=== PATIENT | male | born 1950 | race Caucasian/White ===

== ENCOUNTER → 2016-07-16 | Outpatient (CLI) | payer BC, OTHER ==
[~2016-07-16] MED LIST: AMLO5TAB4 PO; ASPI81TA28 PO; ATOR-24 PO; BUPR-79 PO; CARV12.52 PO; CLOP1TAB5 PO; CPAP; FERR1TAB23 PO; GLC/500 PO; LOSA1TAB38 PO; MULTTAB PO; OXGN; PANT1TAB48 PO; TERA5CAP PO
[2016-07-16 17:36] LABS: BASO % 0.3 %; BASO ABS # 0.02 K/uL (0-0.2); COMPLETE YES; EOS % 3.6 %; HEMATOCRIT 41.8 % (42-52); LYMPH % 31.6 %; LYMPH ABS # 2.13 K/uL (1.2-3.4); MEAN CELL VOLUME 92.1 fL (80-100); MEAN CORPUSCULAR HEMOGLOBIN 32.4 pg (25-34); MEAN CORPUSCULAR HGB CONC 35.2 g/dl (32-36); MEAN PLATELET VOLUME 10.2 fL (7.4-10.4); MONO % 11.6 %; NEUT % 52.9 %; PLATELET COUNT 213 K/uL (130-400); RED BLOOD COUNT 4.54 M/uL (4.7-6.1); WHITE BLOOD COUNT 6.74 K/uL (4.8-10.8)
[2016-07-16 17:38] LABS: URINE APPEARANCE CLEAR (CLEAR); URINE BILIRUBIN NEG (NEG); URINE COLOR YELLOW; URINE NITRITE NEG (NEG); URINE SPECIFIC GRAVITY 1.014 (1.000-1.030); UROBILINOGEN NEG (NEG)
[2016-07-16 17:39] LABS: MANUAL MICROSCOPIC REQUIRED? NO; REVIEW REQ? NO
[2016-07-16 17:45] LABS: PROTHROMBIN TIME (PATIENT) 10.6 SECONDS (9.0-12.0)
[2016-07-16 18:07] LABS: BLOOD UREA NITROGEN 14 mg/dl (7-18); BUN/CREATININE RATIO 14.6 (10-20); CALCIUM 9.2 mg/dl (8.5-10.1); CARBON DIOXIDE 30 mmol/L (21-32); CHLORIDE 104 mmol/L (98-107); CREATININE 0.99 mg/dl (0.60-1.40); GLUCOSE 125 mg/dl (70-99); POTASSIUM 4.3 mmol/L (3.5-5.1); SODIUM 141 mmol/L (136-145)
== END | disposition home or self-care (01) ==
LOC: C.LAB1850 17:02
PROVIDERS: ATTEND Internal Medicine
DX: R55 Syncope and collapse (principal)

== ENCOUNTER 2016-08-07 08:31 | Observation (INO) | payer BC, OTHER ==
[2016-08-07] VITALS (11 sets, daily range): BP systolic 119–134; BP diastolic 78–86; PULSE 76–82; TEMP 37–37.2; O2SAT 93–95; BMI 39.0; BMI 36.5
[~2016-08-07] VITALS: Ht 167.6 cm; Wt 102.0 kg
[~2016-08-07 08:31] MED LIST changes: +CEFAZOLIN 1000MG/55 ML D5W IV SCH; +CEFAZOLIN 2000 MG/60 ML D5W 60 ML IV SCH; +LACTATED RINGER'S 1000ML 1,000 ML IV SCH; -OXGN
[2016-08-07] MEDS ORDERED: OXGN (09:18)
--- NOTE | 2016-08-07 10:43 | History & Physical Bridge Note ---
H&P Re-Evaluation Bridge Note: I have examined the patient, reviewed the History & Physical and in the interval since the performance of the History & Physical I have noted the following changes of clinical significance: No changes noted. I discussed the indications, procedure, risks and alternatives of pacemaker implantation and loop recorder explantation the patient and his family and they understand and he agrees to proceed. Consent obtained.
--- NOTE | 2016-08-07 10:43 | Procedure Note ---
Pre-Mod Sedation Assessment General Date of Moderate Sedation: Aug 07, 2016. Vital Signs: Vital Signs Past 12 Hours Date Time Temp Pulse Resp B/P Pulse Ox O2 Delivery O2 Flow Rate FiO2 08/07/16 09:05 37.2 78 20 134/83 95 Room Air Review Cardiovascular: regular rate, rhythm Abdomen: normal bowel sounds Lungs: lungs clear Pre-Sedation Airway Assessment Oral Cavity: Chipped Teeth, Capped Teeth Smoking Status: Never Smoker Procedure Planning Contraindications-for Mod Sed: None Yes Notes The planned sedation has been discussed with the patient and consent obtained. I have identified the patient, determined the appropriateness of sedation and have assessed the patient immediately prior to the procedure. All medicine(s) and interventions are by my order.
[2016-08-07] MEDS ORDERED: FENTANYL CITRATE INJ 50 MCG/1 ML 2 ML VIAL ONE (11:04)
[2016-08-07] MEDS ORDERED: LIDOCAINE HCL 1% 20 ML VIAL ONE ×2 (11:05→11:43)
[2016-08-07] MEDS ORDERED: MIDAZOLAM HCL 5 MG/ML 1 ML VIAL ONE (11:05)
[2016-08-07] MEDS ORDERED: BACITRACIN OINT 0.9 GM PKT ONE ×2 (11:05→12:46)
[2016-08-07] MEDS ORDERED: BACITRACIN 50000 UNIT VIAL ONE (11:05)
--- NOTE | 2016-08-07 13:04 | Procedure Note ---
Post-Mod Sedation Assessment General Date of Moderate Sedation Aug 07, 2016. Vital Signs: Vital Signs Past 12 Hours Date Time Temp Pulse Resp B/P Pulse Ox O2 Delivery O2 Flow Rate FiO2 08/07/16 12:50 85 16 124/85 94 Room Air 08/07/16 12:45 Room Air 08/07/16 12:40 Room Air 08/07/16 12:35 72 16 120/79 95 Room Air 08/07/16 09:05 37.2 78 20 134/83 95 Room Air Review - Discharge Criteria Vital Signs Stable: Yes Alert/Oriented/Conversant: Yes Returned to Baseline Mental St: Yes Nausea Absent/Minimal: Yes Pain/Discomfort/Absent/Minimal: Yes Normal/Baseline Respirations: Yes Active Bleeding?: No
--- NOTE | 2016-08-07 13:06 | Cardiology Procedure Brief Nt ---
Preliminary Cardiology Note Procedure Date Aug 07, 2016. Pre-Procedure Diagnosis sick sinus syndrome Post-Procedure Diagnosis same Procedure(s) Performed Dual-chamber pacemaker implantation Loop recorder explantation Public Address System Operator Dr. Cruz Rental Counter Clerk(s) none Estimated Blood Loss 50 cc Preliminary Findings Good lead position, good measurements Recommendations Monitor overnight Specimens Old loop recorder, return to Medtronic Anesthesia local with sedation Complication(s) None Disposition PCU
[2016-08-07] MEDS ORDERED: ACETAMINOPHEN 325 MG TAB PO PRN (13:15)
[2016-08-07] MEDS ORDERED: KETOROLAC TROMETHAMINE 10 MG TAB PO PRN (13:15)
[2016-08-07] MEDS ORDERED: IV FLUIDS COMPLETED PRN (15:15)
--- NOTE | 2016-08-07 15:15 | OPERATIVE REPORT ---
DATE OF OPERATION: 08/07/2016 PREOPERATIVE DIAGNOSIS: Sick sinus syndrome. POSTOPERATIVE DIAGNOSIS: Same. PROCEDURE: 1. Left subclavian venogram. 2. Dual chamber implantable cardioverter-defibrillator implantation. 3. Loop recorder explantation. SURGEON: Jayson Cruz M.D. ANESTHESIA: Local with sedation. HISTORY OF PRESENT ILLNESS: This is a 66-year-old gentleman who has a history of coronary artery disease as well as syncope on 06/01/2016. The initial workup was negative and he had a loop recorder implanted on 07/26/2015. Interrogation of his loop recorder showed a heart rate of less than 30 beats per minute as well as pauses of up to 4 seconds in duration. A dual chamber pacemaker was recommended; however, the patient refused at the time. He has subsequently reconsidered and presents for loop recorder implantation. PROCEDURE: After obtaining informed consent for the procedure, he was brought to the laboratory on the morning of 08/07/2016 being NPO after midnight. He was identified in the laboratory, prepped and draped in standard sterile manner for a left-sided pacemaker implantation. Dye was injected via the left arm IV site to opacify the left subclavian vein, once this was done left subclavian venipuncture was performed by percutaneous technique and a guidewire placed through the left subclavian vein into the superior vena cava. The area was further infiltrated with 1% lidocaine local anesthetic and a 6 cm incision was made parallel to the left clavicle and 2 cm below it and carried down to the anterior pectoralis fascia. A pacemaker pocket was formed by blunt dissection anterior to the pectoralis fascia and a bacitracin-soaked sponge (50,000 units in 50 mL normal saline solution) was placed in the pocket. An 8-Grenadian Medtronic lead introducer was placed over the guidewire into the left subclavian vein, the dilator and guidewire were removed and a bipolar active fixation steroid-tipped ventricular lead was advanced through the introducer into the superior vena cava. The guidewire was placed back through introducer and introducer stripped away from lead and guidewire. Another 8-Grenadian Medtronic lead introducer was placed over the guidewire into the left subclavian vein, the dilator and guidewire were removed and a bipolar active fixation steroid-tipped atrial lead was advanced through introducer into the superior vena cava. The guidewire was placed through the introducer and introducer stripped away from lead and guidewire. Using a curved stylette, the ventricular lead was advanced through the right ventricular outflow tract into the pulmonary artery and then using a straight stylette was positioned in the right ventricular apex. Thresholds were poor therefore it was positioned in the mid-RVOT. Once in position, the ventricular pacing threshold was evaluated in bipolar configuration at a pulse width of 0.5 milliseconds. The final ventricular pacing threshold was 0.4 volts with a current of 0.4 mA, 5-volt lead impedance was 951 ohms and R-waves were sensed at 17.1 millivolts. Diaphragmatic pacing was not present with a 10 volt bipolar output. The atrial lead was positioned in the region of the atrial appendage and a screw extended fixing the lead in position. Once in position, atrial pacing threshold was evaluated in bipolar configuration at a pulse width of 0.5 milliseconds. Final atrial pacing threshold was 0.3 volts with a current of 0.4 milliamp, 5-volt lead impedance was 544 ohms and P-waves were sensed at 6.6 millivolts. Diaphragmatic pacing was not present with a 10 volt bipolar output. Once leads were in position, they were attached to the anterior pectoralis fascia using 2 sutures of 2-0 silk around each lead collar. The bacitracin-soaked sponge was removed from the pocket, the guidewire was removed from left subclavian vein and hemostasis was obtained. The pacemaker (Medtronic Advisa) was attached to the leads and found to be functioning normally. It was placed in the pocket with the leads coiled beneath it and the incision was closed with a running double subcutaneous closure of 3-0 Vicryl followed by running subcuticular skin closure of 4-0 Vicryl. Bacitracin ointment was placed on incision and a pressure dressing applied. The patient tolerated the procedure well, there were no complications and estimated blood loss was 50 mL. Once the pacemaker was then placed the loop recorder site was anesthetized with 1% lidocaine local anesthetic and a 1.5 cm incision was made and carried down to the loop recorder. The loop recorder was dissected free of tissue and explanted. This incision was closed with a running subcutaneous closure of 4-0 Vicryl followed by running subcuticular skin closure of 4-0 Vicryl. Bacitracin ointment was placed this incision and a pressure dressing applied. The link is a Medtronic model LNQ11, serial number [id number], implanted 07/26/2015. This will be returned to [facility]. The atrial lead is a Medtronic model 5076, serial number [id number] and is a bipolar active fixation steroid-tipped MRI compatible lead. The ventricular lead is a Medtronic model 5076, serial number [id number] and is a bipolar active fixation steroid-tipped MRI compatible lead. Pacemaker is a Medtronic Advisa DR MRI SureScan model A2DR01, serial number [id number]. The pacemaker was reprogrammed in the laboratory to final setting. GAYATRI
[2016-08-07] MEDS: CEFAZOLIN IV 2,000 MG in DEXTROSE 5% 50ML 50 ML IV SCH (19:45)
[2016-08-07] MEDS: METFORMIN HCL 500 MG TAB PO SCH (21:09)
[2016-08-07] MEDS: CARVEDILOL 12.5 MG TAB PO SCH (21:09)
[2016-08-08] VITALS: BP 103/70; PULSE 84; TEMP 37; O2SAT 92; O2SAT 98
[2016-08-08] MEDS: CEFAZOLIN IV 2,000 MG in DEXTROSE 5% 50ML 50 ML IV SCH ×2 (03:50→12:05)
[2016-08-08 04:00] VITALS: BP 99/67; PULSE 74; TEMP 36.8; O2SAT 92
--- NOTE | 2016-08-08 06:43 | DIAGNOSTIC IMAGING REPORT ---
CHEST 2 VIEWS ROUTINE CLINICAL HISTORY: Checks x-ray status post pacemaker placement COMPARISON STUDY: 07/22/2015 FINDINGS: The cardiac and mediastinal contours remain stable. There has been interval placement of a dual-chamber left subclavian central venous pacemaker. Electrodes position is unremarkable. There is no failure. There is no focal pulmonary consolidation. There are no pleural effusions. No pneumothorax is visualized.[ IMPRESSION: No evidence of pneumothorax status post placement of a left subclavian dual-chamber central venous pacemaker. Electronically signed by: Allan Delaney M.D. 08/08/2016 6:42 AM Dictated Date/Time: 08/08/2016 6:41 AM
[2016-08-08 07:26] VITALS: BP 112/70; PULSE 73; TEMP 36.8; O2SAT 94
--- NOTE | 2016-08-08 08:33 | Discharge Instructions ---
Discharge Instructions Admission Sick Sinus Syndrome Discharge Discharge Diagnosis / Problem: Dual-chamber pacemaker implantation, loop recorder explantation Discharge Goals Goal(s): Improve disease control Activity Recommendations Activity Limitations: as noted below ACTIVITY RECOMMENDATIONS: * Do not raise affected arm over head for 2 weeks. SPECIAL CARE INSTRUCTIONS: * If bleeding occurs, apply direct pressure to area for 5 minutes. * Call your doctor if you have severe pain, fever, drainage or bleeding at site. * Keep dressing on and dry for 48 hours then remove. * Keep any scheduled doctor's appointment. * Implant Card - hand held device with website information given. SKIN IRRITATION: * You may experience some redness and/or swelling in the area where radiation was administered. If any skin irritation occurs, please contact your family physician. FOLLOW UP VISIT: 08/11/16 @ 10:15 am . Current Hospital Diet Patient's current hospital diet: AHA Diet (Heart Healthy) Discharge Diet Recommended Diet: AHA Diet (Heart Healthy) Pending Studies Studies pending at discharge: no Medical Emergencies . Who to Call and When: Medical Emergencies: If at any time you feel your situation is an emergency, please call 911 immediately. . Non-Emergent Contact Non-Emergency issues call your: [employer] . . "Provider Documentation" section prepared by Katheryn Gary. VTE Core Measure Inpt VTE Proph given/why not?: Treatment not indicated
[2016-08-08 08:51] VITALS: Ht 167.6 cm; Wt 102.0 kg
[2016-08-08] MEDS ORDERED: AMLODIPINE BESYLATE 5 MG TAB PO SCH (09:00)
[2016-08-08] MEDS ORDERED: ATORVASTATIN 40 MG TAB PO SCH (09:00)
[2016-08-08] MEDS ORDERED: PANTOprazole SOD 40 MG TAB PO SCH (09:00)
[2016-08-08] MEDS ORDERED: LOSARTAN POTASSIUM 50 MG TAB PO SCH (09:00)
[2016-08-08] MEDS ORDERED: CLOPIDOGREL BISULFATE 75 MG TAB PO SCH (09:00)
[2016-08-08] MEDS ORDERED: ASPIRIN 81 MG ECTAB PO SCH (09:00)
--- NOTE | 2016-08-08 09:06 | Cardiology Follow-Up ---
Subjective Date of Service: Aug 08, 2016. Pt evaluation today including: conversation w/ patient, physical exam, lab review, review of studies, review of inpatient medication list History of Present Illness Patient with sick sinus syndrome, post dual-chamber pacemaker implantation 08/07. He feels well today, no complaints. Last evening he had some oozing from the incision itself, apply pressure to the incision site stop the bleeding, quit clot was placed over the area although there is no evident bleeding at this time. Hematoma was not present. Today he has no significant discomfort. No other complaints. Social History Smoking Status: Never Smoker History of Alcohol Use: Yes (moderate) Review of Systems Respiratory: No shortness of breath Cardiac: No chest pain Objective Vital Signs Past 12 Hours Date Time Temp Pulse Resp B/P Pulse Ox O2 Delivery O2 Flow Rate FiO2 08/08/16 07:26 36.8 73 16 112/70 94 Room Air 08/08/16 04:00 36.8 74 22 99/67 92 CPAP 08/08/16 04:00 92 Room Air 08/08/16 00:00 98 Room Air 08/08/16 00:00 37.0 84 18 103/70 92 CPAP 08/07/16 21:05 82 126/81 Last Recorded Weight-Kilograms: 102.000 Intake & Output 8-Hour Column 08/07/16 08/07/16 08/08/16 15:59 23:59 07:59 Intake Total 960 ml 100 ml Output Total 825 ml 250 ml Balance 135 ml -150 ml 24-Hour Column 08/08/16 07:59 Intake Total 1060 ml Output Total 1075 ml Balance -15 ml Physical Exam Constitutional: Level of Distress: NAD Lungs: Auscultation: breath sounds normal Extremities: no edema Data Laboratory Results: Last 24 Hours Test 08/07/16 09:03 08/07/16 16:04 08/07/16 20:21 Bedside Glucose 117 mg/dl 132 mg/dl 123 mg/dl Imaging: Chest x-ray shows good lead position and no pneumothorax EKG: Sinus rhythm with intrinsic AV conduction post-pacemaker implantation, appropriate inhibition Telemetry reviewed: Mostly sinus rhythm with occasional atrial pacing appropriately Pacemaker evaluation: Excellent pacing and sensing characteristics. Assessment and Plan 1. Postop day #1: Doing well post-pacemaker implantation, the site looks good, he feels well and the device is functioning well. Stable for discharge.
[2016-08-08] MEDS: CARVEDILOL 12.5 MG TAB PO SCH (09:13)
[2016-08-08] MEDS: METFORMIN HCL 500 MG TAB PO SCH (09:13)
--- NOTE | 2016-08-08 11:35 | Discharge Summary ---
Discharge Summary Admission Date: Aug 07, 2016 at 13:03 Discharge Date: Aug 08, 2016 Discharge Disposition: Home Primary Diagnosis: Sick sinus syndrome Secondary Diagnoses/Problems: Medical Problems: (1) Syncope Status: Acute Procedures: Dual-chamber pacemaker implantation, loop recorder explantation Discharge Instructions Last Recorded Wt (Kilograms): 102.000 Activity Recommendations: limitations as noted below Diet At Discharge: low sodium, low cholesterol Allergies: Coded Allergies: DAWN Inhibitors (Verified Adverse Reaction, Unknown, cough, 08/07/16) Additional Instructions: ACTIVITY RECOMMENDATIONS: * Do not raise affected arm over head for 2 weeks. SPECIAL CARE INSTRUCTIONS: * If bleeding occurs, apply direct pressure to area for 5 minutes. * Call your doctor if you have severe pain, fever, drainage or bleeding at site. * Keep dressing on and dry for 48 hours then remove. * Keep any scheduled doctor's appointment. * Implant Card - hand held device with website information given. SKIN IRRITATION: * You may experience some redness and/or swelling in the area where radiation was administered. If any skin irritation occurs, please contact your family physician. FOLLOW UP VISIT: Keep any scheduled doctor appointments. Special Care: Call your doctor if: * Temperature above 101 degrees * Pain not relieved by pain medicine ordered * There is increased drainage or redness from any incision * You have any unanswered questions or concerns. Avoid all tobacco products. If you need help to stop smoking, call [place]'s FREE QUITLINE at . This is a free call. Admission HPI Mr. Hannah is a 65-year-old white male with a history of CAD, type 2 diabetes mellitus, hyperlipidemia, hypertension, gout, and a history of syncope s/p implantable loop recorder Patient had a syncopal episode on 06/01/2016. was in his usual state of health on 06/01/2016 and went to quaker as he normally does. He stood for about 5 -10 minutes, but then he sat down and felt "warm all over", followed by the development a vacuous stare with dilated pupils and was nonresponsive. His family members got him down to the ground, and he came around very quickly and was mentating quite clearly. He had no recollection of this incident. He felt fine afterwards. His blood sugar and blood pressure were both within normal limits following this incident. His appetite and diet were stable leading up to this event. He did not have any associated nausea, vomiting, or diaphoresis. He does not recall any palpitations or chest discomfort. We interrogated his implantable loop recorder on 06/02/2016, and although we could not find any dysrhythmias associated with a syncopal episode the day before, he was noted to have periodic bradycardia with heart rates < 30 bpm, as well as cardiac pauses lasting up to 4 seconds. We strongly recommended placement of a dual-chamber pacemaker at that point, but patient refused. Patient denies any recurrent syncopal episodes, near syncopal episodes, weak spells or dizzy spells. He further denies any limiting cardiopulmonary symptoms or any recent changes in exertional tolerance. He specifically denies any exertional angina pectoris, chest pain, heaviness, tightness, or pressure. Denies any exertional neck, jaw, back, or arm pain. He denies any shortness of breath or unusual dyspnea on exertion. He denies any palpitations or tachypalpitations. He further denies any weak spells, dizzy spells or lightheaded spells. He remains compliant with his medications and denies any adverse side effects. Admission Physical Exam Additional Comments: General: Patient is in no acute distress. HEENT: Head is atraumatic, normocephalic. EOMs intact. Sclera anicteric. Facies symmetric. No perioral cyanosis. Neck: No thyromegaly, adenopathy, or JVD. Chest and lungs: Clear to auscultation throughout all lung lane, no wheezes or rales. CVS: S1 and S2 are regular without murmur, gallop, or rub. PMI is nondisplaced. No lifts, heaves, or thrills. No abdominal aortic or renal bruits. Abdominal exam: Bowel sounds are present. No masses, organomegaly, or tenderness. Extremities: No clubbing, cyanosis, or edema. Neurologic exam: Patient is awake, alert, and oriented. Pleasant and cooperative. Answers questions appropriately. Speech is clear. Normal movement in all 4 extremities. Gait pattern is slightly wide based, otherwise normal. Sensation intact to light touch over bilateral upper and lower extremities. Hospital Course Patient is a 66-year-old male with significant bradyarrhythmias documented on loop recorder underwent dual-chamber pacemaker implantation and loop recorder explantation on 2/2/[address] Cruz. He tolerated the procedure well. Device check the following day showed excellent sensing and pacing characteristics. CXR showed good lead placement and no evidence of pneumothorax. He was discharge home on 08/08/15. He will have follow-up in 3 days for an incision check and in 1 month for pacemaker check. Total time spent on discharge = This includes examination of the patient, discharge planning, medication reconciliation, and communication with other providers.
[2016-08-08 12:09] VITALS: BP 113/69; PULSE 101; TEMP 36.7; O2SAT 93
[2016-08-08 12:12] VITALS: BP 113/69; PULSE 101; TEMP 36.7; O2SAT 93
== END 2016-08-08 13:00 | disposition home or self-care (01) ==
LOC: C.ACU 08:31 → C.2T 13:03
PROVIDERS: ADMIT Internal Medicine Cardiovascular Disease; ATTEND Internal Medicine Cardiovascular Disease
DX: I49.5 Sick sinus syndrome (principal); I25.10 Atherosclerotic heart disease of native coronary artery without angina pectoris; I10 Essential (primary) hypertension; E11.9 Type 2 diabetes mellitus without complications; E78.5 Hyperlipidemia, unspecified; E66.9 Obesity, unspecified; G47.33 Obstructive sleep apnea (adult) (pediatric); Z79.82 Long term (current) use of aspirin

== ENCOUNTER → 2016-12-28 | Outpatient (CLI) | payer BC, OTHER ==
[~2016-12-28] MED LIST changes: -BUPR-79 PO; -CEFAZOLIN 1000MG/55 ML D5W IV SCH; -CEFAZOLIN 2000 MG/60 ML D5W 60 ML IV SCH; -LACTATED RINGER'S 1000ML 1,000 ML IV SCH; +OXGN
--- NOTE | 2016-12-29 06:22 | PAP/PSG TECHNICIAN REPORT ---
[facility] Digital Hardware Design Engineer Polysomnogram Report Study name: None Report date: 12/29/2016 Study date: 12/28/2016 Referring Physician: Rogelio Ramirez M.D. Name: ANURADHA HANNAH Denzel Interpreting Physician: Rogelio Ramirez M.D. Date of : 1950 Digital Hardware Design Engineer: Ciirlo Lee RPSGT. Sex: Male Age: 66 StudyType: PSG PAP Weight: 240 lbs Height: 66 years, Height 5' 5" BMI: 39.93 Medications: AMLODIPINE BESYLATE 5 MG, ASPIRIN 81 MG, ATORVASTATIN CALCIUM 40 MG, CARVEDILOL 25 MG, CLOPIDOGREL BISULFATE 75 MG, IRON, LISINOPRIL 40 MG, METFORMIN HCL 500 MG, PANTOPRAZOLE SODIUM 40 MG, TERAZOSIN HCL 5 MG Patient History PATIENT HAD A SLEEP STUDY DONE IN SEPTEMBER OF 2014. HE WAS POSITIVE FOR LAURENT WITH AN AHI OF 77.9/HR. HE CURRENTLY IS WEARING CPAP AT PRESSURE OF 12. ALSO, HE HAS BEEN WEARING 2L/MIN OF SUPPLEMENTAL OXYGEN AT NIGHT. HE IS HERE FOR AN UPDATE AND TO CHECK HIS OXYGEN LEVELS. RM 5 Parameters Monitored NPSG: E1-M2, E2-M1, Fp1-M2, Fp2-M1, F3-M2, F4-M2, F4-M1, C3-M2, C4-M2, C4-M1, O1-M2, O2-M2, O2-M1, T3-M2, T4-M1, P3-M2, P4-M1, CHIN1, CHIN2, HR, EKG, Legs, PFLOW, SNOR, FLOW, CFLOW, Tidal Volume, THOR, ABDO, SpO2, PLTH, CPRESS, ETCO2 Wave, ETCO2, pH Sleep Architecture Sleep Stages Time at Lights Off 10:57:57 PM STAGES Time (min.) TST (%) Time at Lights On 5:47:57 AM Wake 224.5 -- Total Recording Time (TRT) 410.50 min. N1 2.5 1 Total Sleep Period (TSP) 188.0 min. N2 86.5 47 Total Sleep Time (TST) 185.5min. N3 70.5 38 Awake Time 225.0 min. REM 26.0 14 Wake after Sleep Onset 95.0 min. Sleep Efficiency (SE) 45 % Sleep Onset Latency (ROSE) 129.5 min. Number of Stage 1 Shifts None Awakenings 4 Stage Changes 18 Number of REM periods 3 REM 26.0 14 REM Latency 34.0 min. NREM 159.5 86 Body Position Analysis Supine Right Left Side Prone Vertical Total Sleep Time (min.) 361.0 0.0 0.0 0.00 0.0 0.0 Total Sleep Time (%) 100% 0% 0% 0 0% N/A% Total Sleep Time REM (min.) 26.0 0.0 0.0 None 0.0 0.0 Total Sleep Time NREM (min.) 159.5 0.0 0.0 None 0.0 0.0 Intermittent Wake (min.) 175.5 49.0 0.0 None 0.0 0.0 Total Sleep Period (%) 100% None None None None None Arousals Myoclonus (PLM) * Events Count Index Events Count Index Spontaneous 4 1 Events Awake (PLMW) 216 57.7 Respiratory 5 1.6 Events Asleep w/ Arousal (PLMA) 7 2.3 PLM 7 2 Events Asleep w/o Arousal (PLMS) 76 24.6 Snoring 3 1 Total Asleep 83 26.8 Total 19 6 Total 299 44 Respiratory Analysis * CA OA MA CH H RERA Total Count 41 2 2 0 56 2 101 Index 13.3 0.6 0.6 0 18.1 1 33.3 Mean Duration 21.3 22.5 19.2 0.00 21.4 14.0 21.2 Longest Duration 31.7 26.1 23.9 0.00 23.9 15.3 34.0 Respiratory Event Summary Total Supine ~Supine Right Left Prone REM NREM Apneas Count 45 45 N/A N/A N/A N/A 0 45 Index 14.6 15 N/A N/A N/A N/A 0 17 Hypopneas (4% Desat) Count 56 56 N/A N/A N/A N/A 9 47 Index 18.1 18.1 N/A N/A N/A N/A 20.8 17.7 Apneas & All Hypopneas Count 101 101 N/A N/A N/A N/A 9 92 Index 32.7 33 N/A N/A N/A N/A 20.8 34.6 Respiratory Events (Optic Fibre Drawer+All Hyp+RERA) Count 101 103 N/A N/A N/A N/A 9 92 Index 33.3 33 N/A N/A N/A N/A 20.8 35.4 Respiratory Related Arousal Count 5 103 N/A N/A N/A N/A 0 5 Index 1.6 2 N/A N/A N/A N/A 0 2 Snoring Analysis Supine Right Left Prone REM NREM Total Snore duration 1.4 min Snores count 52 N/A N/A N/A 3 49 52 Snore mean duration 1.6 Sec Snores index 17 N/A N/A N/A 6.9 18.4 16.8 TST with snoring (%) 0.7% Desaturation Event Summary: Minimum %SpO2 Event Count Mean/Min/Max Duration(sec.) Desaturation Index % Time In Bed > 90 113 24.7 / 10.0 / 59.8 46.7 35.7 86 - 90 52 24.0 / 7.0 / 59.8 12.2 62.7 81 - 85 0 N/A 0.0 1.6 76 - 80 0 N/A 0.0 0.0 71 - 75 0 N/A 0.0 0.0 66 - 70 0 N/A 0.0 0.0 61 - 65 0 N/A 0.0 0.0 56 - 60 0 N/A 0.0 0.0 51 - 55 0 N/A 0.0 0.0 < 50 0 N/A 0.0 0.0 Total REM NREM Awake <50% 0.0 min. 0.0 min. 0.0 min. 0.0 min. 51 - 60% 0.0 min. 0.0 min. 0.0 min. 0.0 min. 61 - 70% 0.0 min. 0.0 min. 0.0 min. 0.0 min. 71 - 80% 0.0 min. 0.0 min. 0.0 min. 0.0 min. 81 - 90% 262.0 min. 20.7 min. 124.1 min. 117.2 min. 91 - 100% 145.2 min. 5.3 min. 35.3 min. 104.7 min. Average 90 89 89 90 Minimum SpO2 82 82 84 83 Desaturation Event Index 18.3 23.1 34.6 6.1 # Desat. Events below 89% 119 10 92 17 Time(%) with Saturation below 89% 29.3 3.1 21.4 4.9 Time(min.) with Saturation below 89% 119.4 12.5 87.0 19.9 Time (mins) REM (mins) NREM (mins) % of TST SpO2 Below 90% 102 10 N92 66.9 SpO2 Below 88% 44 0 0 32 Heart Rate Analysis Min (bpm) Max (bpm) Average (bpm) Awake 59 127 66 NREM 58 77 61 REM 59 73 62 Overall 58 77 61 Supplemental O2 Values Minimum O2 level: None Value Start Time End Time Digital Hardware Design Engineer Comments Mr. Hannah slept in the right and supine positions. PVC's noted. Leg movements noted. No bruxism noted. CPAP was initiated at +4 CMH2O and up-titrated to an optimal level of +11 CMH2O. At this pressure, central apneas were noted then pressure was decreased to 9cwp. Central apneas continued throughout stage 2 and 3 so, BIPAP was started at 12/8. BIPAP was increased to 13/9 and a rate of 12 was added due to continued central apneas. (2:32 AM) The rate was then increased to 14. BIPAP was increased to 19/11, which nearly eliminated all respiratory events. A Resmed Mirage FX nasal mask was used during titration Mr. Hannah awoke to use the restroom 0 times during the night. Mr. Hannah stated I slept as well as I do when I am in my own bed. I started supplemental oxygen at 1l/min around 5:30 AM. /11 with rate 14. BIFLEX 3. 1l/min supplemental oxygen was added. The final report will be interpreted and signed by a sleep physician. The completed physician report will then be placed in the patient medical record. Therapy Event: Therapy (cm H20) 5 7 9 10 11 13/9 Total Time at Pressure (min.) 138.7 5.8 27.5 8.6 20.9 23.9 TST at Pressure (min.) 9.2 5.8 27.5 8.6 20.4 23.9 # Periods 1 1 2 2 1 1 Sleep Onset (min.) 129.5 0.0 0.0 0.0 0.0 0.0 REM Onset (min.) N/A N/A 18.9 N/A 0.0 N/A Sleep Efficiency % 6 100 100 100 97 100 Wakefulness (%) 93.3 0.0 0.0 0.0 2.4 0.0 Wakefulness (min.) 129.5 0.0 0.0 0.0 0.5 0.0 NREM 1 (%) 1.1 0.0 0.0 0.0 2.4 0.0 NREM 1 (min.) 1.5 0.0 0.0 0.0 0.5 0.0 NREM 2 (%) 5.6 100.0 34.1 70.4 57.5 0.0 NREM 2 (min.) 7.7 5.8 9.4 6.0 12.0 0.0 NREM 3 (%) 0.0 0.0 56.4 29.6 0.0 100.0 NREM 3 (min.) 0.0 0.0 15.5 2.5 0.0 23.9 REM (%) 0.0 0.0 9.5 0.0 37.7 0.0 REM (min.) 0.0 0.0 2.6 0.0 7.9 0.0 # Arousals 6 2 2 1 3 0 Arousal Index 39.0 20.6 4.4 7.0 8.8 0.0 # Snore 4 14 11 5 6 8 Snore Index 26.0 144.2 24.0 34.9 17.6 20.1 AHI 13.0 41.2 24.0 83.9 47.0 75.2 AHI Supine 13.0 41.2 24.0 83.9 47.0 75.2 AHI Non-Supine N/A N/A N/A N/A N/A N/A NREM AHI 13.0 41.2 21.7 83.9 67.0 75.2 REM AHI N/A N/A 46.0 N/A 15.2 N/A RDI 19.5 51.5 24.0 83.9 47.0 75.2 # Obstructive 0 0 0 0 0 2 # Central Ap 0 0 1 10 8 22 # Mixed 0 0 0 0 2 0 # Hypopneas 2 4 10 2 6 6 RERAS 1 1 0 0 0 0 Total Respiratory Events 3 5 11 12 16 30 Time Below SpO2 89.00% (min.) 0.1 1.1 12.9 3.4 10.1 9.0 Mean NREM SpO2 (%) 90 90 89 89 90 90 Mean REM SpO2 (%) N/A N/A 87 N/A 87 N/A Mean Sleep SpO2 (%) 90 90 89 89 89 90 Min NREM SpO2 (%) 88 87 86 85 85 84 Min REM SpO2 (%) N/A N/A 83 N/A 82 N/A Position Supine (min.) 9.2 5.8 27.5 8.6 20.4 23.9 Position Non-supine (min.) 0.0 0.0 0.0 0.0 0.0 0.0 LM Index Sleep 175.4 20.6 4.4 0.0 23.5 15.0 LM Index NREM 175.4 20.6 2.4 0.0 33.5 15.0 LM Index REM N/A N/A 23.0 N/A 7.6 N/A Mean Heart Rate (bpm) 63 62 62 61 62 61 Min Heart Rate (bpm) 60 60 59 59 58 58 Therapy (cm H20) 14/9 15/9 16/9 17/10 18/10 19/11 Total Time at Pressure (min.) 5.1 8.1 15.6 7.7 4.9 143.1 TST at Pressure (min.) 5.1 7.1 14.6 7.7 4.9 50.6 # Periods 1 1 1 1 1 1 Sleep Onset (min.) 0.0 0.0 0.0 0.0 0.0 0.0 REM Onset (min.) 5.0 0.0 0.0 N/A N/A N/A Sleep Efficiency % 100 87 93 100 100 35 Wakefulness (%) 0.0 12.4 6.4 0.0 0.0 64.6 Wakefulness (min.) 0.0 1.0 1.0 0.0 0.0 92.5 NREM 1 (%) 0.0 6.2 0.0 0.0 0.0 0.0 NREM 1 (min.) 0.0 0.5 0.0 0.0 0.0 0.0 NREM 2 (%) 0.0 18.5 27.5 100.0 100.0 18.9 NREM 2 (min.) 0.0 1.5 4.3 7.7 4.9 27.1 NREM 3 (%) 98.5 0.0 0.0 0.0 0.0 16.4 NREM 3 (min.) 5.0 0.0 0.0 0.0 0.0 23.5 REM (%) 1.5 62.9 66.1 0.0 0.0 0.0 REM (min.) 0.1 5.1 10.3 0.0 0.0 0.0 # Arousals 0 1 2 1 0 1 Arousal Index 0.0 8.5 8.2 7.8 0.0 1.2 # Snore 1 0 0 1 0 2 Snore Index 11.7 0.0 0.0 7.8 0.0 2.4 AHI 70.4 42.3 28.7 39.0 36.8 0.0 AHI Supine 70.4 42.3 28.7 39.0 36.8 0.0 AHI Non-Supine N/A N/A N/A N/A N/A N/A NREM AHI 71.4 60.0 69.7 39.0 36.8 0.0 REM AHI 0.0 35.3 11.6 N/A N/A N/A RDI 70.4 42.3 28.7 39.0 36.8 0.0 # Obstructive 0 0 0 0 0 0 # Central Ap 0 0 0 0 0 0 # Mixed 0 0 0 0 0 0 # Hypopneas 6 5 7 5 3 0 RERAS 0 0 0 0 0 0 Total Respiratory Events 6 5 7 5 3 0 Time Below SpO2 89.00% (min.) 2.1 2.1 3.6 2.6 3.5 48.9 Mean NREM SpO2 (%) 90 90 90 89 88 87 Mean REM SpO2 (%) 86 90 90 N/A N/A N/A Mean Sleep SpO2 (%) 90 90 90 89 88 87 Min NREM SpO2 (%) 85 87 86 86 85 86 Min REM SpO2 (%) 86 85 86 N/A N/A N/A Position Supine (min.) 5.1 7.1 14.6 7.7 4.9 50.6 Position Non-supine (min.) 0.0 0.0 0.0 0.0 0.0 0.0 LM Index Sleep 0.0 25.4 12.3 23.4 0.0 34.4 LM Index NREM 0.0 30.0 41.8 23.4 0.0 34.4 LM Index REM 0.0 23.5 0.0 N/A N/A N/A Mean Heart Rate (bpm) 60 61 61 61 61 61 Min Heart Rate (bpm) 60 58 59 59 59 59
--- NOTE | 2017-01-02 12:39 | Sleep Study ---
Sleep Study Report Date of Service: 12/28/2016 Sleep Study Report Clinical data: The patient is a 66-year-old male with a BMI of 39.9 referred to the sleep lab for an update on CPAP and oxygen. He had a sleep study done in September of 2014 which showed severe LAURENT with an AHI of 77.9. He is currently using CPAP 12 cm water pressure and oxygen 2 liters/minute at night. Sleep architecture: Total sleep period was 188 minutes. Total sleep time was 185.5 minutes divided between 159.5 minutes in REM sleep and 26 minutes of REM sleep. Sleep onset latency was markedly delayed at 129.5 minutes. REM latency was 34 minutes. Sleep efficiency was severely reduced at 45%. Wake after sleep onset was elevated at 95 minutes. Sleep consisted of stage N1 1%, N2 47% , N3 38%, and REM 14%. Arousal data: 19 arousals were recorded for an index of 6 per hour PLM data: 83 limb movements during sleep were noted for an index of 26.8 per are with an arousal index of 2.3 per hour Respiratory data: The AHI was 32.7. There were 41 central, 2 obstructive, and 2 mixed apneic episodes. Longest apneic episode was 31.7 seconds. There were 56 hypopneas episodes. Longest hypopnea episode was 23.9 seconds. Oximetry data: Nocturnal hypoxemia was seen. Oxygen john was 82% during REM. Mean saturation was 90%. Time below 88% was 44 minutes. EKG data: Heart rates ranged from 58 to 77 beats per minute. PVCs were noted. Nail Setter's comments and treatment summary: Patient slept on the right and supine positions. He used a ResMed Mirage FX nasal mask. He was started on CPAP and was titrated incrementally until 11 cm water pressure. However he developed significant central apneic episodes which required a reduction in his CPAP pressure. He continued to have central apneic episodes and was eventually switched to BiPAP starting with pressure of 13/9 and a backup rate of 12 breaths per minute. Eventually he was titrated up to his final pressure setting of BiPAP 19/11 with a backup rate of 14 breaths per minute. 1 L of oxygen was added. At his final pressure setting, the patient slept for 50.6 minutes with an AHI of 0. Impression: 66-year-old male with severe complex sleep apnea. The patient failed his CPAP titration and eventually was switched to BiPAP with a backup rate. At his final pressure setting of BiPAP 19/11 with a backup rate of 14 and 1 liter/minute oxygen, his AHI was 0. Recommendations: The patient could be switched to BiPAP at the above noted pressure settings. Consideration of ASV may be of benefit. Clinical correlation is needed. Copies To 1: James Chu III, ENT CONSULTANT
== END | disposition home or self-care (01) ==
LOC: C.NEUR 21:00
PROVIDERS: ATTEND Physician Assistant
DX: G47.33 Obstructive sleep apnea (adult) (pediatric) (principal)

== ENCOUNTER → 2017-01-02 | Outpatient (CLI) | payer BC, OTHER ==
[~2017-01-02] VITALS: Ht 167.6 cm; Wt 101.9 kg
[2017-01-02 15:50] VITALS: BP 144/86; PULSE 83; Ht 167.6 cm; Wt 101.9 kg
== END | disposition home or self-care (01) ==
LOC: C.NEUR 15:28
PROVIDERS: ATTEND Physician Assistant
DX: G47.33 Obstructive sleep apnea (adult) (pediatric) (principal)

== ENCOUNTER → 2017-01-10 | Outpatient (CLI) | payer BC, OTHER ==
[2017-01-10 11:07] LABS: BASO % 0.3 %; BASO ABS # 0.02 K/uL (0-0.2); COMPLETE YES; EOS % 2.8 %; IG% 0.1 %; LYMPH % 25.1 %; LYMPH ABS # 1.91 K/uL (1.2-3.4); MEAN CELL VOLUME 92.6 fL (80-100); MEAN CORPUSCULAR HEMOGLOBIN 31.4 pg (25-34); MEAN CORPUSCULAR HGB CONC 33.9 g/dl (32-36); MEAN PLATELET VOLUME 10.7 fL (7.4-10.4); MONO % 10.1 %; NEUT % 61.6 %; PLATELET COUNT 182 K/uL (130-400); RED BLOOD COUNT 4.97 M/uL (4.7-6.1)
[2017-01-10 11:21] LABS: ALT/SGPT 32 U/L (12-78); BLOOD UREA NITROGEN 12 mg/dl (7-18); BUN/CREATININE RATIO 11.2 (10-20); CALCIUM 9.3 mg/dl (8.5-10.1); CARBON DIOXIDE 28 mmol/L (21-32); CHLORIDE 105 mmol/L (98-107); CHOLESTEROL 125 mg/dl (0-200); GLUCOSE 108 mg/dl (70-99); POTASSIUM 4.1 mmol/L (3.5-5.1); SODIUM 139 mmol/L (136-145)
[2017-01-10 11:24] LABS: ALKALINE PHOSPHATASE 104 U/L (45-117); AST/SGOT 22 U/L (15-37); CHOLESTEROL/HDL RATIO 2.7; HDL CHOLESTEROL 46 mg/dl; LDL CHOLESTEROL CALCULATED 56 mg/dl; TRIGLYCERIDES 113 mg/dl (0-150); VERY LOW DENSITY LIPOPROT CALC 23 mg/dl
[2017-01-10 11:26] LABS: ESTIMATED AVERAGE GLUCOSE 123 mg/dl; HA1C FLAG Normal (Normal)
== END | disposition home or self-care (01) ==
LOC: C.LABBC 09:41
PROVIDERS: ATTEND Nurse Practitioner Adult Health
DX: I10 Essential (primary) hypertension (principal); E11.9 Type 2 diabetes mellitus without complications; I25.10 Atherosclerotic heart disease of native coronary artery without angina pectoris; F32.9 Major depressive disorder, single episode, unspecified; E78.5 Hyperlipidemia, unspecified

== ENCOUNTER 2017-05-26 19:11 | Emergency (ER) | payer BC, OTHER ==
[~2017-05-26] VITALS: Ht 167.6 cm; Wt 100.0 kg
[2017-05-26 19:14] VITALS: TEMP 37.4; Ht 167.6 cm; Wt 100.0 kg
[2017-05-26] MEDS ORDERED: KETOROLAC TROMETHAMINE 30 MG/ML VIAL IV STA (19:33)
[2017-05-26] MEDS ORDERED: ACETAMINOPHEN 500 MG TAB PO STA (19:33)
--- NOTE | 2017-05-26 19:37 | EMERGENCY ROOM VISIT NOTE ---
History Report prepared by Haider: Shekhar Espinoza Under the Supervision of: Dr. Jermaine Lozano M.D. First contact with patient: 19:16 Chief Complaint: LEG PAIN,LEG INJURY Stated Complaint: PAIN IN LEGS TROUBLE WALKING History of Present Illness The patient is a 66 year old white male with a past medical history of HTN, HLD , DM type 2, CAD, and a pacemaker who presents to the ED with a cc of constant bilateral leg tightness beginning earlier today after doing PT. Positive sweating and difficulty walking. Negative recent falls, abdominal pain, recent travel, recent outdoor activities, incontinence, numbness, and tingling. He notes that he is in rehab for difficulty with balance and walking for the past 2 -3 years. He reports that he has never had anything like this before, and he has been drinking well. He denies any alcohol use, tobacco use, drug use, and medication allergies. The patient additionally notes that he fell a month ago. Source of History: patient Onset: earlier today Position: leg (bilateral) Quality: other (tightness) Timing: constant Associated Symptoms: No abdominal pain, No numbness Note: Associated symptoms: sweating and difficulty walking Review of Systems See HPI for pertinent positives and negatives. A total of ten systems were reviewed and were otherwise negative. Past Medical & Surgical Medical Problems: (1) CAD (coronary artery disease) (2) Diabetes (3) SSS (sick sinus syndrome) (4) Syncope Surgical Problems: (1) Stented coronary artery Family History Diabetes mellitus Heart disease Social History Smoking Status: Never Smoker Alcohol Use: none Drug Use: none Marital Status: Housing Status: lives with family Occupation Status: retired Current/Historical Medications Scheduled Amlodipine Besylate (Norvasc), 5 MG PO DAILY Aspirin (Aspirin Ec), 81 MG PO DAILY Atorvastatin (Lipitor), 40 MG PO DAILY Carvedilol (Coreg), 12.5 MG PO BID Clopidogrel Bisulfate (Plavix), 75 MG PO DAILY Ferrous Sulfate (Iron), 325 MG PO DAILY Home O2 Therapy (Oxygen), Unknown Dose NA PRN Losartan Potassium (Cozaar), 100 MG PO DAILY Metformin Hcl (Glucophage), 500 MG PO BID Multivitamins/Minerals (Mvi With Minerals), 1 TAB PO DAILY Pantoprazole (Protonix), 40 MG PO DAILY Terazosin Hcl (Hytrin), 5 MG PO HS Miscellaneous Medications [Cpap] Allergies Coded Allergies: DAWN Inhibitors (Verified Adverse Reaction, Unknown, cough, 08/07/16) Physical Exam Vital Signs Date Time Temp Pulse Resp B/P (MAP) Pulse Ox O2 Delivery O2 Flow Rate FiO2 05/26/17 22:40 83 20 145/90 93 Room Air 05/26/17 21:38 89 16 145/92 93 Room Air 05/26/17 19:14 37.4 114 16 149/85 92 Room Air Physical Exam GENERAL: Awake, alert, well-appearing, NAD HENT: Normocephalic, atraumatic. EYES: Normal conjunctiva. Sclera non-icteric. NECK: Supple. No nuchal rigidity. FROM. RESPIRATORY: CTAB, no rhonchi, wheezing, crackles CARDIAC: Tachycardic and regular, no MRG ABDOMEN: Soft, NTND, BS+ MSK: No chest wall TTP, no LE edema NEURO: CN 2-12 intact, 5/5 upper and lower extremity strength, no dysmetria, no drift, good finger to nose, no sensory deficits, no saddle anesthesia, 2+ patellar reflexes, no clonus SKIN: No rash or jaundice noted. Medical Decision & Procedures ER Provider Diagnostic Interpretation: Radiology results as stated below per my review and radiologist interpretation: CT OF THE HEAD WITHOUT CONTRAST CLINICAL HISTORY: Gait instability. COMPARISON STUDY: No previous studies for comparison. CT DOSE: 614.27 mGy.cm TECHNIQUE: Helical axial images of the head were obtained without IV contrast. Automated exposure control was utilized for the study. A dose lowering technique was utilized adhering to the principles of ALARA. FINDINGS: No acute intracranial hemorrhage, midline shift or mass affect is present. Mild ventricular dilatation is likely due to atrophy. This is proportional to sulcal enlargement. White matter hypodensity suggests small vessel disease. There are no findings to suggest acute dural sinus thrombosis or acute territorial infarct. There are no significant calvarial abnormalities. Visualized portions of the sinuses and mastoid air cells are clear. IMPRESSION: No acute intracranial findings. Electronically signed by: Donn Daniels M.D. 05/26/2017 9:07 PM Dictated Date/Time: 05/26/2017 9:05 PM CHEST ONE VIEW PORTABLE CLINICAL HISTORY: Neuropathy. Gait instability. COMPARISON STUDY: Chest radiograph August 08, 2016. FINDINGS: A dual lead left subclavian pacemaker is unchanged in position. Cardiomegaly is unchanged. There is no evidence of pulmonary edema. No pneumothorax or pleural effusion is present. The appearance of the chest is unchanged. IMPRESSION: No acute cardiopulmonary findings. No change in appearance of the chest. Electronically signed by: Donn Daniels M.D. 05/26/2017 9:08 PM Dictated Date/Time: 05/26/2017 9:07 PM Laboratory Results 05/26/17 20:00 Red Blood Count 4.77, Mean Corpuscular Volume 92.9, Mean Corpuscular Hemoglobin 31.7, Mean Corpuscular Hemoglobin Concent 34.1, Mean Platelet Volume 10.2, Neutrophils (%) (Auto) 76.3, Lymphocytes (%) (Auto) 14.9, Monocytes (%) (Auto) 8.0, Eosinophils (%) (Auto) 0.4, Basophils (%) (Auto) 0.2, Neutrophils # (Auto) 7.87, Lymphocytes # (Auto) 1.54, Monocytes # (Auto) 0.83, Eosinophils # (Auto) 0.04, Basophils # (Auto) 0.02 05/26/17 20:00 Test 05/26/17 20:00 05/26/17 21:30 White Blood Count 10.32 K/uL (4.8-10.8) Red Blood Count 4.77 M/uL (4.7-6.1) Hemoglobin 15.1 g/dL (14.0-18.0) Hematocrit 44.3 % (42-52) Mean Corpuscular Volume 92.9 fL (80-100) Mean Corpuscular Hemoglobin 31.7 pg (25-34) Mean Corpuscular Hemoglobin Concent 34.1 g/dl (32-36) Platelet Count 187 K/uL (130-400) Mean Platelet Volume 10.2 fL (7.4-10.4) Neutrophils (%) (Auto) 76.3 % Lymphocytes (%) (Auto) 14.9 % Monocytes (%) (Auto) 8.0 % Eosinophils (%) (Auto) 0.4 % Basophils (%) (Auto) 0.2 % Neutrophils # (Auto) 7.87 K/uL (1.4-6.5) Lymphocytes # (Auto) 1.54 K/uL (1.2-3.4) Monocytes # (Auto) 0.83 K/uL (0.11-0.59) Eosinophils # (Auto) 0.04 K/uL (0-0.5) Basophils # (Auto) 0.02 K/uL (0-0.2) RDW Standard Deviation 47.1 fL (36.4-46.3) RDW Coefficient of Variation 13.9 % (11.5-14.5) Immature Granulocyte % (Auto) 0.2 % Immature Granulocyte # (Auto) 0.02 K/uL (0.00-0.02) Anion Gap 9.0 mmol/L (3-11) Est Creatinine Clear Calc Drug Dose 67.6 ml/min Estimated GFR () 73.3 Estimated GFR (Non- 63.3 BUN/Creatinine Ratio 16.5 (10-20) Calcium Level 9.6 mg/dl (8.5-10.1) Phosphorus Level 1.7 mg/dl (2.5-4.9) Magnesium Level 1.7 mg/dl (1.8-2.4) Total Bilirubin 0.4 mg/dl (0.2-1) Direct Bilirubin 0.1 mg/dl (0-0.2) Aspartate Amino Transf (AST/SGOT) 28 U/L (15-37) Alanine Aminotransferase (ALT/SGPT) 36 U/L (12-78) Alkaline Phosphatase 108 U/L (45-117) Total Protein 7.5 gm/dl (6.4-8.2) Albumin 3.9 gm/dl (3.4-5.0) Lipase 179 U/L (73-393) Lyme Disease IgG Antibody NEG (NEG) Lyme Disease IgM Antibody NEG (NEG) Urine Color YELLOW Urine Appearance CLEAR (CLEAR) Urine pH 6.0 (4.5-7.5) Urine Specific Trumann 1.025 (1.000-1.030) Urine Protein NEG (NEG) Urine Glucose (UA) NEG (NEG) Urine Ketones TRACE (NEG) Urine Occult Blood NEG (NEG) Urine Nitrite NEG (NEG) Urine Bilirubin NEG (NEG) Urine Urobilinogen NEG (NEG) Urine Leukocyte Esterase NEG (NEG) Laboratory results reviewed by me Medications Administered Medications (Trade) Dose Ordered Sig/Michael Route Start Time Stop Time Status Last Admin Dose Admin Ketorolac Tromethamine (Toradol Inj) 30 mg NOW STAT IV 05/26/17 19:33 05/26/17 19:36 DC 05/26/17 20:03 30 MG Acetaminophen (Tylenol Tab) 1,000 mg NOW STAT PO 05/26/17 19:33 05/26/17 19:36 DC 05/26/17 20:03 1,000 MG Potassium/ Phosphorus/Sodium (Phospha 250 Neutral 155-852-130 Mg) 2 tab ONE STAT PO 05/26/17 20:45 05/26/17 21:02 DC 05/26/17 21:16 2 TAB Magnesium Oxide (Mag-Ox Tab) 800 mg NOW STAT PO 05/26/17 21:01 05/26/17 21:02 DC 05/26/17 21:16 800 MG Cyclobenzaprine HCl (Flexeril Tab) 10 mg NOW STAT PO 05/26/17 21:25 05/26/17 21:26 DC 05/26/17 21:31 10 MG ECG Indication: other (leg pain and weakness) Rate (beats per minute): 104 Rhythm: sinus tachycardia Findings: 1st degree AV block, Q waves (lead 3 and AVF), T-wave inversion ( lead 3), other (Normal axis. No other STS changes or TWI) Comparison ECG Date: 08/22 Change: no significant change ED Course 1915: The patient was evaluated in room B7. A complete history and physical exam was performed. 2100: I reevaluated the patient, and told him that he could possibly do inpatient rehab, though it could be done later in the week after the holiday. I will discuss further after the CT scans. 2125: I reassessed the patient, and he states that he does not want to stay and wants to go home. 2230: I reevaluated the patient, and he was able to walk to the bathroom. he is feeling better, and he wants to go home. He will be discharged home. Medical Decision The patient is a 66 year old white male with a past medical history of HTN, HLD , DM type 2, CAD, and a pacemaker who presents to the ED with a cc of constant bilateral leg tightness beginning earlier today after doing PT. Triage Nursing notes reviewed. The patient's presentation and history were concerning for electrolyte abnormality, neuropathy, myelopathy, NPH. Patient was seen and evaluated the bedside. Patient does complain of some tightness in his bilateral lower extremities. Patient denies any recent falls or exposures. Patient denies tick bites. She states that he's had difficulties with walking and his gait stability for 2-3 years. Most recently he has started doing some at home physical therapy for the last 7 weeks approximately 2 times per week. Patient has had increasing difficulty with gait. This sounds like there may be a deconditioning component as the patient does not get up and with this the patient has gained weight. On exam the patient is a fairly nonfocal neurologic exam. Patient has no sensory deficits. Patient does not have any saddle anesthesia and has no evidence of bowel or bladder incontinence. The patient. He also denies any urinary or fecal retention. Patient did have blood work, CT, EKG completed. Patient was also given some medications but stated that he still felt some tightness in his leg. Patient's EKG was unchanged from prior with some inferior Q waves sinus tachycardia. His tachycardia has resolved. Patient denied any chest pain or shortness of breath. Patient's blood work did show some mild hypophosphatemia and hypomagnesemia. This was repleted. Upon reassessment patient was feeling mildly improved after a muscle relaxant. Patient again denies any back pain numbness or weakness. Patient was able to ambulate to and from the bathroom without much difficulty. Patient declined inpatient rehabilitation at this time. Patient denies any back pain has no saddle anesthesia, straight leg raise, neuro deficits, clonus, or decreased reflexes. He also denies any bowel or bladder incontinence or retention. I don 't believe that he needs more advanced imaging at this time. Patient was given warning signs and which she should return. Case management did combined discussed with the patient the possibility of inpatient rehabilitation. Patient was deemed suitable for outpatient follow-up and treatment. The patient and family member were amenable to this plan. They agreed with the plan of care and all cautions were answered. Patient was given strict follow-up , discharge, and return precautions. All questions were answered. Patient was deemed suitable for outpatient follow-up at this time. Patient agreed with the plan of care and was safely discharged home. Medication Reconcilliation Current Medication List: was personally reviewed by me Blood Pressure Screening Patient's blood pressure: Elevated blood pressure Blood pressure disposition: Referred to PCP Impression Primary Impression: Leg pain, left Additional Impressions: Leg pain, right Hypomagnesemia Hypophosphatemia Scribe Attestation The scribe's documentation has been prepared under my direction and personally reviewed by me in its entirety. I confirm that the note above accurately reflects all work, treatment, procedures, and medical decision making performed by me. Departure Information Dispostion Home / Self-Care Referrals James Chu III, CRNP (PCP) Forms HOME CARE DOCUMENTATION FORM, IMPORTANT VISIT INFORMATION Patient Instructions Hypomagnesemia Dc, Hypophosphatemia Dc, My [facility] Additional Instructions Please return to the emergency department if you have worsening or recurrent symptoms not amenable to at-home treatment. Please call for a follow-up appointment with her primary care physician. Please take your medications as prescribed. If you have other concerns and/or complaints please feel free to also call your primary care physician's office or return the ED for further evaluation, management, and treatment. Please return if you lose control of your bladder or bowel. If you've cannot urinate or defecate he should return. If he cannot failure groin area or you have weakness or numbness in the legs please return. You may take 600 mg Ibuprofen every 6 hours as needed for pain with food for no more than 2 consecutive days. You may take tylenol 1000 mg every 6 hours as needed for pain. You may take motrin and tylenol separately or at the same time. Take your medications as prescribed. You have been examined and treated today on an emergency basis only. This is not a substitute for, or an effort to provide, complete comprehensive medical care. It is impossible to recognize and treat all injuries or illnesses in a single emergency department visit. It is therefore important that you follow up closely with [facility], your PCP, and/or your specialist(s). Call as soon as possible for an appointment. Thank you for your time and consideration. I look forward to speaking with you again soon. Please don't hesitate to call us if you have any questions. Problem Qualifiers
[2017-05-26 20:14] LABS: BASO % 0.2 %; BASO ABS # 0.02 K/uL (0-0.2); COMPLETE YES; EOS % 0.4 %; HEMATOCRIT 44.3 % (42-52); IG% 0.2 %; LYMPH % 14.9 %; LYMPH ABS # 1.54 K/uL (1.2-3.4); MEAN CELL VOLUME 92.9 fL (80-100); MEAN CORPUSCULAR HEMOGLOBIN 31.7 pg (25-34); MEAN CORPUSCULAR HGB CONC 34.1 g/dl (32-36); MEAN PLATELET VOLUME 10.2 fL (7.4-10.4); NEUT % 76.3 %; PLATELET COUNT 187 K/uL (130-400); RED BLOOD COUNT 4.77 M/uL (4.7-6.1); WHITE BLOOD COUNT 10.32 K/uL (4.8-10.8)
[2017-05-26 20:33] LABS: BUN/CREATININE RATIO 16.5 (10-20); CALCIUM 9.6 mg/dl (8.5-10.1); CREATININE 1.19 mg/dl (0.60-1.40); MAGNESIUM 1.7 mg/dl (1.8-2.4); POTASSIUM 3.9 mmol/L (3.5-5.1)
[2017-05-26 20:37] LABS: PHOSPHORUS 1.7 mg/dl (2.5-4.9)
[2017-05-26] MEDS ORDERED: POT PHOSPHATE MONOBASIC W/ SOD TAB PO STA (20:45)
[2017-05-26 21:00] LABS: LYME DISEASE AB IGG NEG (NEG); LYME DISEASE AB IGM NEG (NEG)
[2017-05-26] MEDS ORDERED: MAGNESIUM OXIDE 400 MG TAB PO STA (21:01)
--- NOTE | 2017-05-26 21:08 | DIAGNOSTIC IMAGING REPORT ---
CT OF THE HEAD WITHOUT CONTRAST CLINICAL HISTORY: Gait instability. COMPARISON STUDY: No previous studies for comparison. CT DOSE: 614.27 mGy.cm TECHNIQUE: Helical axial images of the head were obtained without IV contrast. Automated exposure control was utilized for the study. A dose lowering technique was utilized adhering to the principles of ALARA. FINDINGS: No acute intracranial hemorrhage, midline shift or mass affect is present. Mild ventricular dilatation is likely due to atrophy. This is proportional to sulcal enlargement. White matter hypodensity suggests small vessel disease. There are no findings to suggest acute dural sinus thrombosis or acute territorial infarct. There are no significant calvarial abnormalities. Visualized portions of the sinuses and mastoid air cells are clear. IMPRESSION: No acute intracranial findings. Electronically signed by: Donn Daniels M.D. 05/26/2017 9:07 PM Dictated Date/Time: 05/26/2017 9:05 PM
--- NOTE | 2017-05-26 21:09 | DIAGNOSTIC IMAGING REPORT ---
CHEST ONE VIEW PORTABLE CLINICAL HISTORY: Neuropathy. Gait instability. COMPARISON STUDY: Chest radiograph August 08, 2016. FINDINGS: A dual lead left subclavian pacemaker is unchanged in position. Cardiomegaly is unchanged. There is no evidence of pulmonary edema. No pneumothorax or pleural effusion is present. The appearance of the chest is unchanged. IMPRESSION: No acute cardiopulmonary findings. No change in appearance of the chest. Electronically signed by: Donn Daniels M.D. 05/26/2017 9:08 PM Dictated Date/Time: 05/26/2017 9:07 PM
[2017-05-26] MEDS ORDERED: CYCLOBENZAPRINE HCL 10 MG TAB PO STA (21:25)
[2017-05-26 21:40] LABS: MANUAL MICROSCOPIC REQUIRED? NO; URINE APPEARANCE CLEAR (CLEAR); URINE BILIRUBIN NEG (NEG); URINE COLOR YELLOW; URINE NITRITE NEG (NEG); URINE SPECIFIC GRAVITY 1.025 (1.000-1.030); UROBILINOGEN NEG (NEG)
[2017-05-26 21:43] LABS: REVIEW REQ? NO; ZZUR CULT IF INDIC CLEAN CATCH NO
[2017-05-26 23:08] VITALS: BP 144/94; PULSE 81; O2SAT 93
== END 2017-05-26 23:10 | disposition home or self-care (01) ==
LOC: C.EDB 19:12
DX: M79.604 Pain in right leg (principal); M79.605 Pain in left leg; E83.42 Hypomagnesemia; E83.39 Other disorders of phosphorus metabolism; I10 Essential (primary) hypertension; E78.5 Hyperlipidemia, unspecified; E11.9 Type 2 diabetes mellitus without complications; I25.10 Atherosclerotic heart disease of native coronary artery without angina pectoris; Z95.0 Presence of cardiac pacemaker; Z95.5 Presence of coronary angioplasty implant and graft; Z83.3 Family history of diabetes mellitus; Z79.82 Long term (current) use of aspirin; Z79.899 Other long term (current) drug therapy; Z79.84 Long term (current) use of oral hypoglycemic drugs

== ENCOUNTER 2019-07-17 05:01 | Inpatient (IN) ==
[2019-07-17] MEDS ORDERED: SODIUM CHLORIDE 0.9% 1000ML 1,000 ML IV ONE (05:09)
--- NOTE | 2019-07-17 05:16 | Emergency Department Note ---
ED Provider Note Name: ANURADHA AGUILAR Age: 68 Arrives Via: Ambulance Informant: Patient, EMS CC: Weakness HPI: 68M arrives for evaluation of generalized weakness. Patient with several months to years of bilateral leg weakness. Notes the last day however feeling very weak. Went to bed and on waking up fell trying to get out of bed. Notes both legs feels a bit weaker than usual, with the right worse than the left. Associated chills, fatigue, productive cough and mild sob. No cp, fevers, headache, neck pain, abdominal pain, nausea, vomiting, diarrhea, urinary symptoms, leg swelling, rashes, nor other symptoms. Chronically on Xarelto for Afib. Denies head injury during fall. No medications prior to arrival. Trying to get up makes worse, laying back makes better. ROS: See above HPI for pertinent positives & negatives. A total of 10 systems reviewed and were otherwise negative. Past Medical History:CAD, DMII, HTN, DLP, LAURENT, PAF, Depression, BPH Past Surgical History:Pacemaker, Hernia repair Family History:Father with [place] Social History:lives with , retired, nonsmoker, rare etoh Home Medications:See Below Allergies:DAWN-I Vitals:Blood Pressure 145/85, Pulse 66, Resp 18, T 37.7C, O2 93% on RA Physical Exam: GENERAL: Patient is unwell and tired appearing and in moderate distress. EYES: No scleral icterus, unremarkable pupils. ENT: Mucous membranes dry, ++ nasal congestion. NECK: No masses appreciated, nomeningismus, trachea is midline. RESPIRATORY: Junky productive cough with crackles throughout. CARDIOVASCULAR: Regular rate and rhythm.No murmurs, rubs, gallops appreciated. GASTROINTESTINAL: Abdomen soft, non-tender, no peritonitis.Bowel sounds positive.No masses appreciated. BACK: No midline tenderness, no CVA tenderness EXTREMITIES: Normal motion all extremities, no cyanosis, no edema. NEUROLOGIC: 4/5 strength bilateral lower legs, 5/5 bilateral arm strength. A lert and oriented, no acute motor or sensory deficits, cranial nerves grossly intact. SKIN: No rash, no jaundice, no diaphoresis. ED Course: Prior Medical Record, Triage/Nursing Notes, Medications, Allergies reviewed by Me Vital Signs: reviewed and remarkable for Low grade fever Labs:Reviewed and remarkable for hypomag Interventions: Saline lock, nss bolus 1 L IV, tylenol 1 gm po, azithro 500mg IV, rocephin 2gm IV, magnesium 2 gm IV Imaging:X ray results are stated below per my interpretation: Chest: 1 view: No infiltrate, no effusion, normal cardiac border. EKG:Per My Interpretation: Indication SHOB/Weak: NSR 95 bpm, qtc 429 with many PVCs. No Ischemia. Compared to EKG 05/26/17 PVCs are now evident. Reassessments/Times: Dr Johnson consulted for further management. Blood pressure:Normal.No Referral necessary Disposition:Hospitalization Differentials: Sepsis, Infectious (UTI/Pneumonia/Meningitis/etc), Metabolic/Electrolyte Abnormality, Cardiac, Dehydration, Anemia, Hepatic, Endocrine, Toxicologic, Neurologic, amongst other pathologies. Medical Decision Makin yr old male with DMII, cad, htn, paf, dlp, laurent, who has had bilateral leg weakness for the last few months without clear cause. Acutely worse this evening in setting of acute respiratory illness. Mild hypoxia, low grade fever, and productive junky cough on arrival. Feel at home thus CT head which was negative. He is very weak and unable to ambulate with right leg weaker than left. This has been ongoing for some time, he is already on xarelto (and has been taking doses) thus I do not feel this is in anyway TPA candidate and I do not feel that stroke alert indicated, especially given likely infectious cause of worsening weakness. He will be given empiric abx for what I presume is community acquired pneumonia that has yet to present on CXR. Blood cultures were obtained though I do not feel this is sepsis given normal LA and WBCs without hypotension nor tachycardia. I had long discussion with patient and and both wishing hospitalization. We furthermore discussed likely longer term disposition of needing rehab facility given degree of leg weakness. Impression: Respiratory Illness Bilateral Leg Weakness Hypomagnesemia Ambulatory Dysfunction Luciano Roy MD Impression & Plan Respiratory illness, Bilateral leg weakness, Hypomagnesemia, Ambulatory dysfunction Past Med/Surg History Medical History (Updated 07/17/19 @ 06:20 by Luciano Roy MD) Myocardial infarction Ventricular fibrillation Surgical History (Updated 05/17/19 @ 08:37 by YAN Martin III) S/P cardiac cath Single vessel distal right coronary artery S/P hernia repair Umbilical S/P wisdom tooth extraction Social History Preferred Language: Martiniquais Visual Impairment: No Limitations Hearing Ability: Normal marital status: Current Living Situation: Spouse current occupational status: retired Feels Safe at Home: Yes Smoking Status: Never smoker Hx Alcohol Use: Yes Alcohol Intake Frequency: Weekly Hx Substance Use: No Childhood Exposure to Second-Hand Smoke: Yes Dental Care, Regularly: Yes Physical Activity Frequency: Does not Exercise Seatbelt Use: always Results & Data Vital Signs Vital Signs - 24 hr 07/17/19 05:08 07/17/19 06:07 07/17/19 06:46 Temperature 37.7 C H Temperature Source Oral Pulse Rate 66 Pulse Rate [Finger] 90 Respiratory Rate 18 18 Respiratory Effort / Characteristics Non-Labored Spontaneous Non-Labored Spontaneous Respiratory Depth Normal Normal Blood Pressure 145/85 H Blood Pressure [Right Arm] 131/82 Blood Pressure Mean 105 Blood Pressure Mean [Right Arm] 98 Pulse Oximetry 96 92 89 L Oxygen Delivery Method Room Air Room Air Room Air Sepsis Recent Fever Within 48 Hours No Sepsis New/Unexplained Change in Mental Status No Sepsis Action Taken by Nursing No Action Required Oxygen Flow Rate - Titration 2 Pulse Oximetry Post Tiitration 96 Laboratory Data Result diagrams: 07/17/19 05:18 07/17/19 05:18 Lab Results 07/17/19 07/17/19 07/17/19 Range/Units 05:18 05:18 05:18 WBC 9.92 (4.8-10.8) K/uL RBC 4.19 L (4.7-6.1) M/uL Hgb 13.1 L (14.0-18.0) g/dL Hct 39.3 L (42-52) % MCV 93.8 (80-100) fL MCH 31.3 (25-34) pg MCHC 33.3 (32-36) g/dL RDW Std Deviation 47.5 H (36.4-46.3) fL RDW Coeff of Jessica 13.9 (11.5-14.5) % Plt Count 133 (130-400) K/uL MPV 10.3 (7.4-10.4) fL Immature Gran % (Auto) 0.2 % Neut % (Auto) 76.2 % Lymph % (Auto) 10.6 % Ulster % (Auto) 12.1 % Eos % (Auto) 0.9 % Baso % (Auto) 0.0 % Immature Gran # (Auto) 0.02 (0.00-0.02) K/uL Neut # (Auto) 7.56 H (1.4-6.5) K/uL Lymph # (Auto) 1.05 L (1.2-3.4) K/uL Ulster # (Auto) 1.20 H (0.11-0.59) K/uL Eos # (Auto) 0.09 (0-0.5) K/uL Baso # (Auto) 0.00 (0-0.2) K/uL PT 11.5 (9.0-12.0) Seconds INR 1.1 (0.9-1.1) Sodium 139 (136-145) mmol/L Potassium 3.8 (3.5-5.1) mmol/L Chloride 105 (98-107) mmol/L Carbon Dioxide 29 (21-32) mmol/L Anion Gap 5.0 (3-11) BUN 23 H (7-18) mg/dl Creatinine 1.02 (0.6-1.4) mg/dl Est Cr Clr Drug Dosing 78.0 ml/min Est GFR ( Amer) 87.1 Est GFR (Non-Af Amer) 75.2 BUN/Creatinine Ratio 22.8 H (10-20) Glucose 144 H (70-99) mg/dl Lactate (0.4-2.0) mmol/L Calcium 8.8 (8.5-10.1) mg/dl Magnesium 1.6 L (1.8-2.4) mg/dl Total Bilirubin 0.6 (0.2-1) mg/dl Direct Bilirubin 0.1 (0-0.2) mg/dl AST 20 (15-37) U/L ALT 33 (12-78) U/L Alkaline Phosphatase 83 (45-117) U/L Troponin I < 0.015 (0-0.045) ng/ml Total Protein 6.9 (6.4-8.2) gm/dl Albumin 3.5 (3.4-5.0) gm/dl Influenza Type A Ag (Neg) Influenza Type B Ag (Neg) 07/17/19 07/17/19 Range/Units 05:18 05:18 WBC (4.8-10.8) K/uL RBC (4.7-6.1) M/uL Hgb (14.0-18.0) g/dL Hct (42-52) % MCV (80-100) fL MCH (25-34) pg MCHC (32-36) g/dL RDW Std Deviation (36.4-46.3) fL RDW Coeff of Jessica (11.5-14.5) % Plt Count (130-400) K/uL MPV (7.4-10.4) fL Immature Gran % (Auto) % Neut % (Auto) % Lymph % (Auto) % Ulster % (Auto) % Eos % (Auto) % Baso % (Auto) % Immature Gran # (Auto) (0.00-0.02) K/uL Neut # (Auto) (1.4-6.5) K/uL Lymph # (Auto) (1.2-3.4) K/uL Ulster # (Auto) (0.11-0.59) K/uL Eos # (Auto) (0-0.5) K/uL Baso # (Auto) (0-0.2) K/uL PT (9.0-12.0) Seconds INR (0.9-1.1) Sodium (136-145) mmol/L Potassium (3.5-5.1) mmol/L Chloride (98-107) mmol/L Carbon Dioxide (21-32) mmol/L Anion Gap (3-11) BUN (7-18) mg/dl Creatinine (0.6-1.4) mg/dl Est Cr Clr Drug Dosing ml/min Est GFR ( Amer) Est GFR (Non-Af Amer) BUN/Creatinine Ratio (10-20) Glucose (70-99) mg/dl Lactate 1.3 (0.4-2.0) mmol/L Calcium (8.5-10.1) mg/dl Magnesium (1.8-2.4) mg/dl Total Bilirubin (0.2-1) mg/dl Direct Bilirubin (0-0.2) mg/dl AST (15-37) U/L ALT (12-78) U/L Alkaline Phosphatase (45-117) U/L Troponin I (0-0.045) ng/ml Total Protein (6.4-8.2) gm/dl Albumin (3.4-5.0) gm/dl Influenza Type A Ag Neg for Influ A (Neg) Influenza Type B Ag Neg for Influ B (Neg) Administered Medications Magnesium Sulfate/Dextrose (Magnesium Sulfate / D5w) 1 gm in 100 mls @ 100 mls/hr IV Q1H ALBERT Stop: 07/17/19 08:14 Last Admin: 07/17/19 06:52 Dose: 100 mls/hr Documented by: [id number] Azithromycin 500 mg/ Dextrose 255 mls @ 127.5 mls/hr IV NOW STA Stop: 07/17/19 08:08 Last Admin: 07/17/19 06:52 Dose: 127.5 mls/hr Documented by: [id number] Discontinued Medications Acetaminophen (Tylenol) 1,000 mg PO NOW STA Stop: 07/17/19 06:10 Last Admin: 07/17/19 06:37 Dose: 1,000 mg Documented by: [id number] Sodium Chloride (Nss 1000ml) 1,000 mls @ 999 mls/hr IV .Q1H1M ONE Stop: 07/17/19 06:09 Last Infusion: 07/17/19 06:37 Dose: 0 mls/hr Documented by: [id number] Admin: 07/17/19 05:19 Dose: 999 mls/hr Documented by: [id number] Ceftriaxone Sodium (Rocephin) 2,000 mg in 70 mls @ 140 mls/hr IV NOW STA Stop: 07/17/19 06:38 Last Infusion: 07/17/19 06:51 Dose: 0 mls/hr Documented by: [id number] Admin: 07/17/19 06:37 Dose: 140 mls/hr Documented by: [id number] Discharge Plan Visit Data Chief Complaint: Leg Weakness, Bilateral Stated Complaint: LEG WEAKNESS/FALL Other Complaint: Fall ED Provider: Luciano Roy Discharge Problem: Respiratory illness, Bilateral leg weakness, Hypomagnesemia, Ambulatory dysfunction Forms Stand Alone Forms: My [employer] Prescriptions Prescriptions: No Action (DME) lorraine bunn See Rx Instructions .ROUTE .MEDSUPPLY Qty: 1 RF: 0 metformin 500 mg tablet 500 mg PO BID Qty: 180 RF: 1 pantoprazole 40 mg tablet,delayed release (DR/EC) 40 mg PO DAILY Qty: 90 RF: 1 multivitamin with minerals [Men's One Daily] tablet 1 tab PO DAILY RF: 0 acetaminophen [Tylenol Arthritis Pain] 650 mg tablet extended release 650 mg PO Q12H PRN (Reason: fever or pain) Qty: 180 RF: 1 atorvastatin 40 mg tablet 40 mg PO DAILY Qty: 90 RF: 1 lisinopril 40 mg tablet 40 mg PO DAILY Qty: 90 RF: 1 amlodipine 5 mg tablet 5 mg PO DAILY Qty: 90 RF: 1 carvedilol [Coreg] 25 mg tablet 25 mg PO BID Qty: 180 RF: 1 rivaroxaban 20 mg tablet 20 mg PO DAILY Qty: 90 RF: 1 sertraline 50 mg tablet 50 mg PO DAILY Qty: 90 RF: 1 terazosin 5 mg capsule 5 mg PO HS Qty: 90 RF: 1
[2019-07-17 05:37] LABS: Eosinophils # (auto) 0.09 K/uL (0-0.5); Eosinophils % (auto) 0.9 %; Hematocrit (blood only) 39.3 % (42-52); Hemoglobin 13.1 g/dL (14.0-18.0); Immature Granulocytes # (auto) 0.02 K/uL (0.00-0.02); Immature Granulocytes % (auto) 0.2 %; Lymphocytes # (auto) 1.05 K/uL (1.2-3.4); Lymphocytes % (auto) 10.6 %; Mean Corpuscular Hemoglobin 31.3 pg (25-34); Mean Corpuscular Hgb Conc 33.3 g/dL (32-36); Mean Corpuscular Volume 93.8 fL (80-100); Mean Platelet Volume 10.3 fL (7.4-10.4); Monocytes % (auto) 12.1 %; Neutrophils # (auto) 7.56 K/uL (1.4-6.5); Neutrophils % (auto) 76.2 %; Platelet Count 133 K/uL (130-400); RDW Coefficient of Variation 13.9 % (11.5-14.5); RDW Standard Deviation 47.5 fL (36.4-46.3); Red Blood Count 4.19 M/uL (4.7-6.1); White Blood Count 9.92 K/uL (4.8-10.8)
[2019-07-17 05:45] LABS: INR 1.1 (0.9-1.1); Prothrombin Time 11.5 Seconds (9.0-12.0)
[2019-07-17 05:50] LABS: Alanine Aminotransferase 33 U/L (12-78); Albumin Level 3.5 gm/dl (3.4-5.0); Aspartate Aminotransferase 20 U/L (15-37); BUN Creatinine Ratio 22.8 (10-20); Bilirubin Direct 0.1 mg/dl (0-0.2); Blood Urea Nitrogen 23 mg/dl (7-18); Calcium 8.8 mg/dl (8.5-10.1); Carbon Dioxide 29 mmol/L (21-32); Chloride 105 mmol/L (98-107); Est GFR (African American) 87.1; Est GFR (Non-African American) 75.2; Glucose 144 mg/dl (70-99); Magnesium 1.6 mg/dl (1.8-2.4); Potassium 3.8 mmol/L (3.5-5.1); Sodium 139 mmol/L (136-145)
[2019-07-17 05:55] LABS: Alkaline Phosphatase 83 U/L (45-117); Bilirubin,Total 0.6 mg/dl (0.2-1); Total Protein 6.9 gm/dl (6.4-8.2); Troponin I < 0.015 ng/ml (0-0.045)
[2019-07-17] MEDS ORDERED: AZITHROMYCIN 500 MG in DEXTROSE 5% 250 ML IV STA (06:09)
[2019-07-17] MEDS ORDERED: cefTRIAXone SODIUM 2,000 MG/70 ML BAG IV STA (06:09)
[2019-07-17] MEDS ORDERED: ACETAMINOPHEN 500 MG TAB PO STA (06:09)
[2019-07-17] MEDS: MAGNESIUM SULFATE / D5W 1 GM/100 ML BAG IV SCH ×2 (06:52→07:48)
--- NOTE | 2019-07-17 07:01 | XRay Report ---
XR chest 1V portable CLINICAL HISTORY: cough, fall, weak COMPARISON STUDY: 05/26/2017 FINDINGS: The cardiac and mediastinal contours remain stable. There is a left subclavian dual-chamber central venous pacemaker. There is no failure. There is no focal pulmonary consolidation. There are no pleural effusions.[ IMPRESSION: No active disease in the chest. ACT 112: Negative or not required by law. Electronically signed by: Allan Delaney M.D. 07/17/2019 7:00 AM
--- NOTE | 2019-07-17 07:06 | CT Scan Report ---
CT head/brain wo con CLINICAL HISTORY: Head trauma. Weakness. Patient on anticoagulants. COMPARISON STUDY: 05/26/2017 TECHNIQUE: Axial CT of the brain is performed from the vertex to the skull base. IV contrast was not administered for this examination. A dose lowering technique was utilized adhering to the principles of ALARA. CT DOSE: 614.27 mGy.cm FINDINGS: No intra or extra-axial mass lesions are visualized. There is no CT evidence of acute cortical infarc tion. There is no evidence of midline shift. There is no acute hemorrhage. No calvarial fractures ar e visualized. There are patchy white matter hypodensities likely on a small vessel basis. There is mild ventricular prominence, likely secondary to volume loss. This remain similar to the yuri or study. There is no evidence of acute sinusitis IMPRESSION: No acute intracranial findings ACT 112: Negative or not required by law. Electronically signed by: Allan Delaney M.D. 07/17/2019 7:05 AM
--- NOTE | 2019-07-17 07:53 | History & Physical Report ---
Date of Service July 17, 2019 Assessment & Plan (1) Acute respiratory failure: Admit to [facility] on telemetry Vital signs every 4 hours Duo nebs every 4 hours and as needed as per RT, Albuterol HFA 2 puffs inhalation 4 times daily as needed Started azithromycin 500 mg IV x1 and ceftriaxone 2 g IV daily-continue azithromycin 250 mg daily for 4 additional days and ceftriaxone 2 g IV daily for total days. Symbicort 2 puffs twice daily Robitussin every 6 hours 10 mils as needed for cough Gentle IV fluid hydration with normal saline and potassium Zofran 4 mg IV every 6 hours for nausea DVT prophylaxis Xarelto (also used for A. fib's) Is a full code Present on Admission?: Yes (2) Bilateral leg weakness: Ambulatory dysfunction unknown unknown origin for 3 months. MRI brain without contrast negative for a stroke or any other issue related to his brain. Physical and Occupational Therapy. Patient would most likely benefit from SNF Present on Admission?: Yes (3) Hypomagnesemia: Replenish magnesium 1 g IV x1 in the ER. Magnesium was 1.6 Continue magnesium oxide 400 mg p.o. twice daily Monitor daily until normal Present on Admission?: Yes (4) Ambulatory dysfunction: As the above Present on Admission?: Yes (5) Anticoagulant long-term use: Continue Xarelto for paroxysmal A. fib's Patient is now in sinus rhythm Present on Admission?: Yes (6) BPH (benign prostatic hyperplasia): Continue home medicine Terazosin 5 mg p.o. nightly Present on Admission?: Yes (7) Paroxysmal atrial fibrillation: Continue home medication rivaroxaban 20 mg p.o. daily, carvedilol 25 mg p.o. twice daily for rate control Present on Admission?: Yes (8) Hypertension: Stable, continue home medicine amlodipine 5 mg p.o. daily, carvedilol 25 mg p.o. twice daily, lisinopril 40 mg p.o. daily, multivitamins with minerals 1 tablet p.o. daily. Present on Admission?: Yes (9) Hyperlipidemia: Lipid panel pending. Continue atorvastatin 40 mg p.o. daily. Present on Admission?: Yes (10) Depression: Patient does not have complaints that depression is issue for him staying too long in the sitting position or recliner. Continue sertraline 50 mg p.o. daily Present on Admission?: Yes (11) Diabetes: A1c pending, hold metformin while patient is in the hospital to prevent hypoglycemia/kidney injury if he needs any radiological procedure with contrast. Recommended sliding scale insulin, Accu-Cheks before meals and at bedtime and glycemic control deferred to pharmacy. Present on Admission?: Yes History of Present Illness Chief Complaint: Ambulatory dysfunction Primary Care Provider: James Chu III, YAN The patient is a 68 years old man with past medical history of atrial fibrillation's on Xarelto, placed pacemaker for syncope and presyncope that he had in the past, diabetes mellitus type 2, coronary artery disease, cardiomyopathy, depression, hyperlipidemia, hypertension, obstructive sleep apnea with CPAP mitral regurgitation, obstructive sleep apnea, osteoarthritis, benign prostatic hypertrophy who was brought by his to the emergency room for cough malaise and bilateral lower extremity weakness and inability to ambulate for 3 months. Patient spends a lot of time at home's sitting or laying down and he did not move much for the past 3 months. Patient is poor historian and most of the history is given by his . Patient denies fever, chills, chest pain, abdominal pain, frequency and, urgency. Patient reports cough nonproductive and occasionally shortness of breath. He uses O2 supplemental only at night. Patient smoked 30 years ago. EKG: Sinus rhythm with frequent PVCs, possible inferior infarct before August 07, 2016, in comparison to May 26, 2017 present PVCs. Patient reports that his pacemaker was interrogated recently and there was no issue there. He follows up with Dr. Cruz.'s are reviewed: WBC is 9.92, hemoglobin 13.1, hematocrit 39.3, platelets 133, PT 11.5, INR 1.1, sodium 139, potassium 3.8, chloride 105, anion gap 5, BUN 23, creatinine 1.02, GFR 75.2, A1c from February 11, 2019 5.6, lactate 1.3, calcium 8.8, magnesium 1.6, troponin -0.015, AST 20, ALT 33, TSH 0.59, BNP 225, urine all negative, influenza A&B negative. Chest x-rays: The cardiac and mediastinal contours remain stable. There is a left subclavian dual-chamber central venous pacemaker. There is no failure. There is no focal pulmonary consolidation there are no pleural effusion. Decision was made to admit patient for acute COPD exacerbation, acute respiratory failure, and possibly pneumonia, and ambulatory dysfunction. Allergies Allergy/AdvReac Type Severity Reaction Status Date / Time DAWN Inhibitors AdvReac Unknown cough Verified 07/17/19 05:32 Home Medications Home Medications Medication Instructions Recorded Confirmed Type multivitamin with minerals 1 tab PO DAILY 02/13/19 07/17/19 History acetaminophen 650 mg 650 mg PO Q12H PRN #180 tab 02/15/19 07/17/19 Rx tablet,extended release amlodipine 5 mg tablet 5 mg PO DAILY #90 tab 05/17/19 07/17/19 Rx atorvastatin 40 mg tablet 40 mg PO DAILY #90 tab 05/17/19 07/17/19 Rx carvedilol 25 mg tablet 25 mg PO BID #180 tab 05/17/19 07/17/19 Rx lisinopril 40 mg tablet 40 mg PO DAILY #90 tab 05/17/19 07/17/19 Rx rivaroxaban 20 mg tablet 20 mg PO DAILY #90 tab 05/17/19 07/17/19 Rx sertraline 50 mg tablet 50 mg PO DAILY #90 tab 05/17/19 07/17/19 Rx terazosin 5 mg capsule 5 mg PO HS #90 cap 05/17/19 07/17/19 Rx walker #1 ea 05/17/19 07/17/19 Rx metformin 500 mg tablet 500 mg PO BID #180 tab 05/30/19 07/17/19 Rx pantoprazole 40 mg tablet,delayed 40 mg PO DAILY #90 tab 06/11/19 07/17/19 Rx release Past Med/Surg History Medical History Myocardial infarction Ventricular fibrillation Surgical History S/P cardiac cath Single vessel distal right coronary artery S/P hernia repair Umbilical S/P wisdom tooth extraction Family History Father Rheumatic fever Myocardial infarction Unknown Myocardial infarction Social History Preferred Language: Greenlandic Communication Ability: Effective Visual Impairment: No Limitations Hearing Ability: Normal Home Health Occupational Therapist Required: No Beliefs That Will Affect Care: None marital status: Current Living Situation: Spouse current occupational status: retired Other Information That Helps Us Care for You: No Feels Safe at Home: Yes Safety Concerns: Feels Safe At This Time Smoking Status: Never smoker Hx Alcohol Use: No Hx Substance Use: No Childhood Exposure to Second-Hand Smoke: Yes Dental Care, Regularly: Yes Physical Activity Frequency: Does not Exercise Seatbelt Use: always Review of Systems Review of Systems: All systems reviewed & are unremarkable except as noted in HPI & below Physical Exam Constitutional: WD/WN, vitals as above well developed, + ill appearing and + morbidly obese Eyes: PERRL, conjunctivae normal, anicteric sclerae ENMT: external ear and nose normal, oropharynx normal Neck: trachea midline, no thyromegaly Respiratory: + respiratory distress, + labored breathing, + retractions and + uses accessory muscles Auscultation: + crackles, + wheezes and + bronchovesicular breath sounds Cardiovascular: Rate/Rhythm: + irregularly irregular Heart Sounds: normal S1, normal S2 and + murmur Gastrointestinal (Abdomen): normal bowel sounds, soft, nontender, no hepatosplenomegaly Musculoskeletal: no cyanosis or clubbing, extremities motor strength 5/5 Skin: no rashes, warm and dry Neurologic: patellar DTR's 2+ bilat, sensation intact Psychiatric: A+Ox3, euthymic affect Lymphatic: no cervical or axillary lymphadenopathy Results & Data Vital Signs (Past 12 Hours) Vital Signs Temp Pulse Pulse Resp BP BP Pulse Ox 07/17/19 07:31 37.6 C H 07/17/19 07:24 92 H 20 127/70 94 07/17/19 06:46 89 L 07/17/19 06:07 90 18 131/82 92 07/17/19 05:08 37.7 C H 66 18 145/85 H 96 Code Status & VTE Plan Code Status Full code VTE Prophylaxis Plan VTE Prophylaxis will be ordered: Yes PG Care Time/CCT Total # of Minutes Spent Total Time Spent with Patient: Total time spent is greater than 50% in coordination of care (as documented) at patient's floor/unit and/or counseling patient: (1) Hypertension Hypertension type: essential hypertension Qualified Code(s): I10 - Essential (primary) hypertension (2) Hyperlipidemia Hyperlipidemia type: pure hypercholesterolemia Qualified Code(s): E78.00 - Pure hypercholesterolemia, unspecified; E78.0 - Pure hypercholesterolemia (3) Depression Depression Type: major depressive disorder Major depression recurrence: recurrent Active/Remission status: currently active Major depression episode severity: moderate Qualified Code(s): F33.1 - Major depressive disorder, recurrent, moderate (4) Diabetes Diabetes mellitus type: type 2 Diabetes mellitus superintendent terminal insulin use: without retirement use Diabetes mellitus complication status: without complication Qualified Code(s): E11.9 - Type 2 diabetes mellitus without complications
[2019-07-17 08:27] LABS: Appearance Urine Clear (Clear); Bilirubin Urine Negative (Negative); Blood Urine Negative (Negative); Color Urine Yellow; Glucose Urine UA Negative (Negative); Ketones Urine Negative (Negative); Leukocyte Esterase Urine Negative (Negative); Nitrite Urine Negative (Negative); Protein Urine Negative (Negative); Urobilinogen Urine Negative (Negative); pH Urine 6.5 (4.5-7.5)
[2019-07-17] MEDS ORDERED: ACETAMINOPHEN 325 MG TAB PO PRN (10:33)
[2019-07-17] MEDS ORDERED: DEXTROSE 50% 50 ML SYRINGE IV PRN (10:33)
[2019-07-17] MEDS ORDERED: ONDANSETRON INJ 2 MG/ML 2 ML VIAL IV PRN (10:33)
[2019-07-17] MEDS ORDERED: GLUCAGON FOR INJ 1 MG VIAL SQ PRN (10:33)
[2019-07-17] MEDS ORDERED: POLYETHYLENE (MIRALAX) 17 GM PACK PO PRN (10:33)
[2019-07-17] MEDS ORDERED: MAGNESIUM HYDROXIDE SUSP 30 ML UDC PO PRN (10:33)
[2019-07-17] MEDS ORDERED: GUAIFENESIN/CODEINE 200MG/20MG 10ML UDC PO PRN (10:33)
[2019-07-17] MEDS ORDERED: CARBOHYDRATES FOR HYPOGLYCEMIA PO PRN (10:33)
[2019-07-17] MEDS ORDERED: GLUCOSE 40% GEL 15 GM TUBE PO PRN (10:33)
[2019-07-17] MEDS ORDERED: ALUMINUM/MAGNESIUM SUSP 30 ML UDC PO PRN (10:33)
[2019-07-17] MEDS ORDERED: GLUCOSE 10 TABS/TUBE PO PRN (10:33)
[2019-07-17] MEDS ORDERED: ALBUTEROL HFA 8 GM INHALER INH PRN (10:33)
[2019-07-17] MEDS ORDERED: PHARMACY GLYCEMIC MGMT CONSULT PRN (11:01)
[2019-07-17] MEDS: ALBUT/IPRATROP 3MG/0.5MG NEB 3 ML VIAL NEB SCH ×4 (11:04→23:30)
[2019-07-17 11:06] LABS: Thyroid Stimulating Hormone 0.59 uIu/ml (0.300-4.500)
--- NOTE | 2019-07-17 12:54 | Magnetic Resonance Report ---
MRI OF THE BRAIN WITHOUT CONTRAST CLINICAL HISTORY: ambulatory disfunction LOSS OF STRENGTH. DIMINISHED COORDINATION. COMPARISON STUDY: Noncontrast head CT dated 07/17/2019 FINDINGS: Sagittal T1, axial diffusion, proton density and T2 weighted axial, coronal FLAIR, and axial T1-weigh nancie images were acquired. No intra or extra-axial mass lesions are visualized Axial diffusion-weighted images reveal no evidence of acute or subacute infarction. There is stable mild ventricular prominence, finding which is felt to be secondary to volume loss. Th ere are involutional changes, most pronounced within cerebellar hemispheres. Proton density T2-weighted and FLAIR images reveal scattered foci of increased T2 signal within the w aranza matter, likely on a small vessel basis. There are no abnormal flow voids. IMPRESSION: 1. No acute intracranial findings 2. No evidence of acute or subacute infarction 3. No evidence of intracranial mass 4. Foci of increased T2 signal within the white matter likely on a small vessel basis. Mild stable ve ntricular prominence, finding felt to be secondary to volume loss ACT 112: Negative or not required by law. Electronically signed by: Allan Delaney M.D. 07/17/2019 12:52 PM
[2019-07-17] MEDS: NSS + 20MEQ KCL 20 MEQ/1,000 ML BAG IV SCH ×2 (13:21→23:52)
[2019-07-17] MEDS: INSULIN GLARGINE SOLOSTAR 100 UNITS/ML 3 ML PEN SC SCH ×2 (13:22→20:35)
[2019-07-17] MEDS: carvediloL 25 MG TAB PO SCH ×2 (13:23→20:32)
[2019-07-17] MEDS: PANTOprazole 40 MG TAB PO SCH (13:23)
[2019-07-17] MEDS: ATORVASTATIN 40 MG TAB PO SCH (13:24)
[2019-07-17] MEDS: CEROVITE ADV FORMULA TAB PO SCH (13:24)
[2019-07-17] MEDS: SERTRALINE HCL 50 MG TABLET PO SCH (13:24)
[2019-07-17] MEDS: BUDESONIDE/FORMOTEROL FUMARATE 160/4.5 60 PUFFS/INHALER INH SCH ×2 (13:25→20:32)
[2019-07-17] MEDS: RIVAROXABAN 20 MG TAB PO SCH (13:25)
[2019-07-17] MEDS: methylPREDNISolone 40 MG in SYRINGE 0 ML IV SCH ×2 (13:25→23:52)
[2019-07-17] MEDS: INSULIN ASPART 100 UNITS/ML 3 ML PEN SC SCH ×3 (13:28→20:36)
--- NOTE | 2019-07-17 15:10 | Pharmacy Report ---
Glycemic Control Consultation - Date of Service July 17, 2019 - Scope Scope: Glycemic Pharmacist consulted by Dr Johnson on 07/17 for glycemic control and to write orders per [facility] inpatient glycemic control protocol - Objective Weight: 106.6 kg Accuchecks BSG (last 24hrs): 07/17/19 05:18 Glucose 144 H Laboratory Data (last 24hrs): 07/17/19 05:18 Potassium 3.8 Carbon Dioxide 29 Anion Gap 5.0 Creatinine 1.02 Est Cr Clr Drug Dosing 78.0 - Recent Pertinent Medications Outpatient Anti-diabetic Regimen: * Metformin 500 mg BID * A1c = 5.6 % 02/11/19 - updated one ordered for 07/18 Risk Factors for Insulin Resistance: * Steroids: Solumedrol 40 mg q12h * Infection: CAP * Diet: T2DM - Assessment & Plan Assessment & Plan: ASSESSMENT: * 68 y/o M admitted for ongoing b/l leg weakness, also with pneumonia. Started on IV steroids and antibiotics. * Pt is maintained on oral antidiabetic agent as an outpatient * Oral agents are not recommended for inpatient use d/t drug interactions, changing PO intake, and difficulty titrating for acute hyper/hypoglycemia. ADA recommends re-initiating outpatient oral agents 1-2 days prior to discharge if/when appropriate if they were held on admission. * Will hold oral agents for admission and utilize SQ basal bolus insulin regimen which is the recommended regimen for inpatient glycemic control. * Will initiate weight based insulin dosing for insulin lee patient and titrate based on BSG trends. PLAN FOR INPATIENT GLYCEMIC CONTROL: * Holding outpatient oral diabetes medications * Basal insulin - adjusted to this once lunch BSG resulted of only 100 mg/dL * Lantus BID per the following scale: * 0 units for BSG < 110 * 7 units for BSG 110-140 * 14 units for BSG > 140 * Bolus insulin * NovoLog per scale ACHS or Q6hrs while NPO * Goal Range: Low 110 mg/dL - High 140 mg/dL * Correction Factor: 20 mg/dL/unit * Nutritional / Prandial insulin per carb ratio of 1 unit per 7 grams CHO consumed * Please note that the plan above was derived based on current level of insulin resistance and hospital stress. These recommendations are appropriate for inpatient admission only. Plan of care upon discharge will need to be reassessed to avoid potential outpatient hypo/hyperglycemia. Thank you.
[2019-07-17] MEDS: TERAZOSIN HCL 5 MG CAP PO SCH (20:31)
[2019-07-17] MEDS ORDERED: PNEUMOCOCCAL Polysaccharide Vaccine 25mcg/0.5mL vial/Syr IM ONE (21:00)
[2019-07-17] MEDS ORDERED: INFLUENZA Vaccine HIGH DOSE 65+yrs 0.5 mL Syr IM ONE (21:00)
--- NOTE | 2019-07-17 21:45 | Electrocardiogram Report ---
Test Reason : Blood Pressure : / mmHG Vent. Rate : 095 BPM Atrial Rate : 095 BPM P-R Int : 174 ms QRS Dur : 102 ms QT Int : 342 ms P-R-T Axes : 049 016 009 degrees QTc Int : 429 ms Sinus rhythm with frequent Premature ventricular complexes Possible Inferior infarct (cited on or before 07-AUG-2016) Abnormal ECG When compared with ECG of 26-MAY-2017 19:48, Premature ventricular complexes are now Present Questionable change in initial forces of Inferior leads Confirmed by Jeremiah Hutchinson ([id number]) on 07/17/2019 9:44:59 PM Referred By: REFERRED SELF Confirmed By:Jeremiah Hutchinson
[2019-07-18] MEDS: ALBUT/IPRATROP 3MG/0.5MG NEB 3 ML VIAL NEB SCH ×6 (03:18→22:59)
[2019-07-18 07:16] LABS: Hematocrit (blood only) 40.4 % (42-52); Hemoglobin 13.6 g/dL (14.0-18.0); Immature Granulocytes # (auto) 0.01 K/uL (0.00-0.02); Immature Granulocytes % (auto) 0.1 %; Lymphocytes # (auto) 0.96 K/uL (1.2-3.4); Lymphocytes % (auto) 12.8 %; Mean Corpuscular Hemoglobin 31.9 pg (25-34); Mean Corpuscular Hgb Conc 33.7 g/dL (32-36); Mean Corpuscular Volume 94.8 fL (80-100); Mean Platelet Volume 10.1 fL (7.4-10.4); Monocytes # (auto) 0.21 K/uL (0.11-0.59); Monocytes % (auto) 2.8 %; Neutrophils # (auto) 6.34 K/uL (1.4-6.5); Neutrophils % (auto) 84.3 %; Platelet Count 145 K/uL (130-400); RDW Coefficient of Variation 14.3 % (11.5-14.5); RDW Standard Deviation 48.9 fL (36.4-46.3); Red Blood Count 4.26 M/uL (4.7-6.1); White Blood Count 7.52 K/uL (4.8-10.8)
[2019-07-18 07:45] LABS: Albumin Level 3.3 gm/dl (3.4-5.0); Calcium 8.5 mg/dl (8.5-10.1); Creatinine Clr Calc Pharmacy 84.6 ml/min; Est GFR (African American) 97.4; Est GFR (Non-African American) 84.1; Potassium 4.3 mmol/L (3.5-5.1)
[2019-07-18 07:47] LABS: Albumin Globulin Ratio 0.9 (0.9-2); Bilirubin,Total 0.5 mg/dl (0.2-1); Globulin 3.7 gm/dl (2.5-4.0)
[2019-07-18] MEDS: AMLODIPINE BESYLATE 5 MG TAB PO SCH (07:56)
[2019-07-18] MEDS: ATORVASTATIN 40 MG TAB PO SCH (07:56)
[2019-07-18] MEDS: CEROVITE ADV FORMULA TAB PO SCH (07:56)
[2019-07-18] MEDS: INSULIN ASPART 100 UNITS/ML 3 ML PEN SC SCH ×4 (07:57→20:25)
[2019-07-18] MEDS: BUDESONIDE/FORMOTEROL FUMARATE 160/4.5 60 PUFFS/INHALER INH SCH ×2 (07:57→20:05)
[2019-07-18] MEDS: SERTRALINE HCL 50 MG TABLET PO SCH (07:57)
[2019-07-18] MEDS: lisinopriL 40 MG TAB PO SCH (07:57)
[2019-07-18] MEDS: PANTOprazole 40 MG TAB PO SCH (07:57)
[2019-07-18] MEDS: INSULIN GLARGINE SOLOSTAR 100 UNITS/ML 3 ML PEN SC SCH ×2 (07:57→20:26)
[2019-07-18] MEDS: AZITHROMYCIN 250 MG in DEXTROSE 5% 250 ML IV SCH (07:59)
[2019-07-18] MEDS: cefTRIAXone SODIUM 2,000 MG/70 ML BAG IV SCH (08:06)
[2019-07-18] MEDS: carvediloL 25 MG TAB PO SCH ×2 (08:06→20:06)
[2019-07-18 08:27] LABS: Lyme Ab IgG w/WB Rflx Negative (Negative); Lyme Ab IgM w/WB Rflx Negative (Negative)
[2019-07-18 08:56] LABS: Estimated Average Glucose 126 mg/dl
--- NOTE | 2019-07-18 09:12 | Pharmacy Report ---
Pharmacy Glycemic Short Note 2 - Date of Service July 18, 2019 - Glycemic Short BSG Results (Last 24 hours): 07/17/19 07/17/19 07/17/19 11:17 16:33 20:30 Glucose POC Glucose 100 H 123 H 143 H 07/18/19 07/18/19 06:55 07:22 Glucose 161 H POC Glucose 155 H OUTPATIENT ANTIDIABETIC REGIMEN: * Metformin 500mg PO BID * A1c = 6% 07/18/19 ASSESSMENT: * Type 2 diabetic admitted for weakness and respiratory failure * Initiated on basal/bolus SQ regimen yesterday * Fasting BSG 155-165 this AM with 21 units basal on board and with 1 additional unit of Novolog correction given overnight * IV steroids continue for COPD exac / PNA * Will continue with current insulin orders and follow BSG trend today - will adjust if needed PLAN FOR INPATIENT GLYCEMIC CONTROL: * Hold outpatient oral diabetes medications * Basal insulin * Lantus SQ BID * 0 units if less than 110 * 7 units if 110-140 * 14 units if BSG above 140 * Bolus insulin * NovoLog per scale ACHS and at 0200 * Goal Range: Low 110 mg/dL - High 140 mg/dL * Correction Factor: 20 mg/dL/unit * Nutritional / Prandial insulin per carb ratio of 1 unit per 7 grams CHO consumed PLAN FOR DISCHARGE: * may resume outpt metformin regimen on discharge given recent A1c result if no contraindications present at time of discharge
--- NOTE | 2019-07-18 10:55 | Neurology Consultation ---
Date of Consultation July 18, 2019 Assessment & Plan (1) Ambulatory dysfunction: This patient has a history of chronic, progressive, ambulatory dysfunction. He does not have any signs or symptoms suggestive of Parkinson's disease. His MRI does reveal ventriculomegaly, generalized atrophy, cerebellar atrophy, and extensive chronic cerebrovascular disease which all likely contribute to his ambulatory dysfunction. He could be developing an element of normal pressure hydrocephalus as well, however, his degree of ventricular enlargement appears to be stable compared with the previous CT of the head done in 2017 making this diagnosis probably a bit less likely. I do not have a specific recommendation to address his progressive decline in ambulatory dysfunction which is likely multifactorial as above. Physical therapy may be helpful. I would not recommend a trial of levodopa or other Parkinson's medications. A repeat brain MRI in 6 months to reevaluate his degree of ventriculomegaly would be worthwhile. If this issue is progressive then a referral for neurosurgical consideration of a lumbar drain/BUNG REMOVER shunt could be considered. However, his history of atrial fibrillation and need for long- term anticoagulation would complicate this type of assessment. Of note, this patient also has a history of diabetes mellitus. Although his hemoglobin A1c is only slightly elevated, it may be reasonable to consider obtaining an outpatient EMG/nerve conduction study of the lower limbs to evaluate a diabetic polyneuropathy as well which could also negatively impact his gait/balance.. I have no further immediate recommendations. Please contact me if I may be of further assistance. History of Present Illness Reason for Consultation: Ambulatory dysfunction, Parkinson's? Requesting Physician: Thierno Johnson MD Attending Physician: Thierno Johnson MD History of Present Illness The patient is a 68-year-old male with a chief complaint of weakness. He complains of persistent, progressive weakness with associated ambulatory dysfunction which is been present for several months but has gotten acutely worse over the past few days. He complains of difficulty getting up out of chairs and going up and down steps. His gait is taken on a shuffling type of character. He denies any associated muscle pain, low back pain, or numbness. No known history of lumbar spinal stenosis. Past medical history notable for diabetes mellitus although no known history of diabetic peripheral neuropathy. Although there is some stated concern regarding whether or not this patient could have Parkinson's disease, he is not bradykinetic and does not have a resting tremor. He does admit to some mild difficulty with memory recently. He denies any problems with incontinence. Past medical history notable for atrial fibrillation for which she is prescribed an anticoagulant. He is also prescribed a statin for hyperlipidemia, but again denies experiencing any myalgia. Past medical history is also notable for obstructive sleep apnea. He was admitted with a primary diagnosis of acute respiratory failure. He has been complaining of a productive cough. He was mildly hypoxic and had a low-grade fever at the time of presentation as well. Both a CT of the head and MRI of the brain have suggested an element of ventricular prominence as well as cerebrovascular disease. Imaging described in further detail below. Allergies Allergy/AdvReac Type Severity Reaction Status Date / Time DAWN Inhibitors AdvReac Unknown cough Verified 07/17/19 05:32 Home Medications Home Medications Medication Instructions Recorded Confirmed Type multivitamin with minerals 1 tab PO DAILY 02/13/19 07/17/19 History acetaminophen 650 mg 650 mg PO Q12H PRN #180 tab 02/15/19 07/17/19 Rx tablet,extended release amlodipine 5 mg tablet 5 mg PO DAILY #90 tab 05/17/19 07/17/19 Rx atorvastatin 40 mg tablet 40 mg PO DAILY #90 tab 05/17/19 07/17/19 Rx carvedilol 25 mg tablet 25 mg PO BID #180 tab 05/17/19 07/17/19 Rx lisinopril 40 mg tablet 40 mg PO DAILY #90 tab 05/17/19 07/17/19 Rx rivaroxaban 20 mg tablet 20 mg PO DAILY #90 tab 05/17/19 07/17/19 Rx sertraline 50 mg tablet 50 mg PO DAILY #90 tab 05/17/19 07/17/19 Rx terazosin 5 mg capsule 5 mg PO HS #90 cap 05/17/19 07/17/19 Rx walker #1 ea 05/17/19 07/17/19 Rx metformin 500 mg tablet 500 mg PO BID #180 tab 05/30/19 07/17/19 Rx pantoprazole 40 mg tablet,delayed 40 mg PO DAILY #90 tab 06/11/19 07/17/19 Rx release Patient History Medical History Myocardial infarction Ventricular fibrillation Surgical History S/P cardiac cath Single vessel distal right coronary artery S/P hernia repair Umbilical S/P wisdom tooth extraction Family History Father Rheumatic fever Myocardial infarction Unknown Myocardial infarction Social History Preferred Language: Chinese Communication Ability: Effective Visual Impairment: No Limitations Hearing Ability: Normal Parcel Wrapper Required: No Beliefs That Will Affect Care: None marital status: Current Living Situation: Spouse current occupational status: retired Other Information That Helps Us Care for You: No Feels Safe at Home: Yes Safety Concerns: Feels Safe At This Time Smoking Status: Never smoker Hx Alcohol Use: No Hx Substance Use: No Childhood Exposure to Second-Hand Smoke: Yes Dental Care, Regularly: Yes Physical Activity Frequency: Does not Exercise Seatbelt Use: always Review of Systems Constitutional: + fever, + fatigue and + weakness Eyes: no blind spots and no diplopia Ear, Nose, Mouth, Throat: no tinnitus and no hearing loss Respiratory: + cough and + dyspnea Cardiovascular: no chest pain and no palpitations Gastrointestinal: no nausea and no vomiting Genitourinary: no dysuria and no urinary incontinence Musculoskeletal: no back pain, no neck pain and no myalgia Integumentary: no rash and no lesions Neurologic: as per Subjective / HPI, + gait abnormality, + unsteadiness, + generalized weakness, + confusion and + memory loss; no loss of sensation and no headache(s) Psychiatric: no depression and no anxiety Hematologic / Lymphatic: no easy bleeding and no easy bruising Physical Exam Physical Exam: The patient is a well-developed, well-nourished elderly male. He is alert and oriented to person and place only. Recent memory impaired, remote memory intact. Attention normal, concentration mildly impaired. Patient exhibits a normal spontaneous speech pattern. He is able to name objects and repeat phrases. Patient exhibits an age-appropriate fund of knowledge and normal comprehension of vocabulary. Visual lane full to confrontation. Vi sual acuity normal. Pupils equal round reactive to light and accommodation. Eye movements normal. There is no nystagmus, ptosis, or ophthalmoplegia. Facial sensation intact. There is no facial droop or weakness. Hearing intact. Palate elevates to midline. Shoulder shrug intact. Tongue protrudes to midline. Sensation intact all modalities in all 4 limbs. Deep tendon reflexes are intact and symmetrical for the arms and legs bilaterally. Plantar responses upgoing bilaterally. There is no dysdiadochokinesia or dysmetria [id number] or [id number] bilaterally. Ophthalmoscopic examination reveals normal- appearing optic disks and posterior segments. No papilledema or hemorrhages. Carotid pulses normal bilaterally, no bruits to auscultation. Gait and station cannot be tested due to safety concerns. Patient exhibits normal muscle strength and tone for all 4 limbs proximally and distally. There is no atrophy. No abnormal movements observed. Results & Data Vital Signs (Past 12 Hours) Vital Signs Temp Pulse Pulse Resp BP Pulse Ox 07/18/19 08:00 84 07/18/19 07:12 68 16 98 07/18/19 07:10 36.7 C 74 18 154/84 H 96 07/18/19 02:47 36.7 C 75 21 145/80 H 93 07/18/19 01:36 86 07/17/19 23:31 73 18 90 07/17/19 22:42 36.9 C 80 23 141/76 H 93 Laboratory Results WBC 7.52, hemoglobin 13.6, hematocrit 40.4, platelet count 145, sodium 141, potassium 4.3, BUN 21, creatinine 0.93, glucose 161, hemoglobin A1c 6.0, calcium 8.5, AST 19, ALT 33, triglycerides 65, cholesterol 140, LDL 68, VLDL 13, HDL [address] of the head completed yesterday reveals an element of ventricular prominence, possibly secondary to generalized atrophy and chronic cerebrovascular disease. I reviewed the images as well as the radiologist interpretation of this test. Brain MRI completed yesterday is negative for acute or subacute stroke or acute process. There is chronic cerebrovascular disease, periventricular and subcortical location, as well as ventricular enlargement, potentially related to generalized cerebral atrophy. There is an element of cerebellar atrophy as well. An electrocardiogram completed yesterday reveals a sinus rhythm with frequent premature ventricular complexes.
--- NOTE | 2019-07-18 13:00 | XRay Report ---
LUMBAR SPINE 3 VIEWS CLINICAL HISTORY: Ambulatory dysfunction. FINDINGS: Three views of the lumbar spine are obtained. No prior studies are available for comparison at the time of dictation. The skeletal structures are osteopenic. There is no radiographic evidence of fracture or malalignment. Vertebral body height is maintained throughout the lumbar spine. There i s 7 mm of anterolisthesis at L4-L5. Alignment is otherwise preserved. Anterior and lateral marginal o steophytes are seen throughout. The transverse and spinous processes appear intact. Moderate facet ar thropathy is noted in the lower lumbar region. There is moderate disc space narrowing with endplate s clerosis seen at L2-L3. Mild to moderate disc space narrowing is seen at the remaining lumbar levels. The visualized bony pelvis appears intact. There is advanced atherosclerotic calcification of the ab dominal aorta. No bowel obstruction is identified. Vascular calcifications are noted in the pelvis. IMPRESSION: 1. No acute bony abnormality is identified. 2. Osteopenia and spondylotic change as above. Dictated: 07/18/2019 12:27 PM Transcribed: 07/18/2019 12:53 PM Lola [id number] [facility] Electronically signed by: Uche Magaña M.D. 07/18/2019 12:59 PM
--- NOTE | 2019-07-18 13:17 | Hospitalist Progress Note ---
Date of Service July 18, 2019 Assessment & Plan (1) Acute respiratory failure: Continue admit to [facility] on telemetry Vital signs every 4 hours Duo nebs every 4 hours and as needed as per RT, Albuterol HFA 2 puffs inhalation 4 times daily as needed Started azithromycin 500 mg IV x1 and ceftriaxone 2 g IV daily-continue azithromycin 250 mg daily for 4 additional days and ceftriaxone 2 g IV daily for total days. Symbicort 2 puffs twice daily Robitussin every 6 hours 10 mils as needed for cough Gentle IV fluid hydration with normal saline and potassium Zofran 4 mg IV every 6 hours for nausea DVT prophylaxis Xarelto (also used for James cifuentes's) CODE: full code (2) Bilateral leg weakness: Ambulatory dysfunction unknown unknown origin for 3 months. MRI brain without contrast negative for a stroke or any other issue related to his brain. Physical and Occupational Therapy. 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 Patient would most likely benefit from SNF (3) Hypomagnesemia: Replenish magnesium 1 g IV x1 in the ER. Magnesium was 1.6 Continue magnesium oxide 400 mg p.o. twice daily Monitor daily until normal (4) Ambulatory dysfunction: As the above (5) Anticoagulant long-term use: Continue Xarelto for paroxysmal A. vane's Patient is now in sinus rhythm (6) BPH (benign prostatic hyperplasia): Continue home medicine Terazosin 5 mg p.o. nightly (7) Paroxysmal atrial fibrillation: Continue home medication rivaroxaban 20 mg p.o. daily, carvedilol 25 mg p.o. twice daily for rate control (8) Hypertension: Stable, continue home medicine amlodipine 5 mg p.o. daily, carvedilol 25 mg p.o. twice daily, lisinopril 40 mg p.o. daily, multivitamins with minerals 1 tablet p.o. daily. (9) Hyperlipidemia: Lipid panel pending. Continue atorvastatin 40 mg p.o. daily. (10) Depression: Patient does not have complaints of depression as an issue for him staying too long in the sitting position or recliner. Continue sertraline 50 mg p.o. daily (11) Diabetes: A1c 6.0, hold metformin while patient is in the hospital to prevent hypoglycemia/kidney injury if he needs any radiological procedure with contrast. Recommended sliding scale insulin, Accu-Cheks before meals and at bedtime and glycemic control deferred to pharmacy. Subjective Patient seen and examined at the bedside. No acute distress overnight. Afebrile. Here he continues to require supplemental oxygen now trended down to 2 L. Patient denies fever, chills, chest pain, abdominal pain frequency urgency. Good p.o. intake. Patient states that he feels much better. Review of Systems Review of Systems: All systems reviewed & are unremarkable except as noted in HPI & below Physical Exam Constitutional: WD/WN, vitals as above well developed, + ill appearing and + morbidly obese Eyes: PERRL, conjunctivae normal, anicteric sclerae ENMT: external ear and nose normal, oropharynx normal Neck: trachea midline, no thyromegaly Respiratory: + respiratory distress, + labored breathing, + retractions and + uses accessory muscles Auscultation: + crackles, + wheezes and + bronchovesicular breath sounds Cardiovascular: Rate/Rhythm: + irregularly irregular Heart Sounds: normal S1, normal S2 and + murmur Gastrointestinal (Abdomen): normal bowel sounds, soft, nontender, no hepatosplenomegaly Musculoskeletal: no cyanosis or clubbing, extremities motor strength 5/5 Skin: no rashes, warm and dry Neurologic: patellar DTR's 2+ bilat, sensation intact Psychiatric: A+Ox3, euthymic affect Lymphatic: no cervical or axillary lymphadenopathy Results & Data Vital Signs (Past 12 Hours) Vital Signs Temp Pulse Pulse Resp BP Pulse Ox 07/18/19 11:12 36.6 C 76 18 103/62 96 07/18/19 10:56 74 16 96 07/18/19 08:00 84 07/18/19 07:12 68 16 98 07/18/19 07:10 36.7 C 74 18 154/84 H 96 07/18/19 02:47 36.7 C 75 21 145/80 H 93 07/18/19 01:36 86 PG Care Time/CCT Total # of Minutes Spent Total Time Spent with Patient: Total time spent is greater than 50% in coordination of care (as documented) at patient's floor/unit and/or counseling patient: (1) Diabetes Diabetes mellitus complication status: without complication Diabetes mellitus senior living insulin use: without manager intermediate use Diabetes mellitus type: type 2 Qualified Code(s): E11.9 - Type 2 diabetes mellitus without complications (2) Depression Active/Remission status: currently active Depression Type: major depressive disorder Major depression episode severity: moderate Major depression recurrence: recurrent Qualified Code(s): F33.1 - Major depressive disorder, recurrent, moderate (3) Hyperlipidemia Hyperlipidemia type: pure hypercholesterolemia Qualified Code(s): E78.00 - Pure hypercholesterolemia, unspecified; E78.0 - Pure hypercholesterolemia (4) Hypertension Hypertension type: essential hypertension Qualified Code(s): I10 - Essential (primary) hypertension
[2019-07-18] MEDS: methylPREDNISolone 40 MG in SYRINGE 0 ML IV SCH ×2 (13:23→23:45)
[2019-07-18] MEDS: NSS + 20MEQ KCL 20 MEQ/1,000 ML BAG IV SCH (13:23)
[2019-07-18] MEDS: RIVAROXABAN 20 MG TAB PO SCH (17:13)
[2019-07-18] MEDS: TERAZOSIN HCL 5 MG CAP PO SCH (20:06)
[2019-07-19] MEDS: NSS + 20MEQ KCL 20 MEQ/1,000 ML BAG IV SCH ×2 (01:29→13:38)
[2019-07-19] MEDS: ALBUT/IPRATROP 3MG/0.5MG NEB 3 ML VIAL NEB SCH ×6 (02:21→23:35)
[2019-07-19] MEDS: INSULIN ASPART 100 UNITS/ML 3 ML PEN SC SCH ×5 (02:24→20:21)
[2019-07-19] MEDS: AZITHROMYCIN 250 MG in DEXTROSE 5% 250 ML IV SCH (05:35)
[2019-07-19 07:55] LABS: Immature Granulocytes # (auto) 0.02 K/uL (0.00-0.02); Immature Granulocytes % (auto) 0.3 %; Lymphocytes # (auto) 0.94 K/uL (1.2-3.4); Lymphocytes % (auto) 12.2 %; Mean Corpuscular Hemoglobin 31.6 pg (25-34); Mean Corpuscular Hgb Conc 33.3 g/dL (32-36); Mean Corpuscular Volume 94.7 fL (80-100); Mean Platelet Volume 10.2 fL (7.4-10.4); Monocytes # (auto) 0.33 K/uL (0.11-0.59); Monocytes % (auto) 4.3 %; Neutrophils # (auto) 6.44 K/uL (1.4-6.5); Neutrophils % (auto) 83.2 %; Platelet Count 148 K/uL (130-400); RDW Coefficient of Variation 14.1 % (11.5-14.5); RDW Standard Deviation 48.6 fL (36.4-46.3); Red Blood Count 4.12 M/uL (4.7-6.1); White Blood Count 7.73 K/uL (4.8-10.8)
[2019-07-19 08:20] LABS: BUN Creatinine Ratio 27.8 (10-20); Calcium 8.6 mg/dl (8.5-10.1); Creatinine Clr Calc Pharmacy 99.6 ml/min; Est GFR (African American) 106.9; Est GFR (Non-African American) 92.3; Potassium 4.5 mmol/L (3.5-5.1)
[2019-07-19 08:23] LABS: Albumin Globulin Ratio 0.8 (0.9-2); Bilirubin,Total 0.5 mg/dl (0.2-1); Globulin 3.6 gm/dl (2.5-4.0); Total Protein 6.6 gm/dl (6.4-8.2)
--- NOTE | 2019-07-19 08:36 | Pharmacy Report ---
Pharmacy Glycemic Short Note 2 - Date of Service July 19, 2019 - Glycemic Short BSG Results (Last 24 hours): 07/18/19 07/18/19 07/18/19 11:34 16:41 20:16 Glucose POC Glucose 139 H 169 H 175 H 07/19/19 07/19/19 07/19/19 01:31 07:19 07:41 Glucose 174 H POC Glucose 119 H 169 H OUTPATIENT ANTIDIABETIC REGIMEN: * Metformin 500mg PO BID * A1c = 6% 07/18/19 ASSESSMENT: 07/19 * BSGs well controlled over last 24 hrs * IV steroid dose unchanged this AM * Fasting BSG slightly elevated this AM, FBS 169 this AM w/ 28 units Lantus on board and after receiving 2 units correction overnight - will make small basal dose increase * Over the last 24 hrs 47 units SQ insulin administered and BSGs ranged 119-175 * Will continue with current Novolog CF / CR at this time as post-prandial BSGs well controlled yesterday 07/18 * Type 2 diabetic admitted for weakness and respiratory failure * Initiated on basal/bolus SQ regimen yesterday * Fasting BSG 155-165 this AM with 21 units basal on board and with 1 additional unit of Novolog correction given overnight * IV steroids continue for COPD exac / PNA * Will continue with current insulin orders and follow BSG trend today - will adjust if needed PLAN FOR INPATIENT GLYCEMIC CONTROL: * Hold outpatient oral diabetes medications * Basal insulin - increase * Lantus SQ BID * 0 units if less than 110 * 9 units if 110-140 * 16 units if BSG above 140 * Bolus insulin * NovoLog per scale ACHS and at 0200 * Goal Range: Low 110 mg/dL - High 140 mg/dL * Correction Factor: 20 mg/dL/unit * Nutritional / Prandial insulin per carb ratio of 1 unit per 7 grams CHO consumed PLAN FOR DISCHARGE: * may resume outpt metformin regimen on discharge given recent A1c (6%) result if no contraindications present at time of discharge
[2019-07-19] MEDS: SERTRALINE HCL 50 MG TABLET PO SCH (08:38)
[2019-07-19] MEDS: carvediloL 25 MG TAB PO SCH ×2 (08:38→20:16)
[2019-07-19] MEDS: lisinopriL 40 MG TAB PO SCH (08:38)
[2019-07-19] MEDS: AMLODIPINE BESYLATE 5 MG TAB PO SCH (08:38)
[2019-07-19] MEDS: PANTOprazole 40 MG TAB PO SCH (08:38)
[2019-07-19] MEDS: BUDESONIDE/FORMOTEROL FUMARATE 160/4.5 60 PUFFS/INHALER INH SCH ×2 (08:38→20:16)
[2019-07-19] MEDS: CEROVITE ADV FORMULA TAB PO SCH (08:38)
[2019-07-19] MEDS: ATORVASTATIN 40 MG TAB PO SCH (08:38)
[2019-07-19] MEDS: INSULIN GLARGINE SOLOSTAR 100 UNITS/ML 3 ML PEN SC SCH ×2 (08:39→20:19)
[2019-07-19] MEDS: cefTRIAXone SODIUM 2,000 MG/70 ML BAG IV SCH (08:40)
--- NOTE | 2019-07-19 08:51 | Hospitalist Progress Note ---
Date of Service July 19, 2019 Assessment & Plan (1) Acute respiratory failure: Continue admit to [facility] on telemetry Vital signs every 4 hours Duo nebs every 4 hours and as needed as per RT, Albuterol HFA 2 puffs inhalation 4 times daily as needed Given azithromycin 500 mg IV x1, continue with azithromycin 250 mg daily for 4 days(remaining #3) and ceftriaxone 2 g IV daily. Since patient is doing much better today ceftriaxone switched to cefdinir 300 mg p.o. twice daily for total 7 days of antibiotics.(Remaining# 5) Symbicort 2 puffs twice daily Robitussin every 6 hours 10 mils as needed for cough Discontinued IV fluid since p.o. intake improving. Zofran 4 mg IV every 6 hours for nausea DVT prophylaxis Xarelto (also used for James cifuentes's) CODE: full code (2) Bilateral leg weakness: Ambulatory dysfunction unknown unknown origin for 3 months. MRI brain without contrast negative for a stroke or any other issue related to his brain. Physical and Occupational Therapy ongoing. 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 Patient would most likely benefit from SNF. Authorization approval pending from [facility] (3) Hypomagnesemia: Replenish magnesium 1 g IV x1 in the ER. Magnesium was 1.6 Continue magnesium oxide 400 mg p.o. twice daily Monitor daily until normal (4) Ambulatory dysfunction: As the above Physical and Occupational Therapy Likely discharged to [facility] SNF (5) Anticoagulant long-term use: Continue Xarelto for paroxysmal James cifuentes's Patient is now in sinus rhythm (6) BPH (benign prostatic hyperplasia): Continue home medicine Terazosin 5 mg p.o. nightly (7) Paroxysmal atrial fibrillation: Continue home medication rivaroxaban 20 mg p.o. daily, carvedilol 25 mg p.o. twice daily for rate control (8) Hypertension: Stable, continue home medicine amlodipine 5 mg p.o. daily, carvedilol 25 mg p.o. twice daily, lisinopril 40 mg p.o. daily, multivitamins with minerals 1 tablet p.o. daily. (9) Hyperlipidemia: Lipid panel cholesterol 140, LDL 68, VLDL 13, HDL 59 cholesterol HDL ratio 2. Appears to be favorable, continue atorvastatin 40 mg p.o. daily. (10) Depression: Patient does not have complaints of depression as an issue for him staying too long in the sitting position or recliner. Continue sertraline 50 mg p.o. daily (11) Diabetes: Diabetes mellitus type 2. A1c 6.0, hold metformin while patient is in the hospital to prevent hypoglycemia/kidney injury if he needs any radiological procedure with contrast. Recommended sliding scale insulin, Accu-Cheks before meals and at bedtime and glycemic control deferred to pharmacy. (12) Discharge planning issues: Patient has ambulatory dysfunction requiring physical and Occupational Therapy to prevent falls. He will be likely discharged to SNF [facility] for continuation physical and Occupational Therapy. Patient is clinically stable and waiting for placement. Present on Admission?: Yes Subjective Patient seen and examined at the bedside. No acute distress overnight. Afebrile. Patient states that he feels much better. He does not requires oxygen anymore and he is above 92% on room air. Patient denies fever, chills, chest pain, abdominal pain frequency urgency. Good p.o. intake. Patient denies fever, chills, chest pain, shortness of breath, abdominal pain, frequency, urgency. Review of Systems Review of Systems: All systems reviewed & are unremarkable except as noted in HPI & below Physical Exam Constitutional: WD/WN, vitals as above well developed, + ill appearing and + morbidly obese Eyes: PERRL, conjunctivae normal, anicteric sclerae ENMT: external ear and nose normal, oropharynx normal Neck: trachea midline, no thyromegaly Respiratory: normal respiratory effort, lungs clear to auscultation no respiratory distress, no labored breathing, no retractions and does not use accessory muscles Auscultation: no crackles, no wheezes and no bronchovesicular breath sounds Cardiovascular: Rate/Rhythm: + irregularly irregular Heart Sounds: normal S1, normal S2 and + murmur Gastrointestinal (Abdomen): normal bowel sounds, soft, nontender, no hepatosplenomegaly Musculoskeletal: no cyanosis or clubbing, extremities motor strength 5/5 Skin: no rashes, warm and dry Neurologic: patellar DTR's 2+ bilat, sensation intact Psychiatric: A+Ox3, euthymic affect Lymphatic: no cervical or axillary lymphadenopathy Results & Data Vital Signs (Past 12 Hours) Vital Signs Temp Pulse Pulse Resp BP Pulse Ox 07/19/19 08:00 36.4 C L 90 20 148/83 H 98 07/19/19 07:19 66 07/19/19 07:02 74 18 96 07/19/19 04:10 36.4 C L 71 18 147/91 H 96 07/18/19 23:07 36.9 C 84 18 133/77 91 07/18/19 22:59 74 16 95 07/18/19 22:20 72 PG Care Time/CCT Total # of Minutes Spent Total Time Spent with Patient: Total time spent is greater than 50% in coordination of care (as documented) at patient's floor/unit and/or counseling patient: (1) Diabetes Diabetes mellitus complication status: without complication Diabetes mellitus retirement insulin use: without medical terminologist use Diabetes mellitus type: type 2 Qualified Code(s): E11.9 - Type 2 diabetes mellitus without complications (2) Depression Active/Remission status: currently active Depression Type: major depressive disorder Major depression episode severity: moderate Major depression recurrence: recurrent Qualified Code(s): F33.1 - Major depressive disorder, recurrent, moderate (3) Hyperlipidemia Hyperlipidemia type: pure hypercholesterolemia Qualified Code(s): E78.00 - Pure hypercholesterolemia, unspecified; E78.0 - Pure hypercholesterolemia (4) Hypertension Hypertension type: essential hypertension Qualified Code(s): I10 - Essential (primary) hypertension
[2019-07-19] MEDS: methylPREDNISolone 40 MG in SYRINGE 0 ML IV SCH (12:28)
[2019-07-19 12:50] LABS: Creatinine Clr Calc Pharmacy 91.5 ml/min; Est GFR (African American) 103.3; Est GFR (Non-African American) 89.1
[2019-07-19] MEDS: RIVAROXABAN 20 MG TAB PO SCH (17:03)
[2019-07-19] MEDS: CEFDINIR 300 MG CAP PO SCH (20:16)
[2019-07-19] MEDS: TERAZOSIN HCL 5 MG CAP PO SCH (20:16)
[2019-07-19] MEDS: MAGNESIUM OXIDE 400 MG TAB PO SCH (20:18)
[2019-07-20] MEDS: methylPREDNISolone 40 MG in SYRINGE 0 ML IV SCH ×2 (00:37→11:10)
[2019-07-20] MEDS: INSULIN ASPART 100 UNITS/ML 3 ML PEN SC SCH ×5 (02:04→20:31)
[2019-07-20] MEDS: ALBUT/IPRATROP 3MG/0.5MG NEB 3 ML VIAL NEB SCH ×6 (03:23→23:04)
[2019-07-20 07:48] LABS: Hematocrit (blood only) 39.3 % (42-52); Hemoglobin 13.2 g/dL (14.0-18.0); Immature Granulocytes # (auto) 0.02 K/uL (0.00-0.02); Immature Granulocytes % (auto) 0.3 %; Lymphocytes # (auto) 0.86 K/uL (1.2-3.4); Lymphocytes % (auto) 13.3 %; Mean Corpuscular Hemoglobin 31.6 pg (25-34); Mean Corpuscular Hgb Conc 33.6 g/dL (32-36); Mean Platelet Volume 10.3 fL (7.4-10.4); Monocytes # (auto) 0.28 K/uL (0.11-0.59); Monocytes % (auto) 4.3 %; Neutrophils # (auto) 5.32 K/uL (1.4-6.5); Neutrophils % (auto) 82.1 %; Platelet Count 184 K/uL (130-400); RDW Coefficient of Variation 14.1 % (11.5-14.5); RDW Standard Deviation 48.5 fL (36.4-46.3); Red Blood Count 4.18 M/uL (4.7-6.1); White Blood Count 6.48 K/uL (4.8-10.8)
[2019-07-20 08:04] LABS: BUN Creatinine Ratio 28.3 (10-20); Calcium 8.9 mg/dl (8.5-10.1); Est GFR (African American) 107.5; Est GFR (Non-African American) 92.8; Potassium 4.3 mmol/L (3.5-5.1)
[2019-07-20 08:07] LABS: Albumin Globulin Ratio 0.8 (0.9-2); Bilirubin,Total 0.4 mg/dl (0.2-1); Globulin 3.8 gm/dl (2.5-4.0); Total Protein 6.8 gm/dl (6.4-8.2)
[2019-07-20] MEDS: ATORVASTATIN 40 MG TAB PO SCH (08:13)
[2019-07-20] MEDS: AZITHROMYCIN 250 MG TAB PO SCH (08:13)
[2019-07-20] MEDS: lisinopriL 40 MG TAB PO SCH (08:13)
[2019-07-20] MEDS: AMLODIPINE BESYLATE 5 MG TAB PO SCH (08:13)
[2019-07-20] MEDS: CEROVITE ADV FORMULA TAB PO SCH (08:13)
[2019-07-20] MEDS: CEFDINIR 300 MG CAP PO SCH (08:14)
[2019-07-20] MEDS: PANTOprazole 40 MG TAB PO SCH (08:14)
[2019-07-20] MEDS: MAGNESIUM OXIDE 400 MG TAB PO SCH ×2 (08:14→20:31)
[2019-07-20] MEDS: carvediloL 25 MG TAB PO SCH ×2 (08:14→20:31)
[2019-07-20] MEDS: SERTRALINE HCL 50 MG TABLET PO SCH (08:15)
[2019-07-20] MEDS: INSULIN GLARGINE SOLOSTAR 100 UNITS/ML 3 ML PEN SC SCH ×2 (08:15→20:33)
[2019-07-20] MEDS: BUDESONIDE/FORMOTEROL FUMARATE 160/4.5 60 PUFFS/INHALER INH SCH ×2 (08:15→20:32)
--- NOTE | 2019-07-20 14:46 | Pharmacy Report ---
Pharmacy Glycemic Short Note 2 - Date of Service July 20, 2019 - Glycemic Short BSG Results (Last 24 hours): 07/19/19 07/19/19 07/20/19 16:27 20:01 01:54 Glucose POC Glucose 118 H 148 H 117 H 07/20/19 07/20/19 07/20/19 07:07 07:28 11:37 Glucose 120 H POC Glucose 123 H 116 H OUTPATIENT ANTIDIABETIC REGIMEN: * Metformin 500mg PO BID * A1c = 6% 07/18/19 ASSESSMENT: 07/20 * BSGs well controlled over last 24 hours * IV steroid changed from SM q12H to prednisone 40 mg daily to start tomorrow AM, last IV steroid dose at 1200 * Fasting BSG this morning within goal range, 123, with 32 units of insulin, lantus reduced due to steroid change ~20% * Will continue current novolog parameters, however these may loosened with steroid change tomorrow. 07/19 * BSGs well controlled over last 24 hrs * IV steroid dose unchanged this AM * Fasting BSG slightly elevated this AM, FBS 169 this AM w/ 28 units Lantus on board and after receiving 2 units correction overnight - will make small basal dose increase * Over the last 24 hrs 47 units SQ insulin administered and BSGs ranged 119-175 * Will continue with current Novolog CF / CR at this time as post-prandial BSGs well controlled yesterday 07/18 * Type 2 diabetic admitted for weakness and respiratory failure * Initiated on basal/bolus SQ regimen yesterday * Fasting BSG 155-165 this AM with 21 units basal on board and with 1 additional unit of Novolog correction given overnight * IV steroids continue for COPD exac / PNA * Will continue with current insulin orders and follow BSG trend today - will adjust if needed PLAN FOR INPATIENT GLYCEMIC CONTROL: * Hold outpatient oral diabetes medications * Basal insulin - increase * Lantus SQ BID * 0 units if less than 110 * 12 units if 110-180 * 16 units if BSG above 180 * Bolus insulin * NovoLog per scale ACHS and at 0200 * Goal Range: Low 110 mg/dL - High 140 mg/dL * Correction Factor: 20 mg/dL/unit * Nutritional / Prandial insulin per carb ratio of 1 unit per 7 grams CHO consumed PLAN FOR DISCHARGE: * may resume outpt metformin regimen on discharge given recent A1c (6%) result if no contraindications present at time of discharge
[2019-07-20] MEDS: RIVAROXABAN 20 MG TAB PO SCH (16:15)
[2019-07-20] MEDS: TERAZOSIN HCL 5 MG CAP PO SCH (20:31)
--- NOTE | 2019-07-20 20:42 | Hospitalist Progress Note ---
Date of Service July 20, 2019 Assessment & Plan (1) Acute respiratory failure: 2nd acute bronchitis. resolved. off daytime NC O2 support. (2) Acute bronchitis: likely viral in etiology stop cefdinir. stop IV steroids; change to prednisone 40mg qam starting in am and wean over several days. prn nebs. finish z-pack in event the bronchitis was caused by atypical pathogen (mycoplasma, etc). (3) Bilateral leg weakness: brain MRI reviewed. large ventricles noted. neurology consult reviewed. lyme, b12, etc all normal. exact etiology uncertain. progressive deconditioning over several months? strength on exam is quite good today. improving with PT/OT but still needs rehab. (4) Atrial fibrillation: PAF cont xarelto cont coreg tele wnl (5) BPH (benign prostatic hyperplasia): no issues cont alpha divya (6) Obstructive sleep apnea: cont CPAP HS (7) Hypertension: controlled (8) Hyperlipidemia: cont statin (9) Depression: cont SSRI (zoloft) (10) Cardiac pacemaker in situ: noted no issues placed for SSS in the past (11) Diabetes: control quite adequate with basal-bolus insulin pharmacy managing; appreciate their assistance (12) CAD (coronary artery disease): no symptoms of ischemia at this time cont statin, BB uncertain why he is not on aspirin or plavix (13) DVT prophylaxis: julio cesar did [id number] today with [facility] medical administrative assistant; appeal denied; did not meet criteria for inpt rehab spent 20+ minutes for this process welfare case worker informed of denial plan B likely SNF rehab total time today about 40min care discussed at multidisciplinary rounds today Subjective patient stated "I'm feeling good." cough improved. no dyspnea. leg strength much improved. appetite is good/improved. tele wnl. Review of Systems Constitutional: no fever, no chills, no fatigue and no anorexia Respiratory: + cough; no dyspnea, no dyspnea on exertion and no wheezing Cardiovascular: no chest pain Gastrointestinal: no abdominal pain, no nausea and no vomiting Physical Exam Constitutional: well developed, well nourished and + obese; no acute distress ENMT: external ear and nose normal, oropharynx normal Respiratory: no respiratory distress and no cough Auscultation: + wheezes (mild - b/l ); no crackles Cardiovascular: Rate/Rhythm: regular rate and regular rhythm Heart Sounds: normal S1 and normal S2; no murmur Vessels: posterior tibial pulses present and dorsalis pedis pulses present; no JVD Extremities: no edema Gastrointestinal (Abdomen): normal bowel sounds, soft, nontender, no hepatosplenomegaly Neurologic: moves all extremities (strength 5/5 all muscle groups of both legs; 5/5 b/l upper exts as well) Psychiatric: Orientation: alert, oriented to person and oriented to place Results & Data Vital Signs (Past 12 Hours) Vital Signs Temp Pulse Pulse Resp BP BP Pulse Ox 07/20/19 19:17 92 H 18 94 07/20/19 19:02 152/97 H 162/97 H 07/20/19 18:46 37.6 C H 98 H 18 148/100 H 90 07/20/19 16:17 90 07/20/19 16:08 85 18 93 07/20/19 14:58 37.1 C 81 18 129/80 92 07/20/19 11:33 36.4 C L 76 20 128/87 95 07/20/19 10:53 78 20 96 Laboratory Results Laboratory Results - last 24 hr 07/19/19 07/20/19 07/20/19 16:27 01:54 07:07 WBC 6.48 RBC 4.18 L Hgb 13.2 L Hct 39.3 L MCV 94.0 MCH 31.6 MCHC 33.6 RDW Std Deviation 48.5 H RDW Coeff of Jessica 14.1 Plt Count 184 MPV 10.3 Immature Gran % (Auto) 0.3 Neut % (Auto) 82.1 Lymph % (Auto) 13.3 [place] % (Auto) 4.3 Eos % (Auto) 0.0 Baso % (Auto) 0.0 Immature Gran # (Auto) 0.02 Neut # (Auto) 5.32 Lymph # (Auto) 0.86 L [place] # (Auto) 0.28 Eos # (Auto) 0.00 Baso # (Auto) 0.00 Sodium Potassium Chloride Carbon Dioxide Anion Gap BUN Creatinine Est Cr Clr Drug Dosing Est GFR ( Amer) Est GFR (Non-Af Amer) BUN/Creatinine Ratio Glucose POC Glucose 118 H 117 H Calcium Total Bilirubin AST ALT Alkaline Phosphatase Total Creatine Kinase Total Protein Albumin Globulin Albumin/Globulin Ratio Vitamin B12 07/20/19 07/20/19 07/20/19 07:07 07:28 09:21 WBC RBC Hgb Hct MCV MCH MCHC RDW Std Deviation RDW Coeff of Jessica Plt Count MPV Immature Gran % (Auto) Neut % (Auto) Lymph % (Auto) [place] % (Auto) Eos % (Auto) Baso % (Auto) Immature Gran # (Auto) Neut # (Auto) Lymph # (Auto) [place] # (Auto) Eos # (Auto) Baso # (Auto) Sodium 140 Potassium 4.3 Chloride 107 Carbon Dioxide 28 Anion Gap 5.0 BUN 22 H Creatinine 0.78 Est Cr Clr Drug Dosing 102.0 Est GFR ( Amer) 107.5 Est GFR (Non-Af Amer) 92.8 BUN/Creatinine Ratio 28.3 H Glucose 120 H POC Glucose 123 H Calcium 8.9 Total Bilirubin 0.4 AST 26 ALT 48 Alkaline Phosphatase 68 Total Creatine Kinase 145 Total Protein 6.8 Albumin 3.0 L Globulin 3.8 Albumin/Globulin Ratio 0.8 L Vitamin B12 07/20/19 07/20/19 07/20/19 09:21 11:37 16:22 WBC RBC Hgb Hct MCV MCH MCHC RDW Std Deviation RDW Coeff of Jessica Plt Count MPV Immature Gran % (Auto) Neut % (Auto) Lymph % (Auto) [place] % (Auto) Eos % (Auto) Baso % (Auto) Immature Gran # (Auto) Neut # (Auto) Lymph # (Auto) [place] # (Auto) Eos # (Auto) Baso # (Auto) Sodium Potassium Chloride Carbon Dioxide Anion Gap BUN Creatinine Est Cr Clr Drug Dosing Est GFR ( Amer) Est GFR (Non-Af Amer) BUN/Creatinine Ratio Glucose POC Glucose 116 H 126 H Calcium Total Bilirubin AST ALT Alkaline Phosphatase Total Creatine Kinase Total Protein Albumin Globulin Albumin/Globulin Ratio Vitamin B12 1004 H 07/20/19 20:00 WBC RBC Hgb Hct MCV MCH MCHC RDW Std Deviation RDW Coeff of Jessica Plt Count MPV Immature Gran % (Auto) Neut % (Auto) Lymph % (Auto) [place] % (Auto) Eos % (Auto) Baso % (Auto) Immature Gran # (Auto) Neut # (Auto) Lymph # (Auto) [place] # (Auto) Eos # (Auto) Baso # (Auto) Sodium Potassium Chloride Carbon Dioxide Anion Gap BUN Creatinine Est Cr Clr Drug Dosing Est GFR ( Amer) Est GFR (Non-Af Amer) BUN/Creatinine Ratio Glucose POC Glucose 134 H Calcium Total Bilirubin AST ALT Alkaline Phosphatase Total Creatine Kinase Total Protein Albumin Globulin Albumin/Globulin Ratio Vitamin B12 PG Care Time/CCT Total # of Minutes Spent Total Time Spent with Patient: Total time spent is greater than 50% in coordination of care (as documented) at patient's floor/unit and/or counseling patient: (1) Acute respiratory failure Respiratory failure complication: hypoxia Qualified Code(s): J96.01 - Acute respiratory failure with hypoxia (2) Acute bronchitis Bronchitis organism: other organism Qualified Code(s): J20.8 - Acute bronchitis due to other specified organisms (3) Atrial fibrillation Atrial fibrillation type: paroxysmal Qualified Code(s): I48.0 - Paroxysmal atrial fibrillation (4) Hypertension Hypertension type: essential hypertension Qualified Code(s): I10 - Essential (primary) hypertension (5) Hyperlipidemia Hyperlipidemia type: pure hypercholesterolemia Qualified Code(s): E78.00 - Pure hypercholesterolemia, unspecified; E78.0 - Pure hypercholesterolemia (6) Depression Depression Type: major depressive disorder Major depression recurrence: recurrent Active/Remission status: currently active Major depression episode severity: moderate Qualified Code(s): F33.1 - Major depressive disorder, recurrent, moderate (7) Diabetes Diabetes mellitus type: type 2 Diabetes mellitus nursing home insulin use: without tank terminal gauger use Diabetes mellitus complication status: without complication Qualified Code(s): E11.9 - Type 2 diabetes mellitus without complications (8) CAD (coronary artery disease) Coronary Disease-Associated Artery/Lesion type: [place] artery [place] vs. transplanted heart: [place] heart Associated angina: without angina Qualified Code(s): I25.10 - Atherosclerotic heart disease of [place] coronary artery without angina pectoris
--- NOTE | 2019-07-21 01:45 | Hospitalist Progress Note ---
Date of Service July 21, 2019 Assessment & Plan (1) Ventricular tachycardia: S: Reports from RN that pt had 6 beat and 8 beat runs of Vtach at 2022 and 129, respectively. First reported by monitor hospital unit clerk. In both instances, pt asymptomatic and resting in bed. Denies CP, SOB, palpitations, syncope or near syncope, edema. O: Cardiac- normal S1, normal S2 and + murmur A/P: K and Mg WNL. As pt is asymptomatic, will not pursue any sort of measures at present. Routine consult for Cardiology placed. Results & Data Vital Signs (Past 12 Hours) Vital Signs Temp Pulse Pulse Resp BP BP Pulse Ox 07/21/19 01:38 82 07/20/19 23:09 36.8 C 85 20 159/92 H 97 07/20/19 23:06 86 18 93 07/20/19 22:25 94 H 07/20/19 19:17 92 H 18 94 07/20/19 19:02 152/97 H 162/97 H 07/20/19 18:46 37.6 C H 98 H 18 148/100 H 90 07/20/19 16:17 90 07/20/19 16:08 85 18 93 07/20/19 14:58 37.1 C 81 18 129/80 92 Resident Activity Tracking Resident Involvement: Resident Care Provided Care Provided: Adult Hospital Medicine
[2019-07-21] MEDS: INSULIN ASPART 100 UNITS/ML 3 ML PEN SC SCH ×5 (02:17→20:15)
[2019-07-21] MEDS: ALBUT/IPRATROP 3MG/0.5MG NEB 3 ML VIAL NEB SCH ×2 (03:14→06:55)
[2019-07-21 06:28] LABS: Basophils # (auto) 0.01 K/uL (0-0.2); Basophils % (auto) 0.1 %; Hematocrit (blood only) 38.6 % (42-52); Hemoglobin 12.8 g/dL (14.0-18.0); Immature Granulocytes # (auto) 0.01 K/uL (0.00-0.02); Immature Granulocytes % (auto) 0.1 %; Lymphocytes # (auto) 1.75 K/uL (1.2-3.4); Lymphocytes % (auto) 22.4 %; Mean Corpuscular Hemoglobin 31.1 pg (25-34); Mean Corpuscular Hgb Conc 33.2 g/dL (32-36); Mean Corpuscular Volume 93.7 fL (80-100); Mean Platelet Volume 10.3 fL (7.4-10.4); Monocytes # (auto) 1.23 K/uL (0.11-0.59); Monocytes % (auto) 15.7 %; Neutrophils # (auto) 4.82 K/uL (1.4-6.5); Neutrophils % (auto) 61.7 %; Platelet Count 180 K/uL (130-400); RDW Standard Deviation 47.9 fL (36.4-46.3); Red Blood Count 4.12 M/uL (4.7-6.1); White Blood Count 7.82 K/uL (4.8-10.8)
[2019-07-21 07:01] LABS: Albumin Level 2.9 gm/dl (3.4-5.0); BUN Creatinine Ratio 24.7 (10-20); Calcium 8.7 mg/dl (8.5-10.1); Creatinine Clr Calc Pharmacy 83.3 ml/min; Est GFR (African American) 96.2
[2019-07-21 07:03] LABS: Albumin Globulin Ratio 0.9 (0.9-2); Bilirubin,Total 0.4 mg/dl (0.2-1); Globulin 3.3 gm/dl (2.5-4.0); Total Protein 6.2 gm/dl (6.4-8.2)
[2019-07-21] MEDS ORDERED: ALBUT/IPRATROP 3MG/0.5MG NEB 3 ML VIAL NEB PRN (08:27)
[2019-07-21] MEDS: AZITHROMYCIN 250 MG TAB PO SCH (08:39)
[2019-07-21] MEDS: predniSONE 20 MG TAB PO SCH (08:40)
[2019-07-21] MEDS: PANTOprazole 40 MG TAB PO SCH (08:40)
[2019-07-21] MEDS: AMLODIPINE BESYLATE 5 MG TAB PO SCH (08:40)
[2019-07-21] MEDS: BUDESONIDE/FORMOTEROL FUMARATE 160/4.5 60 PUFFS/INHALER INH SCH ×2 (08:41→20:15)
[2019-07-21] MEDS: MAGNESIUM OXIDE 400 MG TAB PO SCH ×2 (08:41→20:14)
[2019-07-21] MEDS: CEROVITE ADV FORMULA TAB PO SCH (08:41)
[2019-07-21] MEDS: ATORVASTATIN 40 MG TAB PO SCH (08:41)
[2019-07-21] MEDS: INSULIN GLARGINE SOLOSTAR 100 UNITS/ML 3 ML PEN SC SCH ×2 (08:42→20:17)
[2019-07-21] MEDS: carvediloL 25 MG TAB PO SCH ×2 (08:42→20:14)
[2019-07-21] MEDS: SERTRALINE HCL 50 MG TABLET PO SCH (08:42)
[2019-07-21] MEDS: lisinopriL 40 MG TAB PO SCH (08:43)
--- NOTE | 2019-07-21 12:44 | Cardiology Consultation ---
Date of Consultation July 21, 2019 Assessment & Plan (1) Ventricular tachycardia: He has had one asymptomatic run of nonsustained ventricular tachycardia identified on telemetry. He was asymptomatic and longer runs would be identified by his pacemaker. In the absence of symptoms and with normal overall left ventricular function I would not treat his arrhythmia specifically. He is on good doses of beta-blockade (carvedilol 25 mg twice daily) and I would continue that. If he is symptomatic or prolonged episodes we will need to reevaluate things. (2) Atrial fibrillation: He has a history of atrial fibrillation but has had none in the hospital. (3) Anticoagulant long-term use: He should remain on anticoagulation, he is on Xarelto and I recommended he continue it. (4) Cardiomyopathy: He has a history of a cardiomyopathy but his left ventricular function had normalized by about 3 years ago, he has remained on his heart failure medications and his ejection fraction remains essentially normal. I would continue these but would not study him further. (5) CAD (coronary artery disease): He has a history of coronary artery disease, he does not have any symptoms to suggest progression. (6) Cardiac pacemaker in situ: His pacemaker was evaluated several weeks ago and was functioning well. I do not think it needs to be reevaluated now. History of Present Illness Reason for Consultation: Nonsustained ventricular tachycardia Attending Physician: Jesus Haque History of Present Illness This is a 68-year-old gentleman who had a myocardial infarction associated with a cardiac arrest in July 2009, cardiac arrest was felt secondary to the ischemic event. Catheterization demonstrated an occluded right coronary artery for which he had intervention, he also required intra-aortic balloon pump and transferred to [facility]. He also had disease in his LAD system. He has done well from the coronary artery disease standpoint since on risk factor modification and his ejection fraction subsequently normalized as of July 2015. He had syncope on 06/01/2016 and had a loop recorder implanted on 07/26/2015 after negative workup. His loop recorder showed heart rates of less than 30 bpm as well as pauses of up to 4 seconds in duration. A pacemaker was recommended however he initially refused, subsequently however he reconsidered and his loop recorder was explanted and a dual-chamber pacemaker was implanted on 08/07/2016. He has had episodes of atrial fibrillation and is now on anticoagulation. He did have an episode of syncope while in [employer] in 2018 but no etiology was identified the pacer was working well. He has had no further episodes. He is now admitted with sudden difficulty in ambulation. He describes getting up and feeling that his legs were extremely weak, and he was having trouble supporting his weight. He generally uses a cane but he does have a walker. He does not feel that the symptoms were related to lightheadedness or dizziness, he had no palpitations and they are not exertional symptoms. He has not had exertional chest discomfort or shortness of breath recently. Here in the hospital his evaluation has been unremarkable. He has however been on telemetry monitoring and he was observed to have an episode of nonsustained ventricular tachycardia with a heart rate of about 160 bpm for 8 beats in duration. He also has PVCs. His pacemaker has been evaluated he has been doing quite well recently, July 11, 2019 and his pacemaker was working well. His heart rate distribution looked appropriate based on pacemaker interrogation and he had no recent atrial fibrillation at that time. He had excellent battery longevity remaining. He tells me that after several days in the hospital he might be feeling a little bit better but has not been very active here. Allergies Allergy/AdvReac Type Severity Reaction Status Date / Time DAWN Inhibitors AdvReac Unknown cough Verified 07/17/19 05:32 Home Medications Home Medications Medication Instructions Recorded Confirmed Type multivitamin with minerals 1 tab PO DAILY 02/13/19 07/17/19 History acetaminophen 650 mg 650 mg PO Q12H PRN #180 tab 02/15/19 07/17/19 Rx tablet,extended release amlodipine 5 mg tablet 5 mg PO DAILY #90 tab 05/17/19 07/17/19 Rx atorvastatin 40 mg tablet 40 mg PO DAILY #90 tab 05/17/19 07/17/19 Rx carvedilol 25 mg tablet 25 mg PO BID #180 tab 05/17/19 07/17/19 Rx lisinopril 40 mg tablet 40 mg PO DAILY #90 tab 05/17/19 07/17/19 Rx rivaroxaban 20 mg tablet 20 mg PO DAILY #90 tab 05/17/19 07/17/19 Rx sertraline 50 mg tablet 50 mg PO DAILY #90 tab 05/17/19 07/17/19 Rx terazosin 5 mg capsule 5 mg PO HS #90 cap 05/17/19 07/17/19 Rx walker #1 ea 05/17/19 07/17/19 Rx metformin 500 mg tablet 500 mg PO BID #180 tab 05/30/19 07/17/19 Rx pantoprazole 40 mg tablet,delayed 40 mg PO DAILY #90 tab 06/11/19 07/17/19 Rx release Patient History Medical History Myocardial infarction Ventricular fibrillation Surgical History S/P cardiac cath Single vessel distal right coronary artery S/P hernia repair Umbilical S/P wisdom tooth extraction Family History Father Rheumatic fever Myocardial infarction Unknown Myocardial infarction Social History Preferred Language: Khmer Communication Ability: Effective Visual Impairment: No Limitations Hearing Ability: Normal Suspect Artist Supervisor Required: No Beliefs That Will Affect Care: None marital status: Current Living Situation: Spouse current occupational status: retired Other Information That Helps Us Care for You: No Feels Safe at Home: Yes Safety Concerns: Feels Safe At This Time Smoking Status: Never smoker Hx Alcohol Use: No Hx Substance Use: No Childhood Exposure to Second-Hand Smoke: Yes Dental Care, Regularly: Yes Physical Activity Frequency: Does not Exercise Seatbelt Use: always Review of Systems Review of Systems: All systems reviewed & are unremarkable except as noted in HPI & below Physical Exam Physical Exam: Constitutional: Alert, cooperative and in no distress. HEENT: Unremarkable Neck: No jugular venous distention, carotid pulses are normal and equal bilaterally without bruits. Pulmonary: Clear to auscultation bilaterally. Cardiac: Regular rhythm with no murmur, gallop or rub. Abdomen: Soft, nontender with normal bowel sounds. Extremities: No edema. Distal pulses intact. Neurologic: No focal findings. Gait was not tested. Skin: The device site is well-healed without erythema, swelling or tenderness. No rash, ecchymoses or petechiae. Results & Data Vital Signs (Past 12 Hours) Vital Signs Temp Pulse Pulse Resp BP Pulse Ox 07/21/19 11:53 36.8 C 80 18 143/66 H 93 07/21/19 07:33 97 H 07/21/19 07:00 36.5 C 69 20 150/92 H 95 07/21/19 06:57 72 16 93 07/21/19 03:19 36.4 C L 65 18 143/80 H 95 07/21/19 03:15 62 16 96 07/21/19 01:38 82 Laboratory Results Cardiac Enzymes 07/21/19 Range/Units 05:26 AST 24 (15-37) U/L CBC 07/21/19 Range/Units 05:26 WBC 7.82 (4.8-10.8) K/uL RBC 4.12 L (4.7-6.1) M/uL Hgb 12.8 L (14.0-18.0) g/dL Hct 38.6 L (42-52) % Plt Count 180 (130-400) K/uL Neut # (Auto) 4.82 (1.4-6.5) K/uL Lymph # (Auto) 1.75 (1.2-3.4) K/uL [place] # (Auto) 1.23 H (0.11-0.59) K/uL Eos # (Auto) 0.00 (0-0.5) K/uL Baso # (Auto) 0.01 (0-0.2) K/uL Comprehensive Metabolic Panel 07/21/19 Range/Units 05:26 Sodium 141 (136-145) mmol/L Potassium 4.0 (3.5-5.1) mmol/L Chloride 108 H (98-107) mmol/L Carbon Dioxide 30 (21-32) mmol/L BUN 23 H (7-18) mg/dl Creatinine 0.94 (0.6-1.4) mg/dl Glucose 95 (70-99) mg/dl Calcium 8.7 (8.5-10.1) mg/dl AST 24 (15-37) U/L ALT 49 (12-78) U/L Alkaline Phosphatase 62 (45-117) U/L Total Protein 6.2 L (6.4-8.2) gm/dl Albumin 2.9 L (3.4-5.0) gm/dl Intake and Output 07/20/19 07/21/19 07/21/19 22:59 06:59 14:59 Intake Total 300 / 1000 300 / 1000 Output Total 300 / 1201 400 / 1201 Balance 0 / -201 -100 / -201 Intake: Oral 300 / 1000 300 / 1000 Output: Urine 300 / 1200 400 / 1200 Other: # Unmeasured Voids 1 Weight 103.5 kg Diagnostic Findings Electrocardiogram: From July 17, 2019 sinus rhythm with frequent premature ventricular beats. Old inferior myocardial infarction. Telemetry: Sinus rhythm with a controlled heart rate, some atrial pacing, 1 8 beat run of nonsustained ventricular tachycardia at 160 bpm. Echocardiogram: On preliminary review he has essentially normal overall left ventricular function. PG Care Time/CCT Total # of Minutes Spent Total Time Spent with Patient: Total time spent is greater than 50% in coordination of care (as documented) at patient's floor/unit and/or counseling patient: (1) CAD (coronary artery disease) Associated angina: without angina Coronary Disease-Associated Artery/Lesion type: [place] artery [place] vs. transplanted heart: [place] heart Qualified Code(s): I25.10 - Atherosclerotic heart disease of [place] coronary artery without angina pectoris (2) Atrial fibrillation Atrial fibrillation type: paroxysmal Qualified Code(s): I48.0 - Paroxysmal atrial fibrillation
--- NOTE | 2019-07-21 16:07 | Pharmacy Report ---
Pharmacy Glycemic Short Note 2 - Date of Service July 21, 2019 - Glycemic Short BSG Results (Last 24 hours): 07/20/19 07/20/19 07/21/19 16:22 20:00 02:13 Glucose POC Glucose 126 H 134 H 111 H 07/21/19 07/21/19 07/21/19 05:26 07:34 11:35 Glucose 95 POC Glucose 88 97 OUTPATIENT ANTIDIABETIC REGIMEN: * Metformin 500mg PO BID * A1c = 6% 07/18/19 ASSESSMENT: 07/21 * Steroid change to 40 mg daily today, patient required 41 units of insulin yesterday with good glycemic control * Insulin requirements decreasing with steroid de-escalation, fasting this AM 88, AM lantus held per scale * Do not anticipate prednisone will have major effects on BSGs as patient has had good control, loosened carb ratio and correction factor up to weight based stress of 2, may need to loosen further 07/20 * BSGs well controlled over last 24 hours * IV steroid changed from SM q12H to prednisone 40 mg daily to start tomorrow AM, last IV steroid dose at 1200 * Fasting BSG this morning within goal range, 123, with 32 units of insulin, lantus reduced due to steroid change ~20% * Will continue current novolog parameters, however these may loosened with steroid change tomorrow. 07/19 * BSGs well controlled over last 24 hrs * IV steroid dose unchanged this AM * Fasting BSG slightly elevated this AM, FBS 169 this AM w/ 28 units Lantus on board and after receiving 2 units correction overnight - will make small basal dose increase * Over the last 24 hrs 47 units SQ insulin administered and BSGs ranged 119-175 * Will continue with current Novolog CF / CR at this time as post-prandial BSGs well controlled yesterday 07/18 * Type 2 diabetic admitted for weakness and respiratory failure * Initiated on basal/bolus SQ regimen yesterday * Fasting BSG 155-165 this AM with 21 units basal on board and with 1 additional unit of Novolog correction given overnight * IV steroids continue for COPD exac / PNA * Will continue with current insulin orders and follow BSG trend today - will adjust if needed PLAN FOR INPATIENT GLYCEMIC CONTROL: * Hold outpatient oral diabetes medications * Basal insulin - increase * Lantus SQ BID * 0 units if less than 110 * 7 units if 110-180 * 14 units if BSG above 180 * Bolus insulin * NovoLog per scale ACHS and at 0200 * Goal Range: Low 110 mg/dL - High 140 mg/dL * Correction Factor: 30 mg/dL/unit * Nutritional / Prandial insulin per carb ratio of 1 unit per 10 grams CHO consumed PLAN FOR DISCHARGE: * may resume outpt metformin regimen on discharge given recent A1c (6%) result if no contraindications present at time of discharge
[2019-07-21] MEDS: RIVAROXABAN 20 MG TAB PO SCH (17:26)
--- NOTE | 2019-07-21 19:50 | Hospitalist Progress Note ---
Date of Service July 21, 2019 Assessment & Plan (1) Acute respiratory failure: 2nd acute bronchitis. resolved. (2) Acute bronchitis: likely viral in etiology. however, completed z-pack in event the bronchitis was caused by atypical pathogen (mycoplasma, etc). cont bronchodilators. cont tapering steroids. (3) Bilateral leg weakness: brain MRI with large ventricles noted. neurology consult reviewed. lyme, b12, etc all normal. exact etiology uncertain. could he have NPH? neurology to see as outpatient and perform additional investigation if the ambulatory issue continues. strength on exam continues to be normal. improving with PT/OT but still needs rehab. referral to SNF pending. (4) Atrial fibrillation: PAF cont xarelto cont coreg (5) BPH (benign prostatic hyperplasia): no issues cont alpha divya (6) Obstructive sleep apnea: cont CPAP HS (7) Hypertension: controlled (8) Hyperlipidemia: cont statin (9) Depression: cont SSRI (zoloft) (10) Cardiac pacemaker in situ: seen by Dr Cruz today placed for SSS in the past pacer working well (11) Diabetes: control acceptable w/ basal-bolus insulin pharmacy managing; appreciate their assistance (12) CAD (coronary artery disease): no symptoms of ischemia at this time cont statin, BB uncertain why he is not on aspirin or plavix h/o acute GA 10 years ago with RCA stent echo today with inferior akinesis from that prior event (13) Ventricular tachycardia: Nonsustained seen by Dr Cruz observe for now; no other management needed at this time echo results noted K/Mag have been normal cont telemetry (14) DVT prophylaxis: xarelto extensively updated at bedside today care discussed at multidisciplinary rounds today as well await SNF referral Subjective events of overnight noted including 2 brief runs of NSV-T. no symptoms during either run. during AM rounds pt reports feeling good except for "that pesky cough". no dyspnea. eating well. no chest pain. no abd pain. ambulating. I visited the bedside on a 2nd occasion -- updated pt's extensively with plan of care. still hoping for rehab placement; she is aware of SNF denial. Review of Systems Constitutional: no fever and no chills Respiratory: + cough and + wheezing Cardiovascular: no chest pain Gastrointestinal: no abdominal pain, no nausea, no vomiting and no constipation Physical Exam Constitutional: well developed, well nourished and + obese; no acute distress ENMT: external ear and nose normal, oropharynx normal Respiratory: no respiratory distress and no cough Auscultation: + wheezes (mild - b/l ); no crackles Cardiovascular: Rate/Rhythm: regular rate and regular rhythm Heart Sounds: normal S1 and normal S2; no murmur Vessels: posterior tibial pulses present and dorsalis pedis pulses present; no JVD Extremities: no edema Gastrointestinal (Abdomen): normal bowel sounds, soft, nontender, no hepatosplenomegaly Neurologic: moves all extremities (strength 5/5 x 4 extremities ) Psychiatric: Orientation: alert, oriented to person and oriented to place Results & Data Vital Signs (Past 12 Hours) Vital Signs Temp Pulse Pulse Resp BP Pulse Ox 07/21/19 19:28 37.1 C 93 H 20 131/83 91 07/21/19 16:18 87 07/21/19 15:33 37.0 C 81 20 127/83 91 07/21/19 11:53 36.8 C 80 18 143/66 H 93 Laboratory Results Laboratory Results - last 24 hr 07/20/19 07/21/19 07/21/19 20:00 02:13 05:26 WBC 7.82 RBC 4.12 L Hgb 12.8 L Hct 38.6 L MCV 93.7 MCH 31.1 MCHC 33.2 RDW Std Deviation 47.9 H RDW Coeff of Jessica 14.0 Plt Count 180 MPV 10.3 Immature Gran % (Auto) 0.1 Neut % (Auto) 61.7 Lymph % (Auto) 22.4 Atkinson % (Auto) 15.7 Eos % (Auto) 0.0 Baso % (Auto) 0.1 Immature Gran # (Auto) 0.01 Neut # (Auto) 4.82 Lymph # (Auto) 1.75 [place]kinson # (Auto) 1.23 H Eos # (Auto) 0.00 Baso # (Auto) 0.01 Sodium Potassium Chloride Carbon Dioxide Anion Gap BUN Creatinine Est Cr Clr Drug Dosing Est GFR ( Amer) Est GFR (Non-Af Amer) BUN/Creatinine Ratio Glucose POC Glucose 134 H 111 H Calcium Total Bilirubin AST ALT Alkaline Phosphatase Total Protein Albumin Globulin Albumin/Globulin Ratio 07/21/19 07/21/19 07/21/19 05:26 07:34 11:35 WBC RBC Hgb Hct MCV MCH MCHC RDW Std Deviation RDW Coeff of Jessica Plt Count MPV Immature Gran % (Auto) Neut % (Auto) Lymph % (Auto) Atkinson % (Auto) Eos % (Auto) Baso % (Auto) Immature Gran # (Auto) Neut # (Auto) Lymph # (Auto) [place]kinson # (Auto) Eos # (Auto) Baso # (Auto) Sodium 141 Potassium 4.0 Chloride 108 H Carbon Dioxide 30 Anion Gap 4.0 BUN 23 H Creatinine 0.94 Est Cr Clr Drug Dosing 83.3 Est GFR ( Amer) 96.2 Est GFR (Non-Af Amer) 83.0 BUN/Creatinine Ratio 24.7 H Glucose 95 POC Glucose 88 97 Calcium 8.7 Total Bilirubin 0.4 AST 24 ALT 49 Alkaline Phosphatase 62 Total Protein 6.2 L Albumin 2.9 L Globulin 3.3 Albumin/Globulin Ratio 0.9 07/21/19 16:32 WBC RBC Hgb Hct MCV MCH MCHC RDW Std Deviation RDW Coeff of Jessica Plt Count MPV Immature Gran % (Auto) Neut % (Auto) Lymph % (Auto) [place]kinson % (Auto) Eos % (Auto) Baso % (Auto) Immature Gran # (Auto) Neut # (Auto) Lymph # (Auto) [place] # (Auto) Eos # (Auto) Baso # (Auto) Sodium Potassium Chloride Carbon Dioxide Anion Gap BUN Creatinine Est Cr Clr Drug Dosing Est GFR ( Amer) Est GFR (Non-Af Amer) BUN/Creatinine Ratio Glucose POC Glucose 144 H Calcium Total Bilirubin AST ALT Alkaline Phosphatase Total Protein Albumin Globulin Albumin/Globulin Ratio PG Care Time/CCT Total # of Minutes Spent Total Time Spent with Patient: Total time spent is greater than 50% in coordination of care (as documented) at patient's floor/unit and/or counseling patient: (1) Diabetes Diabetes mellitus complication status: without complication Diabetes mellitus electronics tester insulin use: without fci use Diabetes mellitus type: type 2 Qualified Code(s): E11.9 - Type 2 diabetes mellitus without complications (2) Acute respiratory failure Respiratory failure complication: hypoxia Qualified Code(s): J96.01 - Acute respiratory failure with hypoxia (3) CAD (coronary artery disease) Associated angina: without angina Coronary Disease-Associated Artery/Lesion type: [place] artery [place] vs. transplanted heart: [place] heart Qualified Code(s): I25.10 - Atherosclerotic heart disease of [place] coronary artery without angina pectoris (4) Atrial fibrillation Atrial fibrillation type: paroxysmal Qualified Code(s): I48.0 - Paroxysmal atrial fibrillation (5) Depression Active/Remission status: currently active Depression Type: major depressive disorder Major depression episode severity: moderate Major depression recurrence: recurrent Qualified Code(s): F33.1 - Major depressive disorder, recurrent, moderate (6) Hyperlipidemia Hyperlipidemia type: pure hypercholesterolemia Qualified Code(s): E78.00 - Pure hypercholesterolemia, unspecified; E78.0 - Pure hypercholesterolemia (7) Acute bronchitis Bronchitis organism: other organism Qualified Code(s): J20.8 - Acute bronchitis due to other specified organisms (8) Hypertension Hypertension type: essential hypertension Qualified Code(s): I10 - Essential (primary) hypertension
[2019-07-21] MEDS: TERAZOSIN HCL 5 MG CAP PO SCH (20:14)
[2019-07-22] MEDS: INSULIN ASPART 100 UNITS/ML 3 ML PEN SC SCH ×5 (02:01→20:40)
[2019-07-22 07:47] LABS: Eosinophils # (auto) 0.03 K/uL (0-0.5); Eosinophils % (auto) 0.5 %; Hemoglobin 13.3 g/dL (14.0-18.0); Immature Granulocytes # (auto) 0.01 K/uL (0.00-0.02); Immature Granulocytes % (auto) 0.2 %; Lymphocytes # (auto) 1.83 K/uL (1.2-3.4); Lymphocytes % (auto) 28.5 %; Mean Corpuscular Hgb Conc 33.3 g/dL (32-36); Mean Corpuscular Volume 93.2 fL (80-100); Mean Platelet Volume 10.4 fL (7.4-10.4); Monocytes # (auto) 0.97 K/uL (0.11-0.59); Monocytes % (auto) 15.1 %; Neutrophils # (auto) 3.59 K/uL (1.4-6.5); Neutrophils % (auto) 55.7 %; Platelet Count 156 K/uL (130-400); RDW Coefficient of Variation 13.9 % (11.5-14.5); RDW Standard Deviation 47.6 fL (36.4-46.3); Red Blood Count 4.29 M/uL (4.7-6.1); White Blood Count 6.43 K/uL (4.8-10.8)
[2019-07-22 08:18] LABS: BUN Creatinine Ratio 28.4 (10-20); Calcium 8.8 mg/dl (8.5-10.1); Creatinine Clr Calc Pharmacy 85.3 ml/min; Est GFR (African American) 98.7; Est GFR (Non-African American) 85.2; Potassium 3.7 mmol/L (3.5-5.1)
[2019-07-22 08:20] LABS: Albumin Globulin Ratio 0.9 (0.9-2); Bilirubin,Total 0.4 mg/dl (0.2-1); Globulin 3.2 gm/dl (2.5-4.0); Total Protein 6.2 gm/dl (6.4-8.2)
[2019-07-22] MEDS: AMLODIPINE BESYLATE 5 MG TAB PO SCH (08:27)
[2019-07-22] MEDS: CEROVITE ADV FORMULA TAB PO SCH (08:27)
[2019-07-22] MEDS: BUDESONIDE/FORMOTEROL FUMARATE 160/4.5 60 PUFFS/INHALER INH SCH ×2 (08:27→20:40)
[2019-07-22] MEDS: ATORVASTATIN 40 MG TAB PO SCH (08:27)
[2019-07-22] MEDS: MAGNESIUM OXIDE 400 MG TAB PO SCH ×2 (08:27→20:39)
[2019-07-22] MEDS: SERTRALINE HCL 50 MG TABLET PO SCH (08:27)
[2019-07-22] MEDS: PANTOprazole 40 MG TAB PO SCH (08:28)
[2019-07-22] MEDS: carvediloL 25 MG TAB PO SCH ×2 (08:28→20:38)
[2019-07-22] MEDS: lisinopriL 40 MG TAB PO SCH (08:28)
[2019-07-22] MEDS: predniSONE 20 MG TAB PO SCH (08:28)
[2019-07-22] MEDS: INSULIN GLARGINE SOLOSTAR 100 UNITS/ML 3 ML PEN SC SCH (08:29)
--- NOTE | 2019-07-22 14:01 | Pharmacy Report ---
Pharmacy Glycemic Short Note 2 - Date of Service July 22, 2019 - Glycemic Short BSG Results (Last 24 hours): 07/21/19 07/21/19 07/22/19 16:32 20:04 01:58 Glucose POC Glucose 144 H 134 H 102 H 07/22/19 07/22/19 07/22/19 07:17 07:25 11:37 Glucose 93 POC Glucose 88 115 H OUTPATIENT ANTIDIABETIC REGIMEN: * Metformin 500mg PO BID * A1c = 6% 07/18/19 ASSESSMENT: * Steroid change to 40 mg daily yesterday patient required 18 units of insulin yesterday with good glycemic control * Insulin requirements decreasing with steroid de-escalation, fasting this AM 88, AM lantus held per scale. Basal insulin most likely not needed anymore with step down in steroid dosing and "low" A1c * Do not anticipate prednisone will have major effects on BSGs as patient has had good control PLAN FOR INPATIENT GLYCEMIC CONTROL: * Hold outpatient oral diabetes medications * Basal insulin -DC, no longer needed * Bolus insulin * NovoLog per scale ACHS * Goal Range: Low 110 mg/dL - High 140 mg/dL * Correction Factor: 30 mg/dL/unit * Nutritional / Prandial insulin per carb ratio of 1 unit per 9 grams CHO consumed PLAN FOR DISCHARGE: * may resume outpt metformin regimen on discharge given recent A1c (6%) result if no contraindications present at time of discharge
[2019-07-22] MEDS: RIVAROXABAN 20 MG TAB PO SCH (17:25)
[2019-07-22] MEDS: TERAZOSIN HCL 5 MG CAP PO SCH (20:40)
--- NOTE | 2019-07-22 20:51 | Hospitalist Progress Note ---
Date of Service July 22, 2019 Assessment & Plan (1) Acute respiratory failure: 2nd acute bronchitis. resolved. (2) Acute bronchitis: likely viral in etiology. however, completed z-pack in event the bronchitis was caused by atypical pathogen (mycoplasma, etc). cont bronchodilators. cont tapering steroids. 1 more day of 40mg, then cut to 20mg. overall improved. stable in room air. (3) Bilateral leg weakness: brain MRI with large ventricles noted. neurology consult reviewed. lyme, b12, etc all normal. exact etiology uncertain. however, could he have developing NPH? neurology to see as outpatient and perform additional investigation if the ambulatory issue continues. strength on exam continues to be normal. improving with PT/OT but still needs rehab. referral to SNF pending. (4) Atrial fibrillation: PAF cont xarelto cont coreg (5) BPH (benign prostatic hyperplasia): no issues cont alpha divya (6) Obstructive sleep apnea: cont CPAP HS (7) Hypertension: controlled (8) Hyperlipidemia: cont statin (9) Depression: cont SSRI (zoloft) (10) Cardiac pacemaker in situ: seen by Dr Cruz yesterday - mainly in face of nonsustained VT seen on monitor no Rx needed for NSV-T pacer placed for SSS in the past pacer working well per DR Cruz (11) Diabetes: control acceptable w/ basal-bolus insulin pharmacy managing (12) CAD (coronary artery disease): no symptoms of ischemia at this time cont statin, BB uncertain why he is not on aspirin or plavix - will inquire w/ patient h/o acute [place] 10 years ago with RCA stent echo this admission with inferior akinesis from that prior [place] event (13) Ventricular tachycardia: Nonsustained seen by Dr Cruz observe for now; no other management needed at this time echo with preserved EF (14) DVT prophylaxis: xarelto extensively updated at bedside 07/21/19 care discussed at multidisciplinary rounds today still awaiting SNF auth Subjective feels good minimal cough; no dyspnea asks if he can shower tele overnight - no nonsustained VT excellent appetite no new complaints Review of Systems Constitutional: no fever, no chills, no fatigue and no anorexia Respiratory: + cough; no dyspnea and no dyspnea on exertion Cardiovascular: no chest pain Neurologic: no localized weakness Physical Exam Constitutional: well developed, well nourished and + obese; no acute distress ENMT: external ear and nose normal, oropharynx normal Respiratory: no respiratory distress and no cough Auscultation: + wheezes (mild - b/l ); no crackles Cardiovascular: Rate/Rhythm: regular rate and regular rhythm Heart Sounds: normal S1 and normal S2; no murmur Vessels: posterior tibial pulses present and dorsalis pedis pulses present; no JVD Extremities: no edema Gastrointestinal (Abdomen): normal bowel sounds, soft, nontender, no hepatosplenomegaly Neurologic: no focal motor deficits (strength 5/5 hip flexion; ankle dorsiflexion/plantarflexion ) Psychiatric: Orientation: alert, oriented to person and oriented to place Results & Data Vital Signs (Past 12 Hours) Vital Signs Temp Pulse Pulse Resp BP BP Pulse Ox 07/22/19 19:00 37.1 C 61 20 132/83 93 07/22/19 15:23 76 07/22/19 14:49 36.8 C 78 20 135/79 97 07/22/19 10:55 36.7 C 81 18 145/75 H 95 Laboratory Results Laboratory Results - last 24 hr 07/22/19 07/22/19 07/22/19 01:58 07:17 07:17 WBC 6.43 RBC 4.29 L Hgb 13.3 L Hct 40.0 L MCV 93.2 MCH 31.0 MCHC 33.3 RDW Std Deviation 47.6 H RDW Coeff of Jessica 13.9 Plt Count 156 MPV 10.4 Immature Gran % (Auto) 0.2 Neut % (Auto) 55.7 Lymph % (Auto) 28.5 [place] % (Auto) 15.1 Eos % (Auto) 0.5 Baso % (Auto) 0.0 Immature Gran # (Auto) 0.01 Neut # (Auto) 3.59 Lymph # (Auto) 1.83 [place] # (Auto) 0.97 H Eos # (Auto) 0.03 Baso # (Auto) 0.00 Sodium 139 Potassium 3.7 Chloride 105 Carbon Dioxide 32 Anion Gap 2.0 L BUN 26 H Creatinine 0.92 Est Cr Clr Drug Dosing 85.3 Est GFR ( Amer) 98.7 Est GFR (Non-Af Amer) 85.2 BUN/Creatinine Ratio 28.4 H Glucose 93 POC Glucose 102 H Calcium 8.8 Total Bilirubin 0.4 AST 21 ALT 53 Alkaline Phosphatase 62 Total Protein 6.2 L Albumin 3.0 L Globulin 3.2 Albumin/Globulin Ratio 0.9 07/22/19 07/22/19 07/22/19 07:25 11:37 16:18 WBC RBC Hgb Hct MCV MCH MCHC RDW Std Deviation RDW Coeff of Jessica Plt Count MPV Immature Gran % (Auto) Neut % (Auto) Lymph % (Auto) [place] % (Auto) Eos % (Auto) Baso % (Auto) Immature Gran # (Auto) Neut # (Auto) Lymph # (Auto) [place] # (Auto) Eos # (Auto) Baso # (Auto) Sodium Potassium Chloride Carbon Dioxide Anion Gap BUN Creatinine Est Cr Clr Drug Dosing Est GFR ( Amer) Est GFR (Non-Af Amer) BUN/Creatinine Ratio Glucose POC Glucose 88 115 H 155 H Calcium Total Bilirubin AST ALT Alkaline Phosphatase Total Protein Albumin Globulin Albumin/Globulin Ratio 07/22/19 20:04 WBC RBC Hgb Hct MCV MCH MCHC RDW Std Deviation RDW Coeff of Jessica Plt Count MPV Immature Gran % (Auto) Neut % (Auto) Lymph % (Auto) [place] % (Auto) Eos % (Auto) Baso % (Auto) Immature Gran # (Auto) Neut # (Auto) Lymph # (Auto) [place] # (Auto) Eos # (Auto) Baso # (Auto) Sodium Potassium Chloride Carbon Dioxide Anion Gap BUN Creatinine Est Cr Clr Drug Dosing Est GFR ( Amer) Est GFR (Non-Af Amer) BUN/Creatinine Ratio Glucose POC Glucose 141 H Calcium Total Bilirubin AST ALT Alkaline Phosphatase Total Protein Albumin Globulin Albumin/Globulin Ratio PG Care Time/CCT Total # of Minutes Spent Total Time Spent with Patient: Total time spent is greater than 50% in coordination of care (as documented) at patient's floor/unit and/or counseling patient: (1) Diabetes Diabetes mellitus complication status: without complication Diabetes mellitus dedicated intermodal truck driver insulin use: without intermediate use Diabetes mellitus type: type 2 Qualified Code(s): E11.9 - Type 2 diabetes mellitus without complications (2) Acute respiratory failure Respiratory failure complication: hypoxia Qualified Code(s): J96.01 - Acute respiratory failure with hypoxia (3) CAD (coronary artery disease) Associated angina: without angina Coronary Disease-Associated Artery/Lesion type: [place] artery [place] vs. transplanted heart: [place] heart Qualified Code(s): I25.10 - Atherosclerotic heart disease of [place] coronary artery without angina pectoris (4) Atrial fibrillation Atrial fibrillation type: paroxysmal Qualified Code(s): I48.0 - Paroxysmal atrial fibrillation (5) Depression Active/Remission status: currently active Depression Type: major depressive disorder Major depression episode severity: moderate Major depression recurrence: recurrent Qualified Code(s): F33.1 - Major depressive disorder, recurrent, moderate (6) Hyperlipidemia Hyperlipidemia type: pure hypercholesterolemia Qualified Code(s): E78.00 - Pure hypercholesterolemia, unspecified; E78.0 - Pure hypercholesterolemia (7) Acute bronchitis Bronchitis organism: other organism Qualified Code(s): J20.8 - Acute bronchitis due to other specified organisms (8) Hypertension Hypertension type: essential hypertension Qualified Code(s): I10 - Essential (primary) hypertension
[2019-07-23] MEDS: INSULIN ASPART 100 UNITS/ML 3 ML PEN SC SCH ×4 (07:56→20:53)
[2019-07-23] MEDS: AMLODIPINE BESYLATE 5 MG TAB PO SCH (07:59)
[2019-07-23] MEDS: ATORVASTATIN 40 MG TAB PO SCH (07:59)
[2019-07-23] MEDS: predniSONE 20 MG TAB PO SCH (07:59)
[2019-07-23] MEDS: PANTOprazole 40 MG TAB PO SCH (08:00)
[2019-07-23] MEDS: CEROVITE ADV FORMULA TAB PO SCH (08:00)
[2019-07-23] MEDS: lisinopriL 40 MG TAB PO SCH (08:00)
[2019-07-23] MEDS: MAGNESIUM OXIDE 400 MG TAB PO SCH ×2 (08:00→20:55)
[2019-07-23] MEDS: carvediloL 25 MG TAB PO SCH ×2 (08:00→20:56)
[2019-07-23] MEDS: SERTRALINE HCL 50 MG TABLET PO SCH (08:00)
[2019-07-23] MEDS: BUDESONIDE/FORMOTEROL FUMARATE 160/4.5 60 PUFFS/INHALER INH SCH (08:00)
[2019-07-23] MEDS ORDERED: FLUTICASONE/VILANTEROL 100/25MCG 14 PUFFS/INHALER INH ONE (08:22)
[2019-07-23] MEDS: FLUTICASONE/VILANTEROL 100/25MCG 14 PUFFS/INHALER INH SCH (09:00)
[2019-07-23] MEDS ORDERED: POTASSIUM CHLORIDE 20 MEQ TABCR PO STA (11:43)
[2019-07-23] MEDS ORDERED: FUROSEMIDE 20 MG TAB PO ONE (11:43)
[2019-07-23] MEDS: RIVAROXABAN 20 MG TAB PO SCH (17:05)
--- NOTE | 2019-07-23 17:15 | Hospitalist Progress Note ---
Date of Service July 23, 2019 Assessment & Plan (1) Acute respiratory failure: 2nd acute bronchitis. resolved. (2) Acute bronchitis: resolved. was likely viral in etiology. however, completed z-pack in event the bronchitis was caused by atypical pathogen (mycoplasma, etc). cont bronchodilators. cont tapering steroids - reduce to 20mg/day on 07/24; stop after 3 days at this level. (3) Bilateral leg weakness: brain MRI with large ventricles noted. neurology consult reviewed. lyme, b12, etc all normal. exact etiology uncertain. however, could he have developing NPH? neurology to see as outpatient and perform additional investigation if the ambulatory issue continues. strength on exam continues to be normal. improving with PT/OT but still needs rehab. referral to SNF pending. (4) Atrial fibrillation: PAF cont xarelto cont coreg telemetry has been stable (5) BPH (benign prostatic hyperplasia): no issues cont alpha divya (6) Obstructive sleep apnea: cont CPAP HS (7) Hypertension: controlled (8) Hyperlipidemia: cont statin (9) Depression: cont SSRI (zoloft) (10) Cardiac pacemaker in situ: seen by Dr Cruz due to nonsustained VT seen on monitor earlier this week no Rx needed for NSVT pacer placed for SSS in the past pacer working well per Dr Cruz (11) Diabetes: control acceptable w/ basal-bolus insulin pharmacy managing appreciate their assistance (12) CAD (coronary artery disease): no symptoms of ischemia at this time cont statin, BB uncertain why he is not on aspirin or plavix - will inquire w/ patient h/o acute [place] 10 years ago with RCA stent echo this admission with inferior akinesis from that prior [place] event mild LE edema - give lasix 20mg po x 1 along with K supplement however, no evidence of CHF (13) Ventricular tachycardia: Nonsustained seen by Dr Cruz no other management needed at this time echo with preserved EF (14) DVT prophylaxis: xarelto extensively updated at bedside 07/21/19 updated by phone on 07/23/19 still awaiting SNF auth - likely won't be until Ив[place] AM d/c tele move to med/surg status Subjective tele wnl overnight. pt feeling well. no new complaints. took shower yesterday and "it felt great." eating well. minimal cough. no dyspnea. Review of Systems Constitutional: no fever, no chills, no fatigue and no anorexia Respiratory: + cough and + wheezing; no chest congestion, no change in sputum, no dyspnea, no dyspnea on exertion, no hemoptysis and no sputum production Cardiovascular: no chest pain Physical Exam Constitutional: well developed, well nourished and + obese; no acute distress ENMT: external ear and nose normal, oropharynx normal Respiratory: no respiratory distress and no cough Auscultation: + wheezes (mild/occasional - b/l ); no crackles Cardiovascular: Rate/Rhythm: regular rate and regular rhythm Heart Sounds: normal S1 and normal S2; no murmur Vessels: posterior tibial pulses present and dorsalis pedis pulses present; no JVD Extremities: + edema (<1+ b/l ) Gastrointestinal (Abdomen): normal bowel sounds, soft, nontender, no hepatos plenomegaly Neurologic: no focal motor deficits (no changes; strength 5/5 hip flexion; ankle dorsiflexion/plantarflexion ) Psychiatric: Orientation: alert, oriented to person, oriented to place and oriented to time Results & Data Vital Signs (Past 12 Hours) Vital Signs Temp Pulse Pulse Resp BP Pulse Ox 07/23/19 15:27 37.2 C 75 20 112/73 91 07/23/19 11:16 37.0 C 76 20 117/73 93 07/23/19 07:50 36.6 C 62 20 130/81 95 07/23/19 07:36 60 Laboratory Results Laboratory Results - last 24 hr 07/22/19 07/23/19 07/23/19 20:04 07:34 11:24 POC Glucose 141 H 89 91 07/23/19 16:39 POC Glucose 123 H PG Care Time/CCT Total # of Minutes Spent Total Time Spent with Patient: Total time spent is greater than 50% in coordination of care (as documented) at patient's floor/unit and/or counseling patient: (1) Acute respiratory failure Respiratory failure complication: hypoxia Qualified Code(s): J96.01 - Acute respiratory failure with hypoxia (2) Acute bronchitis Bronchitis organism: other organism Qualified Code(s): J20.8 - Acute bronchitis due to other specified organisms (3) Atrial fibrillation Atrial fibrillation type: paroxysmal Qualified Code(s): I48.0 - Paroxysmal atrial fibrillation (4) BPH (benign prostatic hyperplasia) Lower urinary tract symptom presence: symptoms absent Qualified Code(s): N40.0 - Benign prostatic hyperplasia without lower urinary tract symptoms (5) Hypertension Hypertension type: essential hypertension Qualified Code(s): I10 - Essential (primary) hypertension (6) Hyperlipidemia Hyperlipidemia type: pure hypercholesterolemia Qualified Code(s): E78.00 - Pure hypercholesterolemia, unspecified; E78.0 - Pure hypercholesterolemia (7) Depression Depression Type: major depressive disorder Major depression recurrence: recurrent Active/Remission status: currently active Major depression episode severity: moderate Qualified Code(s): F33.1 - Major depressive disorder, recurrent, moderate (8) Diabetes Diabetes mellitus type: type 2 Diabetes mellitus intermediate project manager insulin use: without care home use Diabetes mellitus complication status: without complication Qualified Code(s): E11.9 - Type 2 diabetes mellitus without complications (9) CAD (coronary artery disease) Coronary Disease-Associated Artery/Lesion type: [place] artery [place] vs. transplanted heart: [place] heart Associated angina: without angina Qualified Code(s): I25.10 - Atherosclerotic heart disease of [place] coronary artery without angina pectoris
[2019-07-23] MEDS: TERAZOSIN HCL 5 MG CAP PO SCH (20:55)
[2019-07-24 07:42] LABS: BUN Creatinine Ratio 25.6 (10-20); Calcium 8.8 mg/dl (8.5-10.1); Creatinine Clr Calc Pharmacy 82.2 ml/min; Est GFR (African American) 94.9; Est GFR (Non-African American) 81.9; Potassium 4.1 mmol/L (3.5-5.1)
[2019-07-24] MEDS: INSULIN ASPART 100 UNITS/ML 3 ML PEN SC SCH ×4 (08:03→22:27)
[2019-07-24] MEDS: FLUTICASONE/VILANTEROL 100/25MCG 14 PUFFS/INHALER INH SCH (08:04)
[2019-07-24] MEDS: ATORVASTATIN 40 MG TAB PO SCH (08:04)
[2019-07-24] MEDS: carvediloL 25 MG TAB PO SCH ×2 (08:04→21:32)
[2019-07-24] MEDS: MAGNESIUM OXIDE 400 MG TAB PO SCH ×2 (08:04→21:31)
[2019-07-24] MEDS: CEROVITE ADV FORMULA TAB PO SCH (08:04)
[2019-07-24] MEDS: PANTOprazole 40 MG TAB PO SCH (08:05)
[2019-07-24] MEDS: AMLODIPINE BESYLATE 5 MG TAB PO SCH (08:05)
[2019-07-24] MEDS: predniSONE 20 MG TAB PO SCH (08:05)
[2019-07-24] MEDS: SERTRALINE HCL 50 MG TABLET PO SCH (08:05)
[2019-07-24] MEDS: lisinopriL 40 MG TAB PO SCH (08:05)
[2019-07-24] MEDS: RIVAROXABAN 20 MG TAB PO SCH (17:04)
--- NOTE | 2019-07-24 19:00 | Hospitalist Progress Note ---
Date of Service July 24, 2019 Assessment & Plan (1) Acute respiratory failure: present on admission. resolved. was 2nd acute bronchitis. (2) Acute bronchitis: resolved. was likely viral in etiology. however, completed z-pack in event the bronchitis was caused by atypical pathogen (mycoplasma, etc). cont bronchodilators. cont tapering steroids - 20mg today, Thursday, and Thursday then stop. (3) Bilateral leg weakness: brain MRI with large ventricles noted. developing NPH?? lumbar back x-rays acceptable. lyme, b12, etc all normal. neurology to see as outpatient and perform additional investigation for NPH if the ambulatory issue continues. strength on exam continues to be normal. improving with PT/OT but still needs rehab. referral to SNF pending. (4) Atrial fibrillation: PAF prior to d/c of tele there had been no PAF issues cont xarelto cont coreg (5) BPH (benign prostatic hyperplasia): no issues voiding ok cont alpha divya (6) Obstructive sleep apnea: cont CPAP HS (7) Hypertension: controlled (8) Hyperlipidemia: cont statin (9) Depression: cont SSRI (zoloft) (10) Cardiac pacemaker in situ: seen by Dr Cruz earlier this stay due to nonsustained VT seen on monitor earlier this week no Rx needed for NSVT per Dr Cruz; patient never had symptoms pacer placed for SSS in the past pacer working well per Dr Cruz echo this admission w/ preserved EF (11) Diabetes: cont bolus insulin for meal-time coverage lantus has been d/c pharmacy managing - appreciate their assistance (12) CAD (coronary artery disease): no symptoms of ischemia this admission cont statin, BB uncertain why he is not on aspirin or plavix h/o acute [place] 10 years ago with RCA stent - at minimum should be on aspirin echo this admission with inferior akinesis from that prior [place] event mild LE edema - gave lasix 20mg po x 1 yesterday with improvement however, no evidence of CHF (13) Ventricular tachycardia: Nonsustained seen by Dr Cruz no other management needed at this time echo with preserved EF see "cardiac pacemaker" above (14) DVT prophylaxis: xarelto extensively updated at bedside 07/21/19 updated by phone on 07/23/19 still awaiting SNF auth - likely won't be until Thursday AM Subjective patient denies complaints feels good no new issues overnight good strength in legs; ambulating ok eating well Review of Systems Constitutional: no fatigue and no anorexia Respiratory: no dyspnea and no dyspnea on exertion Cardiovascular: no chest pain Gastrointestinal: no constipation (had bowel movement yesterday ) Physical Exam Constitutional: well developed, well nourished and + obese; no acute distress ENMT: external ear and nose normal, oropharynx normal Respiratory: normal respiratory effort, lungs clear to auscultation no respiratory distress Cardiovascular: Rate/Rhythm: regular rate and regular rhythm Heart Sounds: normal S1 and normal S2; no murmur Vessels: posterior tibial pulses present and dorsalis pedis pulses present; no JVD Extremities: + edema (trace b/l ) Gastrointestinal (Abdomen): normal bowel sounds, soft, nontender, no hepatosplenomegaly Neurologic: no focal motor deficits (no changes; strength still 5/5 b/l legs ) Psychiatric: Orientation: alert, oriented to person, oriented to place and oriented to time Results & Data Vital Signs (Past 12 Hours) Vital Signs Temp Pulse Resp BP BP Pulse Ox 07/24/19 14:59 37.2 C 70 22 114/66 93 07/24/19 08:01 36.4 C L 66 18 152/95 H 98 Laboratory Results Laboratory Results - last 24 hr 07/23/19 07/24/19 07/24/19 20:09 06:42 07:33 Sodium 140 Potassium 4.1 Chloride 104 Carbon Dioxide 32 Anion Gap 3.0 BUN 24 H Creatinine 0.95 Est Cr Clr Drug Dosing 82.2 Est GFR ( Amer) 94.9 Est GFR (Non-Af Amer) 81.9 BUN/Creatinine Ratio 25.6 H Glucose 90 POC Glucose 141 H 85 Calcium 8.8 07/24/19 07/24/19 11:20 17:01 Sodium Potassium Chloride Carbon Dioxide Anion Gap BUN Creatinine Est Cr Clr Drug Dosing Est GFR ( Amer) Est GFR (Non-Af Amer) BUN/Creatinine Ratio Glucose POC Glucose 117 H 142 H Calcium PG Care Time/CCT Total # of Minutes Spent Total Time Spent with Patient: Total time spent is greater than 50% in coordination of care (as documented) at patient's floor/unit and/or counseling patient: (1) Acute respiratory failure Respiratory failure complication: hypoxia Qualified Code(s): J96.01 - Acute respiratory failure with hypoxia (2) Acute bronchitis Bronchitis organism: other organism Qualified Code(s): J20.8 - Acute bronchitis due to other specified organisms (3) Atrial fibrillation Atrial fibrillation type: paroxysmal Qualified Code(s): I48.0 - Paroxysmal atrial fibrillation (4) BPH (benign prostatic hyperplasia) Lower urinary tract symptom presence: symptoms absent Qualified Code(s): N40.0 - Benign prostatic hyperplasia without lower urinary tract symptoms (5) Hypertension Hypertension type: essential hypertension Qualified Code(s): I10 - Essential (primary) hypertension (6) Hyperlipidemia Hyperlipidemia type: pure hypercholesterolemia Qualified Code(s): E78.00 - Pure hypercholesterolemia, unspecified; E78.0 - Pure hypercholesterolemia (7) Depression Depression Type: major depressive disorder Major depression recurrence: recurrent Active/Remission status: currently active Major depression episode severity: moderate Qualified Code(s): F33.1 - Major depressive disorder, recurrent, moderate (8) Diabetes Diabetes mellitus type: type 2 Diabetes mellitus terminal carman insulin use: without half-way use Diabetes mellitus complication status: without complication Qualified Code(s): E11.9 - Type 2 diabetes mellitus without complications (9) CAD (coronary artery disease) Coronary Disease-Associated Artery/Lesion type: [place] artery [place] vs. transplanted heart: [place] heart Associated angina: without angina Qualified Code(s): I25.10 - Atherosclerotic heart disease of [place] coronary artery without angina pectoris
[2019-07-24] MEDS: TERAZOSIN HCL 5 MG CAP PO SCH (21:31)
[2019-07-25] MEDS: FLUTICASONE/VILANTEROL 100/25MCG 14 PUFFS/INHALER INH SCH (08:42)
[2019-07-25] MEDS: INSULIN ASPART 100 UNITS/ML 3 ML PEN SC SCH ×2 (08:42→13:27)
[2019-07-25] MEDS: PANTOprazole 40 MG TAB PO SCH (08:43)
[2019-07-25] MEDS: lisinopriL 40 MG TAB PO SCH (08:43)
[2019-07-25] MEDS: ATORVASTATIN 40 MG TAB PO SCH (08:44)
[2019-07-25] MEDS: predniSONE 20 MG TAB PO SCH (08:44)
[2019-07-25] MEDS: CEROVITE ADV FORMULA TAB PO SCH (08:44)
[2019-07-25] MEDS: AMLODIPINE BESYLATE 5 MG TAB PO SCH (08:44)
[2019-07-25] MEDS: carvediloL 25 MG TAB PO SCH (08:44)
[2019-07-25] MEDS: MAGNESIUM OXIDE 400 MG TAB PO SCH (08:44)
[2019-07-25] MEDS: SERTRALINE HCL 50 MG TABLET PO SCH (08:44)
[2019-07-25] MEDS ORDERED: ASPIRIN 81 MG ECTAB PO SCH (09:00)
--- NOTE | 2019-07-25 16:19 | Discharge Summary ---
Date of Service July 25, 2019 Admission HPI Per Admitting Provider The patient is a 68 years old man with past medical history of atrial fibrillation's on Xarelto, placed pacemaker for syncope and presyncope that he had in the past, diabetes mellitus type 2, coronary artery disease, cardiomyopathy, depression, hyperlipidemia, hypertension, obstructive sleep apnea with CPAP mitral regurgitation, obstructive sleep apnea, osteoarthritis, benign prostatic hypertrophy who was brought by his to the emergency room for cough malaise and bilateral lower extremity weakness and inability to ambulate for 3 months. Patient spends a lot of time at home's sitting or laying down and he did not move much for the past 3 months. Patient is poor historian and most of the history is given by his . Patient denies fever, chills, chest pain, abdominal pain, frequency and, urgency. Patient reports cough nonproductive and occasionally shortness of breath. He uses O2 supplemental only at night. Patient smoked 30 years ago. EKG: Sinus rhythm with frequent PVCs, possible inferior infarct before August 07, 2016, in comparison to May 26, 2017 present PVCs. Patient reports that his pacemaker was interrogated recently and there was no issue there. He follows up with Dr. Mary Alice lebron.'s are reviewed: WBC is 9.92, hemoglobin 13.1, hematocrit 39.3, platelets 133, PT 11.5, INR 1.1, sodium 139, potassium 3.8, chloride 105, anion gap 5, BUN 23, creatinine 1.02, GFR 75.2, A1c from February 11, 2019 5.6, lactate 1.3, calcium 8.8, magnesium 1.6, troponin -0.015, AST 20, ALT 33, TSH 0.59, BNP 225, urine all negative, influenza A&B negative. Chest x-rays: The cardiac and mediastinal contours remain stable. There is a left subclavian dual-chamber central venous pacemaker. There is no failure. There is no focal pulmonary consolidation there are no pleural effusion. Decision was made to admit patient for acute COPD exacerbation, acute respiratory failure, and possibly pneumonia, and ambulatory dysfunction. Principal Diagnosis Bronchitis Discharge Exam Constitutional WD/WN, vitals as above Eyes EOM intact bilaterally; no conjunctival abnormality ENMT external ear and nose normal, oropharynx normal Neck trachea midline, no thyromegaly normal visual inspection Respiratory normal respiratory effort, lungs clear to auscultation no respiratory distress Cardiovascular RRR, no murmur, no edema Gastrointestinal (Abdomen) Inspection/Auscultation: abdomen normal to inspection; abdomen not distended Musculoskeletal no cyanosis or clubbing, extremities motor strength 5/5 Skin no rashes, warm and dry Neurologic moves all extremities and awake Psychiatric Orientation: alert, oriented to person and cooperative Discharge Data Allergies Allergy/AdvReac Type Severity Reaction Status Date / Time DAWN Inhibitors AdvReac Unknown cough Verified 07/17/19 05:32 Consultations 07/17/19 06:12 ED Decision to Admit Stat 07/18/19 07:18 Consult Neurology Routine 07/21/19 01:40 Consult Cardiology Routine Ordered Studies 07/17/19 05:09 CT head/brain wo con Urgent 07/17/19 07:44 MR brain wo con Stat Hospital Course (1) Bilateral leg weakness: brain MRI with large ventricles noted. developing NPH?? lumbar back x-rays acceptable. lyme, b12, etc all normal. neurology to see as outpatient and perform additional investigation for NPH if the ambulatory issue continues. strength on exam continues to be normal. improving with PT/OT but still needs rehab. (2) Acute respiratory failure: present on admission. resolved. was 2nd acute bronchitis. (3) Acute bronchitis: resolved. was likely viral in etiology. however, completed z-pack in event the bronchitis was caused by atypical pathogen (mycoplasma, etc). cont bronchodilators. cont tapering steroids - 20mg today, Thursday, and Thursday then stop. (4) Atrial fibrillation: PAF prior to d/c of tele there had been no PAF issues cont xarelto cont coreg (5) BPH (benign prostatic hyperplasia): no issues voiding ok cont alpha divya (6) Obstructive sleep apnea: cont CPAP HS (7) Hypertension: controlled (8) Hyperlipidemia: cont statin (9) Depression: cont SSRI (zoloft) (10) Cardiac pacemaker in situ: seen by Dr Cruz earlier this stay due to nonsustained VT seen on monitor earlier this week no Rx needed for NSVT per Dr Cruz; patient never had symptoms pacer placed for SSS in the past pacer working well per Dr Cruz echo this admission w/ preserved EF (11) Diabetes: cont bolus insulin for meal-time coverage marley has been d/c pharmacy managing - appreciate their assistance (12) CAD (coronary artery disease): no symptoms of ischemia this admission cont statin, BB uncertain why he is not on aspirin or plavix 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 - at minimum should be on aspirin echo this admission with inferior akinesis from that prior NE event mild LE edema - gave lasix 20mg po x 1 yesterday with improvement however, no evidence of CHF (13) Ventricular tachycardia: Nonsustained seen by Dr Cruz no other management needed at this time echo with preserved EF see "cardiac pacemaker" above (14) DVT prophylaxis: xarelto Total Time Total Time Spent Total Time Spent (In Minutes): 35 Discharge Plan Discharge Items Patient Disposition: Transfer [facility] Reason For Visit: AMBULATORY DYSFUNCTION, COUGH, GENARLIZED MALAISE, Discharge Diagnosis: Bronchitis causing breathing problems Activity: Resume your previous activity Non-emergency contact: Primary Care Provider Call non-emergency contact if: your symptoms worsen and your temperature is above 101 Follow-up/Referrals: James Chu III, CRNP [Primary Care Provider] - Diet: Carb Consistent or DM2 Addtl Attending Provider Instructions: Mr. Hannah, You were admitted for breathing problems related to a bronchitis (which is an infection in the upper part of your lungs). You are now breathing better, and we feel you are ready to be discharged from the hospital. We are giving you a few more days of steroids to help reduce any inflammation (irritation) in your lungs. Please take the prednisone 10 mg every day for 3 more days, then stop. We also started you on an inhaler (Breo) which your rehab can adjust to a similar one in their pharmacy if needed. While you were here, we noted you had a run of fast heart rhythm. Dr. Cruz saw you and felt that your current medications will help prevent this as much as we can and also that your pacemaker is functioning well. Pending Studies at Discharge: No Stand-Alone Forms: My [facility] [employer] Skilled Items Patient informed of condition?: Yes DNR: No Discharge Level of Care: Skilled Communicable Disease: No Discharge Prognosis: Stable Lines: None Urinary Catheter: No Medications and DC Order Prescriptions: New ipratropium-albuterol 0.5 mg-3 mg(2.5 mg base)/3 mL Solution For Nebulization 3 ml NEB Q4R PRN (Reason: shortness of breath) Qty: 3 RF: 0 albuterol sulfate [Ventolin HFA] 90 mcg/actuation Hfa Aerosol Inhaler 2 puff inhalation QID PRN (Reason: shortness of breath) Qty: 6.7 RF: 0 prednisone 20 mg Tablet 10 mg PO QAM Qty: 1 RF: 0 aspirin [Ecotrin Low Strength] 81 mg Tablet,Delayed Release (Dr/Ec) 81 mg PO QAM Qty: 1 RF: 0 Breo Ellipta 100-25 mcg/dose Blister With Device 1 ea inhalation DAILY Qty: 28 RF: 0 Continued (DME) walker misc See Rx Instructions .ROUTE .MEDSUPPLY Qty: 1 RF: 0 metformin 500 mg tablet 500 mg PO BID Qty: 180 RF: 1 pantoprazole 40 mg tablet,delayed release (DR/EC) 40 mg PO DAILY Qty: 90 RF: 1 multivitamin with minerals [Men's One Daily] tablet 1 tab PO DAILY RF: 0 acetaminophen [Tylenol Arthritis Pain] 650 mg tablet extended release 650 mg PO Q12H PRN (Reason: fever or pain) Qty: 180 RF: 1 atorvastatin 40 mg tablet 40 mg PO DAILY Qty: 90 RF: 1 lisinopril 40 mg tablet 40 mg PO DAILY Qty: 90 RF: 1 amlodipine 5 mg tablet 5 mg PO DAILY Qty: 90 RF: 1 carvedilol [Coreg] 25 mg tablet 25 mg PO BID Qty: 180 RF: 1 rivaroxaban 20 mg tablet 20 mg PO DAILY Qty: 90 RF: 1 sertraline 50 mg tablet 50 mg PO DAILY Qty: 90 RF: 1 terazosin 5 mg capsule 5 mg PO HS Qty: 90 RF: 1 Discharge Orders: Discharge Order (Routine); Ordered 07/25/19 Ordered By: Regino Odom Admission Data Admit Date/Time: 07/17/19 07:53 Attending Provider: Regino Odom Admit Provider: Thierno Johnson Primary Care Provider: James Chu III [facility] ; Dominick Camargo [facility] [place] ; Brandan Hernandez ; Jayson Cruz ; Regino Odom Other Interventions: Discharge Summary Assessment (RN) Last Done: 07/25/19 13:44
== END 2019-07-25 16:16 | DRG 202 ==
LOC: ED 05:01 → SUATTDRO 07:53 → 2W 07:53 → 3W 07-25 01:27

== ENCOUNTER 2021-05-16 12:05 | Observation (INO) ==
[2021-05-16 12:46] LABS: Hematocrit (blood only) 20.9 % (42-52); Hemoglobin 6.8 g/dL (14.0-18.0); Mean Corpuscular Hemoglobin 30.6 pg (25-34); Mean Corpuscular Hgb Conc 32.5 g/dL (32-36); Mean Corpuscular Volume 94.1 fL (80-100); Mean Platelet Volume 9.8 fL (7.4-10.4); Platelet Count 212 K/uL (130-400); RDW Coefficient of Variation 14.1 % (11.5-14.5); RDW Standard Deviation 48.5 fL (36.4-46.3); Red Blood Count 2.22 M/uL (4.7-6.1); White Blood Count 7.33 K/uL (4.8-10.8)
[2021-05-16 12:58] LABS: Alanine Aminotransferase 21 U/L (12-78); Albumin Level 2.6 gm/dl (3.4-5.0); Aspartate Aminotransferase 13 U/L (15-37); BUN Creatinine Ratio 50.9 (10-20); Blood Urea Nitrogen 52 mg/dl (7-18); Calcium 8.1 mg/dl (8.5-10.1); Carbon Dioxide 25 mmol/L (21-32); Chloride 108 mmol/L (98-107); Est GFR (African American) 85.9 ml/min; Est GFR (Non-African American) 74.1 ml/min; Glucose 163 mg/dl (70-99); Potassium 4.5 mmol/L (3.5-5.1); Sodium 139 mmol/L (136-145)
--- NOTE | 2021-05-16 13:03 | XRay Report ---
XR chest 1V portable CLINICAL HISTORY: weakness. Evaluate cardiopulmonary status COMPARISON STUDY: 07/17/2019 TECHNIQUE: 1 view of the chest FINDINGS: Single frontal view of the chest demonstrates the cardiomediastinal silhouette to be within normal li mits. Permanent cardiac pacer is in place. The lungs are clear of alveolar opacities. There is no davide dence for pleural effusion. There is no evidence for vascular congestion. There is no acute osseous p athology. IMPRESSION: No acute cardiopulmonary disease. ACT 112: Negative or not required by law. Electronically signed by: Daniele Oh M.D. 05/16/2021 1:01 PM
[2021-05-16 13:08] LABS: Basophils # (auto) 0.02 K/uL (0-0.2); Basophils % (auto) 0.3 %; Eosinophils # (auto) 0.14 K/uL (0-0.5); Eosinophils % (auto) 1.9 %; Hypochromasia Present; Immature Granulocytes # (auto) 0.01 K/uL (0.00-0.02); Immature Granulocytes % (auto) 0.1 %; Lymphocytes # (auto) 1.32 K/uL (1.2-3.4); Monocytes # (auto) 0.52 K/uL (0.11-0.59); Monocytes % (auto) 7.1 %; Neutrophils # (auto) 5.32 K/uL (1.4-6.5); Neutrophils % (auto) 72.6 %; Ovalocytes 1+
[2021-05-16 13:09] LABS: Albumin Globulin Ratio 0.9 (0.9-2); Alkaline Phosphatase 59 U/L (45-117); Bilirubin,Total 0.4 mg/dl (0.2-1); Globulin 2.9 gm/dl (2.5-4.0); Total Protein 5.5 gm/dl (6.4-8.2); Troponin I < 0.015 ng/ml (0-0.045)
[2021-05-16] MEDS ORDERED: PANTOprazole 80 MG in DEXTROSE 5% 100 ML IV STA (13:20)
[2021-05-16] MEDS ORDERED: SODIUM CHLORIDE 0.9% 250 ML IV PRN (13:23)
--- NOTE | 2021-05-16 13:23 | Emergency Department Note ---
Impression & Plan Acute GI bleeding, Paroxysmal atrial fibrillation, Anticoagulant long-term use, Syncope, ABLA (acute blood loss anemia) ED Provider Note Provider: Erickson Mckeon MD DATE OF SERVICE: 05/16/2021 CHIEF COMPLAINT: Syncope HISTORY OF PRESENT ILLNESS: Patient is a 70-year-old gentleman history of atrial fibrillation on Xarelto Cardiomyopathy, sick sinus syndrome status post cardiac pacemaker, hypertension, and diabetes presenting here today reporting a syncopal episode. Patient evidently over the past several weeks has noted little bit more fatigued at last several days. Evidently was sitting to have breakfast and all of a sudden became diaphoretic and pale and syncopized according to the who was present. He did not fall to the ground. She states he was unconscious for 2 to 3 minutes and was just staring. No seizure-like activity reported. EMS was activated. Patient denies any significant chest pain or shortness of breath at this time. Denies any significant abdominal pain. No fevers reported. Patient does report that he has noted a little bit of darker stools last several weeks. Patient denies significant alcohol use or use of NSAIDs. Denies a history of GI bleed. REVIEW OF SYSTEMS: A total of 10 review of systems was obtained and negative except as stated above in the HPI. PAST MEDICAL HISTORY: As noted above MEDICATIONS: Reviewed home medications include Xarelto as well as a PPI SOCIAL HISTORY: Lives at home with PHYSICAL EXAM: GENERAL: alert and oriented in no acute distress on stretcher but somewhat pale in appearance Head: normocephalic and atraumatic EYES: No injection, discharge or icterus. NECK: Trachea midline. ENT: Mucous membranes pink and moist. LUNGS: Airway patent. No retractions. Breath sounds clear with good air entry bilaterally. HEART: Regular rate and rhythm. No chest wall tenderness with left upper chest wall pacemaker in place. ABDOMEN: Soft and non-tender, without guarding or rebound. Rectal: With nurse Sheila a desk attendant melena noted Hemoccult positive stool without bright red blood. SKIN: Acyanotic, warm, dry, without rashes EXTREMITIES: Without swelling, tenderness or deformity NEUROLOGICAL: No focal deficits. No aphasia. No facial droop or slurred speech. EK bpm sinus rhythm with PVCs. No acute ST segment elevation. QTc 405. CONTINUOUS CARDIAC MONITORING: was ordered and showed a heart rate of 70s to 90s bpm in normal sinus rhythm Patient's laboratory studies and imaging reviewed. Differential includes Vasovagal event, dehydration, infection, hypoglycemia, electrolyte abnormalities, cardiac sources, intracerebral event, pulmonary embolism, seizure, toxicologic, neurologic, as well as other pathologies. IMPRESSION/MEDICAL DECISION MAKING: Patient presents after syncopal event with a significant anemia on blood work today this is likely the cause of this. Some melena reported and is Hemoccult positive here. Blood count has dropped about 6 points since about 3 weeks ago. On Xarelto for anticoagulation Question of slower GI bleed. No significant risk factors for upper GI bleed at this time. Given as precaution however additional dose of IV Protonix here. Benign abdomen. CT abdomen pelvis complete without evidence of colitis, acute diverticulitis, or active GI bleed per radiology. No evidence of troponin elevation and pacemaker interrogation likely highlighting today without significant abnormality. Renal function appears stable BUN elevated again likely consistent with some absorption from an intestinal bleed. Patient and updated bedside. Consented for 1 unit of PRBC and this was ordered. Discussed with the hospitalist for admission for further care and GI investigation. DIAGNOSIS: Acute blood loss anemia, GI bleed, syncope DISPOSITION: Hospitalist will evaluate Patient was agreeable with this plan. Critical Care I have personally spent 32 minutes of critical care time in the direct management of this patient. This includes bedside care, interpretation of diagnostic studies, and testing, discussion with consultants, patient, and family members, and other required patient management activities. These 32 minutes is in excess of all separately billable procedures. Past Med/Surg History Medical History Atrial fibrillation Cardiac pacemaker in situ Depression Hypertension Hypoxia Myocardial infarction SSS (sick sinus syndrome) Ventricular fibrillation Ventricular tachycardia Surgical History S/P cardiac cath S/P hernia repair S/P wisdom tooth extraction Stented coronary artery Family History Father Rheumatic fever Myocardial infarction Unknown Myocardial infarction Denies family history of Ovarian cancer Prostate cancer Breast cancer Colorectal cancer Social History Smoking Status: Never smoker Second Hand Exposure: No; Hx Alcohol Use: No Hx Substance Use: No Preferred Language: Amharic Communication Ability: Effective Visual Impairment: No Limitations Hearing Ability: Normal General Store Manager Required: No Beliefs That Will Affect Care: None marital status: Current Living Situation: Spouse current occupational status: retired current occupation: used to work at car [employer] Feels Safe at Home: Yes Childhood Exposure to Second-Hand Smoke: Yes Dental Care, Regularly: Yes Physical Activity Frequency: Does not Exercise Seatbelt Use: always Sunscreen Use: Yes Assistive Devices: Walker Allergies Allergies Allergy/AdvReac Type Severity Reaction Status Date / Time DAWN Inhibitors AdvReac Intermediate cough Verified 05/16/21 15:08 Home Meds Home Medications Medication Instructions Recorded Confirmed multivitamin with minerals (Men's 1 tab PO DAILY 02/13/19 05/16/21 One Daily) sertraline 100 mg tablet 100 mg PO HS 05/16/21 05/16/21 Previous Rx's Medication Instructions Recorded acetaminophen 650 mg 650 mg PO Q12H PRN #180 tab 02/15/19 tablet,extended release (Tylenol Arthritis Pain) pantoprazole 40 mg tablet,delayed 40 mg PO DAILY #90 tab 01/11/20 release walker #1 ea 01/11/20 CPAP Machine #1 ea 03/08/20 CPAP Supplies #1 ea 03/08/20 amlodipine 5 mg tablet 5 mg PO DAILY #90 tab 12/10/20 dutasteride 0.5 mg capsule 0.5 mg PO DAILY #90 cap 12/18/20 terazosin 5 mg capsule 5 mg PO HS #90 cap 12/18/20 atorvastatin 40 mg tablet 40 mg PO DAILY #90 tab 01/07/21 carvedilol 25 mg tablet (Coreg) 25 mg PO BID #180 tab 01/21/21 metformin 500 mg tablet 500 mg PO BID #180 tab 01/21/21 rivaroxaban 20 mg tablet 20 mg PO DAILY #90 tab 01/21/21 lisinopril 40 mg tablet 40 mg PO DAILY #90 tab 02/13/21 cholecalciferol (vitamin D3) 125 5,000 unit PO DAILY #90 cap 04/10/21 mcg (5,000 unit) capsule Results & Data (ED) Vital Signs Vital Signs - 24 hr 05/16/21 12:10 05/16/21 12:38 05/16/21 14:35 Temperature 36.9 C Temperature Source Oral Pulse Rate 80 Pulse Rate [Right Finger] 82 82 Pulse Rhythm [Right Finger] Pulse Strength [Right Finger] Respiratory Rate 20 20 24 Respiratory Effort / Characteristics Non-Labored Non-Labored Respiratory Depth Normal Normal Respiratory Pattern Blood Pressure 93/53 L Blood Pressure [Right Arm] 113/54 L 123/67 Blood Pressure Mean 66 Blood Pressure Mean [Right Arm] 73 85 Blood Pressure Position [Right Arm] Pulse Oximetry 97 98 96 Oxygen Delivery Method Room Air Room Air Room Air Sepsis Recent Fever Within 48 Hours No Sepsis New/Unexplained Change in Mental Status N/A Sepsis Action Taken by Nursing No Action Required 05/16/21 15:20 Temperature 37.2 C Temperature Source Oral Pulse Rate Pulse Rate [Right Finger] 84 Pulse Rhythm [Right Finger] Regular Pulse Strength [Right Finger] Normal Respiratory Rate 18 Respiratory Effort / Characteristics Non-Labored Respiratory Depth Normal Respiratory Pattern Regular Blood Pressure Blood Pressure [Right Arm] 138/70 Blood Pressure Mean Blood Pressure Mean [Right Arm] 92 Blood Pressure Position [Right Arm] Lying Pulse Oximetry 96 Oxygen Delivery Method Room Air Sepsis Recent Fever Within 48 Hours Sepsis New/Unexplained Change in Mental Status Sepsis Action Taken by Nursing Laboratory Data Result diagrams: 05/16/21 13:35 05/16/21 12:00 Lab Results 05/16/21 05/16/21 05/16/21 Range/Units 12:00 12:00 13:35 WBC 7.33 (4.8-10.8) K/uL RBC 2.22 L (4.7-6.1) M/uL Hgb 6.8 L* (14.0-18.0) g/dL Hct 20.9 L* (42-52) % MCV 94.1 (80-100) fL MCH 30.6 (25-34) pg MCHC 32.5 (32-36) g/dL RDW Std Deviation 48.5 H (36.4-46.3) fL RDW Coeff of Jessica 14.1 (11.5-14.5) % Plt Count 212 (130-400) K/uL MPV 9.8 (7.4-10.4) fL Immature Gran % (Auto) 0.1 % Neut % (Auto) 72.6 % Lymph % (Auto) 18.0 % [place] % (Auto) 7.1 % Eos % (Auto) 1.9 % Baso % (Auto) 0.3 % Neut # (Auto) 5.32 (1.4-6.5) K/uL Lymph # (Auto) 1.32 (1.2-3.4) K/uL [place] # (Auto) 0.52 (0.11-0.59) K/uL Eos # (Auto) 0.14 (0-0.5) K/uL Baso # (Auto) 0.02 (0-0.2) K/uL Immature Gran # (Auto) 0.01 (0.00-0.02) K/uL Hypochromasia Present Ovalocytes 1+ PT (9.0-12.0) Seconds INR (0.9-1.1) APTT (21.0-31.0) Seconds PTT Ratio Sodium 139 (136-145) mmol/L Potassium 4.5 (3.5-5.1) mmol/L Chloride 108 H (98-107) mmol/L Carbon Dioxide 25 (21-32) mmol/L Anion Gap 6.0 (3-11) BUN 52 H (7-18) mg/dl Creatinine 1.02 (0.6-1.4) mg/dl Est Cr Clr Drug Dosing Not Reportable Est GFR ( Amer) 85.9 ml/min Est GFR (Non-Af Amer) 74.1 ml/min BUN/Creatinine Ratio 50.9 H (10-20) Glucose 163 H (70-99) mg/dl Calcium 8.1 L (8.5-10.1) mg/dl Magnesium (1.8-2.4) mg/dl Iron (35-175) mcg/dl TIBC (250-450) mcg/dl Ferritin (8-388) ng/ml Total Bilirubin 0.4 (0.2-1) mg/dl AST 13 L (15-37) U/L ALT 21 (12-78) U/L Alkaline Phosphatase 59 (45-117) U/L Troponin I < 0.015 (0-0.045) ng/ml Total Protein 5.5 L (6.4-8.2) gm/dl Albumin 2.6 L (3.4-5.0) gm/dl Globulin 2.9 (2.5-4.0) gm/dl Albumin/Globulin Ratio 0.9 (0.9-2) TSH 1.810 (0.300-4.500) uIu/ml Urine Color Urine Appearance (Clear) Urine pH (4.5-7.5) Ur Specific [place] (1.000-1.030) Urine Protein (Negative) Urine Glucose (UA) (Negative) Urine Ketones (Negative) Urine Blood (Negative) Urine Nitrite (Negative) Urine Bilirubin (Negative) Urine Urobilinogen (Negative) Ur Leukocyte Esterase (Negative) COVID-19 Eval Order SARS-CoV-2 (PCR) (Negative) Blood Type A Positive Blood Type Recheck Antibody Screen NEGATIVE Crossmatch See Detail 05/16/21 05/16/21 05/16/21 Range/Units 13:35 13:35 13:35 WBC (4.8-10.8) K/uL RBC (4.7-6.1) M/uL Hgb 7.0 L (14.0-18.0) g/dL Hct 21.6 L (42-52) % MCV (80-100) fL MCH (25-34) pg MCHC (32-36) g/dL RDW Std Deviation (36.4-46.3) fL RDW Coeff of Jessica (11.5-14.5) % Plt Count (130-400) K/uL MPV (7.4-10.4) fL Immature Gran % (Auto) % Neut % (Auto) % Lymph % (Auto) % [place] % (Auto) % Eos % (Auto) % Baso % (Auto) % Neut # (Auto) (1.4-6.5) K/uL Lymph # (Auto) (1.2-3.4) K/uL [place] # (Auto) (0.11-0.59) K/uL Eos # (Auto) (0-0.5) K/uL Baso # (Auto) (0-0.2) K/uL Immature Gran # (Auto) (0.00-0.02) K/uL Hypochromasia Ovalocytes PT 12.8 H (9.0-12.0) Seconds INR 1.3 H (0.9-1.1) APTT 26.3 (21.0-31.0) Seconds PTT Ratio 1.0 Sodium (136-145) mmol/L Potassium (3.5-5.1) mmol/L Chloride (98-107) mmol/L Carbon Dioxide (21-32) mmol/L Anion Gap (3-11) BUN (7-18) mg/dl Creatinine (0.6-1.4) mg/dl Est Cr Clr Drug Dosing Est GFR ( Amer) ml/min Est GFR (Non-Af Amer) ml/min BUN/Creatinine Ratio (10-20) Glucose (70-99) mg/dl Calcium (8.5-10.1) mg/dl Magnesium 2.0 (1.8-2.4) mg/dl Iron 18 L (35-175) mcg/dl TIBC 284 (250-450) mcg/dl Ferritin 5.9 L (8-388) ng/ml Total Bilirubin (0.2-1) mg/dl AST (15-37) U/L ALT (12-78) U/L Alkaline Phosphatase (45-117) U/L Troponin I (0-0.045) ng/ml Total Protein (6.4-8.2) gm/dl Albumin (3.4-5.0) gm/dl Globulin (2.5-4.0) gm/dl Albumin/Globulin Ratio (0.9-2) TSH (0.300-4.500) uIu/ml Urine Color Urine Appearance (Clear) Urine pH (4.5-7.5) Ur Specific [place] (1.000-1.030) Urine Protein (Negative) Urine Glucose (UA) (Negative) Urine Ketones (Negative) Urine Blood (Negative) Urine Nitrite (Negative) Urine Bilirubin (Negative) Urine Urobilinogen (Negative) Ur Leukocyte Esterase (Negative) COVID-19 Eval Order SARS-CoV-2 (PCR) (Negative) Blood Type Blood Type Recheck Antibody Screen Crossmatch 05/16/21 05/16/21 05/16/21 Range/Units 13:36 13:36 14:05 WBC (4.8-10.8) K/uL RBC (4.7-6.1) M/uL Hgb (14.0-18.0) g/dL Hct (42-52) % MCV (80-100) fL MCH (25-34) pg MCHC (32-36) g/dL RDW Std Deviation (36.4-46.3) fL RDW Coeff of Jessica (11.5-14.5) % Plt Count (130-400) K/uL MPV (7.4-10.4) fL Immature Gran % (Auto) % Neut % (Auto) % Lymph % (Auto) % [place] % (Auto) % Eos % (Auto) % Baso % (Auto) % Neut # (Auto) (1.4-6.5) K/uL Lymph # (Auto) (1.2-3.4) K/uL [place] # (Auto) (0.11-0.59) K/uL Eos # (Auto) (0-0.5) K/uL Baso # (Auto) (0-0.2) K/uL Immature Gran # (Auto) (0.00-0.02) K/uL Hypochromasia Ovalocytes PT (9.0-12.0) Seconds INR (0.9-1.1) APTT (21.0-31.0) Seconds PTT Ratio Sodium (136-145) mmol/L Potassium (3.5-5.1) mmol/L Chloride (98-107) mmol/L Carbon Dioxide (21-32) mmol/L Anion Gap (3-11) BUN (7-18) mg/dl Creatinine (0.6-1.4) mg/dl Est Cr Clr Drug Dosing Est GFR ( Amer) ml/min Est GFR (Non-Af Amer) ml/min BUN/Creatinine Ratio (10-20) Glucose (70-99) mg/dl Calcium (8.5-10.1) mg/dl Magnesium (1.8-2.4) mg/dl Iron (35-175) mcg/dl TIBC (250-450) mcg/dl Ferritin (8-388) ng/ml Total Bilirubin (0.2-1) mg/dl AST (15-37) U/L ALT (12-78) U/L Alkaline Phosphatase (45-117) U/L Troponin I (0-0.045) ng/ml Total Protein (6.4-8.2) gm/dl Albumin (3.4-5.0) gm/dl Globulin (2.5-4.0) gm/dl Albumin/Globulin Ratio (0.9-2) TSH (0.300-4.500) uIu/ml Urine Color Urine Appearance (Clear) Urine pH (4.5-7.5) Ur Specific [place] (1.000-1.030) Urine Protein (Negative) Urine Glucose (UA) (Negative) Urine Ketones (Negative) Urine Blood (Negative) Urine Nitrite (Negative) Urine Bilirubin (Negative) Urine Urobilinogen (Negative) Ur Leukocyte Esterase (Negative) COVID-19 Eval Order Covid19 at [facility] SARS-CoV-2 (PCR) NEGATIVE (Negative) Blood Type Blood Type Recheck A Positive Antibody Screen Crossmatch 05/16/21 Range/Units 14:45 WBC (4.8-10.8) K/uL RBC (4.7-6.1) M/uL Hgb (14.0-18.0) g/dL Hct (42-52) % MCV (80-100) fL MCH (25-34) pg MCHC (32-36) g/dL RDW Std Deviation (36.4-46.3) fL RDW Coeff of Jessica (11.5-14.5) % Plt Count (130-400) K/uL MPV (7.4-10.4) fL Immature Gran % (Auto) % Neut % (Auto) % Lymph % (Auto) % [place] % (Auto) % Eos % (Auto) % Baso % (Auto) % Neut # (Auto) (1.4-6.5) K/uL Lymph # (Auto) (1.2-3.4) K/uL [place] # (Auto) (0.11-0.59) K/uL Eos # (Auto) (0-0.5) K/uL Baso # (Auto) (0-0.2) K/uL Immature Gran # (Auto) (0.00-0.02) K/uL Hypochromasia Ovalocytes PT (9.0-12.0) Seconds INR (0.9-1.1) APTT (21.0-31.0) Seconds PTT Ratio Sodium (136-145) mmol/L Potassium (3.5-5.1) mmol/L Chloride (98-107) mmol/L Carbon Dioxide (21-32) mmol/L Anion Gap (3-11) BUN (7-18) mg/dl Creatinine (0.6-1.4) mg/dl Est Cr Clr Drug Dosing Est GFR ( Amer) ml/min Est GFR (Non-Af Amer) ml/min BUN/Creatinine Ratio (10-20) Glucose (70-99) mg/dl Calcium (8.5-10.1) mg/dl Magnesium (1.8-2.4) mg/dl Iron (35-175) mcg/dl TIBC (250-450) mcg/dl Ferritin (8-388) ng/ml Total Bilirubin (0.2-1) mg/dl AST (15-37) U/L ALT (12-78) U/L Alkaline Phosphatase (45-117) U/L Troponin I (0-0.045) ng/ml Total Protein (6.4-8.2) gm/dl Albumin (3.4-5.0) gm/dl Globulin (2.5-4.0) gm/dl Albumin/Globulin Ratio (0.9-2) TSH (0.300-4.500) uIu/ml Urine Color Yellow Urine Appearance Clear (Clear) Urine pH 5.0 (4.5-7.5) Ur Specific [place] 1.024 (1.000-1.030) Urine Protein Negative (Negative) Urine Glucose (UA) Negative (Negative) Urine Ketones Negative (Negative) Urine Blood Negative (Negative) Urine Nitrite Negative (Negative) Urine Bilirubin Negative (Negative) Urine Urobilinogen Negative (Negative) Ur Leukocyte Esterase Negative (Negative) COVID-19 Eval Order SARS-CoV-2 (PCR) (Negative) Blood Type Blood Type Recheck Antibody Screen Crossmatch Administered Medications Discontinued Medications Pantoprazole Sodium 80 mg/ (Dextrose) 100 mls @ 400 mls/hr IV ONE STA Stop: 05/16/21 13:34 Last Infusion: 05/16/21 15:25 Dose: 0 mls/hr Documented by: [id number] Admin: 05/16/21 14:38 Dose: 400 mls/hr Documented by: [id number] Ioversol (Optiray 320 125ml) 120 ml IV ONCE ONE Stop: 05/16/21 14:22 Last Admin: 05/16/21 14:23 Dose: 120 ml Documented by: [id number] Imaging Data Radiologist's Impression: Chest X-Ray 05/16/21 12:29 XR chest 1V portable CLINICAL HISTORY: weakness. Evaluate cardiopulmonary status COMPARISON STUDY: 07/17/2019 TECHNIQUE: 1 view of the chest FINDINGS: Single frontal view of the chest demonstrates the cardiomediastinal silhouette to be within normal limits. Permanent cardiac pacer is in place. The lungs are clear of alveolar opacities. There is no evidence for pleural effusion. There is no evidence for vascular congestion. There is no acute osseous pathology. IMPRESSION: No acute cardiopulmonary disease. ACT 112: Negative or not required by law. Electronically signed by: Daniele Oh M.D. 05/16/2021 1:01 PM Abdomen/Pelvis CTA 05/16/21 13:04 CT ANGIOGRAM OF THE ABDOMEN AND PELVIS CLINICAL HISTORY: GI bleeding. COMPARISON STUDY: No priors. TECHNIQUE: Following the IV administration of 120 cc of Optiray 320, CT angiogram of the abdomen and pelvis was performed from the lung bases the proximal femora. Images are reviewed in the axial, sagittal, and coronal planes. 3-D MIPS images are created and assessed. IV contrast was administered without complication. A dose lowering technique was utilized adhering to the principles of ALARA. CT DOSE: 1372.96 mGy.cm FINDINGS: Lower chest: The heart is top normal in size and without pericardial effusion. The coronary arteries are densely calcified. Pacemaker leads are in place. The lung bases are clear noting mild dependent atelectasis. A small hiatal hernia is noted. Liver: The contrast-enhanced liver is normal in size, contour, and attenuation. There is no intrahepatic biliary ductal dilatation. The main portal veins appear patent. Gallbladder: There are numerous calcified gallstones with no CT evidence of acute cholecystitis. Spleen: Normal in size and attenuation noting heterogeneous arterial phase enhancement. Pancreas: Unremarkable. Adrenal glands: Unremarkable. Kidneys: The contrast enhanced kidneys demonstrate mild cortical atrophy and are without hydronephrosis. The kidneys enhance symmetrically. Bilateral renal cysts measure up to 7.5 cm. Abdominal aorta and iliac arteries: There is moderate atherosclerotic calcification of the abdominal aorta which is normal in caliber. The abdominal aorta and iliac arteries are widely patent. No dissection is seen. Major branches of the abdominal aorta: The celiac trunk, superior mesenteric, and inferior mesenteric arteries are widely patent. Hepatic arterial anatomy is conventional. The splenic artery is patent. Single bilateral renal arteries are widely patent. Bowel: There is advanced colonic diverticulosis without CT evidence of acute diverticulitis. No bowel obstruction is seen. Fecal retention is noted throughout the colon. The appendix is well-visualized and normal. Peritoneum: There is no intraperitoneal free air or abdominal ascites. There is evidence of previous umbilical hernia repair. Lymphadenopathy: None. Pelvic viscera: The prostate gland is enlarged and heterogeneous noting median lobe hypertrophy. The bladder wall is thickened and trabeculated indicating chronic outlet obstruction. There are small bilateral fat-containing inguinal hernias. Skeletal structures: The skeletal structures are osteopenic. There is moderate lumbosacral spondylosis. No lytic or blastic lesion is seen. There are healed left-sided rib fractures. IMPRESSION: 1. There are no acute infectious or inflammatory findings as seen in the abdomen or pelvis. 2. Unremarkable CT angiogram of the abdominal aorta and its major branches. 3. Advanced colonic diverticulosis without CT evidence of acute diverticulitis. 4. Cholelithiasis. 5. Additional findings as above. ACT 112: Negative or not required by law. Electronically signed by: Uche Magaña M.D. 05/16/2021 2:42 PM Discharge Plan Visit Data Chief Complaint: Syncope (Near Syncope) Stated Complaint: SYNCOPE ED Provider: Erickson Mckeon Discharge Problem: Acute GI bleeding, Paroxysmal atrial fibrillation, Anticoagulant long-term use, Syncope, ABLA (acute blood loss anemia) Patient Disposition: Admitted As Inpatient Discharge Instructions Interventions: ED Discharge Assessment Last Done: 05/16/21 18:29
[2021-05-16 13:42] LABS: Hematocrit (blood only) 21.6 % (42-52)
[2021-05-16 13:53] LABS: INR 1.3 (0.9-1.1); Partial Thromboplastin Time 26.3 Seconds (21.0-31.0); Prothrombin Time 12.8 Seconds (9.0-12.0)
[2021-05-16 14:03] LABS: Ferritin 5.9 ng/ml (8-388)
[2021-05-16] MEDS ORDERED: OPTIRAY 320 125ml IV ONE (14:21)
--- NOTE | 2021-05-16 14:43 | CT Scan Report ---
CT ANGIOGRAM OF THE ABDOMEN AND PELVIS CLINICAL HISTORY: GI bleeding. COMPARISON STUDY: No priors. TECHNIQUE: Following the IV administration of 120 cc of Optiray 320, CT angiogram of the abdomen and pelvis was performed from the lung bases the proximal femora. Images are reviewed in the axial, sagit ariana, and coronal planes. 3-D MIPS images are created and assessed. IV contrast was administered witho ut complication. A dose lowering technique was utilized adhering to the principles of ALARA. CT DOSE: 1372.96 mGy.cm FINDINGS: Lower chest: The heart is top normal in size and without pericardial effusion. The coronary arteries are densely calcified. Pacemaker leads are in place. The lung bases are clear noting mild dependent a telectasis. A small hiatal hernia is noted. Liver: The contrast-enhanced liver is normal in size, contour, and attenuation. There is no intrahepa tic biliary ductal dilatation. The main portal veins appear patent. Gallbladder: There are numerous calcified gallstones with no CT evidence of acute cholecystitis. Spleen: Normal in size and attenuation noting heterogeneous arterial phase enhancement. Pancreas: Unremarkable. Adrenal glands: Unremarkable. Kidneys: The contrast enhanced kidneys demonstrate mild cortical atrophy and are without hydronephros is. The kidneys enhance symmetrically. Bilateral renal cysts measure up to 7.5 cm. Abdominal aorta and iliac arteries: There is moderate atherosclerotic calcification of the abdominal aorta which is normal in caliber. The abdominal aorta and iliac arteries are widely patent. No dissec tion is seen. Major branches of the abdominal aorta: The celiac trunk, superior mesenteric, and inferior mesenteric arteries are widely patent. Hepatic arterial anatomy is conventional. The splenic artery is patent. Single bilateral renal arteries are widely patent. Bowel: There is advanced colonic diverticulosis without CT evidence of acute diverticulitis. No bowel obstruction is seen. Fecal retention is noted throughout the colon. The appendix is well-visualized and normal. Peritoneum: There is no intraperitoneal free air or abdominal ascites. There is evidence of previous umbilical hernia repair. Lymphadenopathy: None. Pelvic viscera: The prostate gland is enlarged and heterogeneous noting median lobe hypertrophy. The bladder wall is thickened and trabeculated indicating chronic outlet obstruction. There are small leeanne ateral fat-containing inguinal hernias. Skeletal structures: The skeletal structures are osteopenic. There is moderate lumbosacral spondylosi s. No lytic or blastic lesion is seen. There are healed left-sided rib fractures. IMPRESSION: 1. There are no acute infectious or inflammatory findings as seen in the abdomen or pelvis. 2. Unremarkable CT angiogram of the abdominal aorta and its major branches. 3. Advanced colonic diverticulosis without CT evidence of acute diverticulitis. 4. Cholelithiasis. 5. Additional findings as above. ACT 112: Negative or not required by law. Electronically signed by: Uche Magaña M.D. 05/16/2021 2:42 PM
[2021-05-16 14:53] LABS: Appearance Urine Clear (Clear); Bilirubin Urine Negative (Negative); Blood Urine Negative (Negative); Color Urine Yellow; Glucose Urine UA Negative (Negative); Ketones Urine Negative (Negative); Leukocyte Esterase Urine Negative (Negative); Nitrite Urine Negative (Negative); Protein Urine Negative (Negative); Specific Gravity Urine 1.024 (1.000-1.030); Urobilinogen Urine Negative (Negative)
--- NOTE | 2021-05-16 15:10 | History & Physical Report ---
Date of Service May 16, 2021 Assessment & Plan (1) Acute GI bleeding: Plan: 2 weeks of melena. FOB positive. Pantoprazole IV bolus and drip NPO, IV fluids when blood not being given 1 unit packed RBCs H&H Q6H. Transfuse if Hgb < 7 Consult GI for consideration of EGD (2) Atrial fibrillation: Plan: Currently in NSR Hold Xarelto due to acute GI bleed as above (3) Depression: Plan: Continue sertraline 100mg PO HS (4) Hypertension: Plan: Hold amlodipine and lisinopril in setting of acute GI bleed as above Continue carvedilol with hold parameters (5) BPH (benign prostatic hyperplasia): Plan: Continue dutasteride and terazosin (6) Obstructive sleep apnea: Plan: CPAP HS (7) Diabetes: Plan: HbA1C 5.3 in April - suggest overtreatment Hold metformin Insulin for correction factor only (8) CAD (coronary artery disease): Plan: Hx of myocardial infarction associated with a cardiac arrest in July 2009 Xarelto 20mg HS, unclear why he is not on antiplatelet but clearly not the time to start, continue carvedilol with hold parameters, continue atorvastatin Plan: VTE Prophylaxis - SCDs, chemical prophylaxis deferred Diet - NPO Disposition - admit to med/tele Admission and Anticipated Discharge Date Admission Date: May 16, 2021 History of Present Illness Chief Complaint: Melena, syncope Primary Care Provider: James Chu III, CRNP Carlos A Hannah is a 70 year old male who presents to the ER with syncope and diaphoresis. He reports 2 weeks of melena without nausea or abdominal pain. Never had a gastric ulcer before in the past. Last had a colonoscopy 30 years ago due to rectal bleeding (?colitis) and had such a bad experience he never wanted to repeat this. He takes Xarelto for paroxysmal atrial fibrillation but is currently in NSR. He is not on antiplatelets despite having a prior MN. No NSAID use. No recent weight loss. He takes pantoprazole ever since his cardiac arrest in 2009 but is unclear why, he denies any GERD or prior GI bleed. While sitting to have breakfast this morning he became diaphoretic, pale and fainted. In the ER hemoglobin 6.8 from baseline 12.2, FOB positive. He was given pantoprazole 80mg IV bolus and 1 unit packed RBCs ordered. He was referred to medicine for admission and ongoing management of acute GI bleed and anemia. Allergies Allergy/AdvReac Type Severity Reaction Status Date / Time DAWN Inhibitors AdvReac Intermediate cough Verified 05/16/21 15:08 Home Medications Medication Instructions Recorded Confirmed Type multivitamin with minerals (Men's 1 tab PO DAILY 02/13/19 05/16/21 History One Daily) acetaminophen 650 mg 650 mg PO Q12H PRN #180 tab 02/15/19 05/16/21 Rx tablet,extended release (Tylenol Arthritis Pain) pantoprazole 40 mg tablet,delayed 40 mg PO DAILY #90 tab 01/11/20 05/16/21 Rx release walker #1 ea 01/11/20 04/30/21 Rx CPAP Machine #1 ea 03/08/20 04/30/21 Rx CPAP Supplies #1 ea 03/08/20 04/30/21 Rx amlodipine 5 mg tablet 5 mg PO DAILY #90 tab 12/10/20 05/16/21 Rx dutasteride 0.5 mg capsule 0.5 mg PO DAILY #90 cap 12/18/20 05/16/21 Rx terazosin 5 mg capsule 5 mg PO HS #90 cap 12/18/20 05/16/21 Rx atorvastatin 40 mg tablet 40 mg PO DAILY #90 tab 01/07/21 05/16/21 Rx carvedilol 25 mg tablet (Coreg) 25 mg PO BID #180 tab 01/21/21 05/16/21 Rx metformin 500 mg tablet 500 mg PO BID #180 tab 01/21/21 05/16/21 Rx rivaroxaban 20 mg tablet 20 mg PO DAILY #90 tab 01/21/21 05/16/21 Rx lisinopril 40 mg tablet 40 mg PO DAILY #90 tab 02/13/21 05/16/21 Rx cholecalciferol (vitamin D3) 125 5,000 unit PO DAILY #90 cap 04/10/21 05/16/21 Rx mcg (5,000 unit) capsule sertraline 100 mg tablet 100 mg PO HS 05/16/21 05/16/21 History Past Med/Surg History Medical History Atrial fibrillation Cardiac pacemaker in situ Depression Hypertension Hypoxia Myocardial infarction SSS (sick sinus syndrome) Ventricular fibrillation Ventricular tachycardia Surgical History S/P cardiac cath S/P hernia repair S/P wisdom tooth extraction Stented coronary artery Family History Father Rheumatic fever Myocardial infarction Unknown Myocardial infarction Denies family history of Ovarian cancer Prostate cancer Breast cancer Colorectal cancer Social History Smoking Status: Never smoker Second Hand Exposure: No; Hx Alcohol Use: Yes Alcohol type: beer Hx Substance Use: No Preferred Language: Citizen Of [place] Communication Ability: Effective Visual Impairment: No Limitations Hearing Ability: Normal [place] Required: No Beliefs That Will Affect Care: None marital status: Current Living Situation: Spouse Current Living Situation Comment: home with current occupational status: retired current occupation: used to work at [employer] Feels Safe at Home: Yes Safety Concerns: Feels Safe At This Time Childhood Exposure to Second-Hand Smoke: Yes Dental Care, Regularly: Yes Physical Activity Frequency: Does not Exercise Seatbelt Use: always Sunscreen Use: Yes Assistive Devices: CPAP, Glasses, Oxygen - at Night and Walker Review of Systems Review of Systems: All systems reviewed & are unremarkable except as noted in HPI & below Physical Exam Constitutional: WD/WN, vitals as above no acute distress Eyes: PERRL, conjunctivae normal, anicteric sclerae ENMT: external ear and nose normal, oropharynx normal Neck: trachea midline, no thyromegaly Respiratory: normal respiratory effort, lungs clear to auscultation Cardiovascular: Rate/Rhythm: regular rate and regular rhythm (frequent missed beats) Heart Sounds: no murmur Extremities: normal capillary refill; no calf tenderness and no pedal edema Gastrointestinal (Abdomen): Inspection/Auscultation: normal bowel sounds and + visible herniation (umbilical); abdomen not distended Percussion/Palpation: abdomen soft; abdomen nontender, no guarding and abdomen not rigid Musculoskeletal: no cyanosis or clubbing, extremities motor strength 5/5 Skin: no rashes, warm and dry Neurologic: moves all extremities and awake; not confused Psychiatric: A+Ox3, euthymic affect Genitourinary: no CVA tenderness Results & Data Results & Data ([facility]) Vital Signs (Past 12 Hours) Vital Signs Temp Pulse Pulse Resp BP BP Pulse Ox 05/16/21 14:35 82 24 123/67 96 05/16/21 12:38 82 20 113/54 L 98 05/16/21 12:10 36.9 C 80 20 93/53 L 97 Laboratory Results Abnormal lab results 05/16/21 05/16/21 05/16/21 Range/Units 12:00 12:00 13:35 RBC 2.22 L (4.7-6.1) M/uL Hgb 6.8 L* (14.0-18.0) g/dL Hct 20.9 L* (42-52) % RDW Std Deviation 48.5 H (36.4-46.3) fL PT (9.0-12.0) Seconds INR (0.9-1.1) Chloride 108 H (98-107) mmol/L BUN 52 H (7-18) mg/dl BUN/Creatinine Ratio 50.9 H (10-20) Glucose 163 H (70-99) mg/dl Calcium 8.1 L (8.5-10.1) mg/dl Iron (35-175) mcg/dl Ferritin (8-388) ng/ml AST 13 L (15-37) U/L Total Protein 5.5 L (6.4-8.2) gm/dl Albumin 2.6 L (3.4-5.0) gm/dl Crossmatch See Detail 05/16/21 05/16/21 05/16/21 Range/Units 13:35 13:35 13:35 RBC (4.7-6.1) M/uL Hgb 7.0 L (14.0-18.0) g/dL Hct 21.6 L (42-52) % RDW Std Deviation (36.4-46.3) fL PT 12.8 H (9.0-12.0) Seconds INR 1.3 H (0.9-1.1) Chloride (98-107) mmol/L BUN (7-18) mg/dl BUN/Creatinine Ratio (10-20) Glucose (70-99) mg/dl Calcium (8.5-10.1) mg/dl Iron 18 L (35-175) mcg/dl Ferritin 5.9 L (8-388) ng/ml AST (15-37) U/L Total Protein (6.4-8.2) gm/dl Albumin (3.4-5.0) gm/dl Crossmatch Diagnostic Findings XR chest 1V portable CLINICAL HISTORY: weakness. Evaluate cardiopulmonary status COMPARISON STUDY: 07/17/2019 TECHNIQUE: 1 view of the chest FINDINGS: Single frontal view of the chest demonstrates the cardiomediastinal silhouette to be within normal limits. Permanent cardiac pacer is in place. The lungs are clear of alveolar opacities. There is no evidence for pleural effusion. There is no evidence for vascular congestion. There is no acute osseous pathology. IMPRESSION: No acute cardiopulmonary disease. CT ANGIOGRAM OF THE ABDOMEN AND PELVIS CLINICAL HISTORY: GI bleeding. COMPARISON STUDY: No priors. TECHNIQUE: Following the IV administration of 120 cc of Optiray 320, CT angiogram of the abdomen and pelvis was performed from the lung bases the proximal femora. Images are reviewed in the axial, sagittal, and coronal planes. 3-D MIPS images are created and assessed. IV contrast was administered without complication. A dose lowering technique was utilized adhering to the principles of ALARA. CT DOSE: 1372.96 mGy.cm FINDINGS: Lower chest: The heart is top normal in size and without pericardial effusion. The coronary arteries are densely calcified. Pacemaker leads are in place. The lung bases are clear noting mild dependent atelectasis. A small hiatal hernia is noted. Liver: The contrast-enhanced liver is normal in size, contour, and attenuation. There is no intrahepatic biliary ductal dilatation. The main portal veins appear patent. Gallbladder: There are numerous calcified gallstones with no CT evidence of acute cholecystitis. Spleen: Normal in size and attenuation noting heterogeneous arterial phase enhancement. Pancreas: Unremarkable. Adrenal glands: Unremarkable. Kidneys: The contrast enhanced kidneys demonstrate mild cortical atrophy and are without hydronephrosis. The kidneys enhance symmetrically. Bilateral renal cysts measure up to 7.5 cm. Abdominal aorta and iliac arteries: There is moderate atherosclerotic calcification of the abdominal aorta which is normal in caliber. The abdominal aorta and iliac arteries are widely patent. No dissection is seen. Major branches of the abdominal aorta: The celiac trunk, superior mesenteric, and inferior mesenteric arteries are widely patent. Hepatic arterial anatomy is conventional. The splenic artery is patent. Single bilateral renal arteries are widely patent. Bowel: There is advanced colonic diverticulosis without CT evidence of acute diverticulitis. No bowel obstruction is seen. Fecal retention is noted throughout the colon. The appendix is well-visualized and normal. Peritoneum: There is no intraperitoneal free air or abdominal ascites. There is evidence of previous umbilical hernia repair. Lymphadenopathy: None. Pelvic viscera: The prostate gland is enlarged and heterogeneous noting median lobe hypertrophy. The bladder wall is thickened and trabeculated indicating chronic outlet obstruction. There are small bilateral fat-containing inguinal hernias. Skeletal structures: The skeletal structures are osteopenic. There is moderate lumbosacral spondylosis. No lytic or blastic lesion is seen. There are healed left-sided rib fractures. IMPRESSION: 1. There are no acute infectious or inflammatory findings as seen in the abdomen or pelvis. 2. Unremarkable CT angiogram of the abdominal aorta and its major branches. 3. Advanced colonic diverticulosis without CT evidence of acute diverticulitis. 4. Cholelithiasis. 5. Additional findings as above. Medications Administered ER Medications Given: Pantoprazole 80mg IV bolus ECG Rate (beats per minute): 80 Rhythm: normal sinus Findings: + PVC Comparison ECG Date: no prior available (Jul 17, 2019) Change: no significant change Code Status & VTE Plan Code Status Full VTE Prophylaxis Plan VTE Prophylaxis will be ordered: Yes Reason for no VTE drug order: Treatment not indicated PG Care Time/CCT Total # of Minutes Spent Total Time Spent with Patient: Total time spent is greater than 50% in coordination of care (as documented) at patient's floor/unit and/or counseling patient: Coding Level of Care Code 40736 Initial Inpt Care Lvl 3 Diagnoses Atrial fibrillation I48.0 Atrial fibrillation type: paroxysmal Depression F33.1 Active/Remission status: currently active Depression Type: major depressive disorder Major depression episode severity: moderate Major depression recurrence: recurrent Hypertension I10 Hypertension type: essential hypertension BPH (benign prostatic hyperplasia) N40.0 Lower urinary tract symptom presence: symptoms absent Obstructive sleep apnea G47.33 Diabetes E11.9 Diabetes mellitus complication status: without complication Diabetes mellitus intermediate manager insulin use: without intermediate manager use Diabetes mellitus type: type 2 CAD (coronary artery disease) I25.10 Associated angina: without angina Coronary Disease-Associated Artery/Lesion type: [place] artery [place] vs. transplanted heart: [place] heart Acute GI bleeding K92.2 (1) BPH (benign prostatic hyperplasia) Lower urinary tract symptom presence: symptoms absent Qualified Code(s): N40.0 - Benign prostatic hyperplasia without lower urinary tract symptoms (2) Diabetes Diabetes mellitus complication status: without complication Diabetes mellitus intermediate manager insulin use: without intermediate manager use Diabetes mellitus type: type 2 Qualified Code(s): E11.9 - Type 2 diabetes mellitus without complications (3) CAD (coronary artery disease) Associated angina: without angina Coronary Disease-Associated Artery/Lesion type: [place] artery [place] vs. transplanted heart: [place] heart Qualified Code (s): I25.10 - Atherosclerotic heart disease of [place] coronary artery without angina pectoris (4) Atrial fibrillation Atrial fibrillation type: paroxysmal Qualified Code(s): I48.0 - Paroxysmal atrial fibrillation (5) Depression Active/Remission status: currently active Depression Type: major depressive disorder Major depression episode severity: moderate Major depression recurrence: recurrent Qualified Code(s): F33.1 - Major depressive disorder, recurrent, moderate (6) Hypertension Hypertension type: essential hypertension Qualified Code(s): I10 - Essential (primary) hypertension
[2021-05-16] MEDS ORDERED: GLUCOSE 40% GEL 15 GM TUBE PO PRN (18:51)
[2021-05-16] MEDS ORDERED: DEXTROSE 50% 50 ML SYRINGE IV PRN (18:51)
[2021-05-16] MEDS ORDERED: CARBOHYDRATES FOR HYPOGLYCEMIA PO PRN (18:51)
[2021-05-16] MEDS ORDERED: GLUCAGON FOR INJ 1 MG VIAL SQ PRN (18:51)
[2021-05-16] MEDS ORDERED: GLUCOSE 10 TABS/TUBE PO PRN (18:51)
[2021-05-16] MEDS: PANTOprazole 40 MG in DEXTROSE 5% 100 ML IV SCH (19:45)
[2021-05-16 21:00] LABS: Hematocrit (blood only) 23.6 % (42-52); Hemoglobin 7.9 g/dL (14.0-18.0)
[2021-05-16] MEDS: INSULIN ASPART 100 UNITS/ML 3 ML PEN SC SCH ×2 (21:04→21:44)
[2021-05-16] MEDS: carvediloL 25 MG TAB PO SCH (21:13)
[2021-05-16] MEDS: TERAZOSIN HCL 5 MG CAP PO SCH (21:14)
[2021-05-16] MEDS: SERTRALINE HCL 100 MG TABLET PO SCH (21:14)
[2021-05-16] MEDS ORDERED: INFLUENZA VACCINE HIGH DOSE PF 65+ 0.7 ML SYR IM ONE (21:51)
[2021-05-17] MEDS: PANTOprazole 40 MG in DEXTROSE 5% 100 ML IV SCH ×5 (00:30→21:47)
[2021-05-17] MEDS: LACTATED RINGER'S 1,000 ML IV SCH ×3 (01:39→16:17)
[2021-05-17 03:12] LABS: Basophils # (auto) 0.01 K/uL (0-0.2); Basophils % (auto) 0.1 %; Eosinophils # (auto) 0.21 K/uL (0-0.5); Eosinophils % (auto) 2.5 %; Hematocrit (blood only) 22.4 % (42-52); Hemoglobin 7.5 g/dL (14.0-18.0); Immature Granulocytes # (auto) 0.01 K/uL (0.00-0.02); Immature Granulocytes % (auto) 0.1 %; Lymphocytes # (auto) 1.93 K/uL (1.2-3.4); Lymphocytes % (auto) 23.1 %; Mean Corpuscular Hemoglobin 30.9 pg (25-34); Mean Corpuscular Hgb Conc 33.5 g/dL (32-36); Mean Corpuscular Volume 92.2 fL (80-100); Mean Platelet Volume 9.4 fL (7.4-10.4); Monocytes # (auto) 0.83 K/uL (0.11-0.59); Monocytes % (auto) 9.9 %; Neutrophils # (auto) 5.36 K/uL (1.4-6.5); Neutrophils % (auto) 64.3 %; Platelet Count 193 K/uL (130-400); RDW Coefficient of Variation 14.1 % (11.5-14.5); RDW Standard Deviation 47.1 fL (36.4-46.3); Red Blood Count 2.43 M/uL (4.7-6.1); White Blood Count 8.35 K/uL (4.8-10.8)
[2021-05-17 03:33] LABS: BUN Creatinine Ratio 40.1 (10-20); Calcium 8.2 mg/dl (8.5-10.1); Creatinine Clr Calc Pharmacy 97.4 ml/min; Est GFR (African American) 104.9 ml/min; Est GFR (Non-African American) 90.5 ml/min; Potassium 3.9 mmol/L (3.5-5.1)
[2021-05-17 03:41] LABS: RBC Morphology Unremarkable
--- NOTE | 2021-05-17 06:12 | Electrocardiogram Report ---
Test Reason : Blood Pressure : / mmHG Vent. Rate : 080 BPM Atrial Rate : 080 BPM P-R Int : 190 ms QRS Dur : 106 ms QT Int : 352 ms P-R-T Axes : 045 014 -12 degrees QTc Int : 405 ms Sinus rhythm with frequent Premature ventricular complexes Possible Inferior infarct (cited on or before 07-AUG-2016) Abnormal ECG When compared with ECG of 17-JUL-2019 05:13, No significant change was found Confirmed by Jeremiah Hutchinson ([id number]) on 05/17/2021 6:11:44 AM Referred By: Confirmed By:Jeremiah Hutchinson
[2021-05-17] MEDS ORDERED: Nursing to Pharmacy Communication SCH ×3 (07:15→15:30)
[2021-05-17] MEDS: ATORVASTATIN 40 MG TAB PO SCH (07:32)
[2021-05-17] MEDS: MULTIVITAMIN PO SCH (07:33)
[2021-05-17] MEDS: carvediloL 25 MG TAB PO SCH ×2 (07:33→20:32)
[2021-05-17 09:01] LABS: Hematocrit (blood only) 22.2 % (42-52); Hemoglobin 7.3 g/dL (14.0-18.0)
--- NOTE | 2021-05-17 09:42 | Gastrointestinal Consultation ---
Date of Consultation May 17, 2021 Assessment & Plan (1) ABLA (acute blood loss anemia): (2) Melena: Pt. is a 70 y.o. male with a history of CAD, paroxysmal A Fib and cardiomyopathy s/p pacemaker placement on chronic anticoagulation therapy with Xarelto admitted with symptomatic acute blood loss anemia and melena. DDX: PUD vs AVM vs malignancy vs other. 1. NPO for now. 2. Maintain 2 large bore IVs. 3. Transfuse >8 given cardiac comorbidities. 4. EGD today with Dr. Jose for further evaluation. 5. Continue Protonix ggt at 8 mg/hr. 6. Further recommendations pending results of testing. Thank you for allowing us to participating in the care of this patient. If you have questions or concerns, please do not hesitate to contact us. Supervising Physician Co-Signing Physician Notes I personally evaluated the patient and agree with the findings as documented by YAN Estrada Exam: abd: soft, nt, nd History of Present Illness Reason for Consultation: UGIB Requesting Physician: Dr. Taveras Attending Physician: Lucius Oakes MD History of Present Illness Patient is a very pleasant 70 y.o. male with a history of depression, HTN, atrial fibrillation, CAD, and cardiomyopathy s/p pacemaker placement admitted with melena and acute blood loss anemia. He states he has been having melanotic stools for the past 2 weeks. The stools are slightly less formed than his normal bowel movement. There was associated fatigue and mild dizziness. Denies any shortness of breath, dyspnea on exertion, chest pain, palpitations, or syncope. Remains on Xarelto for chronic anticoagulation. Patient states he has never had an upper endoscopic evaluation and last colonoscopy was ~30 years ago. No family history of GI malignancy. Denies any current aspirin or ibuprofen use. He re myra NPO and placed on a Protonix ggt. H&H on arrival was noted to be 7.9/23.6. He has been transfused with 1 unit of PRBCs. H&H this morning was noted to be 7.3/22.2. CT a/p unremarkable. Allergies Allergy/AdvReac Type Severity Reaction Status Date / Time DAWN Inhibitors AdvReac Intermediate cough Verified 05/16/21 15:08 Home Medications Medication Instructions Recorded Confirmed Type multivitamin with minerals (Men's 1 tab PO DAILY 02/13/19 05/16/21 History One Daily) acetaminophen 650 mg 650 mg PO Q12H PRN #180 tab 02/15/19 05/16/21 Rx tablet,extended release (Tylenol Arthritis Pain) pantoprazole 40 mg tablet,delayed 40 mg PO DAILY #90 tab 01/11/20 05/16/21 Rx release walker #1 ea 01/11/20 04/30/21 Rx CPAP Machine #1 ea 03/08/20 04/30/21 Rx CPAP Supplies #1 ea 03/08/20 04/30/21 Rx amlodipine 5 mg tablet 5 mg PO DAILY #90 tab 12/10/20 05/16/21 Rx dutasteride 0.5 mg capsule 0.5 mg PO DAILY #90 cap 12/18/20 05/16/21 Rx terazosin 5 mg capsule 5 mg PO HS #90 cap 12/18/20 05/16/21 Rx atorvastatin 40 mg tablet 40 mg PO DAILY #90 tab 01/07/21 05/16/21 Rx carvedilol 25 mg tablet (Coreg) 25 mg PO BID #180 tab 01/21/21 05/16/21 Rx metformin 500 mg tablet 500 mg PO BID #180 tab 01/21/21 05/16/21 Rx rivaroxaban 20 mg tablet 20 mg PO DAILY #90 tab 01/21/21 05/16/21 Rx lisinopril 40 mg tablet 40 mg PO DAILY #90 tab 02/13/21 05/16/21 Rx cholecalciferol (vitamin D3) 125 5,000 unit PO DAILY #90 cap 04/10/21 05/16/21 Rx mcg (5,000 unit) capsule sertraline 100 mg tablet 100 mg PO HS 05/16/21 05/16/21 History Patient History Medical History Atrial fibrillation Cardiac pacemaker in situ Depression Hypertension Hypoxia Myocardial infarction SSS (sick sinus syndrome) Ventricular fibrillation Ventricular tachycardia Surgical History S/P cardiac cath Single vessel distal right coronary artery S/P hernia repair Umbilical S/P wisdom tooth extraction Stented coronary artery Family History Father Rheumatic fever Myocardial infarction Unknown Myocardial infarction Denies family history of Ovarian cancer Prostate cancer Breast cancer Colorectal cancer Social History Smoking Status: Never smoker Second Hand Exposure: No; Hx Alcohol Use: Yes Alcohol type: beer Hx Substance Use: No Preferred Language: [place] Communication Ability: Effective Visual Impairment: No Limitations Hearing Ability: Normal Decommissioning Well Site Manager Required: No Beliefs That Will Affect Care: None marital status: Current Living Situation: Spouse Current Living Situation Comment: home with current occupational status: retired current occupation: used to work at [employer] Feels Safe at Home: Yes Safety Concerns: Feels Safe At This Time Childhood Exposure to Second-Hand Smoke: Yes Dental Care, Regularly: Yes Physical Activity Frequency: Does not Exercise Seatbelt Use: always Sunscreen Use: Yes Assistive Devices: CPAP, Glasses, Oxygen - at Night and Walker Review of Systems Review of Systems: All systems reviewed & are unremarkable except as noted in HPI & below Physical Exam Constitutional: WD/WN, vitals as above Eyes: EOM intact bilaterally Neck: normal visual inspection Respiratory: normal respiratory effort, lungs clear to auscultation Cardiovascular: Rate/Rhythm: regular rate and regular rhythm Gastrointestinal (Abdomen): Inspection/Auscultation: normal bowel sounds and + significant pannus Percussion/Palpation: abdomen soft; abdomen nontender Musculoskeletal: Extremities: extremities normal to inspection Skin: + pallor Psychiatric: A+Ox3, euthymic affect Results & Data ([facility]) Vital Signs (Past 12 Hours) Vital Signs Temp Pulse Pulse Pulse Resp BP BP 05/17/21 08:03 36.6 C 77 16 112/74 05/17/21 07:45 36.7 C 84 23 132/88 05/17/21 03:20 36.6 C 75 18 122/69 05/16/21 23:23 36.8 C 79 18 109/67 05/16/21 22:55 77 05/16/21 22:48 83 Pulse Ox 05/17/21 08:03 96 05/17/21 07:45 96 05/17/21 03:20 95 05/16/21 23:23 92 05/16/21 22:55 05/16/21 22:48 Laboratory Results Laboratory Results WBC 8.35 K/uL (4.8-10.8) 05/17/21 02:59 RBC 2.43 M/uL (4.7-6.1) L 05/17/21 02:59 Hgb 7.3 g/dL (14.0-18.0) L 05/17/21 08:47 Hct 22.2 % (42-52) L 05/17/21 08:47 MCV 92.2 fL (80-100) 05/17/21 02:59 MCH 30.9 pg (25-34) 05/17/21 02:59 MCHC 33.5 g/dL (32-36) 05/17/21 02:59 RDW Std Deviation 47.1 fL (36.4-46.3) H 05/17/21 02:59 RDW Coeff of Jessica 14.1 % (11.5-14.5) 05/17/21 02:59 Plt Count 193 K/uL (130-400) 05/17/21 02:59 MPV 9.4 fL (7.4-10.4) 05/17/21 02:59 Immature Gran % (Auto) 0.1 % 05/17/21 02:59 Neut % (Auto) 64.3 % 05/17/21 02:59 Lymph % (Auto) 23.1 % 05/17/21 02:59 Logan % (Auto) 9.9 % 05/17/21 02:59 Eos % (Auto) 2.5 % 05/17/21 02:59 Baso % (Auto) 0.1 % 05/17/21 02:59 Neut # (Auto) 5.36 K/uL (1.4-6.5) 05/17/21 02:59 Lymph # (Auto) 1.93 K/uL (1.2-3.4) 05/17/21 02:59 Logan # (Auto) 0.83 K/uL (0.11-0.59) H 05/17/21 02:59 Eos # (Auto) 0.21 K/uL (0-0.5) 05/17/21 02:59 Baso # (Auto) 0.01 K/uL (0-0.2) 05/17/21 02:59 Immature Gran # (Auto) 0.01 K/uL (0.00-0.02) 05/17/21 02:59 RBC Morphology Unremarkable 05/17/21 02:59 Hypochromasia Present 05/16/21 12:00 Ovalocytes 1+ 05/16/21 12:00 PT 12.8 Seconds (9.0-12.0) H 05/16/21 13:35 INR 1.3 (0.9-1.1) H 05/16/21 13:35 APTT 26.3 Seconds (21.0-31.0) 05/16/21 13:35 PTT Ratio 1.0 05/16/21 13:35 Sodium 138 mmol/L (136-145) 05/17/21 02:59 Potassium 3.9 mmol/L (3.5-5.1) 05/17/21 02:59 Chloride 106 mmol/L (98-107) 05/17/21 02:59 Carbon Dioxide 27 mmol/L (21-32) 05/17/21 02:59 Anion Gap 5.0 (3-11) 05/17/21 02:59 BUN 32 mg/dl (7-18) H 05/17/21 02:59 Creatinine 0.80 mg/dl (0.6-1.4) 05/17/21 02:59 Est Cr Clr Drug Dosing 97.4 ml/min 05/17/21 02:59 Est GFR ( Amer) 104.9 ml/min 05/17/21 02:59 Est GFR (Non-Af Amer) 90.5 ml/min 05/17/21 02:59 BUN/Creatinine Ratio 40.1 (10-20) H 05/17/21 02:59 Glucose 112 mg/dl (70-99) H 05/17/21 02:59 POC Glucose 116 mg/dl (70-99) H 05/17/21 05:57 Calcium 8.2 mg/dl (8.5-10.1) L 05/17/21 02:59 Magnesium 2.0 mg/dl (1.8-2.4) 05/16/21 13:35 Iron 18 mcg/dl (35-175) L 05/16/21 13:35 TIBC 284 mcg/dl (250-450) 05/16/21 13:35 Ferritin 5.9 ng/ml (8-388) L 05/16/21 13:35 Total Bilirubin 0.4 mg/dl (0.2-1) 05/16/21 12:00 AST 13 U/L (15-37) L 05/16/21 12:00 ALT 21 U/L (12-78) 05/16/21 12:00 Alkaline Phosphatase 59 U/L (45-117) 05/16/21 12:00 Troponin I < 0.015 ng/ml (0-0.045) 05/16/21 12:00 Total Protein 5.5 gm/dl (6.4-8.2) L 05/16/21 12:00 Albumin 2.6 gm/dl (3.4-5.0) L 05/16/21 12:00 Globulin 2.9 gm/dl (2.5-4.0) 05/16/21 12:00 Albumin/Globulin Ratio 0.9 (0.9-2) 05/16/21 12:00 TSH 1.810 uIu/ml (0.300-4.500) 05/16/21 12:00 Urine Color Yellow 05/16/21 14:45 Urine Appearance Clear (Clear) 05/16/21 14:45 Urine pH 5.0 (4.5-7.5) 05/16/21 14:45 Ur Specific [place] 1.024 (1.000-1.030) 05/16/21 14:45 Urine Protein Negative (Negative) 05/16/21 14:45 Urine Glucose (UA) Negative (Negative) 05/16/21 14:45 Urine Ketones Negative (Negative) 05/16/21 14:45 Urine Blood Negative (Negative) 05/16/21 14:45 Urine Nitrite Negative (Negative) 05/16/21 14:45 Urine Bilirubin Negative (Negative) 05/16/21 14:45 Urine Urobilinogen Negative (Negative) 05/16/21 14:45 Ur Leukocyte Esterase Negative (Negative) 05/16/21 14:45 POC Stool Occult Blood Positive (Negative) A 05/16/21 Unknown COVID-19 Eval Order Covid19 at [facility] 05/16/21 13:36 SARS-CoV-2 (PCR) NEGATIVE (Negative) 05/16/21 13:36 Blood Type A Positive 05/16/21 13:35 Blood Type Recheck A Positive 05/16/21 14:05 Antibody Screen NEGATIVE 05/16/21 13:35 Crossmatch See Detail 05/16/21 13:35 Impressions Chest X-Ray 05/16/21 12:29 XR chest 1V portable CLINICAL HISTORY: weakness. Evaluate cardiopulmonary status COMPARISON STUDY: 07/17/2019 TECHNIQUE: 1 view of the chest FINDINGS: Single frontal view of the chest demonstrates the cardiomediastinal silhouette to be within normal limits. Permanent cardiac pacer is in place. The lungs are clear of alveolar opacities. There is no evidence for pleural effusion. There is no evidence for vascular congestion. There is no acute osseous pathology. IMPRESSION: No acute cardiopulmonary disease. ACT 112: Negative or not required by law. Electronically signed by: Daniele Oh M.D. 05/16/2021 1:01 PM Abdomen/Pelvis CTA 05/16/21 13:04 CT ANGIOGRAM OF THE ABDOMEN AND PELVIS CLINICAL HISTORY: GI bleeding. COMPARISON STUDY: No priors. TECHNIQUE: Following the IV administration of 120 cc of Optiray 320, CT angiogram of the abdomen and pelvis was performed from the lung bases the proximal femora. Images are reviewed in the axial, sagittal, and coronal planes. 3-D MIPS images are created and assessed. IV contrast was administered without complication. A dose lowering technique was utilized adhering to the principles of ALARA. CT DOSE: 1372.96 mGy.cm FINDINGS: Lower chest: The heart is top normal in size and without pericardial effusion. The coronary arteries are densely calcified. Pacemaker leads are in place. The lung bases are clear noting mild dependent atelectasis. A small hiatal hernia is noted. Liver: The contrast-enhanced liver is normal in size, contour, and attenuation. There is no intrahepatic biliary ductal dilatation. The main portal veins appear patent. Gallbladder: There are numerous calcified gallstones with no CT evidence of acute cholecystitis. Spleen: Normal in size and attenuation noting heterogeneous arterial phase enhancement. Pancreas: Unremarkable. Adrenal glands: Unremarkable. Kidneys: The contrast enhanced kidneys demonstrate mild cortical atrophy and are without hydronephrosis. The kidneys enhance symmetrically. Bilateral renal cysts measure up to 7.5 cm. Abdominal aorta and iliac arteries: There is moderate atherosclerotic calcification of the abdominal aorta which is normal in caliber. The abdominal aorta and iliac arteries are widely patent. No dissection is seen. Major branches of the abdominal aorta: The celiac trunk, superior mesenteric, and inferior mesenteric arteries are widely patent. Hepatic arterial anatomy is conventional. The splenic artery is patent. Single bilateral renal arteries are widely patent. Bowel: There is advanced colonic diverticulosis without CT evidence of acute diverticulitis. No bowel obstruction is seen. Fecal retention is noted throughout the colon. The appendix is well-visualized and normal. Peritoneum: There is no intraperitoneal free air or abdominal ascites. There is evidence of previous umbilical hernia repair. Lymphadenopathy: None. Pelvic viscera: The prostate gland is enlarged and heterogeneous noting median lobe hypertrophy. The bladder wall is thickened and trabeculated indicating chronic outlet obstruction. There are small bilateral fat-containing inguinal hernias. Skeletal structures: The skeletal structures are osteopenic. There is moderate lumbosacral spondylosis. No lytic or blastic lesion is seen. There are healed left-sided rib fractures. IMPRESSION: 1. There are no acute infectious or inflammatory findings as seen in the abdomen or pelvis. 2. Unremarkable CT angiogram of the abdominal aorta and its major branches. 3. Advanced colonic diverticulosis without CT evidence of acute diverticulitis. 4. Cholelithiasis. 5. Additional findings as above. ACT 112: Negative or not required by law. Electronically signed by: Uche Magaña M.D. 05/16/2021 2:42 PM PG Care Time/CCT Total # of Minutes Spent Total Time Spent with Patient: Total time spent is greater than 50% in coordination of care (as documented) at patient's floor/unit and/or counseling patient: Coding Level of Care Code 73098 Initial Inpt Care Lvl 3 Diagnoses ABLA (acute blood loss anemia) D62 Melena K92.1
[2021-05-17] MEDS: FERROUS SULFATE 325 MG TAB PO SCH (09:50)
[2021-05-17] MEDS ORDERED: INSULIN ASPART 100 UNITS/ML 3 ML PEN SC SCH (12:00)
--- NOTE | 2021-05-17 13:24 | Anesthesiology Consultation ---
Date of Service May 17, 2021 Assessment & Plan Chart Review Chart Review: Acceptable Risk for Surgery and Patient NOT seen in Pre Admission Testing Consults Requested none ASA ASA4 Proposed Anesthesia Anesthesia Type: MAC Risk / Benefits Reviewed With: PT / POA / Parent / Guardian, Accepts Plan and Informed Consent Obtained Additional Comments: covid test neg. History Surgery Operation Date: 05/17/21 15:30 Proposed Procedures p Esophagogastroduodenoscopy Dr. Jose - Nimesh Jose MD Height/Weight Height: 5 ft 6 in Weight: 104.7 kg Allergies Allergy/AdvReac Type Severity Reaction Status Date / Time DAWN Inhibitors AdvReac Intermediate cough Verified 05/16/21 15:08 Medications Home Medications Medication Instructions Recorded Confirmed Last Taken multivitamin with minerals (Men's 1 tab PO DAILY 02/13/19 05/16/21 05/16/21 One Daily) acetaminophen 650 mg 650 mg PO Q12H PRN #180 tab 02/15/19 05/16/21 Unknown tablet,extended release (Tylenol Arthritis Pain) pantoprazole 40 mg tablet,delayed 40 mg PO DAILY #90 tab 01/11/20 05/16/21 05/16/21 release walker #1 ea 01/11/20 04/30/21 Unknown CPAP Machine #1 ea 03/08/20 04/30/21 Unknown CPAP Supplies #1 ea 03/08/20 04/30/21 Unknown amlodipine 5 mg tablet 5 mg PO DAILY #90 tab 12/10/20 05/16/21 05/16/21 dutasteride 0.5 mg capsule 0.5 mg PO DAILY #90 cap 12/18/20 05/16/21 05/16/21 terazosin 5 mg capsule 5 mg PO HS #90 cap 12/18/20 05/16/21 05/15/21 atorvastatin 40 mg tablet 40 mg PO DAILY #90 tab 01/07/21 05/16/21 05/16/21 carvedilol 25 mg tablet (Coreg) 25 mg PO BID #180 tab 01/21/21 05/16/21 05/16/21 08:00 metformin 500 mg tablet 500 mg PO BID #180 tab 01/21/21 05/16/21 05/16/21 08:00 rivaroxaban 20 mg tablet 20 mg PO DAILY #90 tab 01/21/21 05/16/21 05/16/21 lisinopril 40 mg tablet 40 mg PO DAILY #90 tab 02/13/21 05/16/21 05/16/21 cholecalciferol (vitamin D3) 125 5,000 unit PO DAILY #90 cap 04/10/21 05/16/21 05/16/21 mcg (5,000 unit) capsule sertraline 100 mg tablet 100 mg PO HS 05/16/21 05/16/21 05/15/21 Active Medications Generic Name Dose Route Start Last Admin Trade Name [place] PRN Reason Stop Dose Admin Atorvastatin Calcium 40 mg 05/17/21 09:00 05/17/21 07:32 Atorvastatin 40 Mg Tab PO 06/16/21 08:59 40 mg DAILY ALBERT Administration Carvedilol 25 mg 05/16/21 21:00 05/17/21 07:33 Carvedilol 25 Mg Tab PO 06/15/21 20:59 25 mg BID ALBERT Administration Ferrous Sulfate 325 mg 05/17/21 09:00 05/17/21 09:50 Ferrous Sulfate 325 Mg Tab PO 06/16/21 08:59 325 mg QAM ALBERT Administration Pantoprazole Sodium 40 mg/ 100 mls @ 20 mls/hr 05/16/21 16:00 05/17/21 12:45 Dextrose IV 06/15/21 15:59 0 mg/hr Q5H ALBERT 0 mls/hr Infusion 8 MG/HR Lactated Ringer's 1,000 mls @ 125 mls/hr 05/17/21 01:15 05/17/21 12:45 Lr IV 06/16/21 01:14 0 mls/hr .Q8H ALBERT Infusion Insulin Aspart 0 units 05/17/21 12:00 05/17/21 12:15 Insulin Aspart 100 Units/Ml 3 Ml Pen SC 06/16/21 11:59 1 units Q6 ALBERT Administration Miscellaneous 1 ea 05/17/21 00:00 05/17/21 07:31 Dutasteride 0.5 Mg Capsule~Order Awaiting Action N/A 06/16/21 00:00 Not Given QS ALBERT Multivitamins/Minerals 1 tab 05/17/21 09:00 05/17/21 07:33 Multivitamin PO 06/16/21 08:59 1 tab DAILY ALBERT Administration Sertraline HCl 100 mg 05/16/21 21:00 05/16/21 21:14 Sertraline Hcl 100 Mg Tablet PO 06/15/21 20:59 100 mg HS ALBERT Administration Terazosin HCl 5 mg 05/16/21 21:00 05/16/21 21:14 Terazosin Hcl 5 Mg Cap PO 06/15/21 20:59 5 mg HS ALBERT Administration NPO Date Last Intake of Fluids: 05/17/21 Time Last Intake of Fluids: 09:00 Last Intake of Fluids Comment: patient ordered icechips and sips, had a few icechips about 1230 Date Last Intake of Solids: 05/16/21 Time Last Intake of Solids: 08:00 Past Medical History Medical History Atrial fibrillation Cardiac pacemaker in situ Depression Hypertension Hypoxia Myocardial infarction SSS (sick sinus syndrome) Ventricular fibrillation Ventricular tachycardia Exercise / Class Metabolic Activity III < 4 Walking/Shop/Light housework Past Family History Family History Father Rheumatic fever Myocardial infarction Unknown Myocardial infarction Denies family history of Ovarian cancer Prostate cancer Breast cancer Colorectal cancer Past Surgical History Surgical History S/P cardiac cath Single vessel distal right coronary artery S/P hernia repair Umbilical S/P wisdom tooth extraction Stented coronary artery Past Anesthesia History No Hx of Anesthesia Complications and No Family Hx of Anesthesia Complications History of PONV No Hx of PONV and No Hx of Motion Sickness Social History Smoking Status: Never smoker Hx Alcohol Use: Yes Alcohol type: beer alcohol intake frequency: holidays/special occasions only Hx Substance Use: No Physical Exam Vital Signs Last Vital Signs Temp 36.8 C 05/17/21 13:08 Pulse 77 05/17/21 13:08 Resp 18 05/17/21 13:08 BP 146/73 H 05/17/21 13:08 Pulse Ox 98 05/17/21 13:08 Constitutional + obese ENMT Mouth: no dentition abnormality Thyromental Distance: > or= 3.5 Finger Breadths Mallampati Class: II Neck normal visual inspection and trachea midline; neck extension not limited Respiratory normal respiratory effort Auscultation: lungs clear to auscultation bilaterally Cardiovascular Rate/Rhythm: regular rate and regular rhythm Heart Sounds: no murmur Vessels: no carotid bruit Musculoskeletal Spine: normal cervical ROM Extremities: extremities normal to inspection Neurologic moves all extremities Motor/Sensory: no sensory deficit Psychiatric Orientation: alert and oriented x 3 Testing Laboratory Results 05/17/21 08:47 05/17/21 02:59 PT 12.8 Seconds (9.0-12.0) H 05/16/21 13:35 INR 1.3 (0.9-1.1) H 05/16/21 13:35 APTT 26.3 Seconds (21.0-31.0) 05/16/21 13:35 Urine Color Yellow 05/16/21 14:45 Urine Appearance Clear (Clear) 05/16/21 14:45 Urine pH 5.0 (4.5-7.5) 05/16/21 14:45 Ur Specific [place] 1.024 (1.000-1.030) 05/16/21 14:45 Urine Protein Negative (Negative) 05/16/21 14:45 Urine Glucose (UA) Negative (Negative) 05/16/21 14:45 Urine Ketones Negative (Negative) 05/16/21 14:45 Urine Nitrite Negative (Negative) 05/16/21 14:45 Ur Leukocyte Esterase Negative (Negative) 05/16/21 14:45 Blood Type A Positive 05/16/21 13:35 Antibody Screen NEGATIVE 05/16/21 13:35 05/17/21 05/17/21 11:59 05:57 POC Glucose 148 H 116 H Electrocardiogram Date: 05/16/21 Findings: + NSR @ (at 80 w/ frequent PVC's;poss. infer. mi,age ?)
[2021-05-17] MEDS ORDERED: ATROPINE SULFATE 0.1 MG/ML 10ML SYR IV PRN (13:31)
[2021-05-17] MEDS ORDERED: ePHEDrine sulfate 50 MG/ML AMP IV PRN (13:31)
--- NOTE | 2021-05-17 13:42 | Hospitalist Progress Note ---
Date of Service May 17, 2021 Assessment & Plan (1) Acute GI bleeding: Plan: Patient presents to the hospital on account of dark tarry stools Likely uppper GI bleed, uses NSAIDS frequently Was started on Pantoprazole IV bolus and drip And also normal saline Kept NPO for EGD today Appreciate GI recs (2) ABLA (acute blood loss anemia): Plan: Most likley due to GI bleed and Iron deficiency anemia Hb was 7.5 on admission Will start Oral Iron tablets 325 mg daily Transfuse if Hb<7 (3) Atrial fibrillation: Plan: Currently in NSR Hold Xarelto due to acute GI bleed as above (4) Depression: Plan: Continue sertraline 100mg PO HS (5) Hypertension: Plan: Hold amlodipine and lisinopril in setting of acute GI bleed as above Continue carvedilol with hold parameters (6) BPH (benign prostatic hyperplasia): Plan: Continue dutasteride and terazosin (7) Obstructive sleep apnea: Plan: CPAP HS (8) Diabetes: Plan: HbA1C 5.3 in April - suggest overtreatment Hold metformin Insulin for correction factor only (9) CAD (coronary artery disease): Plan: Hx of myocardial infarction associated with a cardiac arrest in July 2009 Xarelto 20mg HS, unclear why he is not on antiplatelet but clearly not the time to start, continue carvedilol with hold parameters, continue atorvastatin Plan: VTE Prophylaxis - SCDs, chemical prophylaxis deferred Diet - NPO Disposition - admit to med/tele Admission and Anticipated Discharge Date Admission Date: May 16, 2021 Subjective Patient seen and examined this morning, awaitng EGD Review of Systems Review of Systems: All systems reviewed are negative, apart from the ones contained in the history. Physical Exam Physical Exam: The patient is awake, alert and oriented 3, well developed and well nourished, normocephalic and atraumatic, lying in bed and in no acute distress. HEENT--PERRL, EOMI, mucous membranes and oropharynx mildly dry Neck--supple. No JVD. No bruits. Thyroid normal, trachea midline, no adenopathy. Heart--normal S1 and S2. No murmurs, rubs or gallops. Lungs--clear bilaterally, no respiratory distress, no accessory muscle use. Abdomen--normal bowel sounds and soft. Mild epigastric and left sided abdominal pain Extremities--no cyanosis or clubbing. No edema. Dermatologic--normal skin turgor, normal color, no abnormal lymph nodes, no rash. Neurologic--cranial nerves II through XII grossly intact. Rheumatologic--normal range of motion. Psychiatric--normal affect. Results & Data Results & Data ([facility]) Vital Signs (Past 12 Hours) Vital Signs Temp Pulse Pulse Pulse Resp BP BP 05/17/21 13:08 98.2 F 77 18 146/73 H 05/17/21 12:16 98.1 F 62 20 132/76 05/17/21 09:56 77 05/17/21 08:03 97.9 F 77 16 112/74 05/17/21 07:45 98.1 F 84 23 132/88 05/17/21 03:20 97.9 F 75 18 122/69 Pulse Ox 05/17/21 13:08 98 05/17/21 12:16 96 05/17/21 09:56 05/17/21 08:03 96 05/17/21 07:45 96 05/17/21 03:20 95 Laboratory Results Laboratory Results - last 24 hr 05/16/21 05/16/21 05/16/21 13:35 13:35 13:35 WBC RBC Hgb Hct MCV MCH MCHC RDW Std Deviation RDW Coeff of Jessica Plt Count MPV Immature Gran % (Auto) Neut % (Auto) Lymph % (Auto) [place] % (Auto) Eos % (Auto) Baso % (Auto) Neut # (Auto) Lymph # (Auto) [place] # (Auto) Eos # (Auto) Baso # (Auto) Immature Gran # (Auto) RBC Morphology PT 12.8 H INR 1.3 H APTT 26.3 PTT Ratio 1.0 Sodium Potassium Chloride Carbon Dioxide Anion Gap BUN Creatinine Est Cr Clr Drug Dosing Est GFR ( Amer) Est GFR (Non-Af Amer) BUN/Creatinine Ratio Glucose POC Glucose Calcium Magnesium 2.0 Iron 18 L TIBC 284 Ferritin 5.9 L Urine Color Urine Appearance Urine pH Ur Specific [place] Urine Protein Urine Glucose (UA) Urine Ketones Urine Blood Urine Nitrite Urine Bilirubin Urine Urobilinogen Ur Leukocyte Esterase POC Stool Occult Blood COVID-19 Eval Order SARS-CoV-2 (PCR) Blood Type A Positive Blood Type Recheck Antibody Screen NEGATIVE Crossmatch See Detail 05/16/21 05/16/21 05/16/21 13:35 13:36 13:36 WBC RBC Hgb 7.0 L Hct 21.6 L MCV MCH MCHC RDW Std Deviation RDW Coeff of Jessica Plt Count MPV Immature Gran % (Auto) Neut % (Auto) Lymph % (Auto) [place] % (Auto) Eos % (Auto) Baso % (Auto) Neut # (Auto) Lymph # (Auto) [place] # (Auto) Eos # (Auto) Baso # (Auto) Immature Gran # (Auto) RBC Morphology PT INR APTT PTT Ratio Sodium Potassium Chloride Carbon Dioxide Anion Gap BUN Creatinine Est Cr Clr Drug Dosing Est GFR ( Amer) Est GFR (Non-Af Amer) BUN/Creatinine Ratio Glucose POC Glucose Calcium Magnesium Iron TIBC Ferritin Urine Color Urine Appearance Urine pH Ur Specific [place] Urine Protein Urine Glucose (UA) Urine Ketones Urine Blood Urine Nitrite Urine Bilirubin Urine Urobilinogen Ur Leukocyte Esterase POC Stool Occult Blood COVID-19 Eval Order Covid19 at [facility] SARS-CoV-2 (PCR) NEGATIVE Blood Type Blood Type Recheck Antibody Screen Crossmatch 05/16/21 05/16/21 05/16/21 14:05 14:45 20:15 WBC RBC Hgb Hct MCV MCH MCHC RDW Std Deviation RDW Coeff of Jessica Plt Count MPV Immature Gran % (Auto) Neut % (Auto) Lymph % (Auto) [place] % (Auto) Eos % (Auto) Baso % (Auto) Neut # (Auto) Lymph # (Auto) [place] # (Auto) Eos # (Auto) Baso # (Auto) Immature Gran # (Auto) RBC Morphology PT INR APTT PTT Ratio Sodium Potassium Chloride Carbon Dioxide Anion Gap BUN Creatinine Est Cr Clr Drug Dosing Est GFR ( Amer) Est GFR (Non-Af Amer) BUN/Creatinine Ratio Glucose POC Glucose 123 H Calcium Magnesium Iron TIBC Ferritin Urine Color Yellow Urine Appearance Clear Urine pH 5.0 Ur Specific [place] 1.024 Urine Protein Negative Urine Glucose (UA) Negative Urine Ketones Negative Urine Blood Negative Urine Nitrite Negative Urine Bilirubin Negative Urine Urobilinogen Negative Ur Leukocyte Esterase Negative POC Stool Occult Blood COVID-19 Eval Order SARS-CoV-2 (PCR) Blood Type Blood Type Recheck A Positive Antibody Screen Crossmatch 05/16/21 05/16/21 05/17/21 20:49 Unknown 02:59 WBC 8.35 RBC 2.43 L Hgb 7.9 L 7.5 L Hct 23.6 L 22.4 L MCV 92.2 MCH 30.9 MCHC 33.5 RDW Std Deviation 47.1 H RDW Coeff of Jessica 14.1 Plt Count 193 MPV 9.4 Immature Gran % (Auto) 0.1 Neut % (Auto) 64.3 Lymph % (Auto) 23.1 [place] % (Auto) 9.9 Eos % (Auto) 2.5 Baso % (Auto) 0.1 Neut # (Auto) 5.36 Lymph # (Auto) 1.93 [place] # (Auto) 0.83 H Eos # (Auto) 0.21 Baso # (Auto) 0.01 Immature Gran # (Auto) 0.01 RBC Morphology Unremarkable PT INR APTT PTT Ratio Sodium Potassium Chloride Carbon Dioxide Anion Gap BUN Creatinine Est Cr Clr Drug Dosing Est GFR ( Amer) Est GFR (Non-Af Amer) BUN/Creatinine Ratio Glucose POC Glucose Calcium Magnesium Iron TIBC Ferritin Urine Color Urine Appearance Urine pH Ur Specific [place] Urine Protein Urine Glucose (UA) Urine Ketones Urine Blood Urine Nitrite Urine Bilirubin Urine Urobilinogen Ur Leukocyte Esterase POC Stool Occult Blood Positive A COVID-19 Eval Order SARS-CoV-2 (PCR) Blood Type Blood Type Recheck Antibody Screen Crossmatch 05/17/21 05/17/21 05/17/21 02:59 05:57 08:47 WBC RBC Hgb 7.3 L Hct 22.2 L MCV MCH MCHC RDW Std Deviation RDW Coeff of Jessica Plt Count MPV Immature Gran % (Auto) Neut % (Auto) Lymph % (Auto) [place] % (Auto) Eos % (Auto) Baso % (Auto) Neut # (Auto) Lymph # (Auto) [place] # (Auto) Eos # (Auto) Baso # (Auto) Immature Gran # (Auto) RBC Morphology PT INR APTT PTT Ratio Sodium 138 Potassium 3.9 Chloride 106 Carbon Dioxide 27 Anion Gap 5.0 BUN 32 H Creatinine 0.80 Est Cr Clr Drug Dosing 97.4 Est GFR ( Amer) 104.9 Est GFR (Non-Af Amer) 90.5 BUN/Creatinine Ratio 40.1 H Glucose 112 H POC Glucose 116 H Calcium 8.2 L Magnesium Iron TIBC Ferritin Urine Color Urine Appearance Urine pH Ur Specific [place] Urine Protein Urine Glucose (UA) Urine Ketones Urine Blood Urine Nitrite Urine Bilirubin Urine Urobilinogen Ur Leukocyte Esterase POC Stool Occult Blood COVID-19 Eval Order SARS-CoV-2 (PCR) Blood Type Blood Type Recheck Antibody Screen Crossmatch 05/17/21 11:59 WBC RBC Hgb Hct MCV MCH MCHC RDW Std Deviation RDW Coeff of Jessica Plt Count MPV Immature Gran % (Auto) Neut % (Auto) Lymph % (Auto) [place] % (Auto) Eos % (Auto) Baso % (Auto) Neut # (Auto) Lymph # (Auto) [place] # (Auto) Eos # (Auto) Baso # (Auto) Immature Gran # (Auto) RBC Morphology PT INR APTT PTT Ratio Sodium Potassium Chloride Carbon Dioxide Anion Gap BUN Creatinine Est Cr Clr Drug Dosing Est GFR ( Amer) Est GFR (Non-Af Amer) BUN/Creatinine Ratio Glucose POC Glucose 148 H Calcium Magnesium Iron TIBC Ferritin Urine Color Urine Appearance Urine pH Ur Specific [place] Urine Protein Urine Glucose (UA) Urine Ketones Urine Blood Urine Nitrite Urine Bilirubin Urine Urobilinogen Ur Leukocyte Esterase POC Stool Occult Blood COVID-19 Eval Order SARS-CoV-2 (PCR) Blood Type Blood Type Recheck Antibody Screen Crossmatch PG Care Time/CCT Total # of Minutes Spent Total Time Spent with Patient: Total time spent is greater than 50% in coordination of care (as documented) at patient's floor/unit and/or counseling patient: Coding Level of Care Code 62005 Subseq Hosp Care Lvl 2 Diagnoses Acute GI bleeding K92.2 Atrial fibrillation I48.0 Atrial fibrillation type: paroxysmal Depression F33.1 Depression Type: major depressive disorder Major depression recurrence: recurrent Active/Remission status: currently active Major depression episode severity: moderate Hypertension I10 Hypertension type: essential hypertension BPH (benign prostatic hyperplasia) N40.0 Lower urinary tract symptom presence: symptoms absent Obstructive sleep apnea G47.33 Diabetes E11.9 Diabetes mellitus type: type 2 Diabetes mellitus fpc insulin use: without road machinery inspector use Diabetes mellitus complication status: without complication CAD (coronary artery disease) I25.10 Coronary Disease-Associated Artery/Lesion type: [place] artery [place] vs. transplanted heart: [place] heart Associated angina: without angina ABLA (acute blood loss anemia) D62 (1) Atrial fibrillation Atrial fibrillation type: paroxysmal Qualified Code(s): I48.0 - Paroxysmal atrial fibrillation (2) Depression Depression Type: major depressive disorder Major depression recurrence: recurrent Active/Remission status: currently active Major depression episode severity: moderate Qualified Code(s): F33.1 - Major depressive disorder, recurrent, moderate (3) Hypertension Hypertension type: essential hypertension Qualified Code(s): I10 - Essential (primary) hypertension (4) BPH (benign prostatic hyperplasia) Lower urinary tract symptom presence: symptoms absent Qualified Code(s): N40.0 - Benign prostatic hyperplasia without lower urinary tract symptoms (5) Diabetes Diabetes mellitus type: type 2 [address] mellitus [address] machinery inspector insulin use: without road machinery inspector use Diabetes mellitus complication status: without complication Qualified Code(s): E11.9 - Type 2 diabetes mellitus without complications (6) CAD (coronary artery disease) Coronary Disease-Associated Artery/Lesion type: [place] artery [place] vs. transplanted heart: [place] heart Associated angina: without angina Qualified Code(s): I25.10 - Atherosclerotic heart disease of [place] coronary artery without angina pectoris
[2021-05-17] MEDS ORDERED: PROPOFOL IV EMULSION 10 MG/ML 20 ML VIAL IV ONE (13:52)
[2021-05-17] MEDS ORDERED: LIDOCAINE 2% 2 ML VIAL/AMP(20MG/ML) INFIL ONE ×2 (13:52)
[2021-05-17] MEDS ORDERED: PHENYLEPHRINE 100MCG/ML 5ML SYR ONE (14:11)
--- NOTE | 2021-05-17 14:14 | GI REPORT ---
Patient Name: Carlos A Hannah Procedure Date: 05/17/2021 1:59 PM Date of : 1950 Admit Type: Inpatient Age: 70 Gender: Male Attending MD: Nimesh Jose MD Procedure: Upper GI endoscopy Providers: Nimesh Jose MD Referring MD: Lucius Oakes Md Indications: Acute post hemorrhagic anemia Medicines: Monitored Anesthesia Care Complications: No immediate complications. Estimated blood loss: None. Estimated Blood Loss: Estimated blood loss: none. Procedure: Pre-Anesthesia Assessment: - Prior Anticoagulants: The patient has taken no previous anticoagulant or antiplatelet agents. - ASA Grade Assessment: II - A patient with mild systemic disease. After obtaining informed consent, the endoscope was passed under direct vision. Throughout the procedure, the patient's blood pressure, pulse, and oxygen saturations were monitored continuously. The Endoscope was introduced through the mouth, and advanced to the second part of duodenum. The upper GI endoscopy was accomplished without difficulty. The patient tolerated the procedure well. Findings: LA Grade C (one or more mucosal breaks continuous between tops of 2 or more mucosal folds, less than 75% circumference) esophagitis with no bleeding was found in the distal esophagus. Biopsies were taken with a cold forceps for histology. Estimated blood loss: none. Diffuse mild inflammation characterized by erythema was found in the stomach. Biopsies were taken with a cold forceps for Helicobacter pylori testing. Estimated blood loss: none. The duodenal bulb and second portion of the duodenum were normal. Impression: - LA Grade C esophagitis. Biopsied. - Gastritis. Biopsied. - Normal duodenal bulb and second portion of the duodenum. Recommendation: - Resume previous diet today. - Await pathology results. - Return patient to hospital [facility] for ongoing care. -protonix 40 mg BID for 3 months -repeat EGD in 8 weeks -trend H/H, transfuse prn -colonoscopy as an outpatient or early next week if still inpatient Nimesh Jose MD 05/17/2021 2:14:09 PM This report has been signed electronically. Note Initiated On: 05/17/2021 1:59 PM Number of Addenda: 0 I attest to the content of the Intraoperative Record and orders documented therein, exceptions below {[id number]}
--- NOTE | 2021-05-17 14:15 | Anesthesiology Progress Note ---
Date of Service May 17, 2021 Anesthesia Post Procedure Vital Signs Vital Signs: Temp Pulse Pulse Pulse Resp BP BP 05/17/21 13:08 36.8 C 77 18 146/73 H 05/17/21 12:16 36.7 C 62 20 05/17/21 09:56 77 05/17/21 08:03 36.6 C 77 16 05/17/21 07:45 36.7 C 84 23 05/17/21 03:20 36.6 C 75 18 122/69 05/16/21 23:23 36.8 C 79 18 109/67 05/16/21 22:55 77 05/16/21 22:48 83 05/16/21 18:54 36.8 C 81 20 121/74 05/16/21 18:29 37 C 88 17 123/68 05/16/21 16:41 37 C 82 16 122/64 05/16/21 16:11 37 C 86 18 131/90 05/16/21 16:10 37 C 83 16 122/64 05/16/21 15:56 36.9 C 79 20 122/64 05/16/21 15:37 37 C 84 18 119/70 05/16/21 15:20 37.2 C 84 18 05/16/21 14:35 82 24 BP Pulse Ox 05/17/21 13:08 98 05/17/21 12:16 132/76 96 05/17/21 09:56 05/17/21 08:03 112/74 96 05/17/21 07:45 132/88 96 05/17/21 03:20 95 05/16/21 23:23 92 05/16/21 22:55 05/16/21 22:48 05/16/21 18:54 96 05/16/21 18:29 96 05/16/21 16:41 95 05/16/21 16:11 95 05/16/21 16:10 96 05/16/21 15:56 96 05/16/21 15:37 96 05/16/21 15:20 138/70 96 05/16/21 14:35 123/67 96 Transfer of Care Handoff Completed per policy Notes Mental Status: alert / awake / arousable Patient Amnestic to Procedure: Yes Nausea / Vomiting: adequately controlled Pain: adequately controlled Airway Patency, RR, SpO2: stable & adequate BP & HR: stable & adequate Hydration State: stable & adequate Anesthetic Complications: no major complications apparent
[2021-05-17] MEDS: INSULIN ASPART 100 UNITS/ML 3 ML PEN SC SCH ×2 (16:19→20:33)
[2021-05-17] MEDS: TERAZOSIN HCL 5 MG CAP PO SCH (20:32)
[2021-05-17] MEDS: SERTRALINE HCL 100 MG TABLET PO SCH (20:32)
[2021-05-18] MEDS: LACTATED RINGER'S 1,000 ML IV SCH ×2 (00:45→09:11)
[2021-05-18] MEDS: PANTOprazole 40 MG in DEXTROSE 5% 100 ML IV SCH ×3 (03:47→12:09)
[2021-05-18 07:48] LABS: Hematocrit (blood only) 20.8 % (42-52); Hemoglobin 6.7 g/dL (14.0-18.0); Mean Corpuscular Hgb Conc 32.2 g/dL (32-36); Mean Corpuscular Volume 93.3 fL (80-100); Mean Platelet Volume 9.7 fL (7.4-10.4); Platelet Count 177 K/uL (130-400); RDW Coefficient of Variation 14.3 % (11.5-14.5); RDW Standard Deviation 48.5 fL (36.4-46.3); Red Blood Count 2.23 M/uL (4.7-6.1)
[2021-05-18] MEDS: MULTIVITAMIN PO SCH (08:09)
[2021-05-18] MEDS: FERROUS SULFATE 325 MG TAB PO SCH (08:09)
[2021-05-18] MEDS: ATORVASTATIN 40 MG TAB PO SCH (08:09)
[2021-05-18] MEDS: carvediloL 25 MG TAB PO SCH (08:09)
[2021-05-18] MEDS: INSULIN ASPART 100 UNITS/ML 3 ML PEN SC SCH ×2 (08:26→12:19)
[2021-05-18] MEDS ORDERED: SODIUM CHLORIDE 0.9% 250 ML IV PRN (10:07)
[2021-05-18 15:40] LABS: Hematocrit (blood only) 29.4 % (42-52); Hemoglobin 9.5 g/dL (14.0-18.0)
--- NOTE | 2021-05-18 16:01 | Discharge Summary ---
Date of Service May 18, 2021 Admission HPI Per Admitting Provider Carlos A Hannah is a 70 year old male who presents to the ER with syncope and diaphoresis. He reports 2 weeks of melena without nausea or abdominal pain. Never had a gastric ulcer before in the past. Last had a colonoscopy 30 years ago due to rectal bleeding (?colitis) and had such a bad experience he never wanted to repeat this. He takes Xarelto for paroxysmal atrial fibrillation but is currently in NSR. He is not on antiplatelets despite having a prior CA. No NSAID use. No recent weight loss. He takes pantoprazole ever since his cardiac arrest in 2009 but is unclear why, he denies any GERD or prior GI bleed. While sitting to have breakfast this morning he became diaphoretic, pale and fainted. In the ER hemoglobin 6.8 from baseline 12.2, FOB positive. He was given pantoprazole 80mg IV bolus and 1 unit packed RBCs ordered. He was referred to medicine for admission and ongoing management of acute GI bleed and anemia. Principal Diagnosis GI bleed Discharge Exam The patient is awake, alert and oriented 3, well developed and well nourished, normocephalic and atraumatic, lying in bed and in no acute distress. HEENT--PERRL, EOMI, mucous membranes and oropharynx mildly dry Neck--supple. No JVD. No bruits. Thyroid normal, trachea midline, no adenopathy. Heart--normal S1 and S2. No murmurs, rubs or gallops. Lungs--clear bilaterally, no respiratory distress, no accessory muscle use. Abdomen--normal bowel sounds and soft. Mild epigastric and left sided abdominal pain Extremities--no cyanosis or clubbing. No edema. Dermatologic--normal skin turgor, normal color, no abnormal lymph nodes, no rash. Neurologic--cranial nerves II through XII grossly intact. Rheumatologic--normal range of motion. Psychiatric--normal affect. Discharge Data Allergies Allergy/AdvReac Type Severity Reaction Status Date / Time DAWN Inhibitors AdvReac Intermediate cough Verified 05/16/21 15:08 Consultations 05/16/21 15:00 ED Decision to Admit Stat 05/16/21 15:36 Consult Gastroenterology Routine Procedures Performed Operation Date: 05/17/21 15:30 Actual Procedures p EGD Biopsy Cytology - Nimesh Jose MD Ordered Studies 05/16/21 13:04 CT angio abdomen pelvis w con Stat Hospital Course (1) Acute GI bleeding: Patient presents to the hospital on account of dark tarry stools Likely uppper GI bleed, uses NSAIDS frequently Was started on Pantoprazole IV bolus and drip And also normal saline Kept NPO for EGD today Appreciate GI recs EGD was done, which showed oesephagitis and gastritis, but no evidence of overt bleed (2) ABLA (acute blood loss anemia): Most likley due to GI bleed and Iron deficiency anemia Hb was 7.5 on admission Will start Oral Iron tablets 325 mg daily Transfuse if Hb<7 Repeat Hb was 9.5 post transfusion (3) Atrial fibrillation: Currently in NSR Hold Xarelto due to acute GI bleed as above (4) Depression: Continue sertraline 100mg PO HS (5) Hypertension: Hold amlodipine and lisinopril in setting of acute GI bleed as above Continue carvedilol with hold parameters (6) BPH (benign prostatic hyperplasia): Continue dutasteride and terazosin (7) Obstructive sleep apnea: CPAP HS (8) Diabetes: HbA1C 5.3 in April - suggest overtreatment Hold metformin Insulin for correction factor only (9) CAD (coronary artery disease): Hx of myocardial infarction associated with a cardiac arrest in July 2009 Xarelto 20mg HS, unclear why he is not on antiplatelet but clearly not the time to start, continue carvedilol with hold parameters, continue atorvastatin VTE Prophylaxis - SCDs, chemical prophylaxis deferred Diet - NPO Disposition - admit to med/tele Total Time Total Time Spent Total Time Spent (In Minutes): 35 min Discharge Plan Discharge Items Patient Disposition: Home - Self-Care Reason For Visit: ACUTE GI BLEED Discharge Diagnosis: GI bleed Activity: Resume your previous activity Non-emergency contact: Primary Care Provider Call non-emergency contact if: you have any medication questions Follow-up/Referrals: James Chu III, CRNP [Primary Care Provider] - Diet: Regular Addtl Attending Provider Instructions: Please make appointment to follow up with your GI doctor Pending Studies at Discharge: No Stand-Alone Forms: My cloudControl, Smoking Cessation Medications and DC Order Prescriptions: Continued (DME) lorraine Robertc See Rx Instructions .ROUTE .MEDSUPPLY Qty: 1 RF: 0 amlodipine 5 mg tablet 5 mg PO DAILY Qty: 90 RF: 3 atorvastatin 40 mg tablet 40 mg PO DAILY Qty: 90 RF: 1 carvedilol [Coreg] 25 mg tablet 25 mg PO BID Qty: 180 RF: 1 metformin 500 mg tablet 500 mg PO BID Qty: 180 RF: 1 rivaroxaban 20 mg tablet 20 mg PO DAILY Qty: 90 RF: 1 lisinopril 40 mg tablet 40 mg PO DAILY Qty: 90 RF: 1 cholecalciferol (vitamin D3) 125 mcg (5,000 unit) capsule 5,000 unit PO DAILY Qty: 90 RF: 1 multivitamin with minerals [Men's One Daily] tablet 1 tab PO DAILY RF: 0 acetaminophen [Tylenol Arthritis Pain] 650 mg tablet extended release 650 mg PO Q12H PRN (Reason: fever or pain) Qty: 180 RF: 1 dutasteride 0.5 mg capsule 0.5 mg PO DAILY Qty: 90 RF: 3 terazosin 5 mg capsule 5 mg PO HS Qty: 90 RF: 3 pantoprazole 40 mg tablet,delayed release (DR/EC) 40 mg PO DAILY Qty: 90 RF: 1 (DME) CPAP Machine Misc See Rx Instructions .MEDSUPPLY Qty: 1 RF: 0 (DME) CPAP Supplies Misc See Rx Instructions .MEDSUPPLY Qty: 1 RF: 0 sertraline 100 mg tablet 100 mg PO HS RF: 0 Discharge Orders: Discharge Order (Routine); Ordered 05/18/21 Ordered By: Lucius Oakes Admission Data Admit Date/Time: 05/16/21 15:34 Attending Provider: Lucius Oakes Admit Provider: Jesus Taveras Primary Care Provider: James Chu III Other Providers: Jesus Taveras ; Nimesh Jose Coding Level of Care Code D/C DAY MANAGEMENT >30 MINS Diagnoses Acute GI bleeding K92.2 ABLA (acute blood loss anemia) D62 Atrial fibrillation I48.0 Atrial fibrillation type: paroxysmal Depression F33.1 Depression Type: major depressive disorder Major depression recurrence: recurrent Active/Remission status: currently active Major depression episode severity: moderate Hypertension I10 Hypertension type: essential hypertension BPH (benign prostatic hyperplasia) N40.0 Lower urinary tract symptom presence: symptoms absent Obstructive sleep apnea G47.33 Diabetes E11.9 Diabetes mellitus type: type 2 Diabetes mellitus alf insulin use: without alf use Diabetes mellitus complication status: without complication CAD (coronary artery disease) I25.10 Coronary Disease-Associated Artery/Lesion type: [place] artery [place] vs. transplanted heart: [place] heart Associated angina: without angina
== END 2021-05-18 16:38 | disposition home or self-care (01) ==
LOC: ED 12:05 → 2N 15:34 → SUATTDRO 15:34 → INTOOBSV 15:34 → 2N 18:29

== ENCOUNTER 2023-08-29 09:38 | Inpatient (IN) ==
[2023-08-29] MEDS: SODIUM CHLORIDE 0.9% 500 ML IV ONE (10:10)
[2023-08-29] MEDS: ACETAMINOPHEN 1,000 MG/100 ML VIAL IV STA (10:10)
--- NOTE | 2023-08-29 10:27 | XRay Report ---
SINGLE VIEW CHEST CLINICAL HISTORY: Atypical chest pain. FINDINGS: An AP, portable, upright chest radiograph is compared to study dated 08/28/2023. A 2-lead ca rdiac pacemaker is unchanged in position and partially obscures the left lower chest. The heart is en larged noting atherosclerotic calcification of the thoracic aorta. The pulmonary vasculature is nonco ngested. There is bibasilar scarring/atelectasis. The lungs and pleural spaces are otherwise clear. N o pneumothorax is seen. The skeletal structures are osteopenic. There are chronic/healed right-sided rib fractures. IMPRESSION: 1. Cardiomegaly and cardiac pacemaker without radiographic evidence of congestive failure. 2. No airspace consolidation or large pleural effusion is identified. ACT 112: Negative or not required by law. Electronically signed by: Uche Magaña M.D. 08/29/2023 10:25 AM
[2023-08-29 10:34] LABS: Basophils # (auto) 0.01 K/uL (0.00-0.20); Basophils % (auto) 0.2 %; Eosinophils # (auto) 0.03 K/uL (0.00-0.50); Eosinophils % (auto) 0.6 %; Hematocrit (blood only) 37.6 % (42.0-52.0); Hemoglobin 12.3 g/dl (14.0-18.0); Immature Granulocytes # (auto) 0.01 K/uL (0.01-0.20); Immature Granulocytes % (auto) 0.2 %; Lymphocytes # (auto) 0.85 K/uL (1.20-3.40); Lymphocytes % (auto) 16.6 %; Mean Corpuscular Hemoglobin 30.7 pg (25.0-34.0); Mean Corpuscular Hgb Conc 32.7 g/dL (32.0-36.0); Mean Corpuscular Volume 93.8 fL (80.0-100.0); Mean Platelet Volume 10.7 fL (9.4-12.4); Monocytes # (auto) 0.86 K/uL (0.11-0.59); Monocytes % (auto) 16.8 %; Neutrophils # (auto) 3.36 K/uL (1.40-6.50); Neutrophils % (auto) 65.6 %; Platelet Count 129 K/uL (130-400); RDW Coefficient of Variation 13.7 % (11.5-14.5); RDW Standard Deviation 47.1 fL (36.4-46.3); Red Blood Count 4.01 M/uL (4.70-6.10); White Blood Count 5.12 K/ul (4.8-10.8)
[2023-08-29 10:46] LABS: Albumin Globulin Ratio 1.3 (0.9-2); Albumin Level 4.1 gm/dl (3.4-5.0); BUN Creatinine Ratio 30.6 (10-20); Bilirubin,Total 0.5 mg/dl (0.2-1.0); Calcium 9.3 mg/dl (8.6-10.3); Creatinine Clr Calc Pharmacy 66.5 ml/min; Est GFR (African American) 78.5 ml/min; Est GFR (Non-African American) 67.7 ml/min; Globulin 3.1 gm/dl (2.5-4.0); Magnesium 1.6 mg/dl (1.7-2.4); Phosphorus 3.5 mg/dl (2.5-4.9); Total Protein 7.2 gm/dl (6.0-8.3)
[2023-08-29 10:55] LABS: INR 1.7 (0.9-1.1); Prothrombin Time 18.2 Seconds (9.0-12.0)
[2023-08-29 10:56] LABS: Troponin I High Sensitivity 15.3 pg/ml (0-20)
[2023-08-29] MEDS: MAGNESIUM SULFATE / D5W 1 GM/100 ML BAG IV STA (11:23)
--- NOTE | 2023-08-29 11:25 | Emergency Department Note ---
Impression & Plan Generalized weakness, Influenza A, Acute dyspnea, Hypomagnesemia ED Provider Note NAME: ANURADHA AGUILAR AGE: 73 SEX: M : 1950 ARRIVES VIA: Walk-In INFORMANT: Patient, the patient's significant other ED PROVIDER(S): Alonso Wiseman DO CHIEF COMPLAINT: Weakness HPI: The patient is a 73-year-old male who presented to the emergency department for evaluation of generalized weakness and difficulty ambulating. The patient was seen in our facility yesterday with similar complaints. At that time he was diagnosed with the flu. He was having symptoms mostly from the last 48 hours but his symptoms were also very mild and vague over the last couple days. For this reason he was not felt to be a good candidate for Tamiflu. He was able to ambulate with assistance yesterday but his significant other brought him back to the emergency department today because of worsening symptoms. He is unable to ambulate at this time. The patient received fluids and Tylenol prior to my evaluation. ROS: See above HPI for pertinent positives & negatives. A total of 10 systems reviewed and were otherwise negative. PAST MEDICAL HISTORY: See Below PAST SURGICAL HISTORY: See Below FAMILY HISTORY: See Below SOCIAL HISTORY: See Below HOME MEDICATIONS: See Below ALLERGIES: See Below VITALS: See Below PHYSICAL EXAMINATION: GENERAL: The patient is awake and answers questions appropriately. EYES: The conjunctivae are clear. The pupils are round and reactive. EARS, NOSE, MOUTH AND THROAT: The nose is without any evidence of any deformity. NECK: The neck is nontender and supple. RESPIRATORY: Diminished breath sounds are noted throughout. There were scattered rhonchi throughout. There is no tachypnea or conversational dyspnea. CARDIOVASCULAR: Regular rate and rhythm noted there no murmurs rubs or gallops normal S1 normal S2. GASTROINTESTINAL: The abdomen is soft. Abdomen is nontender. MUSCULOSKELETAL/EXTREMITIES: There is no evidence of gross deformity full range of motion is noted in the hips and shoulders. SKIN: Skin is warm and dry. Trace pedal edema was noted bilaterally. NEUROLOGIC: Patient is awake and oriented x3. Strength was symmetric but diminished. Patellar tendon reflexes are 2+ bilaterally. MEDICAL DECISION MAKING: The patient is a 73-year-old male who presented to the emergency department with his significant other for an evaluation of difficulty breathing and generalized weakness. The patient was evaluated in our facility yesterday for similar complaints. He was diagnosed with influenza. At that time admission was recommended given the patient's condition but he wanted to try to go home. He returns today because of difficulty ambulating. The patient is not safe to be discharged home. I discussed the patient's condition with the on-call [facility] hospitalist. Triage Nursing notes reviewed. Prior medical records reviewed Vital Signs: reviewed and remarkable for no significant abnormalities Differential diagnosis: Infection, dehydration, metabolic abnormality, hypo/hyperglycemia, electrolyte disturbance, anemia, hypoxia, cardiac sources, intracerebral event, toxicologic, neurologic, as well as other pathologies. ER treatment provided: See below Diagnostics interpreted by me: ECG: EKG was obtained in the emergency department. My interpretation is normal sinus rhythm at 66 bpm. There is no ectopy. There is no acute ST segment abnormalities noted. This was compared to a tracing from [facility] 2023. No changes were noted. Cardiac Monitoring: An order was placed for continuous cardiac monitoring. The monitor shows a rate of 71 bpm with sinus rhythm. Laboratory studies: As stated above and show below. Imaging studies: See below. Radiographic imaging was reviewed by myself Consultation(s): I discussed this case with Dr Taveras Past Med/Surg History Medical History Tubular adenoma Esophagitis Frequency-urgency syndrome Paroxysmal atrial fibrillation Muscle stiffness Diverticulosis Esophagitis Hx of gout BPH (benign prostatic hyperplasia) GERD (gastroesophageal reflux disease) MILD Hiatal hernia Prediabetes Rectal bleeding Anemia Hyperlipidemia Pacemaker IMPLANTED 3 YEARS AGO (NEAR SYNCOPAL EPISODE)>FOLLOWED BY DR. SAUCEDO; last check 6 mo ago Sleep apnea CPAP WITH O2 ? LITER Atrial fibrillation Myocardial infarction 2009 Hypertension Depression SSS (sick sinus syndrome) Surgical History H/O colonoscopy History of esophagogastroduodenoscopy (EGD) H/O umbilical hernia repair History of tonsillectomy History of tooth extraction History of loop recorder + REMOVED History of heart artery stent 1 STENT AT [facility]>2009 (Single vessel distal right coronary artery) Family History Father Myocardial infarction Rheumatic fever Heart disease Unknown Myocardial infarction Mother Heart disease Other No family history of adverse response to anesthesia Denies family history of Ovarian cancer Prostate cancer Breast cancer Colorectal cancer Social History Smoking Status: Never smoker Second Hand Exposure: No; Do You Dip or Chew Tobacco: No; Hx Alcohol Use: No Hx Substance Use: No Preferred Language: Cypriot Communication Ability: Effective Visual Impairment: No Limitations Hearing Ability: Normal Application Systems Architect Required: No Beliefs That Will Affect Care: None marital status: Current Living Situation: Spouse Current Living Situation Comment: home with current occupational status: retired current occupation: used to work at [employer] How many Children do You have: 4 Other Information That Helps Us Care for You: No Feels Safe at Home: Yes Safety Concerns: Feels Safe At This Time Childhood Exposure to Second-Hand Smoke: Yes Diet: regular during the past year weight has: remained stable Dental Care, Regularly: Yes Physical Activity Frequency: Does not Exercise Seatbelt Use: always Sunscreen Use: Yes Assistive Devices: Glasses Allergies Allergies Allergy/AdvReac Type Severity Reaction Status Date / Time DAWN Inhibitors AdvReac Intermediate cough Verified 08/29/23 12:30 Home Meds Home Medications Medication Instructions Recorded Confirmed multivitamin with minerals (Men's 1 tab PO QAM 02/13/19 08/29/23 One Daily tablet) dorzolamide 22.3 mg-timolol 6.8 1 drp ophthalmic (eye) BID 08/29/23 08/29/23 mg/mL eye drops levalbuterol tartrate 45 1 - 2 puff inhalation .Q4-6H PRN 08/29/23 08/29/23 mcg/actuation aerosol inhaler shortness of breath or wheezing (Xopenex HFA) Previous Rx's Medication Instructions Recorded acetaminophen 650 mg 650 mg PO Q12H PRN fever or pain 02/15/19 tablet,extended release (Tylenol #180 tabs Arthritis Pain) walker #1 ea 01/11/20 CPAP Machine #1 ea 03/08/20 cholecalciferol (vitamin D3) 125 5,000 unit PO QAM #90 caps 06/26/21 mcg (5,000 unit) capsule Wheelchair (Manual) #1 ea 02/19/22 dutasteride 0.5 mg capsule 0.5 mg PO QAM #90 caps 07/15/22 hydrochlorothiazide 25 mg tablet 25 mg PO QAM PRN edema #90 tabs 07/15/22 CPAP Supplies #1 ea 08/13/22 terazosin 5 mg capsule 5 mg PO HS #90 caps 09/01/22 amlodipine 5 mg tablet 5 mg PO QAM #90 tabs 01/13/23 atorvastatin 40 mg tablet 40 mg PO QAM #90 tabs 01/13/23 carvedilol 25 mg tablet (Coreg) 25 mg PO BID #180 tabs 01/13/23 lisinopril 40 mg tablet 40 mg PO DAILY #90 tabs 01/13/23 metformin 500 mg tablet 500 mg PO BID #180 tabs 01/13/23 pantoprazole 40 mg tablet,delayed 40 mg PO QAM #90 tabs 01/13/23 release rivaroxaban 20 mg tablet 20 mg PO QAM #90 tabs 01/13/23 sertraline 100 mg tablet 100 mg PO HS #90 tabs 01/13/23 carbidopa ER 50 mg-levodopa 200 mg 1 tab PO TID #270 tabs 05/25/23 tablet,extended release Results & Data (ED) Vital Signs Vital Signs - 24 hr 08/29/23 09:47 08/29/23 09:56 08/29/23 09:59 Temperature 37.6 C H Temperature Source Oral Pulse Rate 70 Pulse Rate [Apical] 72 Pulse Rhythm [Apical] Regular Pulse Strength [Apical] Normal Respiratory Rate 20 19 Respiratory Effort / Characteristics Non-Labored Respiratory Depth Normal Respiratory Pattern Regular Blood Pressure 121/70 Blood Pressure [Right Arm] 125/61 Blood Pressure Mean 87 Blood Pressure Mean [Right Arm] 82 Pulse Oximetry 92 92 92 Oxygen Delivery Method Room Air Room Air Room Air Sepsis Recent Fever Within 48 Hours Yes Sepsis New/Unexplained Change in Mental Status Yes Sepsis Action Taken by Nursing No Action Required 08/29/23 10:02 08/29/23 10:59 Temperature 36.8 C Temperature Source Oral Pulse Rate 71 Pulse Rate [Apical] 63 Pulse Rhythm [Apical] Regular Pulse Strength [Apical] Normal Respiratory Rate 19 Respiratory Effort / Characteristics Non-Labored Respiratory Depth Normal Respiratory Pattern Regular Blood Pressure Blood Pressure [Right Arm] 120/66 Blood Pressure Mean Blood Pressure Mean [Right Arm] 84 Pulse Oximetry 95 Oxygen Delivery Method Room Air Sepsis Recent Fever Within 48 Hours Sepsis New/Unexplained Change in Mental Status Sepsis Action Taken by [facility] Medications Current Medication List: was personally reviewed by me Laboratory Data Attestation: I reviewed the patient's lab results. 08/29/23 10:13 08/29/23 10:13 Lab Results 08/29/23 Range/Units 10:13 WBC 5.12 (4.8-10.8) K/ul RBC 4.01 L (4.70-6.10) M/uL Hgb 12.3 L (14.0-18.0) g/dl Hct 37.6 L (42.0-52.0) % MCV 93.8 (80.0-100.0) fL MCH 30.7 (25.0-34.0) pg MCHC 32.7 (32.0-36.0) g/dL RDW Std Deviation 47.1 H (36.4-46.3) fL RDW Coeff of Jessica 13.7 (11.5-14.5) % Plt Count 129 L (130-400) K/uL MPV 10.7 (9.4-12.4) fL Immature Gran % (Auto) 0.2 % Neut % (Auto) 65.6 % Lymph % (Auto) 16.6 % [place] % (Auto) 16.8 % Eos % (Auto) 0.6 % Baso % (Auto) 0.2 % Neut # (Auto) 3.36 (1.40-6.50) K/uL Lymph # (Auto) 0.85 L (1.20-3.40) K/uL [place] # (Auto) 0.86 H (0.11-0.59) K/uL Eos # (Auto) 0.03 (0.00-0.50) K/uL Baso # (Auto) 0.01 (0.00-0.20) K/uL Immature Gran # (Auto) 0.01 (0.01-0.20) K/uL PT 18.2 H (9.0-12.0) Seconds INR 1.7 H (0.9-1.1) Sodium 140 (136-145) mmol/L Potassium 4.0 (3.5-5.1) mmol/L Chloride 103 (98-107) mmol/L Carbon Dioxide 29 (21-32) mmol/L Anion Gap 8 (3-11) BUN 33 H (6-23) mg/dl Creatinine 1.08 (0.6-1.4) mg/dl Est Cr Clr Drug Dosing 66.5 ml/min Est GFR ( Amer) 78.5 ml/min Est GFR (Non-Af Amer) 67.7 ml/min BUN/Creatinine Ratio 30.6 H (10-20) Glucose 112 H (70-99(Fasting)) mg/dl Calcium 9.3 (8.6-10.3) mg/dl Phosphorus 3.5 (2.5-4.9) mg/dl Magnesium 1.6 L (1.7-2.4) mg/dl Total Bilirubin 0.5 (0.2-1.0) mg/dl AST 27 (13-39) U/L ALT 4 L (7-52) U/L Alkaline Phosphatase 81 (34-104) U/L Total Creatine Kinase 300 H (30-223) U/L Troponin I High Sens 15.3 D (0-20) pg/ml Total Protein 7.2 (6.0-8.3) gm/dl Albumin 4.1 (3.4-5.0) gm/dl Globulin 3.1 (2.5-4.0) gm/dl Albumin/Globulin Ratio 1.3 (0.9-2) Lipase 23 (11-82) U/L Administered Medications Guaifenesin (Guaifenesin 600 Mg Tabcr) 600 mg PO Q12 ALBERT Stop: 09/28/23 11:59 Last Admin: 08/29/23 12:35 Dose: 600 mg Documented By: OAC Magnesium Sulfate/Dextrose (Magnesium Sulfate / D5w) 1 gm in 100 mls @ 50 mls/hr IV Q2H ALBERT Stop: 08/29/23 15:59 Last Admin: 08/29/23 14:32 Dose: 50 mls/hr Documented By: AV Discontinued Medications Carbidopa/Levodopa (Carbidopa/Levodopa 25/100mg Tab) 2 tab PO ONE ONE Stop: 08/29/23 14:01 Last Admin: 08/29/23 14:07 Dose: 2 tab Documented By: AV Sodium Chloride (Nss) 500 mls @ 999 mls/hr IV .Q31M ONE Stop: 08/29/23 10:27 Last Infusion: 08/29/23 10:54 Dose: Infused Documented By: Admin: 08/29/23 10:10 Dose: 999 mls/hr Documented By: OAC Acetaminophen (Ofirmev) 1,000 mg in 100 mls @ 400 mls/hr IV NOW STA Stop: 08/29/23 10:12 Last Infusion: 08/29/23 10:30 Dose: Infused Documented By: Admin: 08/29/23 10:10 Dose: 400 mls/hr Documented By: OAC Magnesium Sulfate/Dextrose (Magnesium Sulfate / D5w) 1 gm in 100 mls @ 100 mls/hr IV NOW STA Stop: 08/29/23 12:16 Last Infusion: 08/29/23 12:40 Dose: Infused Documented By: Admin: 08/29/23 11:23 Dose: 100 mls/hr Documented By: OAC Lactated Ringer's (Lr) 1,000 mls @ 999 mls/hr IV .Q1H1M ONE Stop: 08/29/23 12:55 Last Infusion: 08/29/23 14:27 Dose: Infused Documented By: Admin: 08/29/23 13:25 Dose: 999 mls/hr Documented By: AV Oseltamivir Phosphate (Oseltamivir Phosphate 75 Mg Cap) 75 mg PO NOW STA; Protocol Stop: 08/29/23 11:56 Last Admin: 08/29/23 12:35 Dose: 75 mg Documented By: OAC Imaging Data Attestation: I personally reviewed and interpreted this imaging study as follows: My Impression: 1 view chest x-ray was obtained in the emergency department. My interpretation is cardiomegaly, final report below. Radiologist's Impression: Chest X-Ray 08/29/23 09:56 SINGLE VIEW CHEST CLINICAL HISTORY: Atypical chest pain. FINDINGS: An AP, portable, upright chest radiograph is compared to study dated 08/28/2023. A 2-lead cardiac pacemaker is unchanged in position and partially obscures the left lower chest. The heart is enlarged noting atherosclerotic calcification of the thoracic aorta. The pulmonary vasculature is noncongested. There is bibasilar scarring/atelectasis. The lungs and pleural spaces are otherwise clear. No pneumothorax is seen. The skeletal structures are osteopenic. There are chronic/healed right-sided rib fractures. IMPRESSION: 1. Cardiomegaly and cardiac pacemaker without radiographic evidence of congestive failure. 2. No airspace consolidation or large pleural effusion is identified. ACT 112: Negative or not required by law. Electronically signed by: Uche Magaña M.D. 08/29/2023 10:25 AM Discharge Plan Visit Data Chief Complaint: Flu Like Symptoms Stated Complaint: FLU - DIAGNOSED AND SEEN YESTERDAY ED Provider: Alonso Wiseman Discharge Problem: Generalized weakness, Influenza A, Acute dyspnea, Hypomagnesemia Patient Disposition: Admitted As Inpatient Discharge Instructions Interventions: ED Discharge Assessment Last Done: 08/29/23 12:41
--- NOTE | 2023-08-29 11:39 | Electrocardiogram Report ---
Test Reason : Blood Pressure : / mmHG Vent. Rate : 066 BPM Atrial Rate : 066 BPM P-R Int : 180 ms QRS Dur : 112 ms QT Int : 372 ms P-R-T Axes : 043 007 -03 degrees QTc Int : 389 ms Normal sinus rhythm Possible Inferior infarct , age undetermined Abnormal ECG When compared with ECG of 28-AUG-2023 09:25, Premature ventricular complexes are no longer Present Confirmed by Phil Lo ([id number]) on 08/29/2023 11:38:34 AM Referred By: Confirmed By:Boris Lo
[2023-08-29] MEDS ORDERED: GLUCAGON FOR INJ 1 MG VIAL SQ PRN (11:46)
[2023-08-29] MEDS ORDERED: CARBOHYDRATES FOR HYPOGLYCEMIA PO PRN (11:46)
[2023-08-29] MEDS ORDERED: DEXTROSE 50% 50 ML SYRINGE IV PRN (11:46)
[2023-08-29] MEDS ORDERED: GLUCOSE 40% GEL 15 GM TUBE PO PRN (11:46)
[2023-08-29] MEDS ORDERED: GLUCOSE 10 TAB/TUBE PO PRN (11:46)
--- NOTE | 2023-08-29 11:46 | History & Physical Report ---
Date of Service August 29, 2023 Assessment & Plan (1) Generalized weakness: Plan: -Admit to med/surge -Currently stable but does appear ill and weak -Developed cough, wheezing, and generalized weakness approximately 48 hours ago -Diagnosed with Influenza A H1 2008 yesterday and attempted to go home -Continued with progressive weakness to the point he can't safely get out of bed himself -Exam and labs are consistent with dehydration -S/P 1gm IV mag, 1gm IV tylenol, and 500 mL NSS in the ED -Will give 1L LR bolus on admission -Continue treatment and supportive care for influenza -Fall precautions, aspiration precautions, PT/OT -BL DEVIN's and home Xarelto for DVT PPX -HH/DMII diet -AM CBC, CMP, mag. PT/INR (2) Dehydration: Plan: -Continue IV hydration until he is eating consistently (3) Thrombocytopenia: Plan: -Platelets of 129 today -Likely due to acute viral infection -LFT's are WNL, patient is without signs of bleeding on exam -INR is elevated at 1.7, this is likely due to his viral illness and continued Xarelto use -Monitor daily CBC and CMP -Monitor daily INR (4) Supratherapeutic INR: Plan: -Elevated at 1.7 today -No signs of bleeding -Likely due to his acute viral illness and Xarelto use -Monitor daily INR for now (5) Hypomagnesemia: Plan: -1.6 today -S/P 1gm IV mag sulfate in the ED -Will give 2 bags of 1gm IV mag sulfate on admission -Monitor am mag level (6) Influenza A: Plan: -Tested positive on 08/28 -Has expiratory wheezing on exam but stable on RA while awake -No respiratory distress -Will start BID Tamiflu on admission due to his significant symptoms -Supportive care with incentive spirometry, flutter therapy, QIDr Duonebs and prn O2 -HS CPAP with O2 ordered (7) CAD (coronary artery disease): Plan: -No recent chest pain -Will hold statin for now with mildly elevated CK and dehydration (8) Atrial fibrillation: Plan: -Currently rate controlled -Will continue xarelto for now, monitor INR and for bleeding moving forward -Will continue Coreg (9) Hypertension: Plan: -BP is currently stable -Did have his am antihypertensives prior to ED arrival -Will continue Coreg but will hold amlodipine, HCTZ, and lisinopril for now with dehydration (10) Hyperlipidemia: Plan: -Holding statin with dehydration and mildly elevated CK -Monitor am CK tomorrow (11) Parkinsonism: Plan: -Continue Carbidopa-Levodopa Plan The patient was discussed with Dr. Taveras at the time of the admission History of Present Illness Chief Complaint: Influenza +, generalized weakness Primary Care Provider: James Chu, III, YAN Carlos A is a 73 year old male with a PMH significant for atrial fibrillation's on Xarelto, placed pacemaker for syncope and presyncope, diabetes mellitus type 2, coronary artery disease, cardiomyopathy, hypertension, obstructive sleep apnea with CPAP, benign prostatic hypertrophy, and parkinsonism who presented to the [facility] ED on 08/29/23 via EMS due to progressive weakness. The patient was seen in the [facility] ED yesterday for similar symptoms and was found to be influenza A H1 2008 positive. Recommendation was recommended at that time but the patient elected to be discharged home. Since returning home the patient has reportedly been too weak to get out of bed safely, even with the assistance of his . The ED reported that he was a two person assist for nursing staff and admission was recommended due to his weakness. He remained stable in the ED. Labs were significant for a new thrombocytopenia of 129 (down from 143 as of 08/28), INR of 1.7, BUN of 33, mag of 1.6, ck of 300. Chest xray was read as "1. Cardiomegaly and cardiac pacemaker without radiographic evidence of congestive failure. 2. No airspace consolidation or large pleural effusion is identified.". Prior to admission the patient was given 1gm IV mag sulfate, 1gm IV tylenol, and 500 mL NSS. At the time of the exam the patient was lying in bed in no acute distress with his sitting bedside, history was obtained from both. He started to develop fever, cough, wheezing, and generalized weakness on 08/27. They confirm the rest of the history above. He has had poor oral intake, dehydrated, but still taking all medications as prescribed. This am he was too weak to get out of bed so EMS was called. He denies current chest pain, SOB at rest, abd pain, nausea, vomiting, dysuria, hematuria, melena, LE swelling, and recurrent falls since yesterday. He slid out of bed yesterday morning due to weakness, this prompted his initial ED evaluation. He did not hit his head or lose consciousness during his fall. His states that he was placed on O2 in the ED after he fell asleep and became hypoxic. He wears HS CPAP with 2L NC at home. He is a full code and his would make medical decisions for him if he cannot make them himself. Please refer to Dr. Taveras's attestation for any changes to the treatment plan Allergies Allergy/AdvReac Type Severity Reaction Status Date / Time DAWN Inhibitors AdvReac Intermediate cough Verified 08/29/23 12:30 Home Medications Medication Instructions Recorded Confirmed Type multivitamin with minerals (Men's 1 tab PO QAM 02/13/19 09/02/23 History One Daily tablet) acetaminophen 650 mg 650 mg PO Q12H PRN fever or pain 02/15/19 09/02/23 Rx tablet,extended release (Tylenol #180 tabs Arthritis Pain) walker #1 ea 01/11/20 09/02/23 Rx CPAP Machine #1 ea 03/08/20 09/02/23 Rx cholecalciferol (vitamin D3) 125 5,000 unit PO QAM #90 caps 06/26/21 09/02/23 Rx mcg (5,000 unit) capsule Wheelchair (Manual) #1 ea 02/19/22 09/02/23 Rx dutasteride 0.5 mg capsule 0.5 mg PO QAM #90 caps 07/15/22 09/02/23 Rx hydrochlorothiazide 25 mg tablet 25 mg PO QAM PRN edema #90 tabs 07/15/22 09/02/23 Rx CPAP Supplies #1 ea 08/13/22 09/02/23 Rx terazosin 5 mg capsule 5 mg PO HS #90 caps 09/01/22 09/02/23 Rx amlodipine 5 mg tablet 5 mg PO QAM #90 tabs 01/13/23 09/02/23 Rx atorvastatin 40 mg tablet 40 mg PO QAM #90 tabs 01/13/23 09/02/23 Rx carvedilol 25 mg tablet (Coreg) 25 mg PO BID #180 tabs 01/13/23 09/02/23 Rx lisinopril 40 mg tablet 40 mg PO DAILY #90 tabs 01/13/23 09/02/23 Rx metformin 500 mg tablet 500 mg PO BID #180 tabs 01/13/23 09/02/23 Rx pantoprazole 40 mg tablet,delayed 40 mg PO QAM #90 tabs 01/13/23 09/02/23 Rx release rivaroxaban 20 mg tablet 20 mg PO QAM #90 tabs 01/13/23 09/02/23 Rx sertraline 100 mg tablet 100 mg PO HS #90 tabs 01/13/23 09/02/23 Rx carbidopa ER 50 mg-levodopa 200 mg 1 tab PO TID #270 tabs 05/25/23 09/02/23 Rx tablet,extended release dorzolamide 22.3 mg-timolol 6.8 1 drp ophthalmic (eye) BID 08/29/23 09/02/23 History mg/mL eye drops levalbuterol tartrate 45 1 - 2 puff inhalation .Q4-6H PRN 08/29/23 09/02/23 History mcg/actuation aerosol inhaler shortness of breath or wheezing (Xopenex HFA) guaifenesin 600 mg tablet, 600 mg PO Q12 #10 tabs 09/01/23 09/02/23 Rx extended release 12 hr (Mucinex) magnesium oxide 400 mg (241.3 mg 400 mg PO QAM #30 tabs 09/01/23 09/02/23 Rx magnesium) tablet oseltamivir 75 mg capsule (Tamiflu) 75 mg PO BID #4 caps 09/01/23 09/02/23 Rx Past Med/Surg History Medical History (Updated 08/30/23 @ 07:42 by Uche Redmond PA-C) Hypomagnesemia Tubular adenoma Esophagitis Frequency-urgency syndrome Paroxysmal atrial fibrillation Muscle stiffness Diverticulosis Esophagitis Hx of gout BPH (benign prostatic hyperplasia) GERD (gastroesophageal reflux disease) MILD Hiatal hernia Prediabetes Rectal bleeding Anemia Hyperlipidemia Pacemaker IMPLANTED 3 YEARS AGO (NEAR SYNCOPAL EPISODE)>FOLLOWED BY DR. SAUCEDO; last check 6 mo ago Sleep apnea CPAP WITH O2 ? LITER Atrial fibrillation Myocardial infarction 2009 Hypertension Depression SSS (sick sinus syndrome) Surgical History H/O colonoscopy History of esophagogastroduodenoscopy (EGD) H/O umbilical hernia repair History of tonsillectomy History of tooth extraction History of loop recorder + REMOVED History of heart artery stent 1 STENT AT [facility]>2009 (Single vessel distal right coronary artery) Family History Father Myocardial infarction Rheumatic fever Heart disease Unknown Myocardial infarction Mother Heart disease Other No family history of adverse response to anesthesia Denies family history of Ovarian cancer Prostate cancer Breast cancer Colorectal cancer Social History Smoking Status: Never smoker Second Hand Exposure: No; Do You Dip or Chew Tobacco: No; Hx Alcohol Use: No Hx Substance Use: No Preferred Language: Swedish Communication Ability: Effective Visual Impairment: No Limitations Hearing Ability: Normal Tunnel Form Placing Supervisor Required: No Beliefs That Will Affect Care: None marital status: Current Living Situation: Spouse Current Living Situation Comment: home with current occupational status: retired current occupation: used to work at [employer] How many Children do You have: 4 Feels Safe at Home: Yes Childhood Exposure to Second-Hand Smoke: Yes Diet: regular during the past year weight has: remained stable Dental Care, Regularly: Yes Physical Activity Frequency: Does not Exercise Seatbelt Use: always Sunscreen Use: Yes Assistive Devices: CPAP, Glasses, Oxygen - at Night and Walker Physical Exam Physical Exam: Physical Exam: General: In no acute distress, stated age, ill but non-toxic appearing HEENT: Normocephalic, atraumatic, no scleral icterus, pupils around round, symmetrical, and reactive to light, dry mucus membranes, trachea midline, no thyromegaly Chest/Pulm: No respiratory distress, symmetrical chest expansion, scattered expiratory wheezing throughout Cardiac: RRR, no murmurs noted Abdomen: Negative for ascites and bruising, normoactive bowel sounds, soft, non-tender to palpation throughout Musculoskeletal: Symmetrical and without signs of acute trauma, upper and lower extremities with full ROM, no atrophy, spasticity, or flaccidity Extremities: Radial, dorsalis pedis, and posterior tibial pulses are intact and symmetrical, no edema noted in the BL LE's Skin: Warm, dry, no rashes , lesions, or scars noted Neuro: Alert and oriented to person, place, month, year, and president, no focal defects, CN II-XII tested and intact, no tremors noted Psych: No acute distress, calm and cooperative during the exam Results & Data Results & Data Vital Signs (Past 12 Hours) Vital Signs Temp Pulse Pulse Resp BP BP Pulse Ox 08/29/23 10:59 36.8 C 63 19 120/66 95 08/29/23 10:02 71 08/29/23 09:59 72 19 125/61 92 08/29/23 09:56 92 08/29/23 09:47 37.6 C H 70 20 121/70 92 O2 Del Method 08/29/23 10:59 Room Air 08/29/23 10:02 08/29/23 09:59 Room Air 08/29/23 09:56 Room Air 08/29/23 09:47 Room Air Laboratory Results Abnormal lab results 08/29/23 Range/Units 10:13 RBC 4.01 L (4.70-6.10) M/uL Hgb 12.3 L (14.0-18.0) g/dl Hct 37.6 L (42.0-52.0) % RDW Std Deviation 47.1 H (36.4-46.3) fL Plt Count 129 L (130-400) K/uL Lymph # (Auto) 0.85 L (1.20-3.40) K/uL [place] # (Auto) 0.86 H (0.11-0.59) K/uL PT 18.2 H (9.0-12.0) Seconds INR 1.7 H (0.9-1.1) BUN 33 H (6-23) mg/dl BUN/Creatinine Ratio 30.6 H (10-20) Glucose 112 H (70-99(Fasting)) mg/dl Magnesium 1.6 L (1.7-2.4) mg/dl ALT 4 L (7-52) U/L Total Creatine Kinase 300 H (30-223) U/L Diagnostic Findings Chest X-Ray 08/29/23 09:56 SINGLE VIEW CHEST CLINICAL HISTORY: Atypical chest pain. FINDINGS: An AP, portable, upright chest radiograph is compared to study dated 08/28/2023. A 2-lead cardiac pacemaker is unchanged in position and partially obscures the left lower chest. The heart is enlarged noting atherosclerotic calcification of the thoracic aorta. The pulmonary vasculature is noncongested. There is bibasilar scarring/atelectasis. The lungs and pleural spaces are otherw ise clear. No pneumothorax is seen. The skeletal structures are osteopenic. There are chronic/healed right-sided rib fractures. IMPRESSION: 1. Cardiomegaly and cardiac pacemaker without radiographic evidence of congestive failure. 2. No airspace consolidation or large pleural effusion is identified. ACT 112: Negative or not required by law. Electronically signed by: Uche Magaña M.D. 08/29/2023 10:25 AM ECG Additional Comments: Normal sinus rhythm Possible Inferior infarct , age undetermined Abnormal ECG When compared with ECG of 28-AUG-2023 09:25, Premature ventricular complexes are no longer Present Confirmed by Phil Lo ([id number]) on 08/29/2023 11:38:34 AM Code Status & VTE Plan Code Status Full code VTE Prophylaxis Plan VTE Prophylaxis will be ordered: Yes Supervising Physician Co-Signing Physician Notes I personally saw and examined the patient. I verified all kwan points and agree with Benton Thomas PA-C with the following exceptions and/or additions: 73 year old male presents to the ER with 2 days of generalized weakness, cough, fever. Seen in ER yesterday and discharged but feels to weak to be safe at home. O/E dry mucus membranes, HS RRR, no murmurs, no respiratory distress, rhonchi but no wheezing, Abdo SNT, no flank pain A/P Influenza A - suspect cause of generalized weakness, tamiflu, supportive care, PT/OT PG Care Time/CCT Total # of Minutes Spent Total Time Spent with Patient: Total time spent is greater than 50% in coordination of care (as documented) at patient's floor/unit and/or counseling patient: C[place] [address] INT INP/OBS CARE 2/55MIN Patient Type Established Medical Decision Making High Complexity Diagnoses Generalized weakness R53.1 Dehydration E86.0 Thrombocytopenia D69.6 Supratherapeutic INR R79.1 Hypomagnesemia E83.42 Influenza A J10.1 Coronary artery disease involving [place] coronary artery of [place] heart without angina pectoris I25.10 Associated angina: without angina Coronary Disease-Associated Artery/Lesion type: [place] artery [place] vs. transplanted heart: [place] heart Paroxysmal atrial fibrillation I48.0 Atrial fibrillation type: paroxysmal Essential hypertension I10 Hypertension type: essential hypertension Pure hypercholesterolemia E78.00; E78.0 Hyperlipidemia type: pure hypercholesterolemia Parkinson's disease without dyskinesia, with fluctuating manifestations G20.A2 Dyskinesia presence: without dyskinesia Fluctuating manifestations: with fluctuating manifestations Parkinsonism type: Parkinson's disease (7) CAD (coronary artery disease) Associated angina: without angina Coronary Disease-Associated Artery/Lesion type: [place] artery [place] vs. transplanted heart: [place] heart Qualified Code(s): I25.10 - Atherosclerotic heart disease of [place] coronary artery without angina pectoris (8) Atrial fibrillation Atrial fibrillation type: paroxysmal Qualified Code(s): I48.0 - Paroxysmal atrial fibrillation (9) Hypertension Hypertension type: essential hypertension Qualified Code(s): I10 - Essential (primary) hypertension (10) Hyperlipidemia Hyperlipidemia type: pure hypercholesterolemia Qualified Code(s): E78.00 - Pure hypercholesterolemia, unspecified; E78.0 - Pure hypercholesterolemia (11) Parkinsonism Dyskinesia presence: without dyskinesia Fluctuating manifestations: with fluctuating manifestations Parkinsonism type: Parkinson's disease Qualified Code(s): G20.A2 - Parkinson's disease without dyskinesia, with fluctuations
[2023-08-29] MEDS ORDERED: ACETAMINOPHEN 325 MG TAB PO PRN (12:00)
[2023-08-29] MEDS: guaiFENesin 600 MG TABCR PO SCH (12:35)
[2023-08-29] MEDS: OSELTAMIVIR PHOSPHATE 75 MG CAP PO STA (12:35)
[2023-08-29] MEDS: LACTATED RINGER'S 1,000 ML IV ONE (13:25)
[2023-08-29] MEDS: CARBIDOPA/LEVODOPA 25/100MG TAB PO ONE (14:07)
[2023-08-29] MEDS: MAGNESIUM SULFATE / D5W 1 GM/100 ML BAG IV SCH (14:32)
[2023-08-29 14:35] LABS: Appearance Urine Cloudy (Clear); Bilirubin Urine Negative (Negative); Blood Urine Negative (Negative); Color Urine Yellow; Epithelial Cell Urine Auto 0-5 /lpf (0-5); Glucose Urine UA Negative (Negative); Ketones Urine Trace (Negative); Leukocyte Esterase Urine Negative (Negative); Nitrite Urine Negative (Negative); Protein Urine Negative (Negative); Specific Gravity Urine 1.033 (1.000-1.030); Urobilinogen Urine Negative (Negative)
[2023-08-29 15:02] LABS: Bacteria Urine Automated 2+ (Negative)
[2023-08-29] MEDS: ALBUT/IPRATROP 3MG/0.5MG NEB 3 ML VIAL NEB SCH (15:23)
[2023-08-29] MEDS: INSULIN ASPART PER UNIT CHARGE SC SCH (16:38)
[2023-08-29] MEDS: carvediloL 25 MG TAB PO SCH (16:51)
[2023-08-29] MEDS: OSELTAMIVIR PHOSPHATE 75 MG CAP PO SCH (20:47)
[2023-08-29] MEDS: TERAZOSIN HCL 5 MG CAP PO SCH (20:47)
[2023-08-29] MEDS: SERTRALINE HCL 100 MG TABLET PO SCH (20:47)
[2023-08-29] MEDS: DORZOLAMIDE/TIMOLOL 22.3/6.8MG/ML 10 ML BTL OP SCH (20:49)
[2023-08-29] MEDS: CARBIDOPA/LEVODOPA 50/200MG EXT REL TAB PO SCH (21:23)
[2023-08-30 06:35] LABS: Basophils # (auto) 0.01 K/uL (0.00-0.20); Basophils % (auto) 0.2 %; Eosinophils # (auto) 0.02 K/uL (0.00-0.50); Eosinophils % (auto) 0.5 %; Hemoglobin 11.3 g/dl (14.0-18.0); Immature Granulocytes # (auto) 0.01 K/uL (0.01-0.20); Immature Granulocytes % (auto) 0.2 %; Lymphocytes # (auto) 1.07 K/uL (1.20-3.40); Lymphocytes % (auto) 24.9 %; Mean Corpuscular Hemoglobin 30.3 pg (25.0-34.0); Mean Corpuscular Hgb Conc 32.3 g/dL (32.0-36.0); Mean Corpuscular Volume 93.8 fL (80.0-100.0); Mean Platelet Volume 10.6 fL (9.4-12.4); Monocytes # (auto) 0.79 K/uL (0.11-0.59); Monocytes % (auto) 18.4 %; Neutrophils # (auto) 2.39 K/uL (1.40-6.50); Neutrophils % (auto) 55.8 %; Platelet Count 121 K/uL (130-400); RDW Coefficient of Variation 13.5 % (11.5-14.5); RDW Standard Deviation 46.6 fL (36.4-46.3); Red Blood Count 3.73 M/uL (4.70-6.10); White Blood Count 4.29 K/ul (4.8-10.8)
[2023-08-30 06:51] LABS: Albumin Globulin Ratio 1.5 (0.9-2); Albumin Level 3.7 gm/dl (3.4-5.0); BUN Creatinine Ratio 29.5 (10-20); Bilirubin,Total 0.5 mg/dl (0.2-1.0); Calcium 8.2 mg/dl (8.6-10.3); Creatinine Clr Calc Pharmacy 81.6 ml/min; Est GFR (African American) 98.8 ml/min; Est GFR (Non-African American) 85.2 ml/min; Globulin 2.5 gm/dl (2.5-4.0); Magnesium 1.7 mg/dl (1.7-2.4); Potassium 3.4 mmol/L (3.5-5.1); Total Protein 6.2 gm/dl (6.0-8.3)
[2023-08-30 06:54] LABS: INR 1.1 (0.9-1.1); Prothrombin Time 11.9 Seconds (9.0-12.0)
--- NOTE | 2023-08-30 07:48 | Hospitalist Progress Note ---
Date of Service August 30, 2023 Assessment & Plan (1) Influenza A: (2) Generalized weakness: (3) Parkinsonism: (4) Hypertension: (5) Obstructive sleep apnea: (6) Atrial fibrillation: (7) Hypomagnesemia: Plan 1. Influenza A * Diagnosed by PCR 03/28/2024 * Continue Tylenol and oseltamivir for symptom relief * Patient does have history of cardiomyopathy. Most recent echocardiogram completed 05/18/2023 shows preserved ejection fraction of 50 to 55%. Moderate sized area of inferior posterior akinesis. Mild concentric left ventricular hypertrophy * Due to known complications with cardiomyopathy associated with influenza A, continue to monitor patient closely. Will transfer to med/tele as he is having some increased hypoxia and confusion 2. Hypomagnesemia * Patient received 1 g of magnesium sulfate x 2 yesterday * Will infuse an additional 2 g of magnesium sulfate today * Renal function intact but with slight increase in BUN:Chief Petroleum Engineer ratio. Initially was going to hydrate but patient with coarse crackles and increased hypoxia requiring 2L/min of supplemental O2 via NC. * Follow serial labs 3. Atrial fibrillation * Patient chronically anticoagulated with Xarelto 20 mg p.o. daily * Check a Anti-Xa level due to acute illness and slight drop in platelets * Continue Rivaroxaban * Continue Cardidolol 4. Hypertension * Currently hemodynamically stable * Continue home medications including carvedilol, lisinopril 5. Parkinson's * Continue carbidopa levodopa * Monitor for falls * PT/OT evals 6. Generalized weakness * Most likely secondary to acute infection with influenza A * Will request PT/OT evals and treatment as needed * Replete magnesium and potassium * Continue supportive care Admission and Anticipated Discharge Date Admission Date: August 29, 2023 Subjective This is a 73 year old male with a PMH significant for atrial fibrillation's on Xarelto, placed pacemaker for syncope and presyncope, diabetes mellitus type 2, coronary artery disease, cardiomyopathy, hypertension, obstructive sleep apnea with CPAP, benign prostatic hypertrophy, and parkinsonism who presented to the [facility] ED on 08/29/23 via EMS due to progressive weakness. The patient was seen in the [facility] ED yesterday for similar symptoms and was found to be influenza A H1 2008 positive. Recommendation was recommended at that time but the patient elected to be discharged home. Since returning home the patient has reportedly been too weak to get out of bed safely, even with the assistance of his . The ED reported that he was a two person assist for nursing staff and admission was recommended due to his weakness. Patient currently has WBC of 4.29. Potassium was 3.4. Magnesium is 1.7. He is hemodynamically stable. Tmax over the last 24 hours was 37.6 C yesterday morning. Patient continues on oseltamivir for his flulike symptoms. Patient is extremely weak at the bedside. He is having difficulty with repositioning in the bed. He is awake and oriented x 3. He denies any chest pain or tightness. He is unaware of any tachyarrhythmias. He has no awareness of palpitations. He has no fever. He reports that he ate well at breakfast today. No abdominal pain or discomfort. No nausea, vomiting, diarrhea. No other acute complaints other than profound weakness. Review of Systems 2 Review of Systems: A total of 10 systems was reviewed and is negative other than as listed in the HPI Physical Exam 2 Physical Exam: GENERAL : No acute distress EYES: No icterus, gaze conjugate NOSE: No evidence of epistaxis MOUTH: No lesions or candidiasis NECK: Supple. No evidence of stridor LUNGS: Positive for coarse Rales at bilateral bases. No bronchospasm. Good inspirational effort on command HEART: Regular, rate controlled ABDOMEN: Soft, NT, ND, BS Present. Protuberant. EXTREMITIES: +1 bilateral LE edema, pedal pulses intact and equal bilaterally. NEURO: A&OX3. Profoundly weak. Difficulty repositioning in bed. Requires assistance to sit up for examination. Follows simple commands. No slurred speech. Pupils equal round and reactive to light. Results & Data Results & Data Vital Signs (Past 12 Hours) Vital Signs Temp Pulse Resp BP BP Pulse Ox O2 Del Method 08/30/23 07:00 37.2 C 65 16 121/69 94 Room Air 08/29/23 20:50 Room Air 08/29/23 20:33 37.3 C 74 18 148/77 H 94 Room Air 08/29/23 20:30 74 18 94 Room Air Laboratory Results 08/30/23 05:25 08/30/23 05:25 Abnormal lab results 08/29/23 08/29/23 08/30/23 Range/Units 16:32 20:29 05:25 WBC 4.29 L (4.8-10.8) K/ul RBC 3.73 L (4.70-6.10) M/uL Hgb 11.3 L (14.0-18.0) g/dl Hct 35.0 L (42.0-52.0) % RDW Std Deviation 46.6 H (36.4-46.3) fL Plt Count 121 L (130-400) K/uL Lymph # (Auto) 1.07 L (1.20-3.40) K/uL [place] # (Auto) 0.79 H (0.11-0.59) K/uL Potassium 3.4 L (3.5-5.1) mmol/L BUN 26 H (6-23) mg/dl BUN/Creatinine Ratio 29.5 H (10-20) POC Glucose 109 H 108 H (70-99) mg/dl Calcium 8.2 L (8.6-10.3) mg/dl Total Creatine Kinase 277 H (30-223) U/L 08/30/23 Range/Units 11:29 WBC (4.8-10.8) K/ul RBC (4.70-6.10) M/uL Hgb (14.0-18.0) g/dl Hct (42.0-52.0) % RDW Std Deviation (36.4-46.3) fL Plt Count (130-400) K/uL Lymph # (Auto) (1.20-3.40) K/uL [place] # (Auto) (0.11-0.59) K/uL Potassium (3.5-5.1) mmol/L BUN (6-23) mg/dl BUN/Creatinine Ratio (10-20) POC Glucose 123 H (70-99) mg/dl Calcium (8.6-10.3) mg/dl Total Creatine Kinase (30-223) U/L PG Care Time/CCT Total # of Minutes Spent Total Time Spent with Patient: Total time spent is greater than 50% in coordination of care (as documented) at patient's floor/unit and/or counseling patient: 40 minutes over two visits. Patient transferred to higher level of care Coding Level of Care Code 08602 SUB INP/OBS CARE 2/35MIN Diagnoses Influenza A J10.1 Generalized weakness R53.1 Parkinson's disease without dyskinesia, with fluctuating manifestations G20.A2 Dyskinesia presence: without dyskinesia Fluctuating manifestations: with fluctuating manifestations Parkinsonism type: Parkinson's disease Essential hypertension I10 Hypertension type: essential hypertension Obstructive sleep apnea G47.33 Paroxysmal atrial fibrillation I48.0 Atrial fibrillation type: paroxysmal Hypomagnesemia E83.42 Time Spent (min) 40 (3) Parkinsonism Dyskinesia presence: without dyskinesia Fluctuating manifestations: with fluctuating manifestations Parkinsonism type: Parkinson's disease Qualified Code(s): G20.A2 - Parkinson's disease without dyskinesia, with fluctuations (4) Hypertension Hypertension type: essential hypertension Qualified Code(s): I10 - Essential (primary) hypertension (6) Atrial fibrillation Atrial fibrillation type: paroxysmal Qualified Code(s): I48.0 - Paroxysmal atrial fibrillation
[2023-08-30] MEDS: NSS + 20MEQ KCL 20 MEQ/1,000 ML BAG IV SCH (08:36)
[2023-08-30] MEDS: MAGNESIUM SULFATE / D5W 1 GM/100 ML BAG IV SCH (08:41)
[2023-08-30] MEDS: FUROSEMIDE 40 MG/4 ML VIAL IV ONE (08:41)
[2023-08-30] MEDS: PANTOprazole 40 MG TAB PO SCH (08:42)
[2023-08-30] MEDS: FINASTERIDE 5 MG TAB PO SCH (08:42)
[2023-08-30 09:21] LABS: ANTI-Xa, LMWH(Low Molecular Wt 0.28 IU/ML (< 0.10)
[2023-08-30] MEDS: RIVAROXABAN 20 MG TAB PO SCH (17:20)
[2023-08-31 08:09] LABS: Albumin Globulin Ratio 1.3 (0.9-2); Albumin Level 3.6 gm/dl (3.4-5.0); BUN Creatinine Ratio 23.5 (10-20); Bilirubin,Total 0.4 mg/dl (0.2-1.0); Calcium 8.4 mg/dl (8.6-10.3); Creatinine Clr Calc Pharmacy 73.5 ml/min; Est GFR (African American) 88.3 ml/min; Est GFR (Non-African American) 76.2 ml/min; Globulin 2.7 gm/dl (2.5-4.0); Magnesium 1.9 mg/dl (1.7-2.4); Potassium 3.5 mmol/L (3.5-5.1); Total Protein 6.3 gm/dl (6.0-8.3)
[2023-08-31 08:25] LABS: Basophils # (auto) 0.02 K/uL (0.00-0.20); Basophils % (auto) 0.5 %; Eosinophils # (auto) 0.15 K/uL (0.00-0.50); Eosinophils % (auto) 4.1 %; Hematocrit (blood only) 35.9 % (42.0-52.0); Hemoglobin 11.9 g/dl (14.0-18.0); Immature Granulocytes # (auto) 0.01 K/uL (0.01-0.20); Immature Granulocytes % (auto) 0.3 %; Lymphocytes % (auto) 38.4 %; Mean Corpuscular Hemoglobin 30.8 pg (25.0-34.0); Mean Corpuscular Hgb Conc 33.1 g/dL (32.0-36.0); Mean Platelet Volume 10.8 fL (9.4-12.4); Monocytes # (auto) 0.75 K/uL (0.11-0.59); Monocytes % (auto) 20.5 %; Neutrophils # (auto) 1.32 K/uL (1.40-6.50); Neutrophils % (auto) 36.2 %; Platelet Count 126 K/uL (130-400); RDW Coefficient of Variation 13.5 % (11.5-14.5); Red Blood Count 3.86 M/uL (4.70-6.10); White Blood Count 3.65 K/ul (4.8-10.8)
[2023-08-31 08:31] LABS: INR 1.1 (0.9-1.1); Prothrombin Time 11.9 Seconds (9.0-12.0)
--- NOTE | 2023-08-31 11:23 | Hospitalist Progress Note ---
Date of Service August 31, 2023 Assessment & Plan (1) Influenza A: Plan: -Tested positive on 08/28, symptom onsent 08/27 - Continue Tylenol and Tamiflu -Supportive care with incentive spirometry, flutter therapy, QIDr Duonebs and prn O2 - Currently stable on Room Air -HS CPAP with O2 ordered - hx of cardiomyopathy. Echo 05/2023 EF 50-55%, moderate area of inferior posterior akinesis. Mild concentric LVH. Monitor for signs of myocarditis - PT/OT - recommending rehab - per CM, would not like patient to go to rehab and prefers home with home health (2) Hypomagnesemia: Plan: -has received 4g of IV mag since admission Mag now 1.9 --> will give 1g IV today (3) Generalized weakness: Plan: - Likely secondary to influenza and dehydration on admission -PT/OT (4) Atrial fibrillation: Plan: -Currently rate controlled --> paced - continue xarelto - continue Coreg (5) Hypertension: Plan: - Continue Coreg - Will restart amlodipine - Lisinopril still on hold - will monitor BPs - HCTZ on hold, ordered prn at home (6) Thrombocytopenia: Plan: -Platelets 143 on admission, now 126 -Likely due to acute viral infection -LFT's are WNL, patient is without signs of bleeding on exam Continue to monitor (7) CAD (coronary artery disease): Plan: -No recent chest pain - statin resumed (8) Parkinsonism: Plan: -Continue Carbidopa-Levodopa Plan Dispo: continued inpatient stay DVT proh: home Xarelto Admission and Anticipated Discharge Date Admission Date: August 29, 2023 Subjective Patient seen sitting in the chair. Per nursing was x1 with walker. He reports feeling better. Denies pain. Good appetite. Currently on room air. Mild cough. Lives at home with and child. Has a walker at home which he has been using more recently. Agreeable to rehab stay if recommended. reports compliance with CPAP Tele - paced 60s Review of Systems Review of Systems: All systems reviewed & are unremarkable except as noted in Subjective Physical Exam Physical Exam: General: NAD, VS as above Resp: normal respiratory effort, lungs clear to auscultation CV: RRR, no murmur, Abd: normal bowel sounds, non tender, no hepatosplenomegaly Extremities: Moves all extremities, trace edema Neuro: A&O x3, Results & Data Results & Data Vital Signs (Past 12 Hours) Vital Signs Temp Pulse Pulse Resp BP Pulse Ox O2 Del Method 08/31/23 08:00 Room Air 08/31/23 07:32 64 15 96 CPAP 08/31/23 07:00 60 08/31/23 03:11 36.8 C 60 20 133/82 95 CPAP 08/30/23 23:07 36.9 C 60 18 132/74 96 CPAP O2 Flow Rate 08/31/23 08:00 08/31/23 07:32 2 08/31/23 07:00 08/31/23 03:11 08/30/23 23:07 Laboratory Results CBC, chemistry and mag reviewed PG Care Time/CCT Total # of Minutes Spent Total Time Spent with Patient: Total time spent is greater than 50% in coordination of care (as documented) at patient's floor/unit and/or counseling patient: Coding Level of Care Code 24616 SUB INP/OBS CARE 2/35MIN Diagnoses Influenza A J10.1 Hypomagnesemia E83.42 Generalized weakness R53.1 Paroxysmal atrial fibrillation I48.0 Atrial fibrillation type: paroxysmal Essential hypertension I10 Hypertension type: essential hypertension Thrombocytopenia D69.6 Coronary artery disease involving [place] coronary artery of [place] heart without angina pectoris I25.10 Associated angina: without angina Coronary Disease-Associated Artery/Lesion type: [place] artery [place] vs. transplanted heart: [place] heart Parkinson's disease without dyskinesia, with fluctuating manifestations G20.A2 Dyskinesia presence: without dyskinesia Fluctuating manifestations: with fluctuating manifestations Parkinsonism type: Parkinson's disease (4) Atrial fibrillation Atrial fibrillation type: paroxysmal Qualified Code(s): I48.0 - Paroxysmal atrial fibrillation (5) Hypertension Hypertension type: essential hypertension Qualified Code(s): I10 - Essential (primary) hypertension (7) CAD (coronary artery disease) Associated angina: without angina Coronary Disease-Associated Artery/Lesion type: [place] artery [place] vs. transplanted heart: [place] heart Qualified Code(s): I25.10 - Atherosclerotic heart disease of [place] coronary artery without angina pectoris (8) Parkinsonism Dyskinesia presence: without dyskinesia Fluctuating manifestations: with fluctuating manifestations Parkinsonism type: Parkinson's disease Qualified Code(s): G20.A2 - Parkinson's disease without dyskinesia, with fluctuations
[2023-08-31] MEDS: MAGNESIUM SULFATE / D5W 1 GM/100 ML BAG IV ONE (11:35)
--- NOTE | 2023-08-31 13:44 | Electrocardiogram Report ---
Test Reason : Blood Pressure : / mmHG Vent. Rate : 060 BPM Atrial Rate : 060 BPM P-R Int : 214 ms QRS Dur : 106 ms QT Int : 416 ms P-R-T Axes : 000 028 020 degrees QTc Int : 416 ms Atrial-paced rhythm with prolonged AV conduction Abnormal ECG When compared with ECG of 29-AUG-2023 10:04, Electronic atrial pacemaker has replaced Sinus rhythm Nonspecific T wave abnormality no longer evident in Lateral leads Confirmed by Alonso Sevilla ([id number]) on 08/31/2023 1:44:27 PM Referred By: REFERRED SELF Confirmed By:Alonso Sevilla
[2023-09-01 04:10] LABS: Albumin Globulin Ratio 1.2 (0.9-2); Albumin Level 3.6 gm/dl (3.4-5.0); BUN Creatinine Ratio 27.5 (10-20); Bilirubin,Total 0.4 mg/dl (0.2-1.0); Calcium 8.3 mg/dl (8.6-10.3); Creatinine Clr Calc Pharmacy 79.1 ml/min; Est GFR (African American) 96.6 ml/min; Est GFR (Non-African American) 83.3 ml/min; Magnesium 1.8 mg/dl (1.7-2.4); Potassium 3.5 mmol/L (3.5-5.1); Total Protein 6.6 gm/dl (6.0-8.3)
[2023-09-01 04:11] LABS: Basophils # (auto) 0.01 K/uL (0.00-0.20); Basophils % (auto) 0.3 %; Eosinophils # (auto) 0.21 K/uL (0.00-0.50); Eosinophils % (auto) 6.2 %; Hematocrit (blood only) 35.6 % (42.0-52.0); Lymphocytes # (auto) 1.48 K/uL (1.20-3.40); Lymphocytes % (auto) 43.7 %; Mean Corpuscular Hemoglobin 30.8 pg (25.0-34.0); Mean Corpuscular Hgb Conc 33.7 g/dL (32.0-36.0); Mean Corpuscular Volume 91.3 fL (80.0-100.0); Mean Platelet Volume 10.3 fL (9.4-12.4); Monocytes # (auto) 0.47 K/uL (0.11-0.59); Monocytes % (auto) 13.9 %; Neutrophils # (auto) 1.22 K/uL (1.40-6.50); Neutrophils % (auto) 35.9 %; Platelet Count 137 K/uL (130-400); RDW Coefficient of Variation 13.3 % (11.5-14.5); RDW Standard Deviation 45.1 fL (36.4-46.3); White Blood Count 3.39 K/ul (4.8-10.8)
[2023-09-01] MEDS: amLODIPine BESYLATE 5 MG TAB PO SCH (08:18)
[2023-09-01] MEDS: ATORVASTATIN 40 MG TAB PO SCH (08:18)
--- NOTE | 2023-09-01 12:19 | Discharge Summary ---
Discharge Summary Date of Service September 01, 2023 Notes For Next Care Provider Patient and refused inpatient rehab placement - opted for home with home health. Weaknenss from Influenza A Medication Changes From Visit Tamiflu x4 more doses Lisinopril and HCTZ held Magnesium PO supplementation started Admission HPI Per Admitting Provider Carlos A is a 73 year old male with a PMH significant for atrial fibrillation's on Xarelto, placed pacemaker for syncope and presyncope, diabetes mellitus type 2, coronary artery disease, cardiomyopathy, hypertension, obstructive sleep apnea with CPAP, benign prostatic hypertrophy, and parkinsonism who presented to the [facility] ED on 08/29/23 via EMS due to progressive weakness. The patient was seen in the [facility] ED yesterday for similar symptoms and was found to be influenza A H1 2008 positive. Recommendation was recommended at that time but the patient elected to be discharged home. Since returning home th e patient has reportedly been too weak to get out of bed safely, even with the assistance of his . The ED reported that he was a two person assist for nursing staff and admission was recommended due to his weakness. He remained stable in the ED. Labs were significant for a new thrombocytopenia of 129 (down from 143 as of 08/28), INR of 1.7, BUN of 33, mag of 1.6, ck of 300. Chest xray was read as "1. Cardiomegaly and cardiac pacemaker without radiographic evidence of congestive failure. 2. No airspace consolidation or large pleural effusion is identified.". Prior to admission the patient was given 1gm IV mag sulfate, 1gm IV tylenol, and 500 mL NSS. At the time of the exam the patient was lying in bed in no acute distress with his sitting bedside, history was obtained from both. He started to develop fever, cough, wheezing, and generalized weakness on 08/27. They confirm the rest of the history above. He has had poor oral intake, dehydrated, but still taking all medications as prescribed. This am he was too weak to get out of bed so EMS was called. He denies current chest pain, SOB at rest, abd pain, nausea, vomiting, dysuria, hematuria, melena, LE swelling, and recurrent falls since yesterday. He slid out of bed yesterday morning due to weakness, this prompted his initial ED evaluation. He did not hit his head or lose consciousness during his fall. His states that he was placed on O2 in the ED after he fell asleep and became hypoxic. He wears HS CPAP with 2L NC at home. He is a full code and his would make medical decisions for him if he cannot make them himself. Please refer to Dr. Taveras's attestation for any changes to the treatment plan Principal Dx & Hospital Course #1 = Principal Diagnosis (1) Influenza A: -Tested positive on 08/28, symptom onset 08/27 - Continue Tylenol prn and Tamiflu (through ) - Continue incentive spirometry, flutter therapy at discharge - Has prn albuterol inhaler at home - Currently stable on Room Air - Continue HS CPAP - hx of cardiomyopathy. Echo 05/2023 EF 50-55%, moderate area of inferior posterior akinesis. Mild concentric LVH. - no signs of myocarditis - PT/OT - recommending rehab - Patient has originally told me that he was agreeable to rehab. I spoke with patient and on 09/01 and confirmed they both are declining rehab and prefer to go home with home PT. feels comfortable taking care of him in his current risk. Aware high risk for falls. (2) Hypomagnesemia: -has received 5g of IV mag since admission Stable at 1.8 today Will start PO supplementation with plans to continue at discharge (3) Generalized weakness: - Likely secondary to influenza and dehydration on admission -PT/OT - recommended rehab as above but pt and refused (4) Atrial fibrillation: -Currently rate controlled --> paced - continue xarelto - continue Coreg (5) Hypertension: - Continue Coreg - continue amlodipine - Lisinopril and HCTZ on hold at discharge - suspect patient will need lisino pril restarted with increased activity, but decision not to start before leaving with risk of hypotension at home and already being unsteady (6) Thrombocytopenia: -Platelets 143 on admission, 137 at discharge -Likely due to acute viral infection -LFT's are WNL, patient is without signs of bleeding on exam (7) CAD (coronary artery disease): -No recent chest pain - statin resumed (8) Parkinsonism: -Continue Carbidopa-Levodopa Plan Dispo: discharge to home updated by phone Discharge Exam General: NAD, VS as above Resp: normal respiratory effort, lungs clear to auscultation CV: RRR, no murmur, Abd: normal bowel sounds, non tender, no hepatosplenomegaly Neuro: A&O x3, Updated Medication List Medication Instructions Recorded Confirmed Type multivitamin with minerals (Men's 1 tab PO QAM 02/13/19 08/29/23 History One Daily tablet) acetaminophen 650 mg 650 mg PO Q12H PRN fever or pain 02/15/19 08/29/23 Rx tablet,extended release (Tylenol #180 tabs Arthritis Pain) walker #1 ea 01/11/20 08/18/23 Rx CPAP Machine #1 ea 03/08/20 08/18/23 Rx cholecalciferol (vitamin D3) 125 5,000 unit PO QAM #90 caps 06/26/21 08/29/23 Rx mcg (5,000 unit) capsule Wheelchair (Manual) #1 ea 02/19/22 08/18/23 Rx dutasteride 0.5 mg capsule 0.5 mg PO QAM #90 caps 07/15/22 08/29/23 Rx hydrochlorothiazide 25 mg tablet 25 mg PO QAM PRN edema #90 tabs 07/15/22 08/29/23 Rx CPAP Supplies #1 ea 08/13/22 08/18/23 Rx terazosin 5 mg capsule 5 mg PO HS #90 caps 09/01/22 08/29/23 Rx amlodipine 5 mg tablet 5 mg PO QAM #90 tabs 01/13/23 08/29/23 Rx atorvastatin 40 mg tablet 40 mg PO QAM #90 tabs 01/13/23 08/29/23 Rx carvedilol 25 mg tablet (Coreg) 25 mg PO BID #180 tabs 01/13/23 08/29/23 Rx lisinopril 40 mg tablet 40 mg PO DAILY #90 tabs 01/13/23 08/29/23 Rx metformin 500 mg tablet 500 mg PO BID #180 tabs 01/13/23 08/29/23 Rx pantoprazole 40 mg tablet,delayed 40 mg PO QAM #90 tabs 01/13/23 08/29/23 Rx release rivaroxaban 20 mg tablet 20 mg PO QAM #90 tabs 01/13/23 08/29/23 Rx sertraline 100 mg tablet 100 mg PO HS #90 tabs 01/13/23 08/29/23 Rx carbidopa ER 50 mg-levodopa 200 mg 1 tab PO TID #270 tabs 05/25/23 08/29/23 Rx tablet,extended release dorzolamide 22.3 mg-timolol 6.8 1 drp ophthalmic (eye) BID 08/29/23 08/29/23 History mg/mL eye drops levalbuterol tartrate 45 1 - 2 puff inhalation .Q4-6H PRN 08/29/23 08/29/23 History mcg/actuation aerosol inhaler shortness of breath or wheezing (Xopenex HFA) guaifenesin 600 mg tablet, 600 mg PO Q12 #10 tabs 09/01/23 Rx extended release 12 hr (Mucinex) magnesium oxide 400 mg (241.3 mg 400 mg PO QAM #30 tabs 09/01/23 Rx magnesium) tablet oseltamivir 75 mg capsule (Tamiflu) 75 mg PO BID #4 caps 09/01/23 Rx Hospital Stay Data Consultations 08/29/23 11:37 ED Decision to Admit Stat Diagnostic Imagining Performed Chest X-Ray 08/29/23 09:56 SINGLE VIEW CHEST CLINICAL HISTORY: Atypical chest pain. FINDINGS: An AP, portable, upright chest radiograph is compared to study dated 08/28/2023. A 2-lead cardiac pacemaker is unchanged in position and partially obscures the left lower chest. The heart is enlarged noting atherosclerotic calcification of the thoracic aorta. The pulmonary vasculature is noncongested. There is bibasilar scarring/atelectasis. The lungs and pleural spaces are otherwise clear. No pneumothorax is seen. The skeletal structures are osteopenic. There are chronic/healed right-sided rib fractures. IMPRESSION: 1. Cardiomegaly and cardiac pacemaker without radiographic evidence of congestive failure. 2. No airspace consolidation or large pleural effusion is identified. ACT 112: Negative or not required by law. Electronically signed by: Uche Magaña M.D. 08/29/2023 10:25 AM Pending Results Patient Have Any Pending Studies at Discharge: No Discharge Instructions Given to Patient (Per Discharging Provider) Mr. Hannah You were hospitalized after having weakness from influenza A and low magnesium level. We have treated your influenza with supportive care including tamiflu and Mucinex. You have four doses left of the tamiflu - take one dose tonight (09/01), two dose on 09/02 (AM and PM) and one dose morning. You also received magnesium though the IV while you are here. You will be discharged on oral supplementation. Low magnesium levels can contribute to weakness. Normally magnesium is found in the diet, but you should continue this at least until you are back to your functional baseline, but you can discuss with your PCP about stopping. I sent in prescriptions for Mucinex and Magnesium Oxide but these are also over the counter medications, so your insurance may not cover the prescription version. If it is not covered, please purchase the over the counter version- the generic is fine. - Mucinex (Guaifenesin) - 600mg twice a day - magnesium oxide 400 mg daily Physical therapy and occupational therapy have recommended that you go to an inpatient rehab facility - but you and your both declined this. [facility] will come to the home. You are at high risk for falls, it is very important that you are using your walker at all times and continue to eat a well balanced diet and get adequate sleep everynight. Continue to use your CPAP. Your blood pressures while here have been low normal - for that reason your lisinopril and hydrochlorothiazide have been held. You can discuss this with your PCP if these need to be restarted. Take your medications as instructed; do not skip a dose of your medicines. Make sure all of your doctors know every medicine you are taking (including [id number] medicines, vitamins, and supplements). Call your primary care provider before taking any new medicines (including over- the-counter medicines, vitamins, and supplements), because some of these may interact with your current medications, or may make your symptoms worse. Tell your primary care provider if you cannot afford your medications. Activity: You can do normal everyday activities as your body allows. Take rest breaks if you feel tired. Do not overexert. Stop activity if you have pain, shortness of breath or feel dizzy. Follow-up appointments: Make an appointment with your primary care physician within one week of discharge. A copy of this summary will be sent to them. Every time you see your primary care physician, or any other doctor, bring your medication list, and a list of questions. CONTACT YOUR PRIMARY CARE PROVIDER if you experience any of the following: Shortness of breath or difficulty breathing Fevers or chills Feeling tired with normal activity or experiencing dizziness or fainting Difficulty following your treatment plan, or difficulty taking medications CALL 911 OR GO TO THE EMERGENCY DEPARTMENT if you experience any of the following: Severe abdominal pain or nausea/vomiting Severe chest pain, or chest pain that radiates (moves) to your jaw or arm Sudden, severe shortness of breath or difficulty breathing Thank you for allowing us to participate in your care. Total Time Total Time Spent Total Time Spent (In Minutes): Time spend day of discharge 40 minutes including direct patient care, medication reconciliation, documentation, review of labs and images, and coordination of care. Coding Level of Care Code 96491 INP/OBS DISCH >30 MIN Diagnoses Influenza A J10.1 Hypomagnesemia E83.42 Generalized weakness R53.1 Paroxysmal atrial fibrillation I48.0 Atrial fibrillation type: paroxysmal Essential hypertension I10 Hypertension type: essential hypertension Thrombocytopenia D69.6 Coronary artery disease involving [place] coronary artery of [place] heart without angina pectoris I25.10 Associated angina: without angina Coronary Disease-Associated Artery/Lesion type: [place] artery [place] vs. 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
[2023-09-01] MEDS: MAGNESIUM OXIDE 400 MG TAB PO SCH (12:47)
== END 2023-09-01 14:25 | disposition home health service (06) | DRG 194 ==
LOC: ED 09:38 → 3E 11:46 → SUATTDRO 11:46 → 3E 12:41 → 2W 08-30 15:42

== ENCOUNTER 2024-03-11 21:59 | Inpatient (IN) ==
[2024-03-11 23:01] LABS: Basophils # (auto) 0.02 K/uL (0.00-0.20); Basophils % (auto) 0.3 %; Eosinophils # (auto) 0.05 K/uL (0.00-0.50); Eosinophils % (auto) 0.6 %; Hematocrit (blood only) 35.5 % (42.0-52.0); Hemoglobin 11.3 g/dl (14.0-18.0); Immature Granulocytes # (auto) 0.02 K/uL (0.01-0.20); Immature Granulocytes % (auto) 0.3 %; Lymphocytes # (auto) 1.18 K/uL (1.20-3.40); Mean Corpuscular Hemoglobin 29.3 pg (25.0-34.0); Mean Corpuscular Hgb Conc 31.8 g/dL (32.0-36.0); Mean Platelet Volume 11.3 fL (9.4-12.4); Monocytes % (auto) 11.4 %; Neutrophils % (auto) 72.4 %; Platelet Count 149 K/uL (130-400); RDW Coefficient of Variation 14.5 % (11.5-14.5); RDW Standard Deviation 48.2 fL (36.4-46.3); Red Blood Count 3.86 M/uL (4.70-6.10); White Blood Count 7.87 K/ul (4.8-10.8)
[2024-03-11 23:09] LABS: Albumin Globulin Ratio 1.5 (0.9-2); Albumin Level 3.8 gm/dl (3.4-5.0); Bilirubin,Total 0.4 mg/dl (0.2-1.0); Calcium 8.7 mg/dl (8.6-10.3); Creatinine Clr Calc Pharmacy 64.3 ml/min; Est GFR (African American) 86.2 ml/min; Est GFR (Non-African American) 74.3 ml/min; Globulin 2.6 gm/dl (2.5-4.0); Magnesium 1.3 mg/dl (1.7-2.4); Potassium 4.4 mmol/L (3.5-5.1); Total Protein 6.4 gm/dl (6.0-8.3)
[2024-03-11 23:16] LABS: Troponin I High Sensitivity 16.3 pg/ml (0-20)
[2024-03-11 23:25] LABS: Thyroid Stimulating Hormone 1.584 uIu/ml (0.300-4.500)
[2024-03-11] MEDS: MAGNESIUM SULFATE / D5W 1 GM/100 ML BAG IV STA (23:32)
[2024-03-11 23:45] LABS: INR 1.3 (0.9-1.1); Prothrombin Time 13.9 Seconds (9.0-12.0)
[2024-03-12] LABS: Adenovirus PCR Not Detected (NotDetected); Bordetella parapertussis PCR Not Detected (NotDetected); Bordetella pertussis PCR Not Detected (NotDetected); Chlamydia pneumoniae PCR Not Detected (NotDetected); Coronavirus 229E PCR Not Detected (NotDetected); Coronavirus CoV-2 (COVID19)PCR DETECTED (NotDetected); Coronavirus HKU1 PCR Not Detected (NotDetected); Coronavirus NL63 PCR Not Detected (NotDetected); Coronavirus OC43PCR Not Detected (NotDetected); Human Metapneumovirus PCR Not Detected (NotDetected); Influenza A PCR Not Detected (NotDetected); Influenza B PCR Not Detected (NotDetected); Mycoplasma pneumoniae PCR Not Detected (NotDetected); Parainfluenza Virus 1 PCR Not Detected (NotDetected); Parainfluenza Virus 2 PCR Not Detected (NotDetected); Parainfluenza Virus 3 PCR Not Detected (NotDetected); Parainfluenza Virus 4 PCR Not Detected (NotDetected); Respiratory Syncytial VirusPCR Not Detected (NotDetected); Rhinovirus/Enterovirus PCR Not Detected (NotDetected)
--- NOTE | 2024-03-12 00:04 | Emergency Department Note ---
Impression & Plan COVID-19, Hypomagnesemia, Generalized weakness ED Provider Note HISTORY OF PRESENT ILLNESS: Patient is a 73-year-old male presenting with generalized weakness. helps provide history. Patient is normally ambulatory at their home with a walker. However, today he has been having profound weakness. He was trying to come down the stairs earlier today when he became very weak and lowered himself onto the stairs. He then scooted down the stairs and his called 911 for EMS to help assist him up to standing. Patient refused transport to the hospital at that time. states he was trying to get up the stairs to go to bed this evening when he again became very weak and had to lower himself down onto the stairs and she then called 911 for transport to the hospital. reports that she tested +3 days ago for COVID. Reports the patient started having a runny nose and slight cough today. He took a home test which was negative. No reported fevers. Patient denies any chest pain, shortness of breath or lightheadedness prior to the episodes of weakness. reports he got like this the last time he was admitted to the hospital with the flu. Patient is on Xarelto for history of A-fib. Denies any missed doses. Denies any dysuria or hematuria. ROS: as above PHYSICAL EXAM: Constitutional: Patient appears in no acute distress. HENT: Head: Normocephalic and atraumatic. Eyes: EOMI, PERRL Mouth/Throat: Mucous membranes moist. Neck: Trachea midline. Neck supple. Cardiovascular: RRR, No murmurs, rubs or gallops. Intact distal pulses. Pulmonary/Chest: No respiratory distress. Breath sounds clear and equal bilaterally. No wheezes or rales. Patient is tachypneic. Abdominal: Abdomen soft, no tenderness, rebound or guarding. Musculoskeletal: No edema, tenderness or deformity noted. Patient is able to straight leg raise bilaterally. Skin: Warm and dry. No rash, erythema, pallor or cyanosis Psychiatric: Appropriate mood and affect for situation. Neurological: Alert and keenly responsive. CN II-XII grossly intact, moving all extremities equally and fully. MDM: - Vitals signs showed tachypnea - History obtained via patient. History as above. - Chronic conditions affecting care: HTN; pre-diabetes; cardiomyopathy; HLD; Parkinson's disease; LAURENT; CAD - Differential diagnoses include, but are not limited to: CVA; intracranial hemorrhage; ACS; UTI; pneumonia; viral syndrome - Order placed for continuous cardiac monitoring. At this time, monitor showed rate of 76 bpm with normal sinus rhythm, per my interpretation. - External medical records reviewed. Primary care visit note dated until story 24 was reviewed. Patient follows in their clinic for his multiple chronic medical problems. He has a history of hypomagnesemia and was instructed to start taking magnesium oxide 800 mg on Thursday/Thursday/Thursday and 400 mg every other day of the week. - EKG interpreted by myself showed normal sinus rhythm. Rate 80 bpm. QT 358. No acute ischemic changes. - Laboratory workup interpreted by myself showed normal WBC; anemia (Hgb 11.3); elevated INR (1.3); stable electrolytes other than hypomagnesemia (Mg 1.3); normal troponin; normal TSH - Viral panel positive for COVID-19 - CXR negative for pneumonia, per my interpretation - Patient given 1g IV magnesium for electrolyte replacement - Significant concern about patient's ability to get around at home given his viral illness and weakness. Will admit to hospital service for PT/OT assessment and potential placement. - Discussion was had with disease case manager about patient's case and need for admission - Hospitalist, Dr. Hopkins, consulted for admission - Patient admitted to [facility] hospitalist service for further evaluation and management. ASSESSMENT AND PLAN: Diagnosis: Generalized weakness; hypomagnesemia; COVID-19 Plan: Admit Past Med/Surg History Problem List (Updated 03/12/24 @ 00:18 by Padmini Velazquez MD) Generalized weakness (Acute) Hypomagnesemia (Acute) COVID-19 (Acute) Hypertension (Chronic) Urinary incontinence (Chronic) BPH (benign prostatic hyperplasia) (Chronic) Obstructive sleep apnea (Chronic) CAD (coronary artery disease) Hyperlipidemia (Chronic) Parkinsonism Hypomagnesemia (Chronic) Gout Abdominal hernia Cardiac pacemaker in situ (Chronic) Cardiomyopathy (Chronic) Depression (Chronic) Mitral regurgitation (Chronic) Osteoarthritis (Chronic) Anticoagulant long-term use (Chronic) Ambulatory dysfunction (Chronic) Vitamin D deficiency (Chronic) BPH with obstruction/lower urinary tract symptoms Anemia Diverticulosis Gait instability (Chronic) Prediabetes (Chronic) Idiopathic polyneuropathy Medical History (Updated 03/12/24 @ 00:18 by Padmini Velazquez MD) Tubular adenoma Esophagitis Frequency-urgency syndrome Paroxysmal atrial fibrillation Muscle stiffness Diverticulosis Esophagitis Hx of gout BPH (benign prostatic hyperplasia) GERD (gastroesophageal reflux disease) MILD Hiatal hernia Prediabetes Rectal bleeding Anemia Hyperlipidemia Pacemaker IMPLANTED 3 YEARS AGO (NEAR SYNCOPAL EPISODE)>FOLLOWED BY DR. SAUCEDO; last check 6 mo ago Sleep apnea CPAP WITH O2 ? LITER Atrial fibrillation Myocardial infarction 2009 SSS (sick sinus syndrome) Surgical History H/O colonoscopy History of esophagogastroduodenoscopy (EGD) H/O umbilical hernia repair History of tonsillectomy History of tooth extraction History of loop recorder + REMOVED History of heart artery stent 1 STENT AT [facility]>2009 (Single vessel distal right coronary artery) Family History No family history of adverse response to anesthesia Heart disease Father Mother Myocardial infarction Father Unknown Rheumatic fever Father Denies family history of Ovarian cancer Prostate cancer Breast cancer Colorectal cancer Social History Smoking Status: Never smoker Second Hand Exposure: No; Do You Dip or Chew Tobacco: No; Hx Alcohol Use: No Hx Substance Use: No Preferred Language: Sinhala Communication Ability: Effective Visual Impairment: No Limitations Hearing Ability: Normal Pharmacy Tech Required: No Beliefs That Will Affect Care: None marital status: Current Living Situation: Spouse Current Living Situation Comment: home with current occupational status: retired current occupation: used to work at [employer] How many Children do You have: 4 Feels Safe at Home: Yes Childhood Exposure to Second-Hand Smoke: Yes Diet: regular during the past year weight has: remained stable Dental Care, Regularly: Yes Physical Activity Frequency: Does not Exercise Seatbelt Use: always Sunscreen Use: Yes Assistive Devices: CPAP, Glasses, Oxygen - at Night and Walker Allergies Allergies Allergy/AdvReac Type Severity Reaction Status Date / Time DAWN Inhibitors AdvReac Intermediate cough Verified 02/15/24 11:31 Home Meds Home Medications Medication Instructions Recorded Confirmed multivitamin with minerals (Men's 1 tab PO QAM 02/13/19 02/15/24 One Daily tablet) dorzolamide 22.3 mg-timolol 6.8 1 drp ophthalmic (eye) BID 08/29/23 02/15/24 mg/mL eye drops levalbuterol tartrate 45 1 - 2 puff inhalation .Q4-6H PRN 08/29/23 02/15/24 mcg/actuation aerosol inhaler shortness of breath or wheezing (Xopenex HFA) Previous Rx's Medication Instructions Recorded acetaminophen 650 mg 650 mg PO Q12H PRN fever or pain 02/15/19 tablet,extended release (Tylenol #180 tabs Arthritis Pain) walker #1 ea 01/11/20 CPAP Machine #1 ea 03/08/20 Wheelchair (Manual) #1 ea 02/19/22 hydrochlorothiazide 25 mg tablet 25 mg PO QAM PRN edema #90 tabs 07/15/22 CPAP Supplies #1 ea 08/13/22 amlodipine 5 mg tablet 5 mg PO QAM #90 tabs 01/13/23 carvedilol 25 mg tablet (Coreg) 25 mg PO BID #180 tabs 01/13/23 lisinopril 40 mg tablet 40 mg PO DAILY #90 tabs 01/13/23 sertraline 100 mg tablet 100 mg PO HS #90 tabs 01/13/23 terazosin 5 mg capsule 5 mg PO HS #90 caps 09/26/23 dutasteride 0.5 mg capsule 0.5 mg PO QAM #90 caps 10/07/23 vibegron 75 mg tablet (Gemtesa) 75 mg PO DAILY #90 tabs 12/15/23 carbidopa ER 50 mg-levodopa 200 mg 1 tab PO TID #360 tabs 12/28/23 tablet,extended release atorvastatin 40 mg tablet 40 mg PO QAM #90 tabs 01/20/24 magnesium oxide 400 mg (241.3 mg 400 mg PO .COMPLEX #126 tabs 01/20/24 magnesium) tablet metformin 1,000 mg tablet 1,000 mg PO BID #180 tabs 01/20/24 rivaroxaban 20 mg tablet 20 mg PO QAM #90 tabs 01/25/24 pantoprazole 40 mg tablet,delayed 40 mg PO QAM #90 tabs 02/15/24 release entacapone 200 mg tablet 200 mg PO QID #360 tabs 03/10/24 Results & Data (ED) Vital Signs Vital Signs - 24 hr 03/11/24 22:06 03/11/24 22:07 03/11/24 22:30 Temperature 36.8 C Temperature Source Oral Pulse Rate 82 80 76 Pulse Rate from SpO2 Sensor 76 Pulse Rhythm Regular Pulse Strength Normal Respiratory Rate 20 26 H Respiratory Effort / Characteristics Non-Labored Spontaneous Respiratory Depth Normal Respiratory Pattern Regular Blood Pressure 130/78 133/72 Blood Pressure Mean 95 92 Blood Pressure Position Lying Pulse Oximetry 91 91 Oxygen Delivery Method Room Air Sepsis Recent Fever Within 48 Hours No Sepsis New/Unexplained Change in Mental Status N/A Sepsis Action Taken by Nursing No Action Required 03/11/24 23:06 Temperature Temperature Source Pulse Rate 76 Pulse Rate from SpO2 Sensor 77 Pulse Rhythm Pulse Strength Respiratory Rate 27 H Respiratory Effort / Characteristics Respiratory Depth Respiratory Pattern Blood Pressure 136/74 Blood Pressure Mean 94 Blood Pressure Position Pulse Oximetry 92 Oxygen Delivery Method Sepsis Recent Fever Within 48 Hours Sepsis New/Unexplained Change in Mental Status Sepsis Action Taken by Nursing Laboratory Data 03/11/24 22:11 03/11/24 22:11 Lab Results 03/11/24 03/11/24 Range/Units 22:11 Unknown WBC 7.87 (4.8-10.8) K/ul RBC 3.86 L (4.70-6.10) M/uL Hgb 11.3 L (14.0-18.0) g/dl Hct 35.5 L (42.0-52.0) % MCV 92.0 (80.0-100.0) fL MCH 29.3 (25.0-34.0) pg MCHC 31.8 L (32.0-36.0) g/dL RDW Std Deviation 48.2 H (36.4-46.3) fL RDW Coeff of Jessica 14.5 (11.5-14.5) % Plt Count 149 (130-400) K/uL MPV 11.3 (9.4-12.4) fL Immature Gran % (Auto) 0.3 % Neut % (Auto) 72.4 % Lymph % (Auto) 15.0 % [place] % (Auto) 11.4 % Eos % (Auto) 0.6 % Baso % (Auto) 0.3 % Neut # (Auto) 5.70 (1.40-6.50) K/uL Lymph # (Auto) 1.18 L (1.20-3.40) K/uL [place] # (Auto) 0.90 H (0.11-0.59) K/uL Eos # (Auto) 0.05 (0.00-0.50) K/uL Baso # (Auto) 0.02 (0.00-0.20) K/uL Immature Gran # (Auto) 0.02 (0.01-0.20) K/uL PT 13.9 H (9.0-12.0) Seconds INR 1.3 H (0.9-1.1) Sodium 141 (136-145) mmol/L Potassium 4.4 (3.5-5.1) mmol/L Chloride 104 (98-107) mmol/L Carbon Dioxide 27 (21-32) mmol/L Anion Gap 10 (3-11) BUN 23 (6-23) mg/dl Creatinine 1.00 (0.6-1.4) mg/dl Est Cr Clr Drug Dosing 64.3 ml/min Est GFR ( Amer) 86.2 ml/min Est GFR (Non-Af Amer) 74.3 ml/min BUN/Creatinine Ratio 23.0 H (10-20) Glucose 116 H (70-99(Fasting)) mg/dl Calcium 8.7 (8.6-10.3) mg/dl Magnesium 1.3 L (1.7-2.4) mg/dl Total Bilirubin 0.4 (0.2-1.0) mg/dl AST 22 (13-39) U/L ALT 5 L (7-52) U/L Alkaline Phosphatase 86 (34-104) U/L Troponin I High Sens 16.3 (0-20) pg/ml Total Protein 6.4 (6.0-8.3) gm/dl Albumin 3.8 (3.4-5.0) gm/dl Globulin 2.6 (2.5-4.0) gm/dl Albumin/Globulin Ratio 1.5 (0.9-2) TSH 1.584 (0.300-4.500) uIu/ml Adenovirus (PCR) Not Detected (NotDetected) B. pertussis DNA (PCR) Not Detected (NotDetected) B.parapertussis DNA PCR Not Detected (NotDetected) C. pneumoniae DNA (PCR) Not Detected (NotDetected) Coronavirus OC43 (PCR) Not Detected (NotDetected) Coronavirus HKU1 (PCR) Not Detected (NotDetected) Coronavirus 229E (PCR) Not Detected (NotDetected) SARS-CoV-2 (PCR) DETECTED A (NotDetected) Coronavirus NL63 (PCR) Not Detected (NotDetected) Human Metapneumovir PCR Not Detected (NotDetected) Influenza Type A (PCR) Not Detected (NotDetected) Influenza Type B (PCR) Not Detected (NotDetected) M. pneumoniae (PCR) Not Detected (NotDetected) Parainfluenza 1 (PCR) Not Detected (NotDetected) Parainfluenza 2 (PCR) Not Detected (NotDetected) Parainfluenza 3 (PCR) Not Detected (NotDetected) Parainfluenza 4 (PCR) Not Detected (NotDetected) RSV (PCR) Not Detected (NotDetected) Entero/Rhino (PCR) Not Detected (NotDetected) Administered Medications Discontinued Medications Magnesium Sulfate/Dextrose (Magnesium Sulfate / D5w) 1 gm in 100 mls @ 100 mls/hr IV NOW STA Stop: 03/12/24 00:15 Last Admin: 03/11/24 23:32 Dose: 100 mls/hr Documented By: Discharge Plan Visit Data Chief Complaint: Leg Weakness, Bilateral Stated Complaint: Leg Weakness, Unable To Ambulate ED Provider: Padmini Velazquez Discharge Problem: COVID-19, Hypomagnesemia, Generalized weakness Forms Stand Alone Forms: [facility] Prescriptions Prescriptions: No Action (DME) walker Misc See Rx Instructions .ROUTE .MEDSUPPLY Qty: 1 0RF Rx Instructions: wheeled walker with seat and hand brakes (DME) Wheelchair (Manual) Device See Rx Instructions .Route Qty: 1 0RF Rx Instructions: As directed terazosin 5 mg capsule 5 mg PO HS Qty: 90 3RF dutasteride 0.5 mg capsule 0.5 mg PO QAM Qty: 90 3RF carbidopa-levodopa 50-200 mg tablet extended release 1 tab PO TID Qty: 360 3RF rivaroxaban 20 mg tablet 20 mg PO QAM Qty: 90 3RF pantoprazole 40 mg tablet,delayed release (DR/EC) 40 mg PO QAM Qty: 90 3RF entacapone 200 mg tablet 200 mg PO QID Qty: 360 3RF Rx Instructions: administer at the same time as each of the carbadopa/levodopa tablets multivitamin with minerals [Men's One Daily] tablet 1 tab PO QAM acetaminophen [Tylenol Arthritis Pain] 650 mg tablet extended release 650 mg PO Q12H PRN (Reason: fever or pain) Qty: 180 1RF magnesium oxide 400 mg (241.3 mg magnesium) tablet 400 mg PO .COMPLEX Qty: 126 3RF Rx Instructions: Take 800 mg Thursday, Thursday and Thursday. 400 mg every other day of the week. metformin 1,000 mg tablet 1,000 mg PO BID Qty: 180 3RF atorvastatin 40 mg tablet 40 mg PO QAM Qty: 90 3RF carvedilol [Coreg] 25 mg tablet 25 mg PO BID Qty: 180 3RF amlodipine 5 mg tablet 5 mg PO QAM Qty: 90 3RF lisinopril 40 mg tablet 40 mg PO DAILY Qty: 90 3RF Hold Instructions: Resume on 09/08/23. until you discuss with PCP sertraline 100 mg tablet 100 mg PO HS Qty: 90 3RF (DME) CPAP Machine Misc See Rx Instructions .MEDSUPPLY Qty: 1 0RF Rx Instructions: T&B. NEW CPAP MACHINE- AUTO CPAP MIN 10 MAX 18. HEATED HUMIDITY. MODEM. MAISHA 99. (DME) CPAP Supplies Misc See Rx Instructions .MEDSUPPLY Qty: 1 0RF Rx Instructions: Care Plus oxygen, appropriately sized nasal pillows or nasal mask hydrochlorothiazide 25 mg tablet 25 mg PO QAM PRN (Reason: edema) Qty: 90 3RF Hold Instructions: Resume on 09/09/23. Gemtesa 75 mg tablet 75 mg PO DAILY Qty: 90 3RF dorzolamide-timolol 22.3-6.8 mg/mL Drops 1 drp OPHTHALMIC (EYE) BID levalbuterol tartrate [Xopenex HFA] 45 mcg/actuation HFA aerosol inhaler 1 - 2 puff inhalation .Q4-6H PRN (Reason: shortness of breath or wheezing) Rx Instructions: 1-2 INH 4-6 hrs PRN; Referrals Referrals: James Chu III, YAN [Primary Care Provider] -
--- NOTE | 2024-03-12 00:58 | History & Physical Report ---
Date of Service March 12, 2024 Assessment & Plan (1) COVID-19: Plan: Patient with Covid-19, generalized weakness. Oxygen saturations have been appropriate -Observation to medical -Maintain isolation precautions -Continue to monitor -Supportive care (2) Generalized weakness: Plan: Patient with poor functional baseline, worsened generalized weakness in setting of Covid. -PT/OT evaluation for possible placement - rehab prior to returning home Plan Hypertension -Chronic. Stable -Continue Amlodipine -Continue Carvedilol Hyperlipidemia -Chronic. Stable -Continue Atorvastatin Parkinson's Disease -Continue Carbidopa/Levodopa QID - he is to change to TID once he starts his Entacapone -Patient has not yet started his Entacapone but it has been prescribed GERD -Continue Protonix PAF -Continue Xarelto -Continue Carvedilol LAURENT -CPAP qHS History of Present Illness Chief Complaint: generalized weakness, Covid-19 Primary Care Provider: James Chu III, YAN Carlos A Hannah is a 73yo male with history of PAF on Eliquis anticoagulation, Parkinson's disease, CAD, HTN, LAURENT presenting from home with Covid-19 infection and weakness. Patient with some degree of ambulatory dysfunction at baseline secondary to his underlying Parkinson's. He is receiving home PT but continues to have issues with strength and balance. Patient's was diagnosed with Covid 3 days ago. Patient developed some congestion and cough earlier today as well as severe weakness. He was unable to climb up the stairs and his was unable to help him therefore EMS was called and he was brought to the ER. Patient denies chest pain or shortness of breath. No abdominal pain, nausea, vomiting, diarrhea. No additional complaints at this time. Patient has never had Covid before. He had some vaccines but not recently. Allergies Allergy/AdvReac Type Severity Reaction Status Date / Time DAWN Inhibitors AdvReac Intermediate cough Verified 02/15/24 11:31 Home Medications Medication Instructions Recorded Confirmed Type multivitamin with minerals (Men's 1 tab PO QAM 02/13/19 03/12/24 History One Daily tablet) acetaminophen 650 mg 650 mg PO Q12H PRN fever or pain 02/15/19 03/12/24 Rx tablet,extended release (Tylenol #180 tabs Arthritis Pain) walker #1 ea 01/11/20 02/15/24 Rx CPAP Machine #1 ea 03/08/20 03/12/24 Rx Wheelchair (Manual) #1 ea 02/19/22 02/15/24 Rx hydrochlorothiazide 25 mg tablet 25 mg PO QAM PRN edema #90 tabs 07/15/22 03/12/24 Rx CPAP Supplies #1 ea 08/13/22 02/15/24 Rx amlodipine 5 mg tablet 5 mg PO QAM #90 tabs 01/13/23 03/12/24 Rx carvedilol 25 mg tablet (Coreg) 25 mg PO BID #180 tabs 01/13/23 03/12/24 Rx lisinopril 40 mg tablet 40 mg PO DAILY #90 tabs 01/13/23 02/15/24 Rx sertraline 100 mg tablet 100 mg PO HS #90 tabs 01/13/23 03/12/24 Rx dorzolamide 22.3 mg-timolol 6.8 1 drp ophthalmic (eye) BID 08/29/23 03/12/24 History mg/mL eye drops levalbuterol tartrate 45 1 - 2 puff inhalation .Q4-6H PRN 08/29/23 03/12/24 History mcg/actuation aerosol inhaler shortness of breath or wheezing (Xopenex HFA) terazosin 5 mg capsule 5 mg PO HS #90 caps 09/26/23 03/12/24 Rx dutasteride 0.5 mg capsule 0.5 mg PO QAM #90 caps 10/07/23 03/12/24 Rx vibegron 75 mg tablet (Gemtesa) 75 mg PO DAILY #90 tabs 12/15/23 03/12/24 Rx carbidopa ER 50 mg-levodopa 200 mg 1 tab PO TID #360 tabs 12/28/23 03/12/24 Rx tablet,extended release atorvastatin 40 mg tablet 40 mg PO QAM #90 tabs 01/20/24 03/12/24 Rx magnesium oxide 400 mg (241.3 mg 400 mg PO .COMPLEX #126 tabs 01/20/24 03/12/24 Rx magnesium) tablet metformin 1,000 mg tablet 1,000 mg PO BID #180 tabs 01/20/24 03/12/24 Rx rivaroxaban 20 mg tablet 20 mg PO QAM #90 tabs 01/25/24 03/12/24 Rx pantoprazole 40 mg tablet,delayed 40 mg PO QAM #90 tabs 02/15/24 03/12/24 Rx release entacapone 200 mg tablet 200 mg PO QID #360 tabs 03/10/24 03/12/24 Rx Past Med/Surg History Problem List Generalized weakness (Acute) Hypomagnesemia (Acute) COVID-19 (Acute) Hypertension (Chronic) Urinary incontinence (Chronic) BPH (benign prostatic hyperplasia) (Chronic) Obstructive sleep apnea (Chronic) CAD (coronary artery disease) Hyperlipidemia (Chronic) Parkinsonism Hypomagnesemia (Chronic) Gout Abdominal hernia Cardiac pacemaker in situ (Chronic) Cardiomyopathy (Chronic) Depression (Chronic) Mitral regurgitation (Chronic) Osteoarthritis (Chronic) Anticoagulant long-term use (Chronic) Ambulatory dysfunction (Chronic) Vitamin D deficiency (Chronic) BPH with obstruction/lower urinary tract symptoms Anemia Diverticulosis Gait instability (Chronic) Prediabetes (Chronic) Idiopathic polyneuropathy Medical History Tubular adenoma Esophagitis Frequency-urgency syndrome Paroxysmal atrial fibrillation Muscle stiffness Diverticulosis Esophagitis Hx of gout BPH (benign prostatic hyperplasia) GERD (gastroesophageal reflux disease) MILD Hiatal hernia Prediabetes Rectal bleeding Anemia Hyperlipidemia Pacemaker IMPLANTED 3 YEARS AGO (NEAR SYNCOPAL EPISODE)>FOLLOWED BY DR. SAUCEDO; last check 6 mo ago Sleep apnea CPAP WITH O2 ? LITER Atrial fibrillation Myocardial infarction 2009 SSS (sick sinus syndrome) Surgical History H/O colonoscopy History of esophagogastroduodenoscopy (EGD) H/O umbilical hernia repair History of tonsillectomy History of tooth extraction History of loop recorder + REMOVED History of heart artery stent 1 STENT AT [facility]>2009 (Single vessel distal right coronary artery) Family History Father Myocardial infarction Rheumatic fever Heart disease Unknown Myocardial infarction Mother Heart disease Other No family history of adverse response to anesthesia Denies family history of Ovarian cancer Prostate cancer Breast cancer Colorectal cancer Social History Smoking Status: Never smoker Second Hand Exposure: No; Do You Dip or Chew Tobacco: No; Tobacco Cessation Education Requested by Patient: No Hx Alcohol Use: No Hx Substance Use: No Preferred Language: Iraqi Communication Ability: Effective Visual Impairment: No Limitations Hearing Ability: Normal Cotton [place] Culler Required: No Beliefs That Will Affect Care: None marital status: Current Living Situation: Spouse Current Living Situation Comment: home with current occupational status: retired current occupation: used to work at [employer] How many Children do You have: 4 Other Information That Helps Us Care for You: No Feels Safe at Home: Yes Safety Concerns: Feels Safe At This Time Childhood Exposure to Second-Hand Smoke: Yes Diet: regular during the past year weight has: remained stable Dental Care, Regularly: Yes Physical Activity Frequency: Does not Exercise Seatbelt Use: always Sunscreen Use: Yes Assistive Devices: Glasses, Hospital Bed and Walker Review of Systems Review of Systems: All systems reviewed & are unremarkable except as noted in HPI & below Physical Exam Physical Exam: General: patient resting comfortably, NAD, non-toxic in appearance, somnolent Skin: warm, dry, intact, no rashes or lesions HEENT: NC/AT, PERRL, EOMI, anicteric sclera, conjunctiva without injection, external ear normal to inspection and nontender, nares patent, moist mucus membranes, dentition intact, no oropharyngeal lesions, neck supple, trachea midline, no LAD, no thyromegaly, no JVD Heart: +S1/S2, regular, no m/r/g Lungs: equal air entry bilaterally, no rales/rhonchi/wheezes Abd: +BS, soft, NT/ND, no masses/organomegaly/ascites Ext: warm, 2+ pulses in UE/LE bilaterally, no clubbing/cyanosis or edema Neuro: nonfocal, somnolent, generalized weakness Results & Data Results & Data Vital Signs (Past 12 Hours) Vital Signs Temp Pulse Resp BP Pulse Ox O2 Del Method 03/11/24 23:06 76 27 H 136/74 92 03/11/24 22:30 76 26 H 133/72 91 03/11/24 22:07 80 03/11/24 22:06 36.8 C 82 20 130/78 91 Room Air Laboratory Results Laboratory Results WBC 7.87 K/ul (4.8-10.8) 03/11/24 22:11 RBC 3.86 M/uL (4.70-6.10) L 03/11/24 22:11 Hgb 11.3 g/dl (14.0-18.0) L 03/11/24 22:11 Hct 35.5 % (42.0-52.0) L 03/11/24 22:11 MCV 92.0 fL (80.0-100.0) 03/11/24 22:11 MCH 29.3 pg (25.0-34.0) 03/11/24 22:11 MCHC 31.8 g/dL (32.0-36.0) L 03/11/24 22:11 RDW Std Deviation 48.2 fL (36.4-46.3) H 03/11/24 22:11 RDW Coeff of Jessica 14.5 % (11.5-14.5) 03/11/24 22:11 Plt Count 149 K/uL (130-400) 03/11/24 22:11 MPV 11.3 fL (9.4-12.4) 03/11/24 22:11 Immature Gran % (Auto) 0.3 % 03/11/24 22:11 Neut % (Auto) 72.4 % 03/11/24 22:11 Lymph % (Auto) 15.0 % 03/11/24 22:11 Page % (Auto) 11.4 % 03/11/24 22:11 Eos % (Auto) 0.6 % 03/11/24 22:11 Baso % (Auto) 0.3 % 03/11/24 22:11 Neut # (Auto) 5.70 K/uL (1.40-6.50) 03/11/24 22:11 Lymph # (Auto) 1.18 K/uL (1.20-3.40) L 03/11/24 22:11 Page # (Auto) 0.90 K/uL (0.11-0.59) H 03/11/24 22:11 Eos # (Auto) 0.05 K/uL (0.00-0.50) 03/11/24 22:11 Baso # (Auto) 0.02 K/uL (0.00-0.20) 03/11/24 22:11 Immature Gran # (Auto) 0.02 K/uL (0.01-0.20) 03/11/24 22:11 PT 13.9 Seconds (9.0-12.0) H 03/11/24 22:11 INR 1.3 (0.9-1.1) H 03/11/24 22:11 Sodium 141 mmol/L (136-145) 03/11/24 22:11 Potassium 4.4 mmol/L (3.5-5.1) 03/11/24 22:11 Chloride 104 mmol/L (98-107) 03/11/24 22:11 Carbon Dioxide 27 mmol/L (21-32) 03/11/24 22:11 Anion Gap 10 (3-11) 03/11/24 22:11 BUN 23 mg/dl (6-23) 03/11/24 22:11 Creatinine 1.00 mg/dl (0.6-1.4) 03/11/24 22:11 Est Cr Clr Drug Dosing 64.3 ml/min 03/11/24 22:11 Est GFR ( Amer) 86.2 ml/min 03/11/24 22:11 Est GFR (Non-Af Amer) 74.3 ml/min 03/11/24 22:11 BUN/Creatinine Ratio 23.0 (10-20) H 03/11/24 22:11 Glucose 116 mg/dl (70-99(Fasting)) H 03/11/24 22:11 Lactate Cancelled 03/11/24 23:11 Calcium 8.7 mg/dl (8.6-10.3) 03/11/24 22:11 Magnesium 1.3 mg/dl (1.7-2.4) L 03/11/24 22:11 Total Bilirubin 0.4 mg/dl (0.2-1.0) 03/11/24 22:11 AST 22 U/L (13-39) 03/11/24 22:11 ALT 5 U/L (7-52) L 03/11/24 22:11 Alkaline Phosphatase 86 U/L (34-104) 03/11/24 22:11 Troponin I High Sens 16.3 pg/ml (0-20) 03/11/24 22:11 Total Protein 6.4 gm/dl (6.0-8.3) 03/11/24 22:11 Albumin 3.8 gm/dl (3.4-5.0) 03/11/24 22:11 Globulin 2.6 gm/dl (2.5-4.0) 03/11/24 22:11 Albumin/Globulin Ratio 1.5 (0.9-2) 03/11/24 22:11 TSH 1.584 uIu/ml (0.300-4.500) 03/11/24 22:11 Adenovirus (PCR) Not Detected (NotDetected) 03/11/24 Unknown B. pertussis DNA (PCR) Not Detected (NotDetected) 03/11/24 Unknown B.parapertussis DNA PCR Not Detected (NotDetected) 03/11/24 Unknown C. pneumoniae DNA (PCR) Not Detected (NotDetected) 03/11/24 Unknown Coronavirus OC43 (PCR) Not Detected (NotDetected) 03/11/24 Unknown Coronavirus HKU1 (PCR) Not Detected (NotDetected) 03/11/24 Unknown Coronavirus 229E (PCR) Not Detected (NotDetected) 03/11/24 Unknown SARS-CoV-2 (PCR) DETECTED (NotDetected) A 03/11/24 Unknown Coronavirus NL63 (PCR) Not Detected (NotDetected) 03/11/24 Unknown Human Metapneumovir PCR Not Detected (NotDetected) 03/11/24 Unknown Influenza Type A (PCR) Not Detected (NotDetected) 03/11/24 Unknown Influenza Type B (PCR) Not Detected (NotDetected) 03/11/24 Unknown M. pneumoniae (PCR) Not Detected (NotDetected) 03/11/24 Unknown Parainfluenza 1 (PCR) Not Detected (NotDetected) 03/11/24 Unknown Parainfluenza 2 (PCR) Not Detected (NotDetected) 03/11/24 Unknown Parainfluenza 3 (PCR) Not Detected (NotDetected) 03/11/24 Unknown Parainfluenza 4 (PCR) Not Detected (NotDetected) 03/11/24 Unknown RSV (PCR) Not Detected (NotDetected) 03/11/24 Unknown Entero/Rhino (PCR) Not Detected (NotDetected) 03/11/24 Unknown Diagnostic Findings CXR per my interpretation with pacer in place, no obvious infiltrate ECG Additional Comments: EKG with NSR, no acute ischemic changes Code Status & VTE Plan VTE Prophylaxis Plan VTE Prophylaxis will be ordered: Yes PG Care Time/CCT Total # of Minutes Spent Total Time Spent with Patient: Total time spent is greater than 50% in coordination of care (as documented) at patient's floor/unit and/or counseling patient: Coding Level of Care Code 54824 INT INP/OBS CARE 3/75MIN Diagnoses COVID-19 U07.1 Generalized weakness R53.1
[2024-03-12] MEDS ORDERED: ACETAMINOPHEN 325 MG TAB PO PRN (02:43)
[2024-03-12] MEDS ORDERED: ONDANSETRON INJ 2 MG/ML 2 ML VIAL IV PRN (02:43)
[2024-03-12] MEDS: MAGNESIUM SULFATE / D5W 1 GM/100 ML BAG IV ONE (03:44)
--- NOTE | 2024-03-12 07:38 | XRay Report ---
XR chest 1V portable HISTORY: 73 years-old Male weakness COMPARISON: 08/29/2023 TECHNIQUE: AP view of the chest FINDINGS: Cardiac silhouette is enlarged. Dual lead left subclavian pacer. No pneumothorax, pleural effusion or airspace consolidation. Spondylotic spurring of the spine. IMPRESSION: No acute process. ACT 112: Negative or not required by law. The above report was generated using voice recognition software. It may contain grammatical, syntax o r spelling errors. Electronically signed by: Pio Lynn M.D. 03/12/2024 7:36 AM
[2024-03-12] MEDS: amLODIPine BESYLATE 5 MG TAB PO SCH (08:13)
[2024-03-12] MEDS: carvediloL 25 MG TAB PO SCH (08:13)
[2024-03-12] MEDS: CARBIDOPA/LEVODOPA 50/200MG EXT REL TAB PO SCH (08:13)
[2024-03-12] MEDS: ATORVASTATIN 40 MG TAB PO SCH (08:13)
[2024-03-12] MEDS: DORZOLAMIDE/TIMOLOL 22.3/6.8MG/ML 10 ML BTL OP SCH (08:14)
[2024-03-12] MEDS: PANTOprazole 40 MG TAB PO SCH (08:14)
[2024-03-12] MEDS: ENTACAPONE 200 MG TAB PO SCH (08:14)
[2024-03-12] MEDS: FINASTERIDE 5 MG TAB PO SCH (08:14)
[2024-03-12] MEDS: VIBEGRON 75 MG TAB PO SCH (08:14)
[2024-03-12] MEDS ORDERED: CARBIDOPA/LEVODOPA 50/200MG EXT REL TAB PO SCH (09:00)
[2024-03-12] MEDS: dexAMETHasone 4 MG TAB PO SCH (10:20)
[2024-03-12 15:33] LABS: Appearance Urine Clear (Clear); Bilirubin Urine Negative (Negative); Blood Urine Negative (Negative); Color Urine Dark Yellow; Glucose Urine UA Negative (Negative); Ketones Urine Trace (Negative); Leukocyte Esterase Urine Negative (Negative); Nitrite Urine Negative (Negative); Protein Urine Negative (Negative); Specific Gravity Urine 1.014 (1.000-1.030); Urobilinogen Urine Negative (Negative)
--- NOTE | 2024-03-12 16:19 | Communication Note ---
Date of Service: March 12, 2024 (1) COVID-19: Patient with Covid-19, generalized weakness. Oxygen saturations have been appropriate -Observation to medical -Maintain isolation precautions -Continue to monitor -Supportive care -Added Dexamethasone 6mg 03/12 (2) Generalized weakness: Patient with poor functional baseline, worsened generalized weakness in setting of Covid. -PT/OT evaluation for possible placement - rehab prior to returning home Plan Hypertension -Chronic. Stable -Continue Amlodipine -Continue Carvedilol Hyperlipidemia -Chronic. Stable -Continue Atorvastatin Parkinson's Disease -Continue Carbidopa/Levodopa QID - he is to change to TID once he starts his Entacapone -Patient has not yet started his Entacapone but it has been prescribed GERD -Continue Protonix PAF -Continue Xarelto -Continue Carvedilol LAURENT -CPAP qHS
[2024-03-12] MEDS: RIVAROXABAN 20 MG TAB PO SCH (16:30)
[2024-03-12] MEDS: TERAZOSIN HCL 5 MG CAP PO SCH (20:10)
[2024-03-12] MEDS: SERTRALINE HCL 100 MG TABLET PO SCH (20:10)
[2024-03-13 07:04] LABS: Hematocrit (blood only) 34.5 % (42.0-52.0); Mean Corpuscular Hgb Conc 31.9 g/dL (32.0-36.0); Mean Platelet Volume 10.6 fL (9.4-12.4); Platelet Count 158 K/uL (130-400); RDW Coefficient of Variation 14.5 % (11.5-14.5); RDW Standard Deviation 48.2 fL (36.4-46.3); Red Blood Count 3.79 M/uL (4.70-6.10); White Blood Count 4.32 K/ul (4.8-10.8)
[2024-03-13 07:18] LABS: Calcium 8.2 mg/dl (8.6-10.3); Creatinine Clr Calc Pharmacy 98.4 ml/min; Est GFR (African American) 107.3 ml/min; Est GFR (Non-African American) 92.5 ml/min; Potassium 3.6 mmol/L (3.5-5.1)
--- NOTE | 2024-03-13 12:46 | Hospitalist Progress Note ---
Date of Service March 13, 2024 Assessment & Plan (1) COVID-19: Plan: Patient with Covid-19, generalized weakness. Oxygen saturations have been appropriate -Observation to medical -Maintain isolation precautions -Continue to monitor -Supportive care -Dexamethasone added 03/12 -CBC/BMP reviewed 03/13: stable (2) Generalized weakness: Plan: Patient with poor functional baseline, worsened generalized weakness in setting of Covid. -PT/OT evaluation for possible placement - rehab prior to returning home Plan Hypertension -Chronic. Stable -Continue Amlodipine -Continue Carvedilol Hyperlipidemia -Chronic. Stable -Continue Atorvastatin Parkinson's Disease -Continue Carbidopa/Levodopa QID - he is to change to TID once he starts his Entacapone -Patient has not yet started his Entacapone but it has been prescribed GERD -Continue Protonix PAF -Continue Xarelto -Continue Carvedilol LAURENT -CPAP qHS Discussed plan of care w/ at bedside 03/13 Admission and Anticipated Discharge Date Admission Date: March 12, 2024 Subjective Patient seen and examined. Patient denies complaints today. He is waiting for therapy evaluation. Physical Exam 2 Constitutional: WD/WN, vitals as above Eyes: PERRL, conjunctivae normal, anicteric sclerae Respiratory: normal respiratory effort, lungs clear to auscultation Cardiovascular: RRR, no murmur, no edema Skin: no rashes, warm and dry Psychiatric: A+Ox3, euthymic affect Results & Data Results & Data Vital Signs (Past 12 Hours) Vital Signs Temp Pulse Pulse Resp BP Pulse Ox O2 Del Method 03/13/24 08:15 Room Air 03/13/24 08:00 36.4 C L 72 16 159/88 H 96 Room Air 03/13/24 03:46 65 14 95 O2 Flow Rate 03/13/24 08:15 03/13/24 08:00 03/13/24 03:46 2 Laboratory Results 03/13/24 06:17 03/13/24 06:17 PG Care Time/CCT Total # of Minutes Spent Total Time Spent with Patient: Total time spent is greater than 50% in coordination of care (as documented) at patient's floor/unit and/or counseling patient: Coding Level of Care Code 08216 SUB INP/OBS CARE 2/35MIN Diagnoses COVID-19 U07.1 Generalized weakness R53.1
--- NOTE | 2024-03-13 21:45 | Electrocardiogram Report ---
Test Reason : Blood Pressure : */* mmHG Vent. Rate : 80 BPM Atrial Rate : 80 BPM P-R Int : 196 ms QRS Dur : 112 ms QT Int : 358 ms P-R-T Axes : 62 31 -16 degrees QTcB Int : 412 ms Normal sinus rhythm Possible Inferior infarct , age undetermined Nonspecific T wave abnormality Abnormal ECG When compared with ECG of 31-Aug-2023 06:03, Sinus rhythm has replaced Electronic atrial pacemaker Nonspecific T wave abnormality now evident in Lateral leads Confirmed by Jeremiah Hutchinson ([id number]) on 03/13/2024 9:45:22 PM Referred By: REFERRED SELF Confirmed By: Jeremiah Hutchinson
[2024-03-14 08:04] LABS: Hematocrit (blood only) 37.1 % (42.0-52.0); Mean Corpuscular Hemoglobin 29.6 pg (25.0-34.0); Mean Corpuscular Hgb Conc 32.3 g/dL (32.0-36.0); Mean Corpuscular Volume 91.4 fL (80.0-100.0); Mean Platelet Volume 10.9 fL (9.4-12.4); Platelet Count 176 K/uL (130-400); RDW Coefficient of Variation 14.5 % (11.5-14.5); RDW Standard Deviation 48.5 fL (36.4-46.3); Red Blood Count 4.06 M/uL (4.70-6.10)
[2024-03-14 08:15] LABS: Calcium 8.3 mg/dl (8.6-10.3); Creatinine Clr Calc Pharmacy 88.5 ml/min; Est GFR (African American) 102.7 ml/min; Est GFR (Non-African American) 88.6 ml/min; Potassium 3.9 mmol/L (3.5-5.1)
--- NOTE | 2024-03-14 15:08 | Hospitalist Progress Note ---
Date of Service March 14, 2024 Assessment & Plan (1) COVID-19: Plan: Patient with Covid-19, generalized weakness. -Maintain isolation precautions -Supportive care - FV, IS -Dexamethasone discontinued as patient has not been hypoxic (2) Generalized weakness: Plan: Patient with poor functional baseline, worsened generalized weakness in setting of Covid. -PT/OT - recommend rehab prior to returning home - CM following Plan Chronic Stable Medical conditions: * Hypertension -Continue Amlodipine and Carvedilol * Hyperlipidemia - continue statin * Parkinson's Disease - -Continue Carbidopa/Levodopa QID - he is to change to TID once he starts his Entacapone (hasn't started yet) * GERD - Continue Protonix * PAF - Continue Xarelto and Carvedilol * LAURENT -CPAP qHS Discussed plan of care w/ at bedside 03/13 Dispo: continued inpatient stay, awaiting placement Admission and Anticipated Discharge Date Admission Date: March 12, 2024 Subjective patient seen sitting up in the chair, no family present at bedside. States that he is feeling better. Denies cough or shortness of breath. Was able to work with therapy today. Has not moved his bowels since admission but does feel like he needs to have a bowel movement currently Review of Systems Review of Systems: All systems reviewed & are unremarkable except as noted in Subjective Physical Exam Physical Exam: General: NAD, VS as above Resp: normal respiratory effort, lungs diminished in the bases CV: RRR, no murmur, Abd: normal bowel sounds, non tender, no hepatosplenomegaly : condom catheter present Neuro: A&O x3, Skin: intact, no lesions noted Results & Data Results & Data Vital Signs (Past 12 Hours) Vital Signs Temp Pulse Resp BP Pulse Ox Pulse Ox O2 Del Method 03/14/24 14:24 36.4 C L 58 L 16 148/87 H 97 Room Air 03/14/24 13:39 97 03/14/24 11:17 Room Air 03/14/24 07:05 36.5 C 64 16 168/87 H 95 Room Air Laboratory Results CBC and chemistry reviewed PG Care Time/CCT Total # of Minutes Spent Total Time Spent with Patient: Total time spent is greater than 50% in coordination of care (as documented) at patient's floor/unit and/or counseling patient: Coding Level of Care Code 88092 SUB INP/OBS CARE 350MIN Diagnoses COVID-19 U07.1 Generalized weakness R53.1
--- NOTE | 2024-03-15 15:50 | Hospitalist Progress Note ---
Date of Service March 15, 2024 Assessment & Plan (1) COVID-19: Plan: Patient with Covid-19, generalized weakness. -Maintain isolation precautions -Supportive care - FV, IS -Dexamethasone discontinued as patient has not been hypoxic (2) Generalized weakness: Plan: Patient with poor functional baseline, worsened generalized weakness in setting of Covid. -PT/OT - recommend rehab prior to returning home - CM following - auth pending for [employer] Plan Chronic Stable Medical conditions: * Hypertension -Continue Amlodipine and Carvedilol * Hyperlipidemia - continue statin * Parkinson's Disease - -Continue Carbidopa/Levodopa QID - he is to change to TID once he starts his Entacapone (hasn't started yet) * GERD - Continue Protonix * PAF - Continue Xarelto and Carvedilol * LAURENT -CPAP qHS Discussed plan of care w/ at bedside 03/13 Dispo: continued inpatient stay, awaiting placement Admission and Anticipated Discharge Date Admission Date: March 12, 2024 Subjective Patient seen shortly after lunch, has not been out of bed today stable on room air, denies SOB awaiting auth for rehab Review of Systems Review of Systems: All systems reviewed & are unremarkable except as noted in Subjective Physical Exam Physical Exam: General: NAD, VS as above Resp: normal respiratory effort, lungs diminished in the bases CV: RRR, no murmur, Abd: normal bowel sounds, non tender, no hepatosplenomegaly : condom catheter present Neuro: A&O x3, Skin: intact, no lesions noted Results & Data Results & Data Vital Signs (Past 12 Hours) Vital Signs Temp Pulse Resp BP Pulse Ox O2 Del Method 03/15/24 14:59 36.5 C 68 18 120/69 94 Room Air 03/15/24 10:43 Room Air 03/15/24 08:28 36.6 C 66 18 144/81 H 95 Room Air 03/15/24 06:59 36.7 C 60 18 160/88 H 95 Room Air PG Care Time/CCT Total # of Minutes Spent Total Time Spent with Patient: Total time spent is greater than 50% in coordination of care (as documented) at patient's floor/unit and/or counseling patient: Coding Level of Care Code 73551 SUB INP/OBS CARE 1/25MIN Diagnoses COVID-19 U07.1 Generalized weakness R53.1
--- NOTE | 2024-03-16 16:54 | Hospitalist Progress Note ---
Date of Service March 16, 2024 Assessment & Plan (1) COVID-19: Plan: Patient with Covid-19, generalized weakness. -Maintain isolation precautions -Supportive care - FV, IS -Dexamethasone discontinued as patient has not been hypoxic (2) Generalized weakness: Plan: Patient with poor functional baseline, worsened generalized weakness in setting of Covid. -PT/OT - recommend rehab prior to returning home - CM following - auth pending for [employer]. was asked to do a peer to peer, I have called but have not had a return call back Plan Chronic Stable Medical conditions: * Hypertension -Continue Amlodipine and Carvedilol * Hyperlipidemia - continue statin * Parkinson's Disease - -Continue Carbidopa/Levodopa QID - he is to change to TID once he starts his Entacapone (hasn't started yet) * GERD - Continue Protonix * PAF - Continue Xarelto and Carvedilol * LAURENT -CPAP qHS Discussed plan of care w/ at bedside 03/13 and daughter 03/16 Dispo: continued inpatient stay, awaiting placement Admission and Anticipated Discharge Date Admission Date: March 12, 2024 Subjective patient seen sitting up in the chair. Daughter present at bedside. Reports no cough, awaiting placement Patient is weak but feels okay moving around Review of Systems Review of Systems: All systems reviewed & are unremarkable except as noted in Subjective Physical Exam Physical Exam: General: NAD, VS as above Resp: normal respiratory effort, lungs diminished in the bases CV: RRR, no murmur, Abd: normal bowel sounds, non tender, no hepatosplenomegaly : condom catheter present Neuro: A&O x3, Skin: intact, no lesions noted Results & Data Results & Data Vital Signs (Past 12 Hours) Vital Signs Temp Pulse Resp BP Pulse Ox O2 Del Method 03/16/24 14:50 36.9 C 95 H 20 160/98 H 93 Room Air 03/16/24 09:50 Nasal Cannula 03/16/24 08:28 36.8 C 74 18 136/76 95 Room Air 03/16/24 06:55 36.4 C L 70 18 146/83 H 92 Room Air PG Care Time/CCT Total # of Minutes Spent Total Time Spent with Patient: Total time spent is greater than 50% in coordination of care (as documented) at patient's floor/unit and/or counseling patient: Coding Level of Care Code 41886 SUB INP/OBS CARE 07/30MIN Diagnoses COVID-19 U07.1 Generalized weakness R53.1
[2024-03-17 07:54] VITALS: BP 118/74; PULSE 87; RESP 18; TEMP 97.7; O2SAT 98
--- NOTE | 2024-03-17 10:09 | Discharge Summary ---
Discharge Summary Date of Service March 17, 2024 Principal Dx & Hospital Course #1 = Principal Diagnosis (1) COVID-19: Patient with Covid-19, generalized weakness. -Maintain isolation precautions -Supportive care - FV, IS -Dexamethasone discontinued as patient has not been hypoxic (2) Generalized weakness: Patient with poor functional baseline, worsened generalized weakness in setting of Covid. -PT/OT - recommend rehab prior to returning home was denied auth for [employer], so family has decided to go home with home with energy therapy (3) Parkinsonism: Parkinson's Disease -Continue Carbidopa/Levodopa QID - he is to change to TID once he starts his Entacapone (hasn't started yet) - tells me that she has had issues obtaining this from the pharmacy Plan Chronic Stable Medical conditions: * Hypertension -Continue Amlodipine and Carvedilol * Hyperlipidemia - continue statin * GERD - Continue Protonix * PAF - Continue Xarelto and Carvedilol * LAURENT -CPAP qHS Discussed plan of care w/ at bedside 03/13 and daughter 03/16 via phone 03/17 Dispo: discharge to home today Notes For Next Care Provider admitted with weakness with COVID, did not require supplemental oxygen. encouraged flutter valve at home has not be able to rock picker the encaptone from the pharmacy - encouraged to reach out to neurology if continued to have issues Medication Changes From Visit none Admission HPI Per Admitting Provider Carlos A Hannah is a 73yo male with history of PAF on Eliquis anticoagulation, Parkinson's disease, CAD, HTN, LAURENT presenting from home with Covid-19 infection and weakness. Patient with some degree of ambulatory dysfunction at baseline secondary to his underlying Parkinson's. He is receiving home PT but continues to have issues with strength and balance. Patient's was diagnosed with Covid 3 days ago. Patient developed some congestion and cough earlier today as well as severe weakness. He was unable to climb up the stairs and his was unable to help him therefore EMS was called and he was brought to the ER. Patient denies chest pain or shortness of breath. No abdominal pain, nausea, vomiting, diarrhea. No additional complaints at this time. Patient has never had Covid before. He had some vaccines but not recently. Discharge Exam General: NAD, VS as above Resp: normal respiratory effort, lungs diminished in the bases CV: RRR, no murmur, Abd: normal bowel sounds, non tender, no hepatosplenomegaly Neuro: A&O x3, Skin: intact, no lesions noted Discharge Plan Discharge Items Patient Disposition: Home - Home Health Services Reason For Visit: WEAKNESS, +COVID-19 Discharge Diagnosis: COVID Activity: Per Instructions section Activity Comment: work with therapy to get stronger Weightbearing: Full weightbearing Non-emergency contact: Primary Care Provider Call non-emergency contact if: you have any medication questions, your symptoms worsen and your temperature is above 101 Follow-up/Referrals: James Chu III, CRNP [Primary Care Provider] - 03/24/24 3:40 pm (follow up 7-10 days. Please wear a mask to follow up appointment. ) Diet: Heart Healthy Addtl Attending Provider Instructions: Mr. Hannah, You were hospitalized after having weakness from COVID. Thankfully you have done well with the COVID and did not require any supplemental oxygen. You should take the flutter valve home with you and continue to use this a few times a day. Insurance would not pay for a stay at [facility] and you and your had decided to go home with energy therapy. We did not make any changes to your home medications. - When you are able to get Entacapone, please touch base with neurology to confirm the dose of the Sinement (carbidopa- levodopa) - For now continue the carbidopa-levodopa 50/200 ER 4 times a day Follow-up appointments: Make an appointment with your primary care physician within one week of discharge. A copy of this summary will be sent to them. Every time you see your primary care physician, or any other doctor, bring your medication list, and a list of questions. CONTACT YOUR PRIMARY CARE PROVIDER if you experience any of the following: Shortness of breath or difficulty breathing Fevers or chills Feeling tired with normal activity or experiencing dizziness or fainting Difficulty following your treatment plan, or difficulty taking medications CALL 911 OR GO TO THE EMERGENCY DEPARTMENT if you experience any of the following: Severe abdominal pain or nausea/vomiting Severe chest pain, or chest pain that radiates (moves) to your jaw or arm Sudden, severe shortness of breath or difficulty breathing Thank you for allowing us to participate in your care. Pending Studies at Discharge: No Stand-Alone Forms: My [employer], Smoking Cessation Medications and DC Order Prescriptions: Continued (DME[facility] See Rx Instructions .ROUTE .MEDSUPPLY Qty: 1 0RF Rx Instructions: wheeled walker with seat and hand brakes (DME) Wheelchair (Manual) Device See Rx Instructions .Route Qty: 1 0RF Rx Instructions: As directed terazosin 5 mg capsule 5 mg PO HS Qty: 90 3RF dutasteride 0.5 mg capsule 0.5 mg PO QAM Qty: 90 3RF carbidopa-levodopa 50-200 mg tablet extended release 1 tab PO TID Qty: 360 3RF rivaroxaban 20 mg tablet 20 mg PO QAM Qty: 90 3RF pantoprazole 40 mg tablet,delayed release (DR/EC) 40 mg PO QAM Qty: 90 3RF multivitamin with minerals [Men's One Daily] tablet 1 tab PO QAM acetaminophen [Tylenol Arthritis Pain] 650 mg tablet extended release 650 mg PO Q12H PRN (Reason: fever or pain) Qty: 180 1RF magnesium oxide 400 mg (241.3 mg magnesium) tablet 400 mg PO .COMPLEX Qty: 126 3RF Rx Instructions: Take 800 mg Thursday, Thursday and Thursday. 400 mg every other day of the week. metformin 1,000 mg tablet 1,000 mg PO BID Qty: 180 3RF atorvastatin 40 mg tablet 40 mg PO QAM Qty: 90 3RF carvedilol [Coreg] 25 mg tablet 25 mg PO BID Qty: 180 3RF amlodipine 5 mg tablet 5 mg PO QAM Qty: 90 3RF sertraline 100 mg tablet 100 mg PO HS Qty: 90 3RF (DME) CPAP Machine [facility] See Rx Instructions .MEDSUPPLY Qty: 1 0RF Rx Instructions: T&B. NEW CPAP MACHINE- AUTO CPAP MIN 10 MAX 18. HEATED HUMIDITY. MODEM. MAISHA 99. (DME) CPAP Supplies Misc See Rx Instructions .MEDSUPPLY Qty: 1 0RF Rx Instructions: Care Plus oxygen, appropriately sized nasal pillows or nasal mask hydrochlorothiazide 25 mg tablet 25 mg PO QAM PRN (Reason: edema) Qty: 90 3RF Hold Instructions: Resume on 09/09/23. Gemtesa 75 mg tablet 75 mg PO DAILY Qty: 90 3RF dorzolamide-timolol 22.3-6.8 mg/mL Drops 1 drp OPHTHALMIC (EYE) BID levalbuterol tartrate [Xopenex HFA] 45 mcg/actuation HFA aerosol inhaler 1 - 2 puff inhalation .Q4-6H PRN (Reason: shortness of breath or wheezing) Rx Instructions: 1-2 INH 4-6 hrs PRN; Held entacapone 200 mg tablet 200 mg PO QID Qty: 360 3RF Hold Instructions: Resume on 03/30/24. Discuss Sinemet dose to take with this when able to rock picker from the pharmacy Rx Instructions: administer at the same time as each of the carbadopa/levodopa tablets Has not started yet as of 03/12/24 lisinopril 40 mg tablet 40 mg PO DAILY Qty: 90 3RF Hold Instructions: Resume on 09/08/23. until you discuss with PCP Discharge Orders: Discharge Order (Routine); Ordered 03/17/24 Ordered By: Isaura Yan/Other Patient Handouts: COVID-19 Home Care, Infection Preventing Spread, Falls Prevent Adjust Living Space, Falls Prevent Use Cane Walker Admission Data Admit Date/Time: 03/12/24 00:31 Attending Provider: Mario Canela Admit Provider: Jenae Hopkins Primary Care Provider: James Chu III Other Providers: Jenae Hopkins; [facility] Other Interventions: Discharge Summary Assessment (RN) Last Done: 03/17/24 12:39 Hospital Stay Data Consultations 03/12/24 00:19 ED Decision to Admit Stat Pending Results Patient Have Any Pending Studies at Discharge: No Discharge Instructions Given to Patient (Per Discharging Provider) Mr. Hannah, You were hospitalized after having weakness from COVID. Thankfully you have done well with the COVID and did not require any supplemental oxygen. You should take the flutter valve home with you and continue to use this a few times a day. Insurance would not pay for a stay at [facility] and you and your had decided to go home with energy therapy. We did not make any changes to your home medications. - When you are able to get Entacapone, please touch base with neurology to confirm the dose of the Sinement (carbidopa- levodopa) - For now continue the carbidopa-levodopa 50/200 ER 4 times a day Follow-up appointments: Make an appointment with your primary care physician within one week of discharge. A copy of this summary will be sent to them. Every time you see your primary care physician, or any other doctor, bring your medication list, and a list of questions. CONTACT YOUR PRIMARY CARE PROVIDER if you experience any of the following: Shortness of breath or difficulty breathing Fevers or chills Feeling tired with normal activity or experiencing dizziness or fainting Difficulty following your treatment plan, or difficulty taking medications CALL 911 OR GO TO THE EMERGENCY DEPARTMENT if you experience any of the following: Severe abdominal pain or nausea/vomiting Severe chest pain, or chest pain that radiates (moves) to your jaw or arm Sudden, severe shortness of breath or difficulty breathing Thank you for allowing us to participate in your care. Total Time Total Time Spent Total Time Spent (In Minutes): Time spent day of discharge 32 minutes including direct patient care, medication reconciliation, documentation, review of labs and images, and coordination of care. Coding Level of Care Code 20298 INP/OBS DISCH >30 MIN Diagnoses COVID-19 U07.1 Generalized weakness R53.1 Parkinson's disease without dyskinesia, with fluctuating manifestations G20.A2 Parkinsonism type: Parkinson's disease Dyskinesia presence: without dyskinesia Fluctuating manifestations: with fluctuating manifestations
== END 2024-03-17 15:10 | disposition home health service (06) | DRG 179 ==
LOC: ED 21:59 → 3N 03-12 00:31 → SUATTDRO 03-12 00:31 → 3N 03-12 02:08